=== PATIENT | female | born 1960 | race Caucasian/White ===

== ENCOUNTER 2019-02-22 16:35 | Inpatient (IN) | payer MEDICARE ==
[2019-02-22] MEDS ORDERED: Morphine 4 MG/ML VIAL ONE ×2 (17:12→19:00)
[2019-02-22] MEDS ORDERED: Ondansetron PF 4 MG/2 ML Vial ONE (17:12)
[2019-02-22 17:49] LABS: Bilirubin Negative (Negative); Blood, Urine Moderate (Negative); Clarity CLOUDY (Clear); Glucose, Urine (Dipstick) >=1000 mg/dL (Negative); Leukocyte Small (Negative); Nitrite Positive (Negative); Protein, Urine (Dipstick) 300 mg/dL (Neg-Trace); Specific Gravity, Urine 1.028 (1.002-1.036)
[2019-02-22 17:51] LABS: Bacteria/HPF 3+ HPF (None Seen); Hyaline Casts/LPF 4-6 HYALINE CAST LPF (0-3 Hyaline); Pathc Cast-AUWi Flag 1.63 (0-2.49); Squamous Epithelial 0-3 HPF (0-3)
[2019-02-22] MEDS ORDERED: cefTRIAXone\\ROCEPHIN 1 GM VIAL ONE (18:05)
[2019-02-22] MEDS ORDERED: Sodium Chloride 0.9% 100 ML ONE (18:05)
[2019-02-22 18:09] LABS: #Eosinphils 0.1 thou/uL (0.0-0.7); #Lymphocytes 0.9 thou/uL (1.20-3.40); #Monocytes 0.8 thou/uL (0.11-0.59); #Neutrophils 11.1 thou/uL (1.40-6.50); %Basophils 0.2 % (0.0-1.0); %Eosinophils 0.4 % (0.0-10.0); %Lymphocytes 6.7 % (21.0-51.0); %Monocytes 5.8 % (0.0-10.0); %Neutrophils 86.8 % (42.0-75.0); Hemoglobin 12.6 g/dL (12.0-16.0); Mean Corpuscular HGB CONC 32.1 g/dL (32.0-36.0); Mean Corpuscular Hemoglobin 28.6 pg (27.0-31.0); Mean Corpuscular Volume 89.2 fL (78.0-98.0); Mean Platelet Volume 7.2 fL (7.4-10.4); Platelet Count 287 thou/uL (130-400); RBC Distribution Width 11.8 % (11.5-14.5); Red Blood Cell (RBC) Count 4.41 mill/uL (4.20-5.40); White Blood Cell (WBC) Count 12.8 thou/uL (4.8-10.8)
[2019-02-22 18:29] LABS: ALT (SGPT) Less than 7 U/L (8-55); AST (SGOT) 7 U/L (5-34); Albumin 3.4 g/dL (3.5-5.0); Alkaline Phosphatase 76 U/L (40-150); Anion Gap 17 mmol/L (10-20); BUN (Urea Nitrogen) 40 mg/dL (9.8-20.1); Bilirubin, Total 0.9 mg/dL (0.2-1.2); Calc. Creatinine Clearance 0 mL/min (70-130); Calcium 9.5 mg/dL (7.8-10.44); Carbon Dioxide 24 mmol/L (22-29); Chloride 93 mmol/L (98-107); Estimated GFR-MDRD 22; Globulin 3.8 g/dL (2.4-3.5); Potassium 3.9 mmol/L (3.5-5.1); Protein, Total 7.2 g/dL (6.0-8.3); Sodium 130 mmol/L (136-145)
[2019-02-22 18:38] LABS: Glucose 664 mg/dL (70-105)
[2019-02-22] MEDS ORDERED: Insulin Regular 300 UNITS/3 ML VIAL ONE (18:45)
--- NOTE | 2019-02-22 20:31 | HP ---
PRIMARY CARE PHYSICIAN: Dr. Loren Mata in [place]. CHIEF COMPLAINT: Sudden onset of low back pain on the right side. HISTORY OF PRESENT ILLNESS: Ms. Blair is a pleasant 58-year-old female, who has a history of hypertension, coronary artery disease, and diabetes. She says she normally has chronic low back pain on her left side, but then around 3 p.m., she suddenly had the onset of severe back pain on the right side. She says that it was constant and it was about a 9/10. It was not provoked by anything, and currently it is only relieved with medication that she has received in the emergency room. She denies having any nausea, vomiting, no fever, but she has had some shaking chills. She also admits to having some burning with urination, which started yesterday and noticed increased urinary frequency for the past couple of weeks. She says the pain was so severe that, when she went to the bathroom, she was hardly able to stand up and needed the help of her daughter in order to stand and this along with the pain was the reason she came to the emergency room. In the ER, she had lab work done and she had findings consistent with a urinary tract infection as well as an elevated white blood cell count and an elevated glucose as well as an elevated creatinine. She is being admitted for urinary tract infection with sepsis and acute kidney injury. REVIEW OF SYSTEMS: She has a history of coronary artery disease, but denies having any symptoms of chest pain or shortness of breath. No PND or orthopnea. She did have chest pain when she had her bypass a few years back. Otherwise, all other systems are negative except for that mentioned in the history of present illness. PAST MEDICAL HISTORY: Significant for hypertension, coronary artery disease, diabetes mellitus, hyperlipidemia, anxiety, depression, and chronic back pain. PAST SURGICAL HISTORY: She has had a four-vessel bypass as well as surgery on her C-spine. ALLERGIES: NO KNOWN DRUG ALLERGIES. SOCIAL HISTORY: She admits that she continues to smoke a few cigarettes a day about a pack a week and she has done this for about 20 years. She denies any alcohol or drug use. She is , has 2 children. She would like to be a full code. Her daughter, Meri Salinas, is her surrogate decision maker. FAMILY HISTORY: Significant for diabetes mellitus in her father. CURRENT MEDICATIONS: Include: 1. Carvedilol 6.25 mg twice a day. 2. Aspirin 81 mg daily. 3. Humalog insulin. 4. Abilify 5 mg daily. 5. Vitamin D 50,000 units daily. 6. . 7. Trazodone 100 mg daily. 8. Levemir insulin 50 in the morning and 50 in the evening. 9. Isosorbide mononitrate 30 mg daily. 10. Lisinopril/hydrochlorothiazide 20/12.5 once a day. 11. . 12. Crestor 10 mg daily. PHYSICAL EXAMINATION: GENERAL: She is alert and oriented. She does look ill in appearance. She is well-developed and morbidly obese. VITAL SIGNS: Blood pressure was 188/96, heart rate is 107, respiratory rate of 20, and temperature was 99. HEENT: Her pupils are equal, round, and reactive to light. Extraocular muscles are intact. Her sclerae anicteric. Throat; there is no erythema, no exudates. NECK: No adenopathy. No bruits. LUNGS: Clear to auscultation. There is no wheezing. No rales. No rhonchi. CARDIOVASCULAR: She had a normal S1, S2. There is no S3 or S4. No murmurs, clicks, or rubs. ABDOMEN: Obese. It is soft, nontender, and nondistended. Positive for bowel sounds. No appreciable organomegaly. EXTREMITIES: There is no clubbing or cyanosis. No edema. No calf tenderness. No joint effusions. NEUROLOGIC: Her cranial nerves 2 through 12 are grossly intact. Muscle strength is 5/5 in both upper and lower extremities. SKIN AND INTEGUMENT: She has some erythema and skin maceration in the folds in the lower abdomen and in the groin area with some odor. LABORATORY DATA: White blood cell count was 12.8, hemoglobin 12.9, hematocrit was 39.3, and platelet count was 287. Sodium 130, potassium 3.9, chloride was 93, CO2 was 24, BUN of 40, creatinine 2.23, glucose was 664. Lactic acid is 3.7. Urinalysis, nitrite positive, white blood cell count is too numerous to count, and 3+ bacteria. ASSESSMENT: 1. This is a pleasant 58-year-old female, who presents with a sudden onset of back pain. She has findings consistent with urinary tract infection. However, given the back pain and fever, I suspect she has pyelonephritis. She could also have nephrolithiasis as well. She also has acute kidney injury. Her creatinine is elevated above her baseline level that was seen about a year ago, and she also has elevated blood glucose, but no signs of diabetic ketoacidosis. She will be admitted to the medical floor, started on IV antibiotics as well as fluid resuscitation. Urine culture has been done from the ER, and we will repeat her lactic acid since this was elevated, and she did meet sepsis criteria and therefore has a urinary tract infection with sepsis. 2. Acute kidney injury. I suspect this is likely volume dependent, and hopefully, this will improve with hydration. We will also get a renal ultrasound since her creatinine was too high to do a CT. If there is any sign of hydronephrosis, then a CT stone protocol can be done to rule out nephrolithiasis. 3. Diabetes mellitus, uncontrolled. We will place her on some long-acting insulin as well as a sliding scale and aggressively bring her blood glucose down. 4. Coronary artery disease. This appears to be clinically stable. We will continue her usual home medications with the exception of the lisinopril/hydrochlorothiazide due to the acute kidney injury. 5. Hypertension. Blood pressure is elevated. We will restart her home medicines with the exception of the lisinopril/hydrochlorothiazide and treat her with p.r.n. medications as needed. Job ID: [id number]
[2019-02-22] MEDS ORDERED: hydrALAZINE 20 MG/ML VIAL SLOW IVP PRN (20:47)
[2019-02-22] MEDS ORDERED: Dextrose 50% Abboject 50 ML SYRINGE SLOW IVP PRN (20:47)
[2019-02-22] MEDS ORDERED: Dextrose 5% in Water 1,000 ML IV PRN (20:47)
[2019-02-22] MEDS ORDERED: Ondansetron PF 4 MG/2 ML Vial IVP PRN (20:47)
[2019-02-22] MEDS ORDERED: HumaLOG 300 UNITS/3 ML VIAL SC PRN (20:47)
[2019-02-22] MEDS ORDERED: Ondansetron ODT 4 MG TAB PO PRN (20:47)
[2019-02-22] MEDS ORDERED: Acetaminophen 325 MG TAB PO PRN (20:47)
[2019-02-22] MEDS ORDERED: Insulin Glargine 60 UNITS in Pre-Filled Syringe 1 EACH SC SCH (21:00)
[2019-02-22 21:34] VITALS: BMI 43.7
[2019-02-22 22:04] LABS: Lactic Acid 1.4 mmol/L (0.5-2.2)
[2019-02-22] MEDS: Carvedilol 6.25 MG TAB PO SCH (22:12)
[2019-02-22] MEDS: Atorvastatin Calcium 40 MG TAB PO SCH (22:12)
[2019-02-22] MEDS: Famotidine 20 MG TAB PO SCH (22:12)
[2019-02-22] MEDS: Nystatin Powder 15 GM BOT TOP SCH (22:13)
[2019-02-22] MEDS: Sodium Chloride 0.9% 1,000 ML IV SCH (22:13)
[2019-02-22] MEDS: Nicotine 14 MG PATCH TD SCH (22:14)
[2019-02-22] MEDS: Heparin 5,000 UNITS/ML VIAL SC SCH (22:16)
[2019-02-22] MEDS: HYDROcodone/Acetaminophen 5/325 mg Tablet PO PRN (22:19)
[2019-02-23] MEDS: Sodium Chloride 0.9% 1,000 ML IV SCH ×3 (05:27→21:36)
[2019-02-23] MEDS: HumaLOG 300 UNITS/3 ML VIAL SC PRN ×3 (05:27→17:38)
[2019-02-23 06:45] LABS: #Eosinphils 0.1 thou/uL (0.0-0.7); #Lymphocytes 1.7 thou/uL (1.20-3.40); #Monocytes 0.7 thou/uL (0.11-0.59); %Basophils 0.4 % (0.0-1.0); %Eosinophils 1.3 % (0.0-10.0); %Neutrophils 70.3 % (42.0-75.0); Hemoglobin 12.4 g/dL (12.0-16.0); Mean Corpuscular HGB CONC 32.6 g/dL (32.0-36.0); Mean Corpuscular Hemoglobin 29.3 pg (27.0-31.0); Mean Corpuscular Volume 89.9 fL (78.0-98.0); Mean Platelet Volume 7.1 fL (7.4-10.4); Platelet Count 240 thou/uL (130-400); RBC Distribution Width 11.9 % (11.5-14.5); Red Blood Cell (RBC) Count 4.22 mill/uL (4.20-5.40); White Blood Cell (WBC) Count 8.5 thou/uL (4.8-10.8)
[2019-02-23 07:02] LABS: Hemoglobin A1c 12.6 % (4.0-6.0)
[2019-02-23] MEDS: HYDROcodone/Acetaminophen 5/325 mg Tablet PO PRN ×4 (07:17→21:36)
[2019-02-23 07:30] LABS: Chloride 106 mmol/L (98-107); Potassium 4.6 mmol/L (3.5-5.1); Sodium 133 mmol/L (136-145)
[2019-02-23 07:31] LABS: Calcium 8.8 mg/dL (7.8-10.44); Glucose 210 mg/dL (70-105)
[2019-02-23 07:33] LABS: Anion Gap 16 mmol/L (10-20); Carbon Dioxide 16 mmol/L (22-29)
[2019-02-23 07:34] LABS: Calc. Creatinine Clearance 70 mL/min (70-130); Estimated GFR-MDRD 30
[2019-02-23 07:35] LABS: BUN (Urea Nitrogen) 35 mg/dL (9.8-20.1)
[2019-02-23] MEDS: Carvedilol 6.25 MG TAB PO SCH ×2 (07:39→21:37)
[2019-02-23] MEDS: Heparin 5,000 UNITS/ML VIAL SC SCH ×3 (07:42→21:41)
[2019-02-23] MEDS: Famotidine 20 MG TAB PO SCH ×2 (07:42→21:37)
[2019-02-23] MEDS: Nystatin Powder 15 GM BOT TOP SCH ×2 (07:43→21:38)
--- NOTE | 2019-02-23 07:53 | ULT ---
BILATERAL RENAL ULTRASOUND: Date: 02/23/19 INDICATION: Back pain with history of UTI. COMPARISON: Prior CTA of thorax dated 03/18/16. FINDINGS: Left kidney measures 11.5 x 5.6 x 4.6 cm. Right kidney measures 13.5 x 5.1 x 5.1 cm. There are bilate ral ureteral jets seen at the level of the bladder. No hydronephrosis evident. There is a small suspe cted 6 mm stone within the left mid kidney. No free fluid is evident. IMPRESSION: 1. No focal solid renal lesion or hydronephrosis. 2. Suspected left nephrolithiasis. POS: BH
[2019-02-23] MEDS ORDERED: Diabetic Tussin 200 MG/10 ML UDCUP PO PRN (08:20)
[2019-02-23] MEDS ORDERED: Loratadine 10 MG TAB PO PRN (08:20)
[2019-02-23] MEDS ORDERED: Nitroglycerin 0.4 MG TAB (25 Tab Bottle) SL PRN (08:20)
[2019-02-23] MEDS ORDERED: Calcium Carbonate 500 MG ChewTAB PO PRN (08:20)
[2019-02-23] MEDS ORDERED: Sodium Chloride 0.65% Nasal 44 ML BOT EA NARE PRN (08:20)
[2019-02-23] MEDS ORDERED: Cepastat Lozenges 1 LOZ PO PRN (08:20)
[2019-02-23] MEDS ORDERED: Bisacodyl 10 MG SUPP PR PRN (08:20)
[2019-02-23] MEDS ORDERED: Eucerin (Mineral Oil/Petrolatum,White) 30 gm Jar TOP PRN (08:20)
[2019-02-23] MEDS ORDERED: Loperamide HCl 2 MG CAP PO PRN (08:20)
[2019-02-23] MEDS ORDERED: Artificial Tears 18 DROP/0.9 ML EA EYE PRN (08:20)
[2019-02-23] MEDS ORDERED: Zolpidem Tartrate 5 MG TAB PO PRN (08:20)
[2019-02-23] MEDS ORDERED: Senokot S 8.6-50 MG TAB PO PRN (08:20)
[2019-02-23] MEDS ORDERED: Aspirin 325 mg Enteric Coated Tablet PO SCH (09:00)
[2019-02-23] MEDS: Lisinopril/Hydrochlorothiazide 20 mg/12.5 mg Tablet PO SCH (10:51)
[2019-02-23] MEDS: Ascorbic Acid 500 mg Chewable Tablet PO SCH (10:52)
[2019-02-23] MEDS: Aspirin 81 mg Enteric Coated Tablet PO SCH (10:52)
--- NOTE | 2019-02-23 10:53 | PDOC.PN ---
- Subjective Encounter Start Date: 02/23/19 Encounter Start Time: 08:40 -: old records requested/rev Patient seen and examined. No new complaints. No overnight events - Objective Resuscitation Status - Order Detail: 02/22/19 19:29 Resuscitation Status Routine Resuscitation Status: FULL: Full Resuscitation MAR Reviewed: Yes Vital Signs & Weight: Vital Signs (12 hours) Temp Pulse Resp BP BP Pulse Ox 02/23/19 07:53 97 02/23/19 07:52 97.7 F 73 16 137/81 97 02/23/19 07:39 137/81 02/23/19 04:29 98.2 F 74 18 144/74 H 94 L 02/23/19 00:53 98.7 F 89 18 164/79 H 95 Weight Weight 279 lb 6.4 oz Result Diagrams: 02/23/19 06:18 02/23/19 06:18 Additional Labs: Accuchecks 02/23/19 02/23/19 02/23/19 07:40 04:33 00:47 POC Glucose 126 H 273 H 370 H 02/22/19 02/22/19 22:22 19:38 POC Glucose 378 H 427 H Phys Exam - Physical Examination Constitutional: NAD HEENT: PERRLA, moist MMs, sclera anicteric Neck: no JVD, supple Respiratory: no wheezing, no rales, no rhonchi Cardiovascular: RRR, no significant murmur, no rub Gastrointestinal: soft, non-tender, no distention, positive bowel sounds Musculoskeletal: no edema, pulses present Neurological: moves all 4 limbs Lymphatic: no nodes Psychiatric: normal affect, A&O x 3 Skin: no rash, normal turgor Dx/Plan (1) Acute pyelonephritis Code(s): N10 - ACUTE PYELONEPHRITIS Status: Acute (2) Acute worsening of stage 3 chronic kidney disease Code(s): N18.3 - CHRONIC KIDNEY DISEASE, STAGE 3 (MODERATE) Status: Acute (3) CAD (coronary artery disease) Code(s): I25.10 - ATHSCL HEART DISEASE OF [place] CORONARY ARTERY W/O ANG PCTRS Status: Chronic (4) Chronic back pain Code(s): M54.9 - DORSALGIA, UNSPECIFIED; G89.29 - OTHER CHRONIC PAIN Status: Chronic (5) Diabetes mellitus type 2, uncontrolled Code(s): E11.65 - TYPE 2 DIABETES MELLITUS WITH HYPERGLYCEMIA Status: Chronic (6) Hx of pulmonary embolus Code(s): Z86.711 - PERSONAL HISTORY OF PULMONARY EMBOLISM Status: Chronic (7) Hyperlipidemia Code(s): E78.5 - HYPERLIPIDEMIA, UNSPECIFIED Status: Chronic (8) Hypertension Code(s): I10 - ESSENTIAL (PRIMARY) HYPERTENSION Status: Chronic (9) Morbid obesity with BMI of 40.0-44.9, adult Code(s): E66.01 - MORBID (SEVERE) OBESITY DUE TO EXCESS CALORIES; Z68.41 - BODY MASS INDEX (BMI) 40.0-44.9, ADULT Status: Chronic - Plan cont current plan of care, continue antibiotics * medication reviewed as below * symptomatic treatment * continue IV antibiotics, rocephin and levaquin * follow culture. * home meds reconciled Review of Systems - Review of Systems ENT: negative: Ear Pain, Ear Discharge, Nose Pain, Nose Discharge, Nose Congestion, Mouth Pain, Mouth Swelling, Throat Pain, Throat Swelling, Other Respiratory: negative: Cough, Dry, Shortness of Breath, Hemoptysis, SOB with Excertion, Pleuritic Pain, Sputum, Wheezing Cardiovascular: negative: chest pain, palpitations, orthopnea, paroxysmal nocturnal dyspnea, edema, light headedness, other Gastrointestinal: negative: Nausea, Vomiting, Abdominal Pain, Diarrhea, Constipation, Melena, Hematochezia, Other Genitourinary: negative: Dysuria, Frequency, Incontinence, Hematuria, Retention , Other Musculoskeletal: negative: Neck Pain, Shoulder Pain, Arm Pain, Back Pain, Hand Pain, Leg Pain, Foot Pain, Other Skin: negative: Rash, Lesions, Janak, Bruising, Other - Medications/Allergies Allergies/Adverse Reactions: Allergies Allergy/AdvReac Type Severity Reaction Status Date / Time No Known Allergies Allergy Verified 03/18/16 03:31 Medications: Current Medications Acetaminophen (Tylenol) 650 mg PO Q4H PRN PRN Reason: Headache/Fever/Mild Pain (1-3) Hydrocodone Bitart/Acetaminophen ([place] 5/325) 1 tab PO Q4H PRN PRN Reason: Moderate Pain (4-6) Last Admin: 02/23/19 10:51 Dose: 1 tab Aripiprazole (Abilify) 5 mg PO HS [facility] Artificial Tears (Tears Naturale) 2 drop EA EYE PRN PRN PRN Reason: Dry Eyes Ascorbic Acid (Vitamin C) 500 mg PO DAILY [facility] Last Admin: 02/23/19 10:52 Dose: 500 mg Aspirin (Ecotrin) 81 mg PO DAILY [facility] Last Admin: 02/23/19 10:52 Dose: 81 mg Atorvastatin Calcium (Lipitor) 40 mg PO HS [facility] Last Admin: 02/22/19 22:12 Dose: 40 mg Bisacodyl (Dulcolax) 10 mg SC DAILYPRN PRN PRN Reason: Constipation Calcium Carbonate (Tums) 1,000 mg PO Q4H PRN PRN Reason: Heartburn or Indigestion Carvedilol (Coreg) 6.25 mg PO BID [facility] Last Admin: 02/23/19 07:39 Dose: 6.25 mg Cholecalciferol (Vitamin D3) 5,000 units PO DAILY [facility] Last Admin: 02/23/19 10:52 Dose: 5,000 units Clonidine (Catapres) 0.1 mg PO Q4H PRN PRN Reason: SBP GREATER THAN 160 Dextrose/Water (Dextrose 50%) 25 gm SLOW IVP PRN PRN PRN Reason: Hypoglycemia Famotidine (Pepcid) 20 mg PO BID [facility] Last Admin: 02/23/19 07:42 Dose: 20 mg Glucagon (Glucagon) 1 mg IM PRN PRN PRN Reason: Hypoglycemia Guaifenesin (Robitussin Sf) 200 mg PO Q4H PRN PRN Reason: Cough Lisinopril/HCTZ (Prinizide 20-12.5) 1 tab PO DAILY [facility] Last Admin: 02/23/19 10:51 Dose: 1 tab Heparin Sodium (Porcine) (Heparin) 5,000 units SC TID [facility] Last Admin: 02/23/19 07:42 Dose: 5,000 units Hydralazine HCl (Apresoline) 10 mg SLOW IVP Q4H PRN PRN Reason: SBP > 180 and HR < 70 Ceftriaxone Sodium 1 gm/ (Sodium Chloride) 100 mls @ 200 mls/hr IVPB Q24HR [facility] Dextrose/Water (D5w) 1,000 mls @ 0 mls/hr IV .Q0M PRN PRN Reason: Hypoglycemia Insulin Glargine 50 units/ (Miscellaneous Medication) 0.5 mls @ 0 mls/hr SC QAM [facility] Levofloxacin 500 mg/ Device 100 mls @ 100 mls/hr IVPB Q24HR [facility] Last Admin: 02/22/19 22:13 Dose: 100 mls Sodium Chloride (Normal Saline 0.9%) 1,000 mls @ 125 mls/hr IV .Q8H [facility] Last Admin: 02/23/19 05:27 Dose: 1,000 mls Insulin Glargine 58 units/ (Miscellaneous Medication) 0.58 mls @ 0 mls/hr SC [facility] Insulin Human Lispro (Humalog) 0 units SC .AGGRESSIVE SLIDING PRN PRN Reason: Aggressive Correctional Scale Last Admin: 02/23/19 05:27 Dose: 9 unit Insulin Human Lispro (Humalog) 0 units SC .BEDTIME SLIDING SC PRN PRN Reason: Bedtime Correctional Scale Isosorbide Mononitrate (Imdur Er) 30 mg PO DAILY [facility] Last Admin: 02/23/19 07:42 Dose: 30 mg Loperamide HCl (Imodium) 2 mg PO PRN PRN PRN Reason: Diarrhea/Loose Stools Loratadine (Claritin) 10 mg PO DAILYPRN PRN PRN Reason: Sinus Symptoms Mineral Oil/White Petrolatum (Eucerin Cream) 0 gm TOP BIDPRN PRN PRN Reason: Dry Skin Nicotine (Nicoderm Patch) 14 mg TD Q24HR [facility] Last Admin: 02/22/19 22:14 Dose: 14 mg Nitroglycerin (Nitrostat) 0.4 mg SL Q5MIN PRN PRN Reason: Chest Pain (Vortioxetine Hydrobromide [ Trintellix] 20 Mg) 20 mg PO DAILY [facility] Nystatin (Mycostatin Powder) 1 gm TOP BID [facility] Last Admin: 02/23/19 07:43 Dose: 1 applic Ondansetron HCl (Zofran Odt) 4 mg PO Q6H PRN PRN Reason: Nausea/Vomiting Ondansetron HCl (Zofran) 4 mg IVP Q6H PRN PRN Reason: Nausea/Vomiting Senna/Docusate Sodium (Senokot S) 2 tab PO BID PRN PRN Reason: Constipation Sodium Chloride ([place] Nasal [place] 0.65%) 0 ml EA NARE QIDPRN PRN PRN Reason: Nasal Congestion Throat Lozenges (Cepastat Lozenges) 1 srikanth PO Q2H PRN PRN Reason: Sore Throat Trazodone HCl (Desyrel) 100 mg PO HS [facility] Last Admin: 02/22/19 22:12 Dose: 100 mg Zolpidem Tartrate (Ambien) 5 mg PO HSPRN PRN PRN Reason: Insomnia
[2019-02-23] MEDS: cloNIDine 0.1 MG TAB PO PRN ×2 (12:48→17:38)
[2019-02-23] MEDS: Insulin Glargine 50 UNITS in Pre-Filled Syringe 1 EACH SC SCH (14:06)
[2019-02-23] MEDS: cefTRIAXone\\ROCEPHIN 1 GM in Sodium Chloride 0.9% 100 ML IVPB SCH (17:37)
[2019-02-23] MEDS ORDERED: INSULIN DETEMIR SC SCH (21:00)
[2019-02-23] MEDS: Atorvastatin Calcium 40 MG TAB PO SCH (21:38)
[2019-02-23] MEDS: Insulin Glargine 58 UNITS in Pre-Filled Syringe 1 EACH SC SCH (21:41)
[2019-02-23] MEDS: Nicotine 14 MG PATCH TD SCH (21:50)
[2019-02-24] MEDS: Sodium Chloride 0.9% 1,000 ML IV SCH ×4 (04:39→20:17)
[2019-02-24] MEDS: HYDROcodone/Acetaminophen 5/325 mg Tablet PO PRN ×5 (04:55→22:23)
[2019-02-24 08:12] LABS: #Eosinphils 0.2 thou/uL (0.0-0.7); #Lymphocytes 1.8 thou/uL (1.20-3.40); #Monocytes 0.7 thou/uL (0.11-0.59); #Neutrophils 5.4 thou/uL (1.40-6.50); %Basophils 0.5 % (0.0-1.0); %Eosinophils 2.9 % (0.0-10.0); %Lymphocytes 22.2 % (21.0-51.0); %Neutrophils 66.4 % (42.0-75.0); Hemoglobin 12.7 g/dL (12.0-16.0); Mean Corpuscular HGB CONC 32.5 g/dL (32.0-36.0); Mean Corpuscular Hemoglobin 28.6 pg (27.0-31.0); Mean Corpuscular Volume 88.2 fL (78.0-98.0); Mean Platelet Volume 6.9 fL (7.4-10.4); Platelet Count 245 thou/uL (130-400); Red Blood Cell (RBC) Count 4.42 mill/uL (4.20-5.40); White Blood Cell (WBC) Count 8.1 thou/uL (4.8-10.8)
[2019-02-24 08:24] LABS: Anion Gap 16 mmol/L (10-20); BUN (Urea Nitrogen) 30 mg/dL (9.8-20.1); Calc. Creatinine Clearance 75 mL/min (70-130); Calcium 9.2 mg/dL (7.8-10.44); Carbon Dioxide 20 mmol/L (22-29); Chloride 106 mmol/L (98-107); Estimated GFR-MDRD 33; Glucose 126 mg/dL (70-105); Potassium 3.9 mmol/L (3.5-5.1); Sodium 138 mmol/L (136-145)
[2019-02-24] MEDS: Heparin 5,000 UNITS/ML VIAL SC SCH ×3 (09:11→20:10)
[2019-02-24] MEDS: Carvedilol 6.25 MG TAB PO SCH ×2 (09:11→20:09)
[2019-02-24] MEDS: Aspirin 81 mg Enteric Coated Tablet PO SCH (09:11)
[2019-02-24] MEDS: Insulin Glargine 50 UNITS in Pre-Filled Syringe 1 EACH SC SCH (09:12)
[2019-02-24] MEDS: Lisinopril/Hydrochlorothiazide 20 mg/12.5 mg Tablet PO SCH (09:12)
[2019-02-24] MEDS: Ascorbic Acid 500 mg Chewable Tablet PO SCH (09:12)
[2019-02-24] MEDS: Nystatin Powder 15 GM BOT TOP SCH ×2 (09:12→20:39)
[2019-02-24] MEDS: Famotidine 20 MG TAB PO SCH ×2 (12:25→20:10)
--- NOTE | 2019-02-24 13:26 | PDOC.PN ---
- Subjective Encounter Start Date: 02/24/19 Encounter Start Time: 08:00 Patient seen and examined. No new complaints. No overnight events - Objective Resuscitation Status - Order Detail: 02/22/19 19:29 Resuscitation Status Routine Resuscitation Status: FULL: Full Resuscitation MAR Reviewed: Yes Vital Signs & Weight: Vital Signs (12 hours) Temp Pulse Resp BP BP BP Pulse Ox 02/24/19 11:28 98.1 F 87 18 140/92 H 95 02/24/19 09:12 74 155/83 H 02/24/19 09:11 155/83 H 02/24/19 08:00 99 02/24/19 07:14 97.8 F 74 19 155/83 H 99 02/24/19 04:00 97.8 F 63 20 139/80 98 Weight Weight 279 lb 6.4 oz I&O: 02/23/19 02/24/19 02/25/19 06:59 06:59 06:59 Intake Total 4380 Balance 4380 Result Diagrams: 02/24/19 07:53 02/24/19 07:53 Additional Labs: Accuchecks 02/24/19 02/24/19 02/24/19 11:31 05:17 00:29 POC Glucose 223 H 126 H 175 H 02/23/19 02/23/19 20:42 17:01 POC Glucose 215 H 286 H Phys Exam - Physical Examination Constitutional: NAD HEENT: PERRLA, moist MMs, sclera anicteric Neck: no JVD, supple Respiratory: no wheezing, no rales, no rhonchi Cardiovascular: RRR, no significant murmur, no rub Gastrointestinal: soft, non-tender, no distention, positive bowel sounds Musculoskeletal: no edema, pulses present Neurological: non-focal, normal sensation, moves all 4 limbs Lymphatic: no nodes Psychiatric: normal affect, A&O x 3 Skin: no rash, normal turgor Dx/Plan (1) Acute pyelonephritis Code(s): N10 - ACUTE PYELONEPHRITIS Status: Acute (2) Acute worsening of stage 3 chronic kidney disease Code(s): N18.3 - CHRONIC KIDNEY DISEASE, STAGE 3 (MODERATE) Status: Acute (3) CAD (coronary artery disease) Code(s): I25.10 - ATHSCL HEART DISEASE OF [place] CORONARY ARTERY W/O ANG PCTRS Status: Chronic (4) Chronic back pain Code(s): M54.9 - DORSALGIA, UNSPECIFIED; G89.29 - OTHER CHRONIC PAIN Status: Chronic (5) Diabetes mellitus type 2, uncontrolled Code(s): E11.65 - TYPE 2 DIABETES MELLITUS WITH HYPERGLYCEMIA Status: Chronic (6) Hx of pulmonary embolus Code(s): Z86.711 - PERSONAL HISTORY OF PULMONARY EMBOLISM Status: Chronic (7) Hyperlipidemia Code(s): E78.5 - HYPERLIPIDEMIA, UNSPECIFIED Status: Chronic (8) Hypertension Code(s): I10 - ESSENTIAL (PRIMARY) HYPERTENSION Status: Chronic (9) Morbid obesity with BMI of 40.0-44.9, adult Code(s): E66.01 - MORBID (SEVERE) OBESITY DUE TO EXCESS CALORIES; Z68.41 - BODY MASS INDEX (BMI) 40.0-44.9, ADULT Status: Chronic - Plan cont current plan of care, continue antibiotics * pt is improving, continue one more day iv antibiotics * will consider discharge tomorrow * medication reviewed as below * symptomatic treatment. Review of Systems - Review of Systems ENT: negative: Ear Pain, Ear Discharge, Nose Pain, Nose Discharge, Nose Congestion, Mouth Pain, Mouth Swelling, Throat Pain, Throat Swelling, Other Respiratory: negative: Cough, Dry, Shortness of Breath, Hemoptysis, SOB with Excertion, Pleuritic Pain, Sputum, Wheezing Cardiovascular: negative: chest pain, palpitations, orthopnea, paroxysmal nocturnal dyspnea, edema, light headedness, other Gastrointestinal: negative: Nausea, Vomiting, Abdominal Pain, Diarrhea, Constipation, Melena, Hematochezia, Other Genitourinary: negative: Dysuria, Frequency, Incontinence, Hematuria, Retention , Other Musculoskeletal: negative: Neck Pain, Shoulder Pain, Arm Pain, Back Pain, Hand Pain, Leg Pain, Foot Pain, Other - Medications/Allergies Allergies/Adverse Reactions: Allergies Allergy/AdvReac Type Severity Reaction Status Date / Time No Known Allergies Allergy Verified 03/18/16 03:31 Medications: Current Medications Acetaminophen (Tylenol) 650 mg PO Q4H PRN PRN Reason: Headache/Fever/Mild Pain (1-3) Hydrocodone Bitart/Acetaminophen ([place] 5/325) 1 tab PO Q4H PRN PRN Reason: Moderate Pain (4-6) Last Admin: 02/24/19 13:22 Dose: 1 tab Aripiprazole (Abilify) 5 mg PO HS [facility] Artificial Tears (Tears Naturale) 2 drop EA EYE PRN PRN PRN Reason: Dry Eyes Ascorbic Acid (Vitamin C) 500 mg PO DAILY [facility] Last Admin: 02/24/19 09:12 Dose: 500 mg Aspirin (Ecotrin) 81 mg PO DAILY [facility] Last Admin: 02/24/19 09:11 Dose: 81 mg Atorvastatin Calcium (Lipitor) 40 mg PO HS [facility] Last Admin: 02/23/19 21:38 Dose: 40 mg Bisacodyl (Dulcolax) 10 mg [place] DAILYPRN PRN PRN Reason: Constipation Calcium Carbonate (Tums) 1,000 mg PO Q4H PRN PRN Reason: Heartburn or Indigestion Carvedilol (Coreg) 6.25 mg PO BID [facility] Last Admin: 02/24/19 09:11 Dose: 6.25 mg Cholecalciferol (Vitamin D3) 5,000 units PO DAILY [facility] Last Admin: 02/24/19 09:11 Dose: 5,000 units Clonidine (Catapres) 0.1 mg PO Q4H PRN PRN Reason: SBP GREATER THAN 160 Last Admin: 02/23/19 17:38 Dose: 0.1 mg Dextrose/Water (Dextrose 50%) 25 gm SLOW IVP PRN PRN PRN Reason: Hypoglycemia Famotidine (Pepcid) 20 mg PO BID [facility] Last Admin: 02/24/19 12:25 Dose: 20 mg Glucagon (Glucagon) 1 mg IM PRN PRN PRN Reason: Hypoglycemia Guaifenesin (Robitussin Sf) 200 mg PO Q4H PRN PRN Reason: Cough Lisinopril/HCTZ (Prinizide 20-12.5) 1 tab PO DAILY [facility] Last Admin: 02/24/19 09:12 Dose: 1 tab Heparin Sodium (Porcine) (Heparin) 5,000 units SC TID [facility] Last Admin: 02/24/19 09:11 Dose: 5,000 units Hydralazine HCl (Apresoline) 10 mg SLOW IVP Q4H PRN PRN Reason: SBP > 180 and HR < 70 Ceftriaxone Sodium 1 gm/ (Sodium Chloride) 100 mls @ 200 mls/hr IVPB Q24HR [facility] Last Admin: 02/23/19 17:37 Dose: 100 mls Dextrose/Water (D5w) 1,000 mls @ 0 mls/hr IV .Q0M PRN PRN Reason: Hypoglycemia Insulin Glargine 50 units/ (Miscellaneous Medication) 0.5 mls @ 0 mls/hr SC QAM [facility] Last Admin: 02/24/19 09:12 Dose: 0.5 mls Levofloxacin 500 mg/ Device 100 mls @ 100 mls/hr IVPB Q24HR [facility] Last Admin: 02/23/19 21:50 Dose: 100 mls Sodium Chloride (Normal Saline 0.9%) 1,000 mls @ 125 mls/hr IV .Q8H [facility] Last Admin: 02/24/19 09:10 Dose: 1,000 mls Insulin Glargine 58 units/ (Miscellaneous Medication) 0.58 mls @ 0 mls/hr SC HS [facility] Last Admin: 02/23/19 21:41 Dose: 0.58 mls Insulin Human Lispro (Humalog) 0 units SC .AGGRESSIVE SLIDING PRN PRN Reason: Aggressive Correctional Scale Last Admin: 02/23/19 17:38 Dose: 9 unit Insulin Human Lispro (Humalog) 0 units SC .BEDTIME SLIDING SC PRN PRN Reason: Bedtime Correctional Scale Last Admin: 02/23/19 21:42 Dose: 2 unit Isosorbide Mononitrate (Imdur Er) 30 mg PO DAILY [facility] Last Admin: 02/24/19 09:11 Dose: 30 mg Loperamide HCl (Imodium) 2 mg PO PRN PRN PRN Reason: Diarrhea/Loose Stools Loratadine (Claritin) 10 mg PO DAILYPRN PRN PRN Reason: Sinus Symptoms Mineral Oil/White Petrolatum (Eucerin Cream) 0 gm TOP BIDPRN PRN PRN Reason: Dry Skin Nicotine (Nicoderm Patch) 14 mg TD Q24HR [facility] Last Admin: 02/23/19 21:50 Dose: 14 mg Nitroglycerin (Nitrostat) 0.4 mg SL Q5MIN PRN PRN Reason: Chest Pain Nystatin (Mycostatin Powder) 1 gm TOP BID [facility] Last Admin: 02/24/19 09:12 Dose: 1 applic Ondansetron HCl (Zofran Odt) 4 mg PO Q6H PRN PRN Reason: Nausea/Vomiting Ondansetron HCl (Zofran) 4 mg IVP Q6H PRN PRN Reason: Nausea/Vomiting (Vortioxetine Hydrobromide [ Trintellix] 20 Mg) 0 each PO DAILY [facility] Last Admin: 02/24/19 09:13 Dose: 1 each Senna/Docusate Sodium (Senokot S) 2 tab PO BID PRN PRN Reason: Constipation Sodium Chloride ([place] Nasal [place] 0.65%) 0 ml EA NARE QIDPRN PRN PRN Reason: Nasal Congestion Throat Lozenges (Cepastat Lozenges) 1 srikanth PO Q2H PRN PRN Reason: Sore Throat Trazodone HCl (Desyrel) 100 mg PO [facility] Last Admin: 02/23/19 21:38 Dose: 100 mg Zolpidem Tartrate (Ambien) 5 mg PO HSPRN PRN PRN Reason: Insomnia
[2019-02-24] MEDS: HumaLOG 300 UNITS/3 ML VIAL SC PRN (17:35)
[2019-02-24] MEDS: cefTRIAXone\\ROCEPHIN 1 GM in Sodium Chloride 0.9% 100 ML IVPB SCH (17:37)
[2019-02-24] MEDS: Aripiprazole 10 MG TAB PO SCH (20:08)
[2019-02-24] MEDS: Atorvastatin Calcium 40 MG TAB PO SCH (20:08)
[2019-02-24] MEDS: Insulin Glargine 58 UNITS in Pre-Filled Syringe 1 EACH SC SCH (20:11)
[2019-02-24] MEDS: Nicotine 14 MG PATCH TD SCH (20:39)
[2019-02-25] MEDS: Sodium Chloride 0.9% 1,000 ML IV SCH ×3 (04:10→20:23)
[2019-02-25] MEDS: HYDROcodone/Acetaminophen 5/325 mg Tablet PO PRN ×5 (04:18→20:44)
[2019-02-25] MEDS: Lisinopril/Hydrochlorothiazide 20 mg/12.5 mg Tablet PO SCH (08:26)
[2019-02-25] MEDS: Heparin 5,000 UNITS/ML VIAL SC SCH ×3 (08:26→20:10)
[2019-02-25] MEDS: Carvedilol 6.25 MG TAB PO SCH ×2 (08:27→20:10)
[2019-02-25] MEDS: Ascorbic Acid 500 mg Chewable Tablet PO SCH (08:27)
[2019-02-25] MEDS: Famotidine 20 MG TAB PO SCH ×2 (08:27→20:10)
[2019-02-25] MEDS: Aspirin 81 mg Enteric Coated Tablet PO SCH (08:27)
[2019-02-25] MEDS: Nystatin Powder 15 GM BOT TOP SCH ×2 (08:30→20:11)
[2019-02-25] MEDS: HumaLOG 300 UNITS/3 ML VIAL SC PRN (11:43)
[2019-02-25] MEDS: cloNIDine 0.1 MG TAB PO PRN (11:44)
--- NOTE | 2019-02-25 14:38 | PDOC.PN ---
- Subjective Encounter Start Date: 02/25/19 Encounter Start Time: 10:15 Patient seen and examined. No new complaints. No overnight events - Objective Resuscitation Status - Order Detail: 02/22/19 19:29 Resuscitation Status Routine Resuscitation Status: FULL: Full Resuscitation MAR Reviewed: Yes Vital Signs & Weight: Vital Signs (12 hours) Temp Pulse Resp BP BP BP BP 02/25/19 13:16 142/81 H 02/25/19 11:44 198/92 H 02/25/19 11:29 98.3 F 90 18 198/92 H 02/25/19 08:27 181/96 H 02/25/19 08:26 89 181/96 H 02/25/19 08:00 02/25/19 07:53 97.8 F 89 18 181/96 H 02/25/19 04:00 98.0 F 80 20 164/86 H Pulse Ox 02/25/19 13:16 02/25/19 11:44 02/25/19 11:29 95 02/25/19 08:27 02/25/19 08:26 02/25/19 08:00 97 02/25/19 07:53 97 02/25/19 04:00 98 Weight Weight 279 lb 6.4 oz I&O: 02/24/19 02/25/19 02/26/19 06:59 06:59 06:59 Intake Total 4380 2835 Balance 4380 2835 Result Diagrams: 02/24/19 07:53 02/24/19 07:53 Additional Labs: Accuchecks 02/25/19 02/25/19 02/25/19 10:57 04:21 02:11 POC Glucose 226 H 200 H 116 H 02/25/19 02/25/19 02/24/19 01:15 00:08 19:51 POC Glucose 57 L* 73 173 H 02/24/19 16:20 POC Glucose 273 H Phys Exam - Physical Examination Constitutional: NAD HEENT: PERRLA, moist MMs, sclera anicteric Neck: no JVD, supple Respiratory: no wheezing, no rales, no rhonchi Cardiovascular: RRR, no significant murmur, no rub Gastrointestinal: soft, non-tender, no distention, positive bowel sounds Musculoskeletal: no edema, pulses present Neurological: non-focal, normal sensation Lymphatic: no nodes Psychiatric: normal affect, A&O x 3 Skin: no rash, normal turgor Dx/Plan (1) Acute pyelonephritis Code(s): N10 - ACUTE PYELONEPHRITIS Status: Acute (2) Acute worsening of stage 3 chronic kidney disease Code(s): N18.3 - CHRONIC KIDNEY DISEASE, STAGE 3 (MODERATE) Status: Acute (3) CAD (coronary artery disease) Code(s): I25.10 - ATHSCL HEART DISEASE OF [place] CORONARY ARTERY W/O ANG PCTRS Status: Chronic (4) Chronic back pain Code(s): M54.9 - DORSALGIA, UNSPECIFIED; G89.29 - OTHER CHRONIC PAIN Status: Chronic (5) Diabetes mellitus type 2, uncontrolled Code(s): E11.65 - TYPE 2 DIABETES MELLITUS WITH HYPERGLYCEMIA Status: Chronic (6) Hx of pulmonary embolus Code(s): Z86.711 - PERSONAL HISTORY OF PULMONARY EMBOLISM Status: Chronic (7) Hyperlipidemia Code(s): E78.5 - HYPERLIPIDEMIA, UNSPECIFIED Status: Chronic (8) Hypertension Code(s): I10 - ESSENTIAL (PRIMARY) HYPERTENSION Status: Chronic (9) Morbid obesity with BMI of 40.0-44.9, adult Code(s): E66.01 - MORBID (SEVERE) OBESITY DUE TO EXCESS CALORIES; Z68.41 - BODY MASS INDEX (BMI) 40.0-44.9, ADULT Status: Chronic (10) Hypoglycemia associated with type 2 diabetes mellitus Code(s): E11.649 - TYPE 2 DIABETES MELLITUS WITH HYPOGLYCEMIA WITHOUT COMA Status: Acute - Plan cont current plan of care, continue antibiotics, 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 * change lantus to 45 unit sc bid Review of Systems - Review of Systems ENT: negative: Ear Pain, Ear Discharge, Nose Pain, Nose Discharge, Nose Congestion, Mouth Pain, Mouth Swelling, Throat Pain, Throat Swelling, Other Respiratory: negative: Cough, Dry, Shortness of Breath, Hemoptysis, SOB with Excertion, Pleuritic Pain, Sputum, Wheezing Cardiovascular: negative: chest pain, palpitations, orthopnea, paroxysmal nocturnal dyspnea, edema, light headedness, other Gastrointestinal: negative: Nausea, Vomiting, Abdominal Pain, Diarrhea, Constipation, Melena, Hematochezia, Other Genitourinary: negative: Dysuria, Frequency, Incontinence, Hematuria, Retention , Other Musculoskeletal: negative: Neck Pain, Shoulder Pain, Arm Pain, Back Pain, Hand Pain, Leg Pain, Foot Pain, Other - Medications/Allergies Allergies/Adverse Reactions: Allergies Allergy/AdvReac Type Severity Reaction Status Date / Time No Known Allergies Allergy Verified 03/18/16 03:31 Medications: Current Medications Acetaminophen (Tylenol) 650 mg PO Q4H PRN PRN Reason: Headache/Fever/Mild Pain (1-3) Hydrocodone Bitart/Acetaminophen ([place] 5/325) 1 tab PO Q4H PRN PRN Reason: Moderate Pain (4-6) Last Admin: 02/25/19 12:25 Dose: 1 tab Aripiprazole (Abilify) 5 mg PO HS [facility] Last Admin: 02/24/19 20:08 Dose: 5 mg Artificial Tears (Tears Naturale) 2 drop EA EYE PRN PRN PRN Reason: Dry Eyes Ascorbic Acid (Vitamin C) 500 mg PO DAILY [facility] Last Admin: 02/25/19 08:27 Dose: 500 mg Aspirin (Ecotrin) 81 mg PO DAILY [facility] Last Admin: 02/25/19 08:27 Dose: 81 mg Atorvastatin Calcium (Lipitor) 40 mg PO HS [facility] Last Admin: 02/24/19 20:08 Dose: 40 mg Bisacodyl (Dulcolax) 10 mg [place] DAILYPRN PRN PRN Reason: Constipation Calcium Carbonate (Tums) 1,000 mg PO Q4H PRN PRN Reason: Heartburn or Indigestion Carvedilol (Coreg) 6.25 mg PO BID [facility] Last Admin: 02/25/19 08:27 Dose: 6.25 mg Cholecalciferol (Vitamin D3) 5,000 units PO DAILY [facility] Last Admin: 02/25/19 08:26 Dose: 5,000 units Clonidine (Catapres) 0.1 mg PO Q4H PRN PRN Reason: SBP GREATER THAN 160 Last Admin: 02/25/19 11:44 Dose: 0.1 mg Dextrose/Water (Dextrose 50%) 25 gm SLOW IVP PRN PRN PRN Reason: Hypoglycemia Famotidine (Pepcid) 20 mg PO BID [facility] Last Admin: 02/25/19 08:27 Dose: 20 mg Glucagon (Glucagon) 1 mg IM PRN PRN PRN Reason: Hypoglycemia Guaifenesin (Robitussin Sf) 200 mg PO Q4H PRN PRN Reason: Cough Lisinopril/HCTZ (Prinizide 20-12.5) 1 tab PO DAILY [facility] Last Admin: 02/25/19 08:26 Dose: 1 tab Heparin Sodium (Porcine) (Heparin) 5,000 units SC TID [facility] Last Admin: 02/25/19 08:26 Dose: 5,000 units Hydralazine HCl (Apresoline) 10 mg SLOW IVP Q4H PRN PRN Reason: SBP > 180 and HR < 70 Ceftriaxone Sodium 1 gm/ (Sodium Chloride) 100 mls @ 200 mls/hr IVPB Q24HR [facility] Last Admin: 02/24/19 17:37 Dose: 100 mls Dextrose/Water (D5w) 1,000 mls @ 0 mls/hr IV .Q0M PRN PRN Reason: Hypoglycemia Levofloxacin 500 mg/ Device 100 mls @ 100 mls/hr IVPB Q24HR [facility] Last Admin: 02/24/19 20:38 Dose: 100 mls Sodium Chloride (Normal Saline 0.9%) 1,000 mls @ 125 mls/hr IV .Q8H [facility] Last Admin: 02/25/19 12:26 Dose: 1,000 mls Insulin Glargine 45 units/ (Miscellaneous Medication) 0.45 mls @ 0 mls/hr SC BID [facility] Insulin Human Lispro (Humalog) 0 units SC .AGGRESSIVE SLIDING PRN PRN Reason: Aggressive Correctional Scale Last Admin: 02/25/19 11:43 Dose: 6 unit Insulin Human Lispro (Humalog) 0 units SC .BEDTIME SLIDING SC PRN PRN Reason: Bedtime Correctional Scale Last Admin: 02/23/19 21:42 Dose: 2 unit Isosorbide Mononitrate (Imdur Er) 30 mg PO DAILY [facility] Last Admin: 02/25/19 08:26 Dose: 30 mg Loperamide HCl (Imodium) 2 mg PO PRN PRN PRN Reason: Diarrhea/Loose Stools Loratadine (Claritin) 10 mg PO DAILYPRN PRN PRN Reason: Sinus Symptoms Mineral Oil/White Petrolatum (Eucerin Cream) 0 gm TOP BIDPRN PRN PRN Reason: Dry Skin Nicotine (Nicoderm Patch) 14 mg TD Q24HR [facility] Last Admin: 02/24/19 20:39 Dose: 14 mg Nitroglycerin (Nitrostat) 0.4 mg SL Q5MIN PRN PRN Reason: Chest Pain Nystatin (Mycostatin Powder) 1 gm TOP BID [facility] Last Admin: 02/25/19 08:30 Dose: 1 applic Ondansetron HCl (Zofran Odt) 4 mg PO Q6H PRN PRN Reason: Nausea/Vomiting Ondansetron HCl (Zofran) 4 mg IVP Q6H PRN PRN Reason: Nausea/Vomiting (Vortioxetine Hydrobromide [ Trintellix] 20 Mg) 0 each PO DAILY [facility] Last Admin: 02/25/19 08:30 Dose: 1 each Senna/Docusate Sodium (Senokot S) 2 tab PO BID PRN PRN Reason: Constipation Sodium Chloride ([place] Nasal [place] 0.65%) 0 ml EA NARE QIDPRN PRN PRN Reason: Nasal Congestion Throat Lozenges (Cepastat Lozenges) 1 srikanth PO Q2H PRN PRN Reason: Sore Throat Trazodone HCl (Desyrel) 100 mg PO HS [facility] Last Admin: 02/24/19 20:46 Dose: 100 mg Zolpidem Tartrate (Ambien) 5 mg PO HSPRN PRN PRN Reason: Insomnia
[2019-02-25] MEDS: cefTRIAXone\\ROCEPHIN 1 GM in Sodium Chloride 0.9% 100 ML IVPB SCH (16:41)
[2019-02-25] MEDS: Aripiprazole 10 MG TAB PO SCH (20:09)
[2019-02-25] MEDS: Atorvastatin Calcium 40 MG TAB PO SCH (20:10)
[2019-02-25] MEDS: Insulin Glargine 45 UNITS in Pre-Filled Syringe 1 EACH SC SCH (20:11)
[2019-02-25] MEDS: Nicotine 14 MG PATCH TD SCH (20:22)
[2019-02-26] MEDS: HYDROcodone/Acetaminophen 5/325 mg Tablet PO PRN ×6 (00:47→21:45)
[2019-02-26] MEDS: Sodium Chloride 0.9% 1,000 ML IV SCH ×3 (05:16→20:58)
[2019-02-26] MEDS: HumaLOG 300 UNITS/3 ML VIAL SC PRN ×2 (05:18→13:08)
[2019-02-26] MEDS: Carvedilol 6.25 MG TAB PO SCH ×2 (08:53→20:52)
[2019-02-26] MEDS: Ascorbic Acid 500 mg Chewable Tablet PO SCH (08:53)
[2019-02-26] MEDS: Famotidine 20 MG TAB PO SCH ×2 (08:53→20:52)
[2019-02-26] MEDS: Heparin 5,000 UNITS/ML VIAL SC SCH ×3 (08:53→20:54)
[2019-02-26] MEDS: Insulin Glargine 45 UNITS in Pre-Filled Syringe 1 EACH SC SCH ×2 (08:54→20:51)
[2019-02-26] MEDS: Aspirin 81 mg Enteric Coated Tablet PO SCH (08:54)
[2019-02-26] MEDS: Nystatin Powder 15 GM BOT TOP SCH ×2 (08:55→21:00)
[2019-02-26] MEDS: Lisinopril/Hydrochlorothiazide 20 mg/12.5 mg Tablet PO SCH (08:55)
[2019-02-26] MEDS ORDERED: Insulin Glargine 45 UNITS in Pre-Filled Syringe 1 EACH SC SCH (09:00)
--- NOTE | 2019-02-26 10:27 | PDOC.PN ---
- Subjective Encounter Start Date: 02/26/19 Encounter Start Time: 09:30 Patient seen and examined. No new complaints. No overnight events - Objective Resuscitation Status - Order Detail: 02/22/19 19:29 Resuscitation Status Routine Resuscitation Status: FULL: Full Resuscitation MAR Reviewed: Yes Vital Signs & Weight: Vital Signs (12 hours) Temp Pulse Resp BP BP BP Pulse Ox 02/26/19 08:55 97 02/26/19 08:53 151/85 H 02/26/19 08:00 98.3 F 97 18 151/85 H 95 02/26/19 04:00 97.6 F 95 18 160/84 H 98 02/26/19 00:37 97.8 F 72 18 121/74 97 Weight Weight 279 lb 6.4 oz I&O: 02/25/19 02/26/19 02/27/19 06:59 06:59 06:59 Intake Total 2835 2220 240 Balance 2835 2220 240 Result Diagrams: 02/24/19 07:53 02/24/19 07:53 Additional Labs: Accuchecks 02/26/19 02/26/19 02/25/19 05:19 00:34 19:48 POC Glucose 159 H 157 H 171 H 02/25/19 02/25/19 16:26 10:57 POC Glucose 104 226 H Phys Exam - Physical Examination Constitutional: NAD HEENT: PERRLA, moist MMs, sclera anicteric Neck: no JVD, supple Respiratory: no wheezing, no rales, no rhonchi Cardiovascular: RRR, no significant murmur, no rub Gastrointestinal: soft, non-tender, no distention, positive bowel sounds Musculoskeletal: no edema, pulses present Neurological: non-focal, normal sensation, moves all 4 limbs Lymphatic: no nodes Psychiatric: normal affect, A&O x 3 Skin: no rash, normal turgor Dx/Plan (1) Acute pyelonephritis Code(s): N10 - ACUTE PYELONEPHRITIS Status: Acute (2) Acute worsening of stage 3 chronic kidney disease Code(s): N18.3 - CHRONIC KIDNEY DISEASE, STAGE 3 (MODERATE) Status: Acute (3) CAD (coronary artery disease) Code(s): I25.10 - ATHSCL HEART DISEASE OF [place] CORONARY ARTERY W/O ANG PCTRS Status: Chronic (4) Chronic back pain Code(s): M54.9 - DORSALGIA, UNSPECIFIED; G89.29 - OTHER CHRONIC PAIN Status: Chronic (5) Diabetes mellitus type 2, uncontrolled Code(s): E11.65 - TYPE 2 DIABETES MELLITUS WITH HYPERGLYCEMIA Status: Chronic (6) Hx of pulmonary embolus Code(s): Z86.711 - PERSONAL HISTORY OF PULMONARY EMBOLISM Status: Chronic (7) Hyperlipidemia Code(s): E78.5 - HYPERLIPIDEMIA, UNSPECIFIED Status: Chronic (8) Hypertension Code(s): I10 - ESSENTIAL (PRIMARY) HYPERTENSION Status: Chronic (9) Morbid obesity with BMI of 40.0-44.9, adult Code(s): E66.01 - MORBID (SEVERE) OBESITY DUE TO EXCESS CALORIES; Z68.41 - BODY MASS INDEX (BMI) 40.0-44.9, ADULT Status: Chronic (10) Hypoglycemia associated with type 2 diabetes mellitus Code(s): E11.649 - TYPE 2 DIABETES MELLITUS WITH HYPOGLYCEMIA WITHOUT COMA Status: Acute - Plan cont current plan of care, continue antibiotics * medication reviewed as below * symptomatic treatment * await placement * continue cipro on discharge. Review of Systems - Review of Systems ENT: negative: Ear Pain, Ear Discharge, Nose Pain, Nose Discharge, Nose Congestion, Mouth Pain, Mouth Swelling, Throat Pain, Throat Swelling, Other Respiratory: negative: Cough, Dry, Shortness of Breath, Hemoptysis, SOB with Excertion, Pleuritic Pain, Sputum, Wheezing Cardiovascular: negative: chest pain, palpitations, orthopnea, paroxysmal nocturnal dyspnea, edema, light headedness, other Gastrointestinal: negative: Nausea, Vomiting, Abdominal Pain, Diarrhea, Constipation, Melena, Hematochezia, Other Genitourinary: negative: Dysuria, Frequency, Incontinence, Hematuria, Retention , Other Musculoskeletal: negative: Neck Pain, Shoulder Pain, Arm Pain, Back Pain, Hand Pain, Leg Pain, Foot Pain, Other Skin: negative: Rash, Lesions, Janak, Bruising, Other - Medications/Allergies Allergies/Adverse Reactions: Allergies Allergy/AdvReac Type Severity Reaction Status Date / Time No Known Allergies Allergy Verified 03/18/16 03:31 Medications: Current Medications Acetaminophen (Tylenol) 650 mg PO Q4H PRN PRN Reason: Headache/Fever/Mild Pain (1-3) Hydrocodone Bitart/Acetaminophen ([place] 5/325) 1 tab PO Q4H PRN PRN Reason: Moderate Pain (4-6) Last Admin: 02/26/19 08:56 Dose: 1 tab Aripiprazole (Abilify) 5 mg PO HS [facility] Last Admin: 02/25/19 20:09 Dose: 5 mg Artificial Tears (Tears Naturale) 2 drop EA EYE PRN PRN PRN Reason: Dry Eyes Ascorbic Acid (Vitamin C) 500 mg PO DAILY [facility] Last Admin: 02/26/19 08:53 Dose: 500 mg Aspirin (Ecotrin) 81 mg PO DAILY [facility] Last Admin: 02/26/19 08:54 Dose: 81 mg Atorvastatin Calcium (Lipitor) 40 mg PO HS [facility] Last Admin: 02/25/19 20:10 Dose: 40 mg Bisacodyl (Dulcolax) 10 mg ME DAILYPRN PRN PRN Reason: Constipation Calcium Carbonate (Tums) 1,000 mg PO Q4H PRN PRN Reason: Heartburn or Indigestion Carvedilol (Coreg) 6.25 mg PO BID [facility] Last Admin: 02/26/19 08:53 Dose: 6.25 mg Cholecalciferol (Vitamin D3) 5,000 units PO DAILY [facility] Last Admin: 02/26/19 08:52 Dose: 5,000 units Clonidine (Catapres) 0.1 mg PO Q4H PRN PRN Reason: SBP GREATER THAN 160 Last Admin: 02/25/19 11:44 Dose: 0.1 mg Dextrose/Water (Dextrose 50%) 25 gm SLOW IVP PRN PRN PRN Reason: Hypoglycemia Famotidine (Pepcid) 20 mg PO BID [facility] Last Admin: 02/26/19 08:53 Dose: 20 mg Glucagon (Glucagon) 1 mg IM PRN PRN PRN Reason: Hypoglycemia Guaifenesin (Robitussin Sf) 200 mg PO Q4H PRN PRN Reason: Cough Lisinopril/HCTZ (Prinizide 20-12.5) 1 tab PO DAILY [facility] Last Admin: 02/26/19 08:55 Dose: 1 tab Heparin Sodium (Porcine) (Heparin) 5,000 units SC TID [facility] Last Admin: 02/26/19 08:53 Dose: 5,000 units Hydralazine HCl (Apresoline) 10 mg SLOW IVP Q4H PRN PRN Reason: SBP > 180 and HR < 70 Ceftriaxone Sodium 1 gm/ (Sodium Chloride) 100 mls @ 200 mls/hr IVPB Q24HR [facility] Last Admin: 02/25/19 16:41 Dose: 100 mls Dextrose/Water (D5w) 1,000 mls @ 0 mls/hr IV .Q0M PRN PRN Reason: Hypoglycemia Levofloxacin 500 mg/ Device 100 mls @ 100 mls/hr IVPB Q24HR [facility] Last Admin: 02/25/19 20:11 Dose: 100 mls Sodium Chloride (Normal Saline 0.9%) 1,000 mls @ 125 mls/hr IV .Q8H [facility] Last Admin: 02/26/19 05:16 Dose: 1,000 mls Insulin Glargine 45 units/ (Miscellaneous Medication) 0.45 mls @ 0 mls/hr SC BID [facility] Last Admin: 02/26/19 08:54 Dose: 0.45 mls Insulin Human Lispro (Humalog) 0 units SC .AGGRESSIVE SLIDING PRN PRN Reason: Aggressive Correctional Scale Last Admin: 02/26/19 05:18 Dose: 3 unit Insulin Human Lispro (Humalog) 0 units SC .BEDTIME SLIDING SC PRN PRN Reason: Bedtime Correctional Scale Last Admin: 02/23/19 21:42 Dose: 2 unit Isosorbide Mononitrate (Imdur Er) 30 mg PO DAILY [facility] Last Admin: 02/26/19 08:52 Dose: 30 mg Loperamide HCl (Imodium) 2 mg PO PRN PRN PRN Reason: Diarrhea/Loose Stools Loratadine (Claritin) 10 mg PO DAILYPRN PRN PRN Reason: Sinus Symptoms Mineral Oil/White Petrolatum (Eucerin Cream) 0 gm TOP BIDPRN PRN PRN Reason: Dry Skin Nicotine (Nicoderm Patch) 14 mg TD Q24HR [facility] Last Admin: 02/25/19 20:22 Dose: 14 mg Nitroglycerin (Nitrostat) 0.4 mg SL Q5MIN PRN PRN Reason: Chest Pain Nystatin (Mycostatin Powder) 1 gm TOP BID [facility] Last Admin: 02/26/19 08:55 Dose: 1 applic Ondansetron HCl (Zofran Odt) 4 mg PO Q6H PRN PRN Reason: Nausea/Vomiting Ondansetron HCl (Zofran) 4 mg IVP Q6H PRN PRN Reason: Nausea/Vomiting (Vortioxetine Hydrobromide [ Trintellix] 20 Mg) 0 each PO DAILY [facility] Last Admin: 02/26/19 08:54 Dose: 1 each Senna/Docusate Sodium (Senokot S) 2 tab PO BID PRN PRN Reason: Constipation Sodium Chloride ([place] Nasal [place] 0.65%) 0 ml EA NARE QIDPRN PRN PRN Reason: Nasal Congestion Throat Lozenges (Cepastat Lozenges) 1 srikanth PO Q2H PRN PRN Reason: Sore Throat Trazodone HCl (Desyrel) 100 mg PO HS [facility] Last Admin: 02/25/19 20:12 Dose: 100 mg Zolpidem Tartrate (Ambien) 5 mg PO HSPRN PRN PRN Reason: Insomnia
[2019-02-26] MEDS: cefTRIAXone\\ROCEPHIN 1 GM in Sodium Chloride 0.9% 100 ML IVPB SCH (16:55)
[2019-02-26] MEDS: Aripiprazole 10 MG TAB PO SCH (20:52)
[2019-02-26] MEDS: Atorvastatin Calcium 40 MG TAB PO SCH (20:52)
[2019-02-26] MEDS: Nicotine 14 MG PATCH TD SCH (20:52)
[2019-02-27] MEDS: HYDROcodone/Acetaminophen 5/325 mg Tablet PO PRN ×4 (01:44→14:30)
[2019-02-27] MEDS: Sodium Chloride 0.9% 1,000 ML IV SCH ×2 (02:42→08:02)
[2019-02-27] MEDS: Carvedilol 6.25 MG TAB PO SCH (08:04)
[2019-02-27] MEDS: Famotidine 20 MG TAB PO SCH (08:05)
[2019-02-27] MEDS: Aspirin 81 mg Enteric Coated Tablet PO SCH (08:05)
[2019-02-27] MEDS: Ascorbic Acid 500 mg Chewable Tablet PO SCH (08:06)
[2019-02-27] MEDS: Lisinopril/Hydrochlorothiazide 20 mg/12.5 mg Tablet PO SCH (08:07)
[2019-02-27] MEDS: Heparin 5,000 UNITS/ML VIAL SC SCH (08:07)
[2019-02-27] MEDS: Nystatin Powder 15 GM BOT TOP SCH (08:08)
[2019-02-27] MEDS: Insulin Glargine 45 UNITS in Pre-Filled Syringe 1 EACH SC SCH (09:15)
--- NOTE | 2019-02-27 10:01 | DIS ---
DATE OF ADMISSION: 02/22/2019 DATE OF DISCHARGE: 02/27/2019 PRIMARY CARE PHYSICIAN: [facility] Call admission. DISCHARGE DISPOSITION: residential home. PRIMARY DISCHARGE DIAGNOSES: 1. Acute pyelonephritis. 2. Acute on chronic kidney failure, baseline chronic kidney disease stage 3, hypoglycemia associated with diabetes type 2. SECONDARY DISCHARGE DIAGNOSES: Morbid obesity with BMI of 43, hypertension, dyslipidemia, history of pulmonary embolism, diabetes type 2, chronic low back pain, coronary artery disease, chronic kidney disease stage 3. PRIMARY PROCEDURE/OPERATION: None. RADIOLOGICAL INVESTIGATION: Renal ultrasound, normal. SIGNIFICANT LABORATORY DATA: Hemoglobin 12.7, creatinine 1.61. Urinalysis suggestive of UTI. Urine culture grew E coli. Blood culture negative. DISCHARGE MEDICATION: 1. Nitroglycerin 0.4 mg sublingual p.r.n. 2. Abilify 5 mg p.o. at bedtime. 3. Vitamin C 500 mg p.o. daily. 4. Aspirin 81 mg daily. 5. Coreg 6.25 mg b.i.d. 6. Vitamin D3 5000 units p.o. daily. 7. Levemir insulin 50 units subcu b.i.d. 8. Humalog insulin as per sliding scale. 9. Imdur 30 mg daily. 10. Lisinopril with hydrochlorothiazide 20/12.5 one tablet daily. 11. Zocor 40 mg p.o. at bedtime. 12. Trazodone 100 mg p.o. at bedtime. 13. vorteoxetin 10 mg p.o. daily. 14. Cipro 500 mg p.o. b.i.d. for 7 days. 15. Florastor 250 mg p.o. daily for 7 days. CONTRAINDICATION: None. CODE STATUS: Full code. INPATIENT CHILD THERAPIST: None. ALLERGIES: NO KNOWN DRUG ALLERGIES. DISCHARGE PLAN: Posthospital, the patient will follow up with primary care physician in 1 or 2 weeks. HOSPITAL COURSE: A 58-year-old female who was admitted for urinary tract infection. She was having UTI symptoms. She was also having back pain and she was presumed for acute pyelonephritis. Renal ultrasound was unremarkable. She was admitted by Dr. Garett Keller, please see her H and P for further details. The patient was also dehydrated and she had acute on chronic kidney injury, which was improved with IV fluid. The patient also had hyperglycemia and subsequently hypoglycemia. We adjusted her insulin dose while in hospital this patient was requiring senior care home placement and that is why with help of casey saw operator, we arranged senior care home placement. At this point, by the time of dictation, the patient is waiting for insurance authorization and once we have achieved insurance authorization, then we will consider discharging her later on today. Paperwork for discharge done. Discharge medication reconciliation done. Please see my progress note from today for further details as well. Job ID: [id number] [facility]ana
--- NOTE | 2019-02-27 10:05 | PDOC.PN ---
- Subjective Encounter Start Date: 02/27/19 Encounter Start Time: 07:00 Patient seen and examined. No new complaints. No overnight events - Objective Resuscitation Status - Order Detail: 02/22/19 19:29 Resuscitation Status Routine Resuscitation Status: FULL: Full Resuscitation MAR Reviewed: Yes Vital Signs & Weight: Vital Signs (12 hours) Temp Pulse Resp BP BP Pulse Ox 02/27/19 08:07 79 111/69 02/27/19 08:04 111/69 02/27/19 07:53 97.7 F 79 18 111/69 97 Weight Weight 279 lb 6.4 oz I&O: 02/26/19 02/27/19 02/28/19 06:59 06:59 06:59 Intake Total 2220 720 Balance 2220 720 Result Diagrams: 02/24/19 07:53 02/24/19 07:53 Additional Labs: Accuchecks 02/27/19 02/26/19 02/26/19 05:00 19:57 16:41 POC Glucose 116 H 129 H 147 H 02/26/19 11:46 POC Glucose 245 H Phys Exam - Physical Examination Constitutional: NAD HEENT: PERRLA, moist MMs, sclera anicteric Neck: no JVD, supple Respiratory: no wheezing, no rales, no rhonchi Cardiovascular: RRR, no significant murmur, no rub Gastrointestinal: soft, non-tender, no distention, positive bowel sounds Musculoskeletal: no edema, pulses present Neurological: non-focal, normal sensation Lymphatic: no nodes Psychiatric: normal affect, A&O x 3 Skin: no rash, normal turgor Dx/Plan (1) Acute pyelonephritis Code(s): N10 - ACUTE PYELONEPHRITIS Status: Acute (2) Acute worsening of stage 3 chronic kidney disease Code(s): N18.3 - CHRONIC KIDNEY DISEASE, STAGE 3 (MODERATE) Status: Acute (3) CAD (coronary artery disease) Code(s): I25.10 - ATHSCL HEART DISEASE OF [place] CORONARY ARTERY W/O ANG PCTRS Status: Chronic (4) Chronic back pain Code(s): M54.9 - DORSALGIA, UNSPECIFIED; G89.29 - OTHER CHRONIC PAIN Status: Chronic (5) Diabetes mellitus type 2, uncontrolled Code(s): E11.65 - TYPE 2 DIABETES MELLITUS WITH HYPERGLYCEMIA Status: Chronic (6) Hx of pulmonary embolus Code(s): Z86.711 - PERSONAL HISTORY OF PULMONARY EMBOLISM Status: Chronic (7) Hyperlipidemia Code(s): E78.5 - HYPERLIPIDEMIA, UNSPECIFIED Status: Chronic (8) Hypertension Code(s): I10 - ESSENTIAL (PRIMARY) HYPERTENSION Status: Chronic (9) Morbid obesity with BMI of 40.0-44.9, adult Code(s): E66.01 - MORBID (SEVERE) OBESITY DUE TO EXCESS CALORIES; Z68.41 - BODY MASS INDEX (BMI) 40.0-44.9, ADULT Status: Chronic (10) Hypoglycemia associated with type 2 diabetes mellitus Code(s): E11.649 - TYPE 2 DIABETES MELLITUS WITH HYPOGLYCEMIA WITHOUT COMA Status: Acute - Plan cont current plan of care, 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 Review of Systems - Review of Systems ENT: negative: Ear Pain, Ear Discharge, Nose Pain, Nose Discharge, Nose Congestion, Mouth Pain, Mouth Swelling, Throat Pain, Throat Swelling, Other Respiratory: negative: Cough, Dry, Shortness of Breath, Hemoptysis, SOB with Excertion, Pleuritic Pain, Sputum, Wheezing Cardiovascular: negative: chest pain, palpitations, orthopnea, paroxysmal nocturnal dyspnea, edema, light headedness, other Gastrointestinal: negative: Nausea, Vomiting, Abdominal Pain, Diarrhea, Constipation, Melena, Hematochezia, Other Genitourinary: negative: Dysuria, Frequency, Incontinence, Hematuria, Retention , Other Musculoskeletal: negative: Neck Pain, Shoulder Pain, Arm Pain, Back Pain, Hand Pain, Leg Pain, Foot Pain, Other Skin: negative: Rash, Lesions, Janak, Bruising, Other - Medications/Allergies Allergies/Adverse Reactions: Allergies Allergy/AdvReac Type Severity Reaction Status Date / Time No Known Allergies Allergy Verified 03/18/16 03:31 Medications: Current Medications Acetaminophen (Tylenol) 650 mg PO Q4H PRN PRN Reason: Headache/Fever/Mild Pain (1-3) Hydrocodone Bitart/Acetaminophen ([place] 5/325) 1 tab PO Q4H PRN PRN Reason: Moderate Pain (4-6) Last Admin: 02/27/19 06:29 Dose: 1 tab Aripiprazole (Abilify) 5 mg PO HS [facility] Last Admin: 02/26/19 20:52 Dose: 5 mg Artificial Tears (Tears Naturale) 2 drop EA EYE PRN PRN PRN Reason: Dry Eyes Ascorbic Acid (Vitamin C) 500 mg PO DAILY [facility] Last Admin: 02/27/19 08:06 Dose: 500 mg Aspirin (Ecotrin) 81 mg PO DAILY [facility] Last Admin: 02/27/19 08:05 Dose: 81 mg Atorvastatin Calcium (Lipitor) 40 mg PO HS [facility] Last Admin: 02/26/19 20:52 Dose: 40 mg Bisacodyl (Dulcolax) 10 mg NM DAILYPRN PRN PRN Reason: Constipation Calcium Carbonate (Tums) 1,000 mg PO Q4H PRN PRN Reason: Heartburn or Indigestion Carvedilol (Coreg) 6.25 mg PO BID [facility] Last Admin: 02/27/19 08:04 Dose: 6.25 mg Cholecalciferol (Vitamin D3) 5,000 units PO DAILY [facility] Last Admin: 02/27/19 08:03 Dose: 5,000 units Clonidine (Catapres) 0.1 mg PO Q4H PRN PRN Reason: SBP GREATER THAN 160 Last Admin: 02/25/19 11:44 Dose: 0.1 mg Dextrose/Water (Dextrose 50%) 25 gm SLOW IVP PRN PRN PRN Reason: Hypoglycemia Famotidine (Pepcid) 20 mg PO BID [facility] Last Admin: 02/27/19 08:05 Dose: 20 mg Glucagon (Glucagon) 1 mg IM PRN PRN PRN Reason: Hypoglycemia Guaifenesin (Robitussin Sf) 200 mg PO Q4H PRN PRN Reason: Cough Lisinopril/HCTZ (Prinizide 20-12.5) 1 tab PO DAILY [facility] Last Admin: 02/27/19 08:07 Dose: 1 tab Heparin Sodium (Porcine) (Heparin) 5,000 units SC TID [facility] Last Admin: 02/27/19 08:07 Dose: 5,000 units Hydralazine HCl (Apresoline) 10 mg SLOW IVP Q4H PRN PRN Reason: SBP > 180 and HR < 70 Ceftriaxone Sodium 1 gm/ (Sodium Chloride) 100 mls @ 200 mls/hr IVPB Q24HR [facility] Last Admin: 02/26/19 16:55 Dose: 100 mls Dextrose/Water (D5w) 1,000 mls @ 0 mls/hr IV .Q0M PRN PRN Reason: Hypoglycemia Levofloxacin 500 mg/ Device 100 mls @ 100 mls/hr IVPB Q24HR [facility] Last Admin: 02/26/19 20:55 Dose: 100 mls Insulin Glargine 45 units/ (Miscellaneous Medication) 0.45 mls @ 0 mls/hr SC BID [facility] Last Admin: 02/27/19 09:15 Dose: 0.45 mls Insulin Human Lispro (Humalog) 0 units SC .AGGRESSIVE SLIDING PRN PRN Reason: Aggressive Correctional Scale Last Admin: 02/26/19 13:08 Dose: 6 unit Insulin Human Lispro (Humalog) 0 units SC .BEDTIME SLIDING SC PRN PRN Reason: Bedtime Correctional Scale Last Admin: 02/23/19 21:42 Dose: 2 unit Isosorbide Mononitrate (Imdur Er) 30 mg PO DAILY [facility] Last Admin: 02/27/19 08:05 Dose: 30 mg Loperamide HCl (Imodium) 2 mg PO PRN PRN PRN Reason: Diarrhea/Loose Stools Loratadine (Claritin) 10 mg PO DAILYPRN PRN PRN Reason: Sinus Symptoms Mineral Oil/White Petrolatum (Eucerin Cream) 0 gm TOP BIDPRN PRN PRN Reason: Dry Skin Nicotine (Nicoderm Patch) 14 mg TD Q24HR [facility] Last Admin: 02/26/19 20:52 Dose: 14 mg Nitroglycerin (Nitrostat) 0.4 mg SL Q5MIN PRN PRN Reason: Chest Pain Nystatin (Mycostatin Powder) 1 gm TOP BID [facility] Last Admin: 02/27/19 08:08 Dose: 1 applic Ondansetron HCl (Zofran Odt) 4 mg PO Q6H PRN PRN Reason: Nausea/Vomiting Ondansetron HCl (Zofran) 4 mg IVP Q6H PRN PRN Reason: Nausea/Vomiting (Vortioxetine Hydrobromide [ Trintellix] 20 Mg) 0 each PO DAILY [facility] Last Admin: 02/27/19 08:08 Dose: 1 each Senna/Docusate Sodium (Senokot S) 2 tab PO BID PRN PRN Reason: Constipation Sodium Chloride ([place] 0.65%) 0 ml EA NARE QIDPRN PRN PRN Reason: Nasal Congestion Throat Lozenges (Cepastat Lozenges) 1 srikanth PO Q2H PRN PRN Reason: Sore Throat Trazodone HCl (Desyrel) 100 mg PO [facility] Last Admin: 02/26/19 20:52 Dose: 100 mg Zolpidem Tartrate (Ambien) 5 mg PO HSPRN PRN PRN Reason: Insomnia
[2019-02-27] MEDS: HumaLOG 300 UNITS/3 ML VIAL SC PRN (12:36)
[2019-02-27 14:33] VITALS: BP 155/83; TEMP 98.1
--- NOTE | 2019-03-02 04:13 | PQF ---
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 Clinical indicators are provided on the bottom of this form for your review Please check appropriate box(s) to clarify if the following diagnosis has been ruled in or ruled out: Sepsis [ x ] Ruled in diagnosis [ ] Continue to treat [ x ] Resolved [ ] Ruled out diagnosis [ ] Cannot rule out diagnosis [ ] Other diagnosis [ ] Unable to determine For continuity of documentation, please document condition throughout progress notes and discharge summary. Thank You. CLINICAL INDICATORS - SIGNS / SYMPTOMS / LABS -H and P pg.1 02/22- In the ER, she had lab work done and she had findings consistent with a urinary tract infection as well as elevated white blood cell count and an elevated glucose as well as an elevated creatinine. -H and P pg.1 02/22- Admitted for Urinary tract infection with Sepsis and Acute kidney injury -H and P pg.2 02/22- Physical exam, Vital signs: BP 188/96, HR is 107, RR 20, and Temp was 99. -H and P pg.3 02/22- Assessment: She did meet sepsis criteria and therefore has a urinary tract infection with sepsis. -Laboratory 02/22 WBC 12.8H -Laboratory 02/22- Lactic acid 3.7H -DS pg.1 02/27- Acute pyelonephritis -DS pg.1 02/27- urine culture grew E.coli, blood culture negative RISK FACTORS -Acute pyelonephritis-- Hospitalist PN Dr. Funes pg.1 02/23 -Acute worsening of stage 3 CKD- Hospitalist PN Dr. Funes pg.1 02/23 -CAD-Hospitalist PN Dr. Funes pg.1 02/23 -Diabetes mellitus type 2, uncontrolled-Hospitalist PN Dr. Funes pg.2 02/23 -Hypertension- Hospitalist PN Dr. Funes pg.3 02/23 -Morbid Obesity Hospitalist PN Dr. Funes pg.3 02/23 TREATMENTS -Blood Culture- Microbiology -Urine Culture- Microbiology -Vancomycin 1gm IV- MAR -Ceftriaxone (rocephin) 1gm IV- MAR -Fluids - MAR (This form is maintained as a part of the permanent medical record) 2014 [employer]. All Rights Reserved Sohail [email or web address] [not provided] MTDD
== END 2019-02-27 14:51 | DRG 872 ==
LOC: ERS 16:35 → T4-B 21:10
PROVIDERS: ADMIT Internal Medicine; ATTEND Internal Medicine
DX: A41.9 Sepsis, unspecified organism (principal); N10 Acute pyelonephritis; Z68.41 Body mass index [BMI] 40.0-44.9, adult; N17.9 Acute kidney failure, unspecified; B96.20 Unspecified Escherichia coli [E. coli] as the cause of diseases classified elsewhere; I12.9 Hypertensive chronic kidney disease with stage 1 through stage 4 chronic kidney disease, or unspecified chronic kidney disease; N18.3 Chronic kidney disease, stage 3 (moderate); I25.10 Atherosclerotic heart disease of native coronary artery without angina pectoris; E11.65 Type 2 diabetes mellitus with hyperglycemia; E11.22 Type 2 diabetes mellitus with diabetic chronic kidney disease; F41.9 Anxiety disorder, unspecified; F32.9 Major depressive disorder, single episode, unspecified; F17.210 Nicotine dependence, cigarettes, uncomplicated; E78.00 Pure hypercholesterolemia, unspecified; E66.01 Morbid (severe) obesity due to excess calories; E86.0 Dehydration; E11.649 Type 2 diabetes mellitus with hypoglycemia without coma; Z79.82 Long term (current) use of aspirin; Z79.4 Long term (current) use of insulin; Z79.899 Other long term (current) drug therapy; Z95.1 Presence of aortocoronary bypass graft; Z86.711 Personal history of pulmonary embolism
CPT/HCPCS: 36415; 36416; 51701; 76770; 80048; 80053; 81003; 81015; 83036; 83605; 85025; 87040; 87077; 87086; 87149; 87186; 96361; 96365; 96367; 96375; 96376; J0696; J1644; J1815; J1825; J1956; J2270; J2405; J3370; J3490

== ENCOUNTER 2019-05-14 11:46 | Observation (INO) | payer MEDICARE ==
[2019-05-14 16:51] LABS: Bilirubin Small (Negative); Blood, Urine Small (Negative); Glucose, Urine (Dipstick) 250 mg/dL (Negative); Leukocyte Small (Negative); Nitrite Negative (Negative); Protein, Urine (Dipstick) > or equal to 300 mg/dL (Neg-Trace); Urobilinogen 0.2 mg/dL (Less than 2)
[2019-05-14 16:52] LABS: Clarity Hazy (Clear)
[2019-05-14 17:01] LABS: WBC/HPF 21-50 HPF (0-3)
[2019-05-14 17:02] LABS: Bacteria/HPF 1+ HPF (None Seen)
[2019-05-14 17:03] LABS: Crystals/HPF 1+ AMORPH URATES HPF (Negative)
[2019-05-14 17:50] LABS: #Basophils 0.1 thou/uL (0.0-0.2); #Eosinphils 0.2 thou/uL (0.0-0.7); #Lymphocytes 1.3 thou/uL (1.20-3.40); #Monocytes 0.9 thou/uL (0.11-0.59); #Neutrophils 8.9 thou/uL (1.40-6.50); %Basophils 0.5 % (0.0-1.0); %Eosinophils 1.4 % (0.0-10.0); %Lymphocytes 11.7 % (21.0-51.0); %Monocytes 7.9 % (0.0-10.0); %Neutrophils 78.5 % (42.0-75.0); Hemoglobin 12.7 g/dL (12.0-16.0); Mean Corpuscular HGB CONC 30.6 g/dL (32.0-36.0); Mean Corpuscular Hemoglobin 27.9 pg (27.0-31.0); Mean Platelet Volume 7.8 fL (7.4-10.4); Platelet Count 229 thou/uL (130-400); RBC Distribution Width 12.5 % (11.5-14.5); Red Blood Cell (RBC) Count 4.56 mill/uL (4.20-5.40); White Blood Cell (WBC) Count 11.3 thou/uL (4.8-10.8)
[2019-05-14 18:16] LABS: ALT (SGPT) 7 U/L (8-55); AST (SGOT) 13 U/L (5-34); Albumin 3.4 g/dL (3.5-5.0); Alkaline Phosphatase 70 U/L (40-150); Anion Gap 19 mmol/L (10-20); BUN (Urea Nitrogen) 50 mg/dL (9.8-20.1); Bilirubin, Total 0.8 mg/dL (0.2-1.2); Calc. Creatinine Clearance 0 mL/min (70-130); Calcium 9.7 mg/dL (7.8-10.44); Carbon Dioxide 17 mmol/L (22-29); Chloride 100 mmol/L (98-107); Estimated GFR-MDRD 23; Globulin 4.2 g/dL (2.4-3.5); Glucose 265 mg/dL (70-105); Potassium 4.5 mmol/L (3.5-5.1); Protein, Total 7.6 g/dL (6.0-8.3); Sodium 131 mmol/L (136-145)
[2019-05-14] MEDS ORDERED: cefTRIAXone\\ROCEPHIN 1 GM VIAL ONE (19:23)
--- NOTE | 2019-05-14 20:11 | MRI ---
MRI THORACIC SPINE WITHOUT CONTRAST: 05/14/19 HISTORY: Bilateral leg weakness and loss of bowels and bladder. FINDINGS: TH vertebral body heights and marrow signal are maintained. There is a small disc protrusion at T10-1 1 with probable impingement of the anterior spinal cord. The thoracic spinal cord demonstrates normal course, caliber and signal. Degenerative changes are seen in the thoracic spine. IMPRESSION: Thoracic spondylosis with small disc protrusion at T10-11 level with probable mild impingement of the anterior spinal cord. POS: JULIANN
[2019-05-14] MEDS ORDERED: Acetaminophen/Codeine 30-300mg Tablet ONE (20:28)
--- NOTE | 2019-05-14 20:33 | MRI ---
MRI OF THE CERVICAL SPINE WITHOUT CONTRAST: 05/14/19 HISTORY: Bilateral leg weakness and loss of bowels and bladder. FINDINGS: Exam is limited due to motion artifact. There are postop changes of anterior spinal fusion at C6-7 le link. This is new since the exam of 08/03/13. The vertebral body heights and marrow signal are fairly well maintained within the constraints of the artifact from the metallic hardware at C6-7 levels. The cervical spinal cord demonstrates normal cou rse and caliber. Increased signal on the T2 images within the cervical spinal cord was also seen on t he previous study of 2012 and is likely artifactual. There are mild small disc osteophyte complexes at C4-5, C5-6, C7-T1 and T2-3 levels IMPRESSION: Exam limited due to motion artifact. No significant abnormalities are seen. POS: JULIANN
--- NOTE | 2019-05-14 20:40 | MRI ---
MRI OF THE LUMBAR SPINE WITHOUT CONTRAST: 05/14/19 HISTORY: Bilateral leg weakness and loss of bowels and bladder. FINDINGS: The vertebral body heights are maintained. The conus medullaris ends at L3 level. Multilevel degenera tive changes are present with disc desiccation, osteophyte formation, bulging discs and facet hypertr ophic changes. There is a focal disc protrusion at L1-2 level without impingement of the anterior spinal cord. Bilat eral neural foraminal stenosis is present at L3-4 level, right greater than left. There is also bilat eral neural foraminal stenosis at L4-5 and L5-S1 levels, left greater than right. A small disc protru blake is seen at L5-S1 level with impingement of the anterior thecal sac. IMPRESSION: 1. Findings suspicious for tethered spinal cord. 2. Lumbar spondylosis with bilateral neural foraminal stenoses at multiple levels. POS: JULIANN
[2019-05-14] MEDS ORDERED: Ondansetron ODT 4 MG TAB SL PRN (22:15)
[2019-05-14] MEDS ORDERED: Sodium Chloride 0.9% 1,000 ML IV SCH (22:15)
[2019-05-14] MEDS ORDERED: Ondansetron PF 4 MG/2 ML Vial IVP PRN (22:15)
[2019-05-14] MEDS ORDERED: Acetaminophen/Codeine 30-300mg Tablet PO PRN (22:15)
[2019-05-14 22:50] VITALS: BMI 43.0
[2019-05-15] MEDS ORDERED: Nitroglycerin 0.4 MG TAB (25 Tab Bottle) SL PRN (03:46)
[2019-05-15] MEDS ORDERED: Nystatin Powder 15 GM BOT TOP PRN (03:50)
[2019-05-15] MEDS ORDERED: Dextrose 5% in Water 1,000 ML IV PRN (03:52)
[2019-05-15] MEDS ORDERED: Dextrose 50% Abboject 50 ML SYRINGE SLOW IVP PRN (03:52)
[2019-05-15] MEDS: Sodium Chloride 0.9% 1,000 ML IV SCH ×2 (04:12→11:46)
[2019-05-15] MEDS: Acetaminophen/Codeine 30-300mg Tablet PO PRN ×2 (04:21→21:16)
[2019-05-15] MEDS: HumaLOG 300 UNITS/3 ML VIAL SC PRN ×2 (04:43→20:22)
[2019-05-15] MEDS: Nicotine 7 MG PATCH TD SCH (04:44)
[2019-05-15] MEDS: Vortioxetine Hydrobromide [Trintellix] 20 MG PO SCH (10:13)
--- NOTE | 2019-05-15 10:29 | HP ---
CHIEF COMPLAINT: Lower extremity weakness with incontinence. HISTORY OF PRESENT ILLNESS: This patient is a 59-year-old female with history of significant diabetes and coronary artery disease, who presented via the emergency department. The patient reports that she has essentially become progressively weaker over the last several days. She has a history of generalized weakness, but has been able to get up okay and ambulate; however, with progressive weakness in her legs, she has been unable to get herself up off the couch. Her family was unable to help her and ultimately had to call ambulance in order to get help to get up off the couch. She also reports that she has had some incontinence of stool and urine, which are also new problems for her very recently. She has had no precipitating events. The patient does report that she has some dysuria primarily toward the end of her void and then that pain resolves. She denies any fevers or chills. She does report some back pain, which has been relatively chronic for her. It seems to have gotten worse over the last 2 weeks as well. She also reports some occasional urinary hesitancy and reports vaginal itch and discharge. REVIEW OF SYSTEMS: All other systems reviewed and all pertinent positives and negatives noted in the history of present illness. PAST MEDICAL HISTORY: Notable for coronary artery disease with prior stents, diabetes mellitus, hyperlipidemia, hypertension, and pulmonary embolus in 2014. The patient was admitted here previously in February with pyelonephritis and was noted to have chronic kidney disease stage 3, although the patient says she is not really aware of having any chronic kidney problems. PAST SURGICAL HISTORY: 4-vessel bypass and C-spine surgery. FAMILY HISTORY: Significant for diabetes in her father. SOCIAL HISTORY: The patient continues to smoke about a pack of cigarettes per week. She denies alcohol or drugs. She has two children. She is full code and her daughter, Meri Salinas, would be her surrogate decision maker should that be necessary. ALLERGIES: NONE. CURRENT MEDICATIONS: 1. Tylenol p.r.n. 2. Tylenol 3 p.r.n. 3. Amlodipine 5 mg daily. 4. Abilify 5 mg nightly. 5. Vitamin C 500 mg daily. 6. Aspirin 81 mg daily. 7. Coreg 6.25 mg b.i.d. 8. Vitamin D3 5000 units daily. 9. Levemir 50 units q.a.m., 35 nightly. 10. Isosorbide 30 mg daily. 11. Lisinopril/hydrochlorothiazide 20/12.5 one p.o. daily. 12. Nitrostat p.r.n. 13. Rosuvastatin 40 mg nightly. 14. Tizanidine 4 mg q.8 p.r.n. 15. Trazodone 100 mg nightly. 16. Trintellix 20 mg daily. PHYSICAL EXAMINATION: VITAL SIGNS: Temperature is 97.6, pulse 65, respirations 16, O2 saturation 92% on room air, BP ranging from 99/55 to 112/64. GENERAL APPEARANCE: Age-appropriate female, in no distress. She is awake, alert, pleasant, and cooperative. She is morbidly obese. HEENT: PERRL. No OP lesions. NECK: Supple and Symmetric. HEART: Regular rate and rhythm. No murmurs, gallops, or rubs. LUNGS: Clear to auscultation bilaterally with good chest wall expansion and air exchange. ABDOMEN: Obese, soft, nontender, and nondistended. Positive bowel sounds. No masses. No organomegaly. EXTREMITIES: No cyanosis, clubbing, or edema. PSYCHIATRIC: The patient has normal affect and behavior. NEUROLOGICAL: The patient appears to have good strength in the distal muscle groups of her lower extremities, but weakness in the hip girdles, seems to have normal upper extremity strength. SKIN: The patient has significant intertrigo below both breasts and in her groin area below her pannus as well as the vaginal area. She also has several areas of excoriation that she relates to insect bites and she has, based on the pictures in the record, significant dermatitis of the perineum and buttocks, which may be related to pressure, but also likely exacerbated by the incontinence of stool and urine. LABORATORY DATA: White count 11.7, hemoglobin 12.7, and platelets 229. Sodium 131, potassium 4.5, chloride 100, CO2 is 17, BUN 50, creatinine 2.16, GFR 23, and glucose 265 to 317. LFTs normal. CRP 10.2. Urinalysis shows large protein, large glucose, small blood, small bilirubin, small leukocyte esterase, 11 to 20 red cells, 21 to 50 white cells, and 1+ bacteria. IMAGING STUDIES: MR of the lumbar spine shows several levels of foraminal stenosis and findings suspicious for "tethered spinal cord." There is also lumbar spondylosis with bilateral foraminal stenosis at multiple levels. Thoracic MRI shows thoracic spondylosis with small disk protrusion at 10, 11, and 12 with probable mild impingement. C-spine, no significant abnormalities, but exam was limited to motion. IMPRESSION AND PLAN: 1. Lower extremity weakness associated with some new onset of incontinence of bowel and bladder. It is really unclear what is going on with this. It may be just severe deconditioning in a morbidly obese patient, who has become so deconditioned. She is having difficulty getting up and resultant in functional incontinence. There are some findings on her MRI, but nothing that specifically would suggest it is problematic enough to cause these particular symptoms. We will get Physical Therapy to evaluate her as well. She does have a substantially elevated CRP. However, in a patient with a lot of inflammatory issues going on including possible urinary tract infection as well as fairly diffuse dermatitis and some underlying history of vascular disease, it is unclear what to make of this. However, polymyalgia rheumatica is certainly within the differential. I am going to hold off on steroids for now as her blood sugars are not well controlled. Once we get those under little better control and have the opportunity to have physical therapy really work with her, it may be a consideration to give her some low-dose steroids and see how she responds. It is also possible that she is having some diabetes or renal disease related neuropathies. 2. Possible urinary tract infection. Unfortunately, the patient has a pretty bad vaginitis and dermatitis, so it is difficult to know what to make of her urinalysis. At this point, she will get some Rocephin. We will follow up cultures. 3. Diabetes, poorly controlled. We will continue with the long-acting insulin, provide sliding scale, as well as diabetic diet. 4. Renal insufficiency. The patient has chronic kidney disease stage 3 to 4. She is right on the borderline at present. She is a stage IV. Her previous GFRs were right around 30. We will gently hydrates and it is likely related to her diabetes. We will recheck in the morning. 5. Mild hyponatremia, fairly chronic, may be partially due to pseudohyponatremia from hyperglycemia. 6. History of mental illness, appears to be stable. We will continue with her Abilify and trazodone. 7. Hypertension. Continue her usual home medications including carvedilol and lisinopril and hydrochlorothiazide. 8. Coronary artery disease. Continue aspirin, beta-hector, and statin. 9. Severe intertrigo and candidal vaginitis. We will start p.o. Diflucan and topical nystatin powder. Job ID: [id number]
[2019-05-15] MEDS: Aspirin 81 mg Enteric Coated Tablet PO SCH (11:31)
[2019-05-15] MEDS: Enoxaparin Sodium 30 MG/0.3 ML SYRINGE SC SCH (11:31)
[2019-05-15] MEDS: Ascorbic Acid 500 mg Chewable Tablet PO SCH (11:31)
[2019-05-15] MEDS: Fluconazole 100 MG TAB PO SCH (11:31)
[2019-05-15] MEDS: Amlodipine 5 MG TAB PO SCH (11:34)
[2019-05-15] MEDS: Carvedilol 6.25 MG TAB PO SCH ×2 (11:35→20:17)
[2019-05-15] MEDS: Lisinopril/Hydrochlorothiazide 20 mg/12.5 mg Tablet PO SCH (11:35)
--- NOTE | 2019-05-15 11:36 | CT ---
CT Stone Protocol HISTORY: Right flank pain. History of kidney stones. Abnormal renal function. COMPARISON: None. FINDINGS: The lung bases are clear. The liver, spleen, pancreas and gallbladder regions appear unremarkable given the limitations of a no ncontrast study. Right and left adrenal glands are normal in appearance. Right and left kidneys are normal in size. Th ere is a at least partially duplicated right collecting system. There are vascular calcifications seen at there are no renal calculi seen. There is no significant periaortic or mesenteric adenopathy. CT of pelvis performed without contrast enhancement: There is no evidence of adenopathy, mass or free fluid. The uterus appears to been removed. The appendix is not definitively identified but there is no inflammatory change in this region. IMPRESSION: No evidence of renal or ureteral calculi. No acute abnormalities of the abdomen or pelvis .
[2019-05-15] MEDS: Insulin Glargine 50 UNITS in Pre-Filled Syringe 1 EACH SC SCH (11:41)
[2019-05-15 11:42] LABS: #Basophils 0.1 thou/uL (0.0-0.2); #Eosinphils 0.2 thou/uL (0.0-0.7); #Monocytes 0.5 thou/uL (0.11-0.59); #Neutrophils 6.7 thou/uL (1.40-6.50); %Basophils 0.6 % (0.0-1.0); %Eosinophils 2.5 % (0.0-10.0); %Lymphocytes 11.3 % (21.0-51.0); %Monocytes 5.9 % (0.0-10.0); %Neutrophils 79.7 % (42.0-75.0); Hemoglobin 12.1 g/dL (12.0-16.0); Mean Corpuscular Hemoglobin 28.1 pg (27.0-31.0); Mean Corpuscular Volume 87.9 fL (78.0-98.0); Mean Platelet Volume 7.1 fL (7.4-10.4); Platelet Count 242 thou/uL (130-400); RBC Distribution Width 12.2 % (11.5-14.5); White Blood Cell (WBC) Count 8.4 thou/uL (4.8-10.8)
[2019-05-15 12:03] LABS: Anion Gap 15 mmol/L (10-20); BUN (Urea Nitrogen) 52 mg/dL (9.8-20.1); Calc. Creatinine Clearance 55 mL/min (70-130); Calcium 9.8 mg/dL (7.8-10.44); Carbon Dioxide 24 mmol/L (22-29); Chloride 103 mmol/L (98-107); Estimated GFR-MDRD 23; Glucose 202 mg/dL (70-105); Potassium 4.4 mmol/L (3.5-5.1); Sodium 138 mmol/L (136-145)
[2019-05-15] MEDS: tiZANidine HCl 4 MG TAB PO PRN (15:38)
--- NOTE | 2019-05-15 16:13 | PDOC.PN ---
- Subjective Encounter Start Date: 05/15/19 Encounter Start Time: 16:12 Subjective: Patient states she has been feeling significantly better since admission. -: States she had not been able to get out of the couch for days at home due -: to weakness but today has been able to take several steps. Denies any numbness or tingling in lower extremities. No saddle paraesthesia/anasthesia. Reports some back pain which is chronic and unchanged from her baseline. She denies any chest pain or sob. No headaches. No n/v. Has been eating and tolerating food without difficulty. - Objective Resuscitation Status - Order Detail: 05/15/19 03:41 Resuscitation Status Routine Resuscitation Status: FULL: Full Resuscitation Vital Signs & Weight: Vital Signs (12 hours) Temp Pulse Resp BP BP Pulse Ox 05/15/19 11:40 98.5 F 82 20 166/74 H 93 L 05/15/19 11:35 84 166/74 H 05/15/19 11:34 84 166/74 H 05/15/19 07:41 97.4 F L 71 22 H 117/74 96 Weight Admit Weight 275 lb Weight 275 lb I&O: 05/14/19 05/15/19 05/16/19 06:59 06:59 06:59 Intake Total 946 Balance 946 Result Diagrams: 05/15/19 11:31 05/15/19 11:31 Additional Labs: Accuchecks 05/15/19 05/15/19 05/14/19 11:43 04:17 22:41 POC Glucose 221 H 309 H 317 H Phys Exam - Physical Examination Constitutional: NAD morbidly obese HEENT: PERRLA, sclera anicteric, oral pharynx no lesions Neck: no nodes, supple, full ROM Respiratory: no wheezing, no rales, no rhonchi, clear to auscultation bilateral Cardiovascular: RRR, no significant murmur Gastrointestinal: soft, non-tender, no distention obese Musculoskeletal: no edema, pulses present Neurological: normal sensation, moves all 4 limbs power 5/5 in upper limbs, power 4/5 in right leg, 5/5 in left leg states long standing Psychiatric: normal affect, A&O x 3 Skin: no rash Dx/Plan (1) CAD (coronary artery disease) Code(s): I25.10 - ATHSCL HEART DISEASE OF [place] CORONARY ARTERY W/O ANG PCTRS Status: Chronic (2) Chronic back pain Code(s): M54.9 - DORSALGIA, UNSPECIFIED; G89.29 - OTHER CHRONIC PAIN Status: Chronic (3) Diabetes mellitus type 2, uncontrolled Code(s): E11.65 - TYPE 2 DIABETES MELLITUS WITH HYPERGLYCEMIA Status: Chronic (4) Hyperlipidemia Code(s): E78.5 - HYPERLIPIDEMIA, UNSPECIFIED Status: Chronic (5) Hypertension Code(s): I10 - ESSENTIAL (PRIMARY) HYPERTENSION Status: Chronic (6) Morbid obesity with BMI of 40.0-44.9, adult Code(s): E66.01 - MORBID (SEVERE) OBESITY DUE TO EXCESS CALORIES; Z68.41 - BODY MASS INDEX (BMI) 40.0-44.9, ADULT Status: Chronic - Plan cont current plan of care, PT/OT Patient with improved glucose control. Continue to monitor. -: She has been able to stand and walk, improved weakness. -: No neuro symptoms or deficit on exam. -: ESR unremarkable. Hold on steroids. -: Awaiting NH placement. Of note patient reported right flank pain and due to worsened renal function, and history of kidney stones, CT stone protocol done. No evidence of nephrolithiasis or other ureteral obstruction. Unremarkable study.
--- NOTE | 2019-05-15 16:20 | CON ---
DATE OF CONSULTATION: 05/15/2019 CONSULTING PHYSICIAN: Amor Mckay MD REASON FOR CONSULT: Acute kidney injury. REASON FOR ADMISSION: Weakness. HISTORY OF PRESENT ILLNESS: A 59-year-old female with history of coronary artery disease, type 2 diabetes, hypertension, and hyperlipidemia, who came to the hospital with weakness and was found to have elevated creatinine. Nephrology is consulted. The patient does have chronic kidney disease, stage 3 to 4. No nausea or vomiting. No chest pain or palpitation. PAST MEDICAL HISTORY: Positive for coronary artery disease, type 2 diabetes, hypertension, and hyperlipidemia. PAST SURGICAL HISTORY: CABG, C-spine surgery. HOME MEDICATIONS: 1. Tylenol. 2. Amlodipine. 3. Abilify. 4. Vitamin C. 5. Aspirin. 6. Coreg. 7. Vitamin D3. 8. Levemir. 9. Isosorbide. 10. Rosuvastatin. 11. Tizanidine. 12. Trazodone. 13. Trintellix. ALLERGIES: NO KNOWN DRUG ALLERGIES. SOCIAL HISTORY: Smokes 1 pack per day. No alcohol or drug abuse. FAMILY HISTORY: Positive for diabetes. REVIEW OF SYSTEMS: CONSTITUTIONAL: Negative for weight loss or gain, ability to conduct usual activities. SKIN: Negative for rash, itching. EYES: Negative for double vision, pain. ENT/MOUTH: Negative for nose bleeding, neck stiffness, pain, tenderness. CARDIOVASCULAR: Negative for palpitations, dyspnea on exertion, orthopnea. RESPIRATORY: Negative for shortness of breath, wheezing, cough, hemoptysis, fever or night sweats. GASTROINTESTINAL: Negative for poor appetite, abdominal pain, heartburn, nausea, vomiting, constipation, or diarrhea. GENITOURINARY: Negative for urgency, frequency, dysuria, nocturia. MUSCULOSKELETAL: Negative for pain, swelling. NEUROLOGIC/PSYCHIATRIC: Negative for anxiety, depression. ALLERGY/IMMUNOLOGIC: Negative for skin rash, bleeding tendency. Rest are negative review of systems. PHYSICAL EXAMINATION: GENERAL: This is a well-built female, in no apparent distress. VITAL SIGNS: Temperature 98.5, pulse 82, respiratory rate 16, blood pressure 166/74. HEENT: Atraumatic, normocephalic. Oral mucosa is moist. NECK: Supple. CARDIOVASCULAR: S1 and S2 heard. Rate and rhythm regular. RESPIRATORY: Clear. GASTROINTESTINAL: Abdomen is soft. MUSCULOSKELETAL: 1+ edema. DERMATOLOGIC: No skin rash. NEUROLOGIC: Alert and awake. PSYCHIATRIC: Mood and affect normal. LABORATORY DATA: Hemoglobin is 12.1. Potassium is 4.4, BUN is 52, and creatinine is 2.1. ASSESSMENT AND PLAN: 1. Acute kidney injury on chronic kidney disease, stage 3. We will monitor renal function. We will check chronic kidney disease labs. 2. Proteinuria, most likely from diabetes. 3. Edema, controlled. 4. Hypertension, stable. We will check CKD labs. CT abdomen reviewed with no evidence of calculi. We will follow. Thank you for the consult. Job ID: [id number]
[2019-05-15] MEDS: cefTRIAXone\\ROCEPHIN 1 GM in Sodium Chloride 0.9% 100 ML IVPB SCH (20:10)
[2019-05-15] MEDS: traZODone HCl 50 MG TAB PO SCH (20:17)
[2019-05-15] MEDS: Rosuvastatin 20 MG TAB PO SCH (20:17)
[2019-05-15] MEDS: Aripiprazole 10 MG TAB PO SCH (20:18)
[2019-05-15] MEDS: Insulin Glargine 35 UNITS in Pre-Filled Syringe 1 EACH SC SCH (20:21)
[2019-05-15] MEDS: Nystatin Powder 15 GM BOT TOP SCH (20:29)
[2019-05-15 22:40] LABS: Creatinine, Urine 49.15 mg/dL (47-110)
[2019-05-16] MEDS: Nicotine 7 MG PATCH TD SCH (04:15)
[2019-05-16] MEDS: Sodium Chloride 0.9% 1,000 ML IV SCH ×2 (05:42→18:13)
[2019-05-16 06:36] LABS: #Basophils 0.1 thou/uL (0.0-0.2); #Eosinphils 0.3 thou/uL (0.0-0.7); #Lymphocytes 1.5 thou/uL (1.20-3.40); #Monocytes 0.6 thou/uL (0.11-0.59); #Neutrophils 4.8 thou/uL (1.40-6.50); %Basophils 0.9 % (0.0-1.0); %Eosinophils 4.7 % (0.0-10.0); %Lymphocytes 20.6 % (21.0-51.0); %Monocytes 7.9 % (0.0-10.0); %Neutrophils 65.8 % (42.0-75.0); Hemoglobin 11.5 g/dL (12.0-16.0); Mean Corpuscular HGB CONC 29.9 g/dL (32.0-36.0); Mean Corpuscular Hemoglobin 26.6 pg (27.0-31.0); Platelet Count 249 thou/uL (130-400); RBC Distribution Width 12.2 % (11.5-14.5); Red Blood Cell (RBC) Count 4.32 mill/uL (4.20-5.40); White Blood Cell (WBC) Count 7.3 thou/uL (4.8-10.8)
[2019-05-16 06:55] LABS: Anion Gap 13 mmol/L (10-20); BUN (Urea Nitrogen) 44 mg/dL (9.8-20.1); CK (CPK) 45 U/L (29-168); Calc. Creatinine Clearance 67 mL/min (70-130); Calcium 9.5 mg/dL (7.8-10.44); Carbon Dioxide 23 mmol/L (22-29); Chloride 107 mmol/L (98-107); Estimated GFR-MDRD 30; Glucose 170 mg/dL (70-105); Potassium 3.9 mmol/L (3.5-5.1); Sodium 139 mmol/L (136-145)
[2019-05-16] MEDS: Carvedilol 6.25 MG TAB PO SCH ×2 (08:04→20:35)
[2019-05-16] MEDS: Ascorbic Acid 500 mg Chewable Tablet PO SCH (08:05)
[2019-05-16] MEDS: Amlodipine 5 MG TAB PO SCH (08:05)
[2019-05-16] MEDS: Aspirin 81 mg Enteric Coated Tablet PO SCH (08:06)
[2019-05-16] MEDS: Enoxaparin Sodium 30 MG/0.3 ML SYRINGE SC SCH (08:06)
[2019-05-16] MEDS: Fluconazole 100 MG TAB PO SCH (08:06)
[2019-05-16] MEDS: Lisinopril/Hydrochlorothiazide 20 mg/12.5 mg Tablet PO SCH (08:08)
[2019-05-16] MEDS: Nystatin Powder 15 GM BOT TOP SCH ×2 (08:09→20:36)
[2019-05-16] MEDS: Insulin Glargine 50 UNITS in Pre-Filled Syringe 1 EACH SC SCH (08:09)
[2019-05-16] MEDS: Vortioxetine Hydrobromide [Trintellix] 20 MG PO SCH (08:10)
[2019-05-16] MEDS: Acetaminophen/Codeine 30-300mg Tablet PO PRN ×2 (08:16→20:32)
--- NOTE | 2019-05-16 13:12 | PDOC.PN ---
- Subjective Encounter Start Date: 05/16/19 Encounter Start Time: 13:10 Subjective: Patient with no complaints at present. States she has been up some with PT -: Has been eating/drinking without any n/v. Denies abdo pain. Good BM. -: No urinary symptoms. Denies any chest pain or sob. No DESIR or dizziness. - Objective Resuscitation Status - Order Detail: 05/15/19 03:41 Resuscitation Status Routine Resuscitation Status: FULL: Full Resuscitation Vital Signs & Weight: Vital Signs (12 hours) Temp Pulse Resp BP BP Pulse Ox 05/16/19 08:08 78 143/85 H 05/16/19 08:05 78 143/85 H 05/16/19 08:04 143/85 H 05/16/19 08:00 97 05/16/19 07:28 97.8 F 78 19 143/85 H 97 05/16/19 04:45 78 157/76 H 05/16/19 04:00 97.6 F 76 18 185/75 H 97 Weight Admit Weight 275 lb Weight 275 lb I&O: 05/15/19 05/16/19 05/17/19 06:59 06:59 06:59 Intake Total 946 2341 Output Total 100 Balance 946 2241 Result Diagrams: 05/16/19 06:16 05/16/19 06:16 Additional Labs: Accuchecks 05/16/19 05/16/19 05/16/19 11:32 04:42 02:08 POC Glucose 214 H 147 H 98 05/15/19 05/15/19 19:20 16:21 POC Glucose 281 H 237 H Phys Exam - Physical Examination Constitutional: NAD Sat up right on side of the bed talking on the phone. HEENT: PERRLA, moist MMs, sclera anicteric Neck: no nodes, supple, full ROM Respiratory: clear to auscultation bilateral Cardiovascular: RRR Gastrointestinal: soft, non-tender, no distention, positive bowel sounds obese Musculoskeletal: no edema, pulses present Neurological: non-focal, normal sensation, moves all 4 limbs Psychiatric: normal affect, A&O x 3 Skin: no rash Dx/Plan (1) CAD (coronary artery disease) Code(s): I25.10 - ATHSCL HEART DISEASE OF [place] CORONARY ARTERY W/O ANG PCTRS Status: Chronic (2) Chronic back pain Code(s): M54.9 - DORSALGIA, UNSPECIFIED; G89.29 - OTHER CHRONIC PAIN Status: Chronic (3) Diabetes mellitus type 2, uncontrolled Code(s): E11.65 - TYPE 2 DIABETES MELLITUS WITH HYPERGLYCEMIA Status: Chronic (4) Hyperlipidemia Code(s): E78.5 - HYPERLIPIDEMIA, UNSPECIFIED Status: Chronic (5) Hypertension Code(s): I10 - ESSENTIAL (PRIMARY) HYPERTENSION Status: Chronic (6) Morbid obesity with BMI of 40.0-44.9, adult Code(s): E66.01 - MORBID (SEVERE) OBESITY DUE TO EXCESS CALORIES; Z68.41 - BODY MASS INDEX (BMI) 40.0-44.9, ADULT Status: Chronic - Plan cont current plan of care, PT/OT Per OT, patient for rehab or SNU. Patient awaiting placement at Rehab -: CSM consult placed yesterday, awaiting authorization. -: Patient without any complaints at present. -: Glucose under better control, continue to monitor. * .
--- NOTE | 2019-05-16 13:31 | PRG ---
DATE OF SERVICE: 05/16/2019 SUBJECTIVE: Patient was seen and examined at bedside and overnight events noted. Patient denies any shortness of breath or chest pain or palpitation. No history of nausea or vomiting or diarrhea or fever or chills or cramps. OBJECTIVE: GENERAL: This is a well-built female, in no apparent distress. VITAL SIGNS: Temperature 97.6. Heart rate 78. Respiratory rate 18. Blood pressure 143/85. HEENT: Atraumatic, normocephalic. Oral mucosa is moist NECK: Supple. CARDIOVASCULAR: S1, S2 heard. Rate and rhythm regular. RESPIRATORY: Clear to auscultation. GASTROINTESTINAL: Abdomen is soft. MUSCULOSKELETAL: No tenderness. No edema. DERMATOLOGIC: No skin rash. NEUROLOGIC: Alert and awake and oriented X3. No focal neurologic deficits. Moving all the extremities. PSYCHIATRIC: Mood and affect normal. LABORATORY DATA: Potassium 3.9, BUN is 44, creatinine is 1.7. ASSESSMENT AND PLAN: 1. Acute kidney injury on chronic kidney disease stage 3, better. 2. Proteinuria, significant, most likely from diabetes. 3. Diabetic nephropathy. 4. Hypertension. 5. Edema. 6. Renal function is better. Need followup for CKD care at the clinic. Job ID: [id number]
[2019-05-16] MEDS: tiZANidine HCl 4 MG TAB PO PRN (18:09)
[2019-05-16] MEDS: Aripiprazole 10 MG TAB PO SCH (20:31)
[2019-05-16] MEDS: traZODone HCl 50 MG TAB PO SCH (20:32)
[2019-05-16] MEDS: Rosuvastatin 20 MG TAB PO SCH (20:32)
[2019-05-16] MEDS: Insulin Glargine 35 UNITS in Pre-Filled Syringe 1 EACH SC SCH (20:34)
[2019-05-16] MEDS: cefTRIAXone\\ROCEPHIN 1 GM in Sodium Chloride 0.9% 100 ML IVPB SCH (20:36)
[2019-05-17] MEDS: Nicotine 7 MG PATCH TD SCH (04:10)
[2019-05-17] MEDS: Aspirin 81 mg Enteric Coated Tablet PO SCH (08:08)
[2019-05-17] MEDS: Amlodipine 5 MG TAB PO SCH (08:09)
[2019-05-17] MEDS: Fluconazole 100 MG TAB PO SCH (08:10)
[2019-05-17] MEDS: Carvedilol 6.25 MG TAB PO SCH ×2 (08:10→20:04)
[2019-05-17] MEDS: Lisinopril/Hydrochlorothiazide 20 mg/12.5 mg Tablet PO SCH (08:11)
[2019-05-17] MEDS: Nystatin Powder 15 GM BOT TOP SCH ×2 (08:11→20:07)
[2019-05-17] MEDS: Enoxaparin Sodium 30 MG/0.3 ML SYRINGE SC SCH (08:11)
[2019-05-17] MEDS: Vortioxetine Hydrobromide [Trintellix] 20 MG PO SCH (08:12)
[2019-05-17] MEDS: Ascorbic Acid 500 mg Chewable Tablet PO SCH (08:13)
[2019-05-17] MEDS: Acetaminophen/Codeine 30-300mg Tablet PO PRN (08:13)
[2019-05-17] MEDS: Insulin Glargine 50 UNITS in Pre-Filled Syringe 1 EACH SC SCH (08:54)
[2019-05-17] MEDS: Sodium Chloride 0.9% 1,000 ML IV SCH (08:59)
[2019-05-17] MEDS: tiZANidine HCl 4 MG TAB PO PRN (12:36)
[2019-05-17] MEDS: Acetaminophen 325 MG TAB PO PRN (12:37)
--- NOTE | 2019-05-17 13:49 | PDOC.PN ---
- Subjective Encounter Start Date: 05/17/19 Encounter Start Time: 13:47 Subjective: Patient continues to do well without any new complaints. Resting -: comfortably in bed. Has back pain that is chronic and not worse from -: her baseline. Denies any chest pain or sob. No headaches. No n/v. No fever. - Objective Resuscitation Status - Order Detail: 05/15/19 03:41 Resuscitation Status Routine Resuscitation Status: FULL: Full Resuscitation Vital Signs & Weight: Vital Signs (12 hours) Temp Pulse Resp BP BP Pulse Ox 05/17/19 08:11 83 189/83 H 05/17/19 08:10 189/83 H 05/17/19 08:09 83 189/83 H 05/17/19 08:00 96 05/17/19 06:51 97.8 F 83 17 189/83 H 96 05/17/19 04:07 97.7 F 83 16 169/94 H 96 Weight Admit Weight 275 lb Weight 275 lb I&O: 05/16/19 05/17/19 05/18/19 06:59 06:59 06:59 Intake Total 2341 4460 Output Total 100 Balance 2241 4460 Result Diagrams: 05/16/19 06:16 05/16/19 06:16 Additional Labs: Accuchecks 05/17/19 05/17/19 05/16/19 11:28 06:15 19:08 POC Glucose 132 H 135 H 164 H 05/16/19 15:53 POC Glucose 167 H Phys Exam - Physical Examination Constitutional: NAD morbidly obese HEENT: PERRLA, moist MMs, oral pharynx no lesions Neck: no nodes, supple, full ROM Respiratory: no wheezing, no rales, no rhonchi, clear to auscultation bilateral Cardiovascular: RRR Gastrointestinal: soft, non-tender, no distention, positive bowel sounds Musculoskeletal: no edema, pulses present Neurological: normal sensation, moves all 4 limbs Psychiatric: normal affect, A&O x 3 Dx/Plan (1) CAD (coronary artery disease) Code(s): I25.10 - ATHSCL HEART DISEASE OF [place] CORONARY ARTERY W/O ANG PCTRS Status: Chronic (2) Chronic back pain Code(s): M54.9 - DORSALGIA, UNSPECIFIED; G89.29 - OTHER CHRONIC PAIN Status: Chronic (3) Diabetes mellitus type 2, uncontrolled Code(s): E11.65 - TYPE 2 DIABETES MELLITUS WITH HYPERGLYCEMIA Status: Chronic (4) Hyperlipidemia Code(s): E78.5 - HYPERLIPIDEMIA, UNSPECIFIED Status: Chronic (5) Hypertension Code(s): I10 - ESSENTIAL (PRIMARY) HYPERTENSION Status: Chronic (6) Morbid obesity with BMI of 40.0-44.9, adult Code(s): E66.01 - MORBID (SEVERE) OBESITY DUE TO EXCESS CALORIES; Z68.41 - BODY MASS INDEX (BMI) 40.0-44.9, ADULT Status: Chronic - Plan cont current plan of care, PT/OT On rocephin for suspected UTI. UA likely contaminated (vaginitis) -: UCx negative, will /dc IV Abx. -: Patient awaiting placement. -: Will check AM labs. * .
--- NOTE | 2019-05-17 14:35 | PRG ---
DATE OF SERVICE: 05/17/2019 SUBJECTIVE: Patient was seen and examined at bedside and overnight events noted. Patient denies any shortness of breath or chest pain or palpitation. No history of nausea or vomiting or diarrhea or fever or chills or cramps. OBJECTIVE: GENERAL: This is a well-built female, in no apparent distress. VITAL SIGNS: Temperature 97.8. Heart rate 83. Respiratory rate 18. Blood pressure 189/83. HEENT: Atraumatic, normocephalic. Oral mucosa is moist NECK: Supple. CARDIOVASCULAR: S1, S2 heard. Rate and rhythm regular. RESPIRATORY: Clear to auscultation. GASTROINTESTINAL: Abdomen is soft. MUSCULOSKELETAL: No tenderness. No edema. DERMATOLOGIC: No skin rash. NEUROLOGIC: Alert and awake and oriented X3. No focal neurologic deficits. Moving all the extremities. PSYCHIATRIC: Mood and affect normal. LABORATORY DATA: Not done today. ASSESSMENT AND PLAN: 1. Acute kidney injury. We will repeat labs. 2. Chronic kidney disease, stage 3. 3. Proteinuria. 4. Hypertension. 5. Edema. We will monitor labs and avoid nephrotoxins. Job ID: [id number]
[2019-05-17] MEDS: Rosuvastatin 20 MG TAB PO SCH (20:04)
[2019-05-17] MEDS: Aripiprazole 10 MG TAB PO SCH (20:04)
[2019-05-17] MEDS: traZODone HCl 50 MG TAB PO SCH (20:05)
[2019-05-17] MEDS: Insulin Glargine 35 UNITS in Pre-Filled Syringe 1 EACH SC SCH (20:05)
[2019-05-18] MEDS: Acetaminophen/Codeine 30-300mg Tablet PO PRN ×2 (00:22→13:44)
[2019-05-18] MEDS: Nicotine 7 MG PATCH TD SCH (04:58)
[2019-05-18 05:57] LABS: #Basophils 0.1 thou/uL (0.0-0.2); #Eosinphils 0.3 thou/uL (0.0-0.7); #Lymphocytes 1.6 thou/uL (1.20-3.40); #Monocytes 0.7 thou/uL (0.11-0.59); %Basophils 1.3 % (0.0-1.0); %Lymphocytes 20.4 % (21.0-51.0); %Neutrophils 65.3 % (42.0-75.0); Hemoglobin 11.6 g/dL (12.0-16.0); Mean Corpuscular HGB CONC 33.3 g/dL (32.0-36.0); Mean Corpuscular Hemoglobin 29.1 pg (27.0-31.0); Mean Corpuscular Volume 87.6 fL (78.0-98.0); Mean Platelet Volume 7.4 fL (7.4-10.4); Platelet Count 250 thou/uL (130-400); RBC Distribution Width 13.4 % (11.5-14.5); Red Blood Cell (RBC) Count 3.98 mill/uL (4.20-5.40); White Blood Cell (WBC) Count 7.6 thou/uL (4.8-10.8)
[2019-05-18 06:23] LABS: Anion Gap 10 mmol/L (10-20); BUN (Urea Nitrogen) 27 mg/dL (9.8-20.1); Calc. Creatinine Clearance 87 mL/min (70-130); Calcium 9.8 mg/dL (7.8-10.44); Carbon Dioxide 30 mmol/L (22-29); Chloride 107 mmol/L (98-107); Estimated GFR-MDRD 40; Glucose 95 mg/dL (70-105); Potassium 4.4 mmol/L (3.5-5.1); Sodium 143 mmol/L (136-145)
[2019-05-18] MEDS: Amlodipine 5 MG TAB PO SCH (08:26)
[2019-05-18] MEDS: Fluconazole 100 MG TAB PO SCH (08:26)
[2019-05-18] MEDS: Aspirin 81 mg Enteric Coated Tablet PO SCH (08:26)
[2019-05-18] MEDS: Carvedilol 6.25 MG TAB PO SCH (08:27)
[2019-05-18] MEDS: Ascorbic Acid 500 mg Chewable Tablet PO SCH (08:27)
[2019-05-18] MEDS: Lisinopril/Hydrochlorothiazide 20 mg/12.5 mg Tablet PO SCH (08:27)
[2019-05-18] MEDS: Insulin Glargine 50 UNITS in Pre-Filled Syringe 1 EACH SC SCH (08:27)
[2019-05-18] MEDS: Vortioxetine Hydrobromide [Trintellix] 20 MG PO SCH (08:28)
[2019-05-18] MEDS: Nystatin Powder 15 GM BOT TOP SCH (08:28)
[2019-05-18] MEDS: Enoxaparin Sodium 30 MG/0.3 ML SYRINGE SC SCH (08:28)
[2019-05-18] MEDS: Acetaminophen 325 MG TAB PO PRN (09:30)
[2019-05-18] MEDS: tiZANidine HCl 4 MG TAB PO PRN (09:30)
--- NOTE | 2019-05-18 12:09 | PRG ---
DATE OF SERVICE: 05/18/2019 SUBJECTIVE: This is a 59-year-old female being seen for acute kidney injury. The patient denied any nausea, vomiting, or chest pain. OBJECTIVE: CONSTITUTIONAL: On examination, the patient is awake and alert. VITAL SIGNS: Afebrile, pulse 53, breathing 16, and blood pressure 143/82. GENERAL APPEARANCE AND MENTAL STATUS: Fair. HEAD/NECK: Normocephalic. Atraumatic. EYES: EOMI. No deformity. EARS: Clear. No ulcers. NOSE: Intact. No lesions. MOUTH: Clear. No discharge. THROAT: Clear. No exudate. LUNGS: Clear. No crackles. CARDIAC: S1, S2. No rub. ABDOMEN: Benign. Bowel sounds positive. GENITALIA/RECTUM: [place] absent. BACK/EXTREMITIES: Edema 0+. NEUROLOGICAL: Alert and motor intact. SKIN: LYMPHATICS: LABORATORY DATA: Reviewed. ASSESSMENT AND PLAN: 1. Stage 3 chronic kidney stable, stable. 2. Acute kidney injury, resolved. 3. Acute tubular necrosis, improved. No indication for dialysis. I will sign off on this patient. Please reconsult as needed. Job ID: [id number]
[2019-05-18] MEDS: HumaLOG 300 UNITS/3 ML VIAL SC PRN (12:32)
[2019-05-18 16:01] VITALS: BP 168/82; TEMP 98.1
--- NOTE | 2019-05-18 16:23 | PDOC.PN ---
- Subjective Encounter Start Date: 05/18/19 Encounter Start Time: 13:00 Subjective: Patient examined, sitting up in bed -: Patient reports discomfort from rash to lower abdomen, pannus -: and perineum - Objective Resuscitation Status - Order Detail: 05/15/19 03:41 Resuscitation Status Routine Resuscitation Status: FULL: Full Resuscitation Vital Signs & Weight: Vital Signs (12 hours) Temp Pulse Resp BP BP BP Pulse Ox 05/18/19 16:00 98.1 F 67 18 168/82 H 98 05/18/19 11:00 98.5 F 72 18 150/83 H 92 L 05/18/19 08:27 83 153/82 H 05/18/19 08:26 83 05/18/19 07:53 98.0 F 83 18 153/82 H 97 Weight Admit Weight 124.738 kg Weight 124.738 kg I&O: 05/17/19 05/18/19 05/19/19 06:59 06:59 06:59 Intake Total 4460 300 880 Balance 4460 300 880 Result Diagrams: 05/18/19 05:39 05/18/19 05:39 Additional Labs: Accuchecks 05/18/19 05/18/19 05/17/19 11:28 05:04 19:11 POC Glucose 212 H 85 190 H 05/17/19 16:16 POC Glucose 163 H Phys Exam - Physical Examination HEENT: PERRLA Respiratory: no wheezing Cardiovascular: RRR, no significant murmur Gastrointestinal: soft, non-tender Musculoskeletal: pulses present Neurological: non-focal, normal sensation Lymphatic: no nodes Psychiatric: normal affect, A&O x 3 Skin: normal turgor Deviation from normal: [place] rash to perineum, pannus, Dx/Plan (1) CAD (coronary artery disease) Code(s): I25.10 - ATHSCL HEART DISEASE OF [place] CORONARY ARTERY W/O ANG PCTRS Status: Chronic (2) Chronic back pain Code(s): M54.9 - DORSALGIA, UNSPECIFIED; G89.29 - OTHER CHRONIC PAIN Status: Chronic (3) Diabetes mellitus type 2, uncontrolled Code(s): E11.65 - TYPE 2 DIABETES MELLITUS WITH HYPERGLYCEMIA Status: Chronic (4) Hyperlipidemia Code(s): E78.5 - HYPERLIPIDEMIA, UNSPECIFIED Status: Chronic (5) Hypertension Code(s): I10 - ESSENTIAL (PRIMARY) HYPERTENSION Status: Chronic (6) Morbid obesity with BMI of 40.0-44.9, adult Code(s): E66.01 - MORBID (SEVERE) OBESITY DUE TO EXCESS CALORIES; Z68.41 - BODY MASS INDEX (BMI) 40.0-44.9, ADULT Status: Chronic - Plan Awaiting insurance acceptance and will be dc'd to [facility] -: Will continue to monitor * . Review of Systems - Review of Systems Skin: Rash - Medications/Allergies Allergies/Adverse Reactions: Allergies Allergy/AdvReac Type Severity Reaction Status Date / Time No Known Allergies Allergy Verified 03/18/16 03:31 Medications: Current Medications Acetaminophen (Tylenol) 650 mg PO Q4H PRN PRN Reason: Headache/Fever/Mild Pain (1-3) Last Admin: 05/18/19 09:30 Dose: 650 mg Acetaminophen/Codeine Phosphate (Tylenol #3) 1 tab PO BID PRN PRN Reason: Moderate Pain (4-6) Last Admin: 05/18/19 13:44 Dose: 1 tab Amlodipine Besylate (Norvasc) 5 mg PO DAILY [facility] Last Admin: 05/18/19 08:26 Dose: 5 mg Aripiprazole (Abilify) 5 mg PO HS [facility] Last Admin: 05/17/19 20:04 Dose: 5 mg Ascorbic Acid (Vitamin C) 500 mg PO DAILY [facility] Last Admin: 05/18/19 08:27 Dose: 500 mg Aspirin (Ecotrin) 81 mg PO DAILY [facility] Last Admin: 05/18/19 08:26 Dose: 81 mg Carvedilol (Coreg) 6.25 mg PO BID [facility] Last Admin: 05/18/19 08:27 Dose: 6.25 mg Cholecalciferol (Vitamin D3) 5,000 units PO DAILY [facility] Last Admin: 05/18/19 08:28 Dose: 5,000 units Dextrose/Water (Dextrose 50%) 25 gm SLOW IVP PRN PRN PRN Reason: Hypoglycemia Enoxaparin Sodium (Lovenox) 30 mg SC 0900 [facility] Last Admin: 05/18/19 08:28 Dose: 30 mg Fluconazole (Diflucan) 100 mg PO DAILY [facility] Last Admin: 05/18/19 08:26 Dose: 100 mg Glucagon (Glucagon) 1 mg IM PRN PRN PRN Reason: Hypoglycemia Lisinopril/HCTZ (Prinizide 20-12.5) 1 tab PO DAILY [facility] Last Admin: 05/18/19 08:27 Dose: 1 tab Insulin Glargine 35 units/ (Miscellaneous Medication) 0.35 mls @ 0 mls/hr SC HS [facility] Last Admin: 05/17/19 20:05 Dose: 0.35 mls Insulin Glargine 50 units/ (Miscellaneous Medication) 0.5 mls @ 0 mls/hr SC QAM [facility] Last Admin: 05/18/19 08:27 Dose: 0.5 mls Dextrose/Water (D5w) 1,000 mls @ 0 mls/hr IV .Q0M PRN PRN Reason: Hypoglycemia Insulin Human Lispro (Humalog) 0 units SC .MODERATE SLIDING SC PRN PRN Reason: Moderate Correctional Scale Last Admin: 05/18/19 12:32 Dose: 4 unit Isosorbide Mononitrate (Imdur Er) 30 mg PO DAILY [facility] Last Admin: 05/18/19 08:26 Dose: 30 mg Nicotine (Nicoderm Patch) 7 mg TD Q24HR [facility] Last Admin: 05/18/19 04:58 Dose: 7 mg Nitroglycerin (Nitrostat) 0.4 mg SL Q5MIN PRN PRN Reason: Chest Pain Nystatin (Mycostatin Powder) 0 gm TOP BID [facility] Last Admin: 05/18/19 08:28 Dose: 1 applic Vortioxetine Hydrobromide [ Trintellix] 20 Mg 1 each PO DAILY [facility] Last Admin: 05/18/19 08:28 Dose: 1 each Rosuvastatin Calcium (Crestor) 40 mg PO [facility] Last Admin: 05/17/19 20:04 Dose: 40 mg Sodium Chloride (Flush - Normal Saline) 10 ml IVF Q12HR [facility] Last Admin: 05/18/19 08:29 Dose: 10 ml Sodium Chloride (Flush - Normal Saline) 10 ml IVF PRN PRN PRN Reason: Saline Flush Last Admin: 05/14/19 23:40 Dose: 10 ml Tizanidine HCl (Zanaflex) 4 mg PO Q8H PRN PRN Reason: Muscle Spasm Last Admin: 05/18/19 09:30 Dose: 4 mg Trazodone HCl (Desyrel) 100 mg PO [facility] Last Admin: 05/17/19 20:05 Dose: 100 mg
== END 2019-05-18 19:10 ==
LOC: ERS 11:46 → T4-B 22:22
PROVIDERS: ADMIT Internal Medicine; ATTEND Internal Medicine
DX: I12.9 Hypertensive chronic kidney disease with stage 1 through stage 4 chronic kidney disease, or unspecified chronic kidney disease (principal); E11.22 Type 2 diabetes mellitus with diabetic chronic kidney disease; N18.3 Chronic kidney disease, stage 3 (moderate); N17.0 Acute kidney failure with tubular necrosis; E11.21 Type 2 diabetes mellitus with diabetic nephropathy; E11.65 Type 2 diabetes mellitus with hyperglycemia; R80.9 Proteinuria, unspecified; I25.10 Atherosclerotic heart disease of native coronary artery without angina pectoris; E78.5 Hyperlipidemia, unspecified; M54.9 Dorsalgia, unspecified; G89.29 Other chronic pain; F17.210 Nicotine dependence, cigarettes, uncomplicated; E87.1 Hypo-osmolality and hyponatremia; B37.3 Candidiasis of vulva and vagina; M48.061 Spinal stenosis, lumbar region without neurogenic claudication; M51.24 Other intervertebral disc displacement, thoracic region; L30.4 Erythema intertrigo; E66.01 Morbid (severe) obesity due to excess calories; Z68.41 Body mass index [BMI] 40.0-44.9, adult; Z86.711 Personal history of pulmonary embolism; Z95.5 Presence of coronary angioplasty implant and graft; Z79.82 Long term (current) use of aspirin; Z79.4 Long term (current) use of insulin; Z79.899 Other long term (current) drug therapy
CPT/HCPCS: 72141; 72146; 72148; 74176; 80048 ×3; 80053; 82306; 82550; 82570; 82962 ×5; 83970; 84156; 85025 ×4; 85652; 86140; 87086; 90732; 96361 ×4; 96365; 96366 ×2; 96372 ×4; 96375; 97110; 97116 ×3; 97139 ×2; 99285; G0009; G0378 ×3; 36415; 36416; 81003; 81015; 90471; J0696; J1650; J1815; J3490

== ENCOUNTER 2020-01-05 14:59 | Inpatient (IN) | payer MEDICARE ==
--- NOTE | 2020-01-05 15:48 | RAD ---
PORTABLE CHEST ONE VIEW: 01/05/20 at 4:39 p.m. HISTORY: Lower extremity edema. FINDINGS/IMPRESSION: Comparison is made with exam of 03/18/16. Changes of median sternotomy again seen. The heart size is mildly enlarged. The aorta is tortuous. No focal areas of consolidation, pneumothoraces, [place] pulmonary edema or large effusions are seen. The re are postop changes and metallic hardware in the lower cervical spine. POS: [facility]
[2020-01-05 15:59] LABS: #Eosinphils 0.3 thou/uL (0.0-0.7); #Lymphocytes 1.1 thou/uL (1.20-3.40); #Monocytes 0.8 thou/uL (0.11-0.59); #Neutrophils 8.5 thou/uL (1.40-6.50); %Basophils 0.3 % (0.0-1.0); %Eosinophils 2.6 % (0.0-10.0); %Lymphocytes 9.9 % (21.0-51.0); %Monocytes 7.2 % (0.0-10.0); Hemoglobin 10.6 g/dL (12.0-16.0); Mean Corpuscular HGB CONC 31.7 g/dL (32.0-36.0); Mean Corpuscular Hemoglobin 26.9 pg (27.0-31.0); Mean Corpuscular Volume 84.8 fL (78.0-98.0); Mean Platelet Volume 7.7 fL (7.4-10.4); Platelet Count 300 thou/uL (130-400); RBC Distribution Width 16.5 % (11.5-14.5); Red Blood Cell (RBC) Count 3.93 mill/uL (4.20-5.40); White Blood Cell (WBC) Count 10.7 thou/uL (4.8-10.8)
[2020-01-05 16:22] LABS: ALT (SGPT) 13 U/L (8-55); AST (SGOT) 16 U/L (5-34); Albumin 3.4 g/dL (3.5-5.0); Alkaline Phosphatase 87 U/L (40-110); Anion Gap 15 mmol/L (10-20); BUN (Urea Nitrogen) 55 mg/dL (9.8-20.1); Bilirubin, Total 0.6 mg/dL (0.2-1.2); Calc. Creatinine Clearance 0 mL/min (70-130); Calcium 9.2 mg/dL (7.8-10.44); Carbon Dioxide 26 mmol/L (22-29); Chloride 104 mmol/L (98-107); Estimated GFR-MDRD 22; Globulin 4.6 g/dL (2.4-3.5); Glucose 139 mg/dL (70-105); Potassium 4.9 mmol/L (3.5-5.1); Sodium 140 mmol/L (136-145)
[2020-01-05 16:44] LABS: CKMB 2.4 ng/mL (0-6.6)
[2020-01-05] MEDS ORDERED: Furosemide 20 MG/2 ML VIAL ONE (17:01)
[2020-01-05 18:08] LABS: Bacteria/HPF None Seen HPF (None Seen); Bilirubin Negative (Negative); Blood, Urine Negative (Negative); Clarity Clear (Clear); Glucose, Urine (Dipstick) Normal (Negative); Leukocyte Negative Leu/uL (Negative); Nitrite Negative (Negative); Protein, Urine (Dipstick) 70 mg/dL (Neg-Trace); RBC/HPF 0-3 HPF (0-3); Squamous Epithelial 0-3 HPF (0-3); Urobilinogen Normal mg/dL (Less than 2); WBC/HPF 0-3 HPF (0-3)
[2020-01-05] MEDS ORDERED: tiZANidine HCl 4 MG TAB PO SCH (19:00)
[2020-01-05] MEDS ORDERED: Acetaminophen/Codeine 30-300mg Tablet PO SCH (19:30)
[2020-01-05 19:54] LABS: Troponin I 0.031 ng/mL (< 0.028)
--- NOTE | 2020-01-05 21:15 | PDOC.HHP ---
Hospitalist HPI - History of Present Illness Leg swelling and weight gain History of Present Illness: 59 yo CF with CAD s/p CABG X 4, CAD, HTN, DM-2 on insulin, CKD-3 and history of PE in 2015 who is a SNF resident since May, was sent to ER due to weight gain and leg swelling. She currently does not see a acetone recovery worker and has not seen one since her CABG in 2015. She reports an ECHO at [facility] 2-3 months ago. She c/o leg swelling x 1 month associated with 25 lb weight gain and abdominal distention. Reports weeping in her legs but no ulcers. Clear weeping without any pus. Reports some redness. No fever, chills. She is wheelchair bound and not on any blood thinners except ASA 81 mg daily. No recent travel history. Reports SNF residents are sick with Flu and she recently had a URI. She reports PND but states she sleeps in a recliner due to her back pain. Unable to answer questions about orthopnea. Has SOB with mild exertion. No cough or wheezing, headache, vision changes, abd. pain, N/V/D/C. No burning or pain with urination. She reports witnessed apneas but has never been tested for LOTUS. Reports morning dry mouth and headaches. Denies snoring. She reports being on diuretics at 80 mg daily of lasix but states that her leg swelling worsened despite that. ED Course: In the ED, she got IV diuretics and is being admitted for CHF. Hospitalist ROS - Review of Systems All other systems reviewed; all pertinent +/- noted in HPI/Subj Hospitalist History - Past Medical History Source: patient Cardiac: reports: CAD, HTN, Hyperlipidemia Pulmonary: reports: pulmonary embolism Musculoskeletal: reports: Chronic low back pain Renal/: reports: Chronic renal insuff, Acute renal failure Endocrine: reports: Diabetes - Past Surgical History Past Surgical History: reports: CABG, Other (C-spine surgery in 2005) - Family History Family History: reports: diabetes mellitus (father and mother) - Social History Smoking Status: Current every day smoker Tobacco Type: cigarettes (4 cigs/day) Alcohol: reports: None Drugs: reports: none Living Situation: [facility] Activity level: wheelchair bound - Exam General Appearance: awake alert, ill appearing Eye: PERRL, anicteric sclera ENT: normocephalic atraumatic, no oropharyngeal lesions, moist mucosa Neck: supple, symmetric, no thyromegaly, no lymphadenopathy Heart: RRR, no murmur, no gallops, no rubs, normal peripheral pulses Heart - other findings: Bilateral 2+ pitting pedal edema Respiratory: CTAB, no wheezes, no rales, no ronchi, normal chest expansion Respiratory - other findings: Reduced air entry bilaterally at the bases Gastrointestinal: soft, non-tender, normal bowel sounds, no palpable masses Gastrointestinal - other findings: obese Skin: normal turgor, no rashes Skin - other findings: erythema over bilateral lower ext; skin blisters but no ulcers; drainage + Neurological: cranial nerve grossly intact, normal sensation to touch, no weakness, no focal deficits Musculoskeletal: normal tone, normal strength, no muscle wasting Psychiatric: normal affect, normal behavior, A&O x 3 Hospitalist Results - Labs Result Diagrams: 01/05/20 15:48 01/05/20 15:48 Lab results: WBC 10.7 thou/uL (4.8-10.8) 01/05/20 15:48 Hgb 10.6 g/dL (12.0-16.0) L 01/05/20 15:48 Hct 33.3 % (36.0-47.0) L 01/05/20 15:48 MCV 84.8 fL (78.0-98.0) 01/05/20 15:48 Plt Count 300 thou/uL (130-400) 01/05/20 15:48 Neutrophils % 80.0 % (42.0-75.0) H 01/05/20 15:48 Sodium 140 mmol/L (136-145) 01/05/20 15:48 Potassium 4.9 mmol/L (3.5-5.1) 01/05/20 15:48 Chloride 104 mmol/L (98-107) 01/05/20 15:48 Carbon Dioxide 26 mmol/L (22-29) 01/05/20 15:48 BUN 55 mg/dL (9.8-20.1) H 01/05/20 15:48 Creatinine 2.24 mg/dL (0.6-1.1) H 01/05/20 15:48 Glucose 139 mg/dL (70-105) H 01/05/20 15:48 Calcium 9.2 mg/dL (7.8-10.44) 01/05/20 15:48 Total Bilirubin 0.6 mg/dL (0.2-1.2) 01/05/20 15:48 AST 16 U/L (5-34) 01/05/20 15:48 ALT 13 U/L (8-55) 01/05/20 15:48 Alkaline Phosphatase 87 U/L (40-110) 01/05/20 15:48 CK-MB (CK-2) 2.4 ng/mL (0-6.6) 01/05/20 15:48 Troponin I 0.031 ng/mL (< 0.028) H 01/05/20 19:20 B-Natriuretic Peptide 891.1 pg/mL (0-100) H 01/05/20 15:48 Serum Total Protein 8.0 g/dL (6.0-8.3) 01/05/20 15:48 Albumin 3.4 g/dL (3.5-5.0) L 01/05/20 15:48 Urine Ketones Negative mg/dL (Negative) 01/05/20 17:55 Urine Blood Negative (Negative) 01/05/20 17:55 Urine Nitrite Negative (Negative) 01/05/20 17:55 Ur Leukocyte Esterase Negative Isabela/uL (Negative) 01/05/20 17:55 Urine RBC 0-3 HPF (0-3) 01/05/20 17:55 Urine WBC 0-3 HPF (0-3) 01/05/20 17:55 Ur Squamous Epith Cells 0-3 HPF (0-3) 01/05/20 17:55 Urine Bacteria None Seen HPF (None Seen) 01/05/20 17:55 - EKG Interpretation EKG: Personally reviewed - Sinus rhythm; LBBB; T-inversions in I & aVL Compared with EKG from 2016 - T-inversions were present in I & aVL - Radiology Interpretation Chest x-ray Status: image reviewed by me (Pulm. vasc. congestion; Midline sternotomy wires; no consolidation) Hospitalist H&P A/P - Problem (1) CHF (congestive heart failure) Code(s): I50.9 - HEART FAILURE, UNSPECIFIED Status: Acute Qualifiers: Heart failure type: unspecified Heart failure chronicity: acute Qualified Code(s): I50.9 - Heart failure, unspecified Assessment and Plan: Admit to inpatient status to telemetry Expected to stay at least 2 midnights High risk due to need for IV diuretics and risk of worsening renal function and resp. status IV diuretics ECHO Will obtain ECHO reports from [facility] from 3 months ago Cardio consult Renal consult Daily wts, fluid & salt restriction Strict I/Os Cycle cardiac markers (2) PEACE (acute kidney injury) Code(s): N17.9 - ACUTE KIDNEY FAILURE, UNSPECIFIED Status: Acute Assessment and Plan: Likely cardiorenal in nature Renal consult Urine protein/creatinine ratio Monitor function with IV diuresis Avoid nephrotoxic meds & hypotension (3) Elevated troponin Code(s): R79.89 - OTHER SPECIFIED ABNORMAL FINDINGS OF BLOOD CHEMISTRY Status : Acute Assessment and Plan: Flat line troponins Likely related to CHF causing ventricular strain and renal function - likely demand ischemia Cardiology consult ECHO Cycle cardiac markers (4) Leg swelling Code(s): M79.89 - OTHER SPECIFIED SOFT TISSUE DISORDERS Status: Acute Assessment and Plan: Likely related to CHF However, H/O PE in 2014 and patient is wheelchair bound Will obtain US venous dopplers to R/O DVT Wound care consult Suspicion for PAD. 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: with truck terminal manager use Diabetes mellitus complication status: with kidney complications Diabetes mellitus complication detail: with chronic kidney disease Chronic kidney disease stage: stage 3 (moderate) Qualified Code(s): E11.22 - Type 2 diabetes mellitus with diabetic chronic kidney disease; N18.3 - Chronic kidney disease, stage 3 (moderate); Z79.4 - buttermaker (current) use of insulin Assessment and Plan: Diabetic diet and SSI Patient placed on home dose of basal insulin - 50 units QAM & 38 Units QHS Monitor sugars and adjust regimen HA1C Complicated by CKD-3; now with PEACE (6) Tobacco abuse Code(s): Z72.0 - TOBACCO USE Status: Chronic Assessment and Plan: Counselled regarding cessation. Willing to quit Patient requests NRT Nicoderm PRN ordered (7) CAD (coronary artery disease) Code(s): I25.10 - ATHSCL HEART DISEASE OF [place] CORONARY ARTERY W/O ANG PCTRS Status: Chronic Qualifiers: Coronary Disease-Associated Artery/Lesion type: [place] artery [place] vs. transplanted heart: [place] heart Associated angina: without angina Qualified Code(s): I25.10 - Atherosclerotic heart disease of [place] coronary artery without angina pectoris Assessment and Plan: [facility] from 2015 with multi-vessel CAD after which she underwent CABG Continue ASA, statin and BB (8) Hypertension Code(s): I10 - ESSENTIAL (PRIMARY) HYPERTENSION Status: Chronic Qualifiers: Hypertension type: essential hypertension Qualified Code(s): I10 - Essential (primary) hypertension Assessment and Plan: Hold HTN meds as patient will be on diuretics IV Monitor BP and adjust meds accordingly (9) Hyperlipidemia Code(s): E78.5 - HYPERLIPIDEMIA, UNSPECIFIED Status: Chronic Qualifiers: Hyperlipidemia type: other hyperlipidemia Qualified Code(s): E78.49 - Other hyperlipidemia; E78.4 - Other hyperlipidemia Assessment and Plan: Statin therapy (10) LOTUS (obstructive sleep apnea) Code(s): G47.33 - OBSTRUCTIVE SLEEP APNEA (ADULT) (PEDIATRIC) Status: Suspected Assessment and Plan: Suspicion for LOTUS and COPD (Overlap syndrome) Would benefit from outpatient sleep study and possible Pulm. consultation (11) Hx of pulmonary embolus Code(s): Z86.711 - PERSONAL HISTORY OF PULMONARY EMBOLISM Status: Chronic (12) Morbid obesity with BMI of 40.0-44.9, adult Code(s): E66.01 - MORBID (SEVERE) OBESITY DUE TO EXCESS CALORIES; Z68.41 - BODY MASS INDEX (BMI) 40.0-44.9, ADULT Status: Chronic - Plan Plan: CODE STATUS - FULL CODE Daughter is Medical POA
[2020-01-05] MEDS ORDERED: Nicotine 7 MG PATCH TD PRN (21:26)
[2020-01-05] MEDS ORDERED: Ondansetron PF 4 MG/2 ML Vial IVP PRN (21:26)
[2020-01-05] MEDS ORDERED: Senokot S 8.6-50 MG TAB PO PRN (21:26)
[2020-01-05] MEDS ORDERED: Dextrose 50% Abboject 50 ML SYRINGE SLOW IVP PRN (21:33)
[2020-01-05] MEDS ORDERED: Dextrose 5% in Water 1,000 ML IV PRN (21:33)
[2020-01-05 22:50] LABS: Iron 41 ug/dL (50-170); Iron Binding Capacity, Total 301 mcg/dL (265-497); Transferrin, Serum 241 mg/dL (180-382)
[2020-01-05 23:44] LABS: Hemoglobin A1c 7.5 % (4.0-6.0)
[2020-01-06 02:14] LABS: #Basophils 0.1 thou/uL (0.0-0.2); #Eosinphils 0.3 thou/uL (0.0-0.7); #Lymphocytes 0.8 thou/uL (1.20-3.40); #Monocytes 0.6 thou/uL (0.11-0.59); #Neutrophils 7.9 thou/uL (1.40-6.50); %Basophils 0.7 % (0.0-1.0); %Eosinophils 2.7 % (0.0-10.0); %Lymphocytes 8.6 % (21.0-51.0); %Monocytes 6.5 % (0.0-10.0); %Neutrophils 81.6 % (42.0-75.0); Hemoglobin 9.4 g/dL (12.0-16.0); Mean Corpuscular HGB CONC 31.6 g/dL (32.0-36.0); Mean Corpuscular Hemoglobin 26.9 pg (27.0-31.0); Mean Corpuscular Volume 85.2 fL (78.0-98.0); Mean Platelet Volume 7.4 fL (7.4-10.4); Platelet Count 242 thou/uL (130-400); RBC Distribution Width 16.5 % (11.5-14.5); Red Blood Cell (RBC) Count 3.48 mill/uL (4.20-5.40); White Blood Cell (WBC) Count 9.6 thou/uL (4.8-10.8)
[2020-01-06 02:20] LABS: INR-International Normal Ratio 1.1; Prothrombin Time 14.3 SEC (12.0-14.7)
[2020-01-06 02:40] LABS: ALT (SGPT) 10 U/L (8-55); AST (SGOT) 12 U/L (5-34); Albumin 3.1 g/dL (3.5-5.0); Alkaline Phosphatase 72 U/L (40-110); Anion Gap 13 mmol/L (10-20); BUN (Urea Nitrogen) 55 mg/dL (9.8-20.1); Bilirubin, Total 0.6 mg/dL (0.2-1.2); Calc. Creatinine Clearance 0 mL/min (70-130); Calcium 9.2 mg/dL (7.8-10.44); Carbon Dioxide 29 mmol/L (22-29); Chloride 105 mmol/L (98-107); Estimated GFR-MDRD 24; Globulin 4.6 g/dL (2.4-3.5); Glucose 187 mg/dL (70-105); Magnesium 1.7 mg/dL (1.6-2.6); Potassium 4.5 mmol/L (3.5-5.1); Protein, Total 7.7 g/dL (6.0-8.3); Sodium 142 mmol/L (136-145)
[2020-01-06] MEDS ORDERED: Furosemide 40 MG/4 ML VIAL SLOW IVP SCH ×2 (06:00→09:00)
[2020-01-06] MEDS: Acetaminophen 325 MG TAB PO PRN ×4 (08:09→20:11)
[2020-01-06] MEDS: HumaLOG 300 UNITS/3 ML VIAL SC PRN ×2 (08:09→17:05)
[2020-01-06] MEDS: Aspirin Chewable 81 MG TAB PO SCH (08:09)
[2020-01-06] MEDS: Heparin 5,000 UNITS/ML VIAL SC SCH ×3 (08:09→20:06)
--- NOTE | 2020-01-06 10:52 | CON ---
DATE OF CONSULTATION: 01/06/2020 CONSULTING PHYSICIAN: Simba Tang MD REASON FOR CONSULTATION: Acute kidney injury and weight gain and swelling. HISTORY OF PRESENT ILLNESS: This is a 59-year-old female with history of coronary artery disease, hypertension, diabetes, came to the hospital with weight gain. No fever or chills. No nausea or vomiting. No chest pain. The patient complains of shortness of breath and orthopnea and PND, and she does have a 25-pound weight gain. PAST MEDICAL HISTORY: Positive for coronary artery disease, hypertension, hyperlipidemia, diabetic nephropathy. PAST SURGICAL HISTORY: CABG and back surgery. HOME MEDICATIONS: Reviewed. ALLERGIES: NO KNOWN DRUG ALLERGIES. SOCIAL HISTORY: No smoking, alcohol, or drugs. FAMILY HISTORY: No history of kidney disease. REVIEW OF SYSTEMS: The following complete review of systems was negative, unless otherwise mentioned in the HPI or below: Constitutional: Weight loss or gain, ability to conduct usual activities. Skin: Rash, itching. Eyes: Double vision, pain. ENT/Mouth: Nose bleeding, neck stiffness, pain, tenderness. Cardiovascular: Palpitations, dyspnea on exertion, orthopnea. Respiratory: Shortness of breath, wheezing, cough, hemoptysis, fever or night sweats. Gastrointestinal: Poor appetite, abdominal pain, heartburn, nausea, vomiting, constipation, or diarrhea. Genitourinary: Urgency, frequency, dysuria, nocturia. Musculoskeletal: Pain, swelling. Neurologic/Psychiatric: Anxiety, depression. Allergy/Immunologic: Skin rash, bleeding tendency. PHYSICAL EXAMINATION: GENERAL: Alert obese female, in no apparent distress. VITAL SIGNS: Temperature 98.4, pulse 65, respiratory rate 18, blood pressure 148/64. HEENT: Atraumatic, normocephalic. Oral mucosa moist. NECK: Supple. CV: S1, S2. Regular rate and rhythm. RESPIRATORY: Clear. GI: Abdomen is soft. MUSCULOSKELETAL: Two to 3+ edema. DERMATOLOGIC: No skin rash. NEUROLOGIC: Alert and awake. PSYCHIATRIC: Mood and affect normal. LABORATORY DATA: Hemoglobin is 9.4, potassium 4.5, BUN is 55, creatinine is 2.1 , Ferritin is 57. Urine protein present. ASSESSMENT AND PLAN: 1. Acute kidney injury, most likely secondary to fluid overload. Agree with Lasix for now. 2. Fluid overload with weight gain and shortness of breath. Continue on diuretics and with close monitoring of renal function. 3. Edema, chronic. 4. Hypertension. 5. Anemia. We will rule out multiple myeloma. We will check kappa to lambda ratio. 6. We will check CYNDIE level too. 7. Proteinuria, most likely from diabetic nephropathy. We will check CYNDIE and rule out multiple myeloma. 8. Continue on diuretics. Monitor renal function and electrolytes closely and we will check CYNDIE and kappa to lambda ratio. Thank you for the consult. We will follow. Job ID: [id number] [facility]PITALDeana
[2020-01-06] MEDS: Insulin Glargine 50 UNITS in Pre-Filled Syringe 1 EACH SC SCH (12:05)
[2020-01-06 13:39] LABS: Creatinine, Urine 20.33 mg/dL (47-110)
--- NOTE | 2020-01-06 13:46 | ULT ---
BILATERAL LOWER EXTREMITY VENOUS DOPPLER ULTRASOUND: 01/06/20 HISTORY: Bilateral lower extremity edema. TECHNIQUE: Vasquez scale with color flow and spectral Doppler imaging of the deep venous system of the lower extrem ity performed bilaterally. FINDINGS: The left posterior tibials are not visualized. The exam is limited due to patient's body habitus. There is good flow, compression, and augmentation noted in the common femoral, femoral, deep femoral, and popliteal veins and saphenofemoral junctions bilaterally and the right posterior tibial veins. IMPRESSION: No definite evidence of DVT in either lower extremity. POS: JULIANN
--- NOTE | 2020-01-06 14:07 | CON ---
DATE OF CONSULTATION: REASON FOR CONSULTATION: Cardiomyopathy. HISTORY OF PRESENT ILLNESS: Ms. Blair is a 59-year-old woman, who has been seen and evaluated by Dr. Chan in the past. She underwent bypass surgery in 2014. She has been lost to follow up. She has not been seen and evaluated by Cardiology since that time. She states she was recently admitted to the [place] [facility] in [facility] due to difficulty with walking and back pain. She is currently with children. She proceeded to the emergency room most recently due to lower extremity edema. No chest pain, pressure, shortness of breath, or associated symptoms. She is very sedentary with limited mobility. Her most recent echo dated 06/2015 with LVEF 40% to 45%. PAST MEDICAL HISTORY: CAD, status post bypass surgery; chronic kidney disease; hyperlipidemia; diabetes mellitus; back surgery. ALLERGIES: NONE. SOCIAL HISTORY: No current tobacco or alcohol use. FAMILY HISTORY: Negative for CAD. REVIEW OF SYSTEMS: A 10-point review of systems is reviewed and as above, otherwise negative. PHYSICAL EXAMINATION: Vital signs: Blood pressure 154/70, pulse 71, temperature 98.7. General: The patient is a pleasant woman, in no acute distress, appears stated age. She is morbidly obese. Head, Eyes, Ears, Nose and Throat: Sclerae without icterus. Mouth: Moist mucous membranes, normal palate. Neck: No jugular venous distention. Carotid upstroke is brisk. No bruits bilaterally. Lungs: Clear to auscultation. Heart: Regular rate and rhythm, normal S1 and S2. Abdomen: Soft, nontender, nondistended. Extremities: Nonpitting edema present bilaterally. PERTINENT LABORATORY DATA: Include creatinine of 2.12. Peak troponin 0.03. BNP of 891. DIAGNOSTIC STUDIES: EKG shows a left bundle-branch block. IMPRESSION: 1. Lower extremity edema. 2. Coronary artery disease. 3. Status post bypass surgery. RECOMMENDATIONS: Ms. Blair's creatinine is elevated. Her BNP is also elevated. Her last LVEF was 40% to 45%. We will re-evaluate her EF. I would recommend Lasix that will be the discretion of Nephrology. Would avoid nephrotoxic agents. Continue atorvastatin in addition to Lasix. We will add low-dose beta-hector therapy. Recommend echo to assess LVEF. Job ID: [id number]
[2020-01-06] MEDS: Furosemide 40 MG/4 ML VIAL SLOW IVP SCH (14:10)
--- NOTE | 2020-01-06 15:42 | ULT ---
Arterial duplex sonogram bilateral lower extremity HISTORY: Vascular disease. Bilateral leg pain. Claudication. FINDINGS: Good color and spectral Doppler flow within the arterial structures of each lower extremity . Right: Triphasic waveform within the common femoral and deep femoral arteries and the proximal portio ns of the femoral arteries. Elevated peak systolic velocity within the midportion of the femoral artery at 255 cm/s monophasic flow. Distal femoral artery not well visualized. Monophasic flow is see n within the popliteal, anterior tibial, posterior tibial, and dorsalis pedis arteries. Left: Biphasic wave flow within the common femoral and deep femoral arteries and the proximal to midp ortion of the femoral artery. Monophasic flow within the distal portion of the femoral artery, popliteal artery, and dorsalis pedis artery. Anterior and posterior tibial arteries not well visualiz ed. IMPRESSION: Abnormal exam. Sonographic evidence of significant stenosis within the midportion of the right femoral artery and dampened pulsatilities distally. There is also dampened pulsatility of arterial flow within the distal portion of the left lower extremity. Please consider vascular surgica l evaluation for potential conventional arteriography.
[2020-01-06] MEDS: traMADol HCl 50 MG TAB PO PRN (17:05)
[2020-01-06] MEDS ORDERED: Benzonatate 100 MG CAP PO PRN (18:46)
--- NOTE | 2020-01-06 18:52 | PDOC.HOSPP ---
- Subjective Encounter Date: 01/06/20 Encounter Time: 11:15 Subjective: pt up in bed feels better today compared to when she came in. Per pt she has been on oral lasix for a month due to worsening edema to her lower ext. she also has been gaining weight. she is on a fluid restriction and currently resides in a SNF. - Objective Vital Signs & Weight: Vital Signs (12 hours) Temp Pulse Resp BP Pulse Ox 01/06/20 15:15 98.4 F 76 18 138/68 94 L 01/06/20 12:10 98.7 F 71 18 154/70 H 98 01/06/20 07:21 98.4 F 65 18 148/64 H 98 Weight Admit Weight 337 lb 3.2 oz Weight 337 lb 3.2 oz I&O: 01/05/20 01/06/20 01/07/20 06:59 06:59 06:59 Intake Total 850 Output Total 2000 Balance -1150 Result Diagrams: 01/06/20 02:07 01/06/20 02:07 Additional Labs: Accuchecks 01/06/20 01/06/20 16:39 05:13 POC Glucose 224 H 232 H Hospitalist ROS - Review of Systems Cardiovascular: denies: chest pain, palpitations, orthopnea, paroxysmal noc. dyspnea, edema, light headedness, other Gastrointestinal: denies: nausea, vomiting, abdominal pain, diarrhea, constipation, melena, hematochezia, other Genitourinary: denies: dysuria, frequency, incontinence, hematuria, retention, other Musculoskeletal: denies: neck pain, shoulder pain, arm pain, back pain, hand pain, leg pain, foot pain, other - Medication Medications: Active Medications Generic Name Dose Route Start Last Admin Trade Name Freq PRN Reason Stop Dose Admin Acetaminophen 650 mg 01/05/20 21:26 01/06/20 15:49 Tylenol PO 650 mg Q4H PRN Administration Headache/Fever/Mild Pain (1-3) Aspirin 81 mg 01/06/20 09:00 01/06/20 08:09 Aspirin Chewable PO 81 mg DAILY VASYL Administration Furosemide 80 mg 01/06/20 14:00 01/06/20 14:10 Lasix SLOW IVP 80 mg 0600,1400 VASYL Administration Heparin Sodium (Porcine) 5,000 units 01/06/20 09:00 01/06/20 14:10 Heparin SC 5,000 units TID VASYL Administration Insulin Glargine 50 units/ 0.5 mls @ 0 mls/hr 01/06/20 09:00 01/06/20 12:05 Miscellaneous Medication SC 0.5 mls QAM VASYL Administration Insulin Human Lispro 0 units 01/05/20 21:33 01/06/20 17:05 Humalog SC 6 unit .AGGRESSIVE SLIDING PRN Administration Aggressive Correctional Scale Tramadol HCl 50 mg 01/06/20 16:02 01/06/20 17:05 Ultram PO 50 mg Q6H PRN Administration Pain - Exam Heart: negative: RRR, no murmur, no gallops, no rubs, normal peripheral pulses, irregular, diminshed peripheral pulses, murmur present, II/IV, III/IV Respiratory: no wheezes, no tachypnea, rales Gastrointestinal: negative: soft, non-tender, non-distended, normal bowel sounds , no palpable masses, no hepatomegaly, no splenomegaly, no bruit, no guarding, no rigidity, tender to palpation, distended, diminished bowl sounds, voluntary guarding Gastrointestinal - other findings: obse abdomen Extremities: 2+ LE edema Extremities - other findings: significant lower ext edema, Skin - other findings: she has some blisters per wound care, her lower ext wrapped Hosp A/P (1) CHF (congestive heart failure) Code(s): I50.9 - HEART FAILURE, UNSPECIFIED Status: Acute Qualifiers: Heart failure type: unspecified Heart failure chronicity: acute Qualified Code(s): I50.9 - Heart failure, unspecified (2) Elevated troponin Code(s): R79.89 - OTHER SPECIFIED ABNORMAL FINDINGS OF BLOOD CHEMISTRY Status : Acute (3) Diabetes mellitus Code(s): E11.9 - TYPE 2 DIABETES MELLITUS WITHOUT COMPLICATIONS Status: Chronic Qualifiers: Diabetes mellitus type: type 2 Diabetes 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 control 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 insulin use: with mcc use Diabetes mellitus complication status: with kidney complications Diabetes mellitus complication detail: with chronic kidney disease Chronic kidney disease stage: stage 3 (moderate) Qualified Code(s): E11.22 - Type 2 diabetes mellitus with diabetic chronic kidney disease; N18.3 - Chronic kidney disease, stage 3 (moderate); Z79.4 - watermelon harvesting 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 (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) use of insulin (4) Diabetes mellitus type 2, uncontrolled Code(s): E11.65 - TYPE 2 DIABETES MELLITUS WITH HYPERGLYCEMIA Status: Chronic (5) Hx of pulmonary embolus Code(s): Z86.711 - PERSONAL HISTORY OF PULMONARY EMBOLISM Status: Chronic (6) Hypertension Code(s): I10 - ESSENTIAL (PRIMARY) HYPERTENSION Status: Chronic Qualifiers: Hypertension type: essential hypertension Qualified Code(s): I10 - Essential (primary) hypertension (7) Morbid obesity with BMI of 40.0-44.9, adult Code(s): E66.01 - MORBID (SEVERE) OBESITY DUE TO EXCESS CALORIES; Z68.41 - BODY MASS INDEX (BMI) 40.0-44.9, ADULT Status: Chronic (8) Acute worsening of stage 3 chronic kidney disease Code(s): N18.3 - CHRONIC KIDNEY DISEASE, STAGE 3 (MODERATE) Status: Acute - Plan Heart failure systolic, will continue iv lasix. lower ext arterial doppler indicates stenosis of right femoral artery and dampened pulsatillity of distal portion of left lower ext. will get vascular surgery to evaluate.
[2020-01-06] MEDS: Carvedilol 3.125 MG TAB PO SCH (20:06)
[2020-01-06] MEDS: Atorvastatin Calcium 40 MG TAB PO SCH (20:06)
[2020-01-06] MEDS: traZODone HCl 50 MG TAB PO SCH (20:07)
[2020-01-06] MEDS ORDERED: Carvedilol 6.25 MG TAB PO SCH (21:00)
[2020-01-06] MEDS ORDERED: Atorvastatin Calcium 40 MG TAB PO SCH (21:00)
[2020-01-06] MEDS: Insulin Glargine 38 UNITS in Pre-Filled Syringe 1 EACH SC SCH (21:16)
--- NOTE | 2020-01-06 21:20 | CON ---
DATE OF CONSULTATION: 01/06/2020 HISTORY OF PRESENT ILLNESS: This is a 59-year-old female, currently residing in a detention since May of this year when she became non ambulatory due to the effects of morbid obesity on her back and knees. She was admitted to the hospital yesterday with complaints of swelling in her lower extremities. She was noted to have some sores on both of her lower legs of several weeks duration and venous ultrasound was performed demonstrating no evidence of DVT. An arterial ultrasound was then performed demonstrating significant stenosis in the right femoral artery with dampened pulsatility in both lower legs. The patient reports no rest pain and since she is nonambulatory, reports no claudication. She has multiple cardiovascular risk factors including hypertension, diabetes mellitus, dyslipidemia, and a smoking history currently at 4 cigarettes a day. PAST MEDICAL HISTORY: Significant in this regard and that I performed coronary bypass grafting in 2014. The patient subsequently did not have any regular followup except for hospital visits for UTI x2 last year. MEDICATIONS: Her medications prior to admission included multiple medicines, enough listed that I will not repeat them, but they are listed in her records. PAST SURGICAL HISTORY: Includes hysterectomy, foot surgery, cervical spine surgery, tonsillectomy, and coronary bypass grafting x4 with a BALL to the LAD, saphenous vein to a ramus, obtuse marginal and PDA. PHYSICAL EXAMINATION: VITAL SIGNS: Her examination today is significant for weight of 337 pounds with a BMI of 53. Most recent blood pressure 150/70, heart rate 76. NECK: No carotid bruits. LUNGS: Clear to auscultation anteriorly. CARDIAC: Reveals good heart tones with no murmurs. ABDOMEN: Obese. EXTREMITIES: Have proximal obesity with no peripheral pitting edema, but her legs are swollen. She has multiple ulcerations in both lower legs with dressings in place. Her feet appear relatively normal with a palpable right dorsalis pedis pulse with a good triphasic waveform. A slightly weaker biphasic right posterior tibial signal. A monophasic left posterior tibial and a bi to triphasic left dorsalis pedis that is not palpable. PLAN: At this time, her peripheral vascular disease is: 1. Asymptomatic. 2. Not critical. Even if she did have significant peripheral vascular disease, her obesity may preclude any sort of intervention. I think control of her edema, which I have discussed with her and including salt restriction will probably allow these wounds to heal properly. The fact that the patient sleeps in a chair recliner and not the bed probably adds to the swelling in her legs which are really never significantly elevated. Job ID: [id number]
[2020-01-07] MEDS: Furosemide 40 MG/4 ML VIAL SLOW IVP SCH ×2 (05:31→15:14)
[2020-01-07 06:35] LABS: INR-International Normal Ratio 1.1; Prothrombin Time 14.2 SEC (12.0-14.7)
[2020-01-07 06:41] LABS: Anion Gap 11 mmol/L (10-20); BUN (Urea Nitrogen) 51 mg/dL (9.8-20.1); Calc. Creatinine Clearance 71 mL/min (70-130); Calcium 9.2 mg/dL (7.8-10.44); Carbon Dioxide 34 mmol/L (22-29); Chloride 101 mmol/L (98-107); Estimated GFR-MDRD 26; Glucose 64 mg/dL (70-105); Magnesium 1.7 mg/dL (1.6-2.6); Potassium 4.3 mmol/L (3.5-5.1); Sodium 142 mmol/L (136-145)
[2020-01-07] MEDS ORDERED: hydrALAZINE 25 MG TAB PO SCH (08:00)
[2020-01-07] MEDS ORDERED: Non-Formulary Item 1 EACH (Carvedilol [Coreg] 6.25 MG) PO SCH (08:00)
[2020-01-07] MEDS: Carvedilol 3.125 MG TAB PO SCH ×2 (08:19→21:50)
[2020-01-07] MEDS: Ferrous Sulfate 325 MG TAB PO SCH ×2 (08:19→17:13)
[2020-01-07] MEDS: Isosorbide Mononitrate (ER) 30 MG TAB PO SCH (08:19)
[2020-01-07] MEDS: Aspirin Chewable 81 MG TAB PO SCH (08:20)
[2020-01-07] MEDS: Docusate 100 MG CAP PO SCH (08:20)
[2020-01-07] MEDS: hydrALAZINE 25 MG TAB PO SCH ×3 (08:20→21:50)
[2020-01-07] MEDS: Heparin 5,000 UNITS/ML VIAL SC SCH ×3 (08:21→21:48)
[2020-01-07] MEDS: traMADol HCl 50 MG TAB PO PRN ×3 (08:21→23:07)
[2020-01-07] MEDS: Insulin Glargine 50 UNITS in Pre-Filled Syringe 1 EACH SC SCH (08:27)
--- NOTE | 2020-01-07 08:59 | PRG ---
DATE OF SERVICE: 01/07/2020 SUBJECTIVE: Ms. Blair is feeling much better today. She has lost significant amount of fluid and weight. She has had less edema. OBJECTIVE: Vital Signs: Blood pressure 170/70, pulse 67, temperature 98. General: The patient is a pleasant female, in no acute distress, appears stated age. Head, Eyes, Ears, Nose and Throat: Sclerae without icterus. Mouth: Moist mucous membranes, normal palate. Neck: No jugular venous distention. Carotid upstroke is brisk. No bruits bilaterally. Lungs: Clear to auscultation. Heart: Regular rate and rhythm, normal S1 and S2. Abdomen: Soft, nontender, nondistended. Extremities: 1 to 2+ pitting edema. PERTINENT LABS: Creatinine 1.97, down from 2.14 with a GFR of 26. IMPRESSION: 1. Edema. 2. Elevated BNP. 3. Cardiomyopathy, likely ischemic. 4. Coronary artery disease. 5. Status post bypass surgery. RECOMMENDATIONS: Ms. Blair's recent echo was very difficult to define. Her LVEF does appear moderately diminished, but quantification is difficult due to poor endocardial definition. She has diuresed. At this point, I recommend a noninvasive stress study to assess for any areas of ischemia. We would also give an assessment of her LVEF. Her last LVEF was 40% to 45% prior to bypass surgery in 2014. She has not had any further workup since. It is unknown whether the LVEF diminished after surgery or if this is a new finding. A noninvasive stress study will help delineate the above. We will avoid CYNDY inhibitor therapy and ARB. Continue aspirin and atorvastatin in addition to carvedilol. Hydralazine has been increased from 25 mg one p.o. b.i.d. to t.i.d. Continue nitrates. Job ID: [id number]
[2020-01-07] MEDS ORDERED: Aspirin 325 mg Enteric Coated Tablet PO SCH (09:00)
[2020-01-07] MEDS: Acetaminophen 325 MG TAB PO PRN (09:42)
--- NOTE | 2020-01-07 14:23 | NM ---
Exam: Nuclear medicine cardiac SPECT stress only with wall motion and ejection fraction HISTORY: Cardiomyopathy Lexiscan study is performed with stress only Patient was injected with 30.3 mCi technetium 99m sestamibi intravenously. No evidence for infarct or ischemia. LHR 0.43 EDV elevated at 183 mL Ejection fraction 42%. Septal hypokinesis. IMPRESSION: No scan evidence for overt infarct or ischemia. Elevated EDV at 183 mL. Ejection fraction 42%. Septal hypokinesis.
[2020-01-07] MEDS ORDERED: Regadenoson 0.4 MG/5 ML SYRINGE ONE (16:15)
--- NOTE | 2020-01-07 17:02 | PDOC.HOSPP ---
- Subjective Encounter Date: 01/07/20 Encounter Time: 09:00 Subjective: Pt seen for followup re: CHF exacerbation. Feels better. - Objective Vital Signs & Weight: Vital Signs (12 hours) Temp Pulse Resp BP BP Pulse Ox 01/07/20 15:11 98 F 81 18 178/106 H 94 L 01/07/20 11:24 97.9 F 67 18 172/72 H 94 L 01/07/20 07:05 98 F 67 18 172/77 H 98 Weight Admit Weight 337 lb 3.2 oz Weight 328 lb I&O: 01/06/20 01/07/20 01/08/20 06:59 06:59 06:59 Intake Total 1450 Output Total 3750 Balance -2300 Result Diagrams: 01/06/20 02:07 01/07/20 06:11 Additional Labs: Accuchecks 01/07/20 01/07/20 01/06/20 10:55 06:20 20:27 POC Glucose 77 77 231 H 01/06/20 16:39 POC Glucose 224 H Labs and MARs reviewed by me EKG Reviewed by me: Yes (Tele: NSR) Hospitalist ROS - Review of Systems Cardiovascular: denies: chest pain, palpitations, orthopnea, paroxysmal noc. dyspnea, edema, light headedness Gastrointestinal: denies: nausea, vomiting, abdominal pain, diarrhea, constipation, melena, hematochezia - Medication Medications: Active Medications Generic Name Dose Route Start Last Admin Trade Name Freq PRN Reason Stop Dose Admin Acetaminophen 650 mg 01/05/20 21:26 01/07/20 09:42 Tylenol PO 650 mg Q4H PRN Administration Headache/Fever/Mild Pain (1-3) Aspirin 81 mg 01/06/20 09:00 01/07/20 08:20 Aspirin Chewable PO 81 mg DAILY [facility] Administration Atorvastatin Calcium 80 mg 01/06/20 21:00 01/06/20 20:06 Lipitor PO 80 mg HS [facility] Administration Carvedilol 3.125 mg 01/06/20 21:00 01/07/20 08:19 Coreg PO 3.125 mg BID [facility] Administration Docusate Sodium 100 mg 01/07/20 09:00 01/07/20 08:20 Colace PO 100 mg DAILY [facility] Administration Ferrous Sulfate 325 mg 01/07/20 08:00 01/07/20 08:19 Feosol PO 325 mg BID-WM [facility] Administration Furosemide 80 mg 01/06/20 14:00 01/07/20 15:14 Lasix SLOW IVP 80 mg 0600,1400 [facility] Administration Heparin Sodium (Porcine) 5,000 units 01/06/20 09:00 01/07/20 15:15 Heparin SC 5,000 units TID [facility] Administration Hydralazine HCl 25 mg 01/07/20 09:00 01/07/20 15:13 Apresoline PO 25 mg TID [facility] Administration Insulin Glargine 38 units/ 0.38 mls @ 0 mls/hr 01/06/20 21:00 01/06/20 21:16 Miscellaneous Medication SC 0.38 mls HS [facility] Administration Insulin Glargine 50 units/ 0.5 mls @ 0 mls/hr 01/06/20 09:00 01/07/20 08:27 Miscellaneous Medication SC Not Given QAM [facility] Insulin Human Lispro 0 units 01/05/20 21:33 01/06/20 17:05 Humalog SC 6 unit .AGGRESSIVE SLIDING PRN Administration Aggressive Correctional Scale Isosorbide Mononitrate 30 mg 01/07/20 09:00 01/07/20 08:19 Imdur Er PO 30 mg DAILY [facility] Administration Sodium Chloride 10 ml 01/06/20 21:00 01/07/20 08:21 Flush - Normal Saline IVF 10 ml Q12HR [facility] Administration Tramadol HCl 50 mg 01/06/20 16:02 01/07/20 15:14 Ultram PO 50 mg Q6H PRN Administration Pain Trazodone HCl 100 mg 01/06/20 21:00 01/06/20 20:07 Desyrel PO 100 mg HS [facility] Administration - Exam General - other findings: Morbid obesity Eye: anicteric sclera ENT: moist mucosa Neck: supple, symmetric, no thyromegaly, no lymphadenopathy Heart: RRR, no gallops, no rubs Respiratory: CTAB, no rales, no ronchi, normal chest expansion Gastrointestinal: soft, non-tender, normal bowel sounds, distended Extremities: 2+ LE edema Skin: no rashes Musculoskeletal: normal tone, normal strength, no muscle wasting Psychiatric: normal affect, normal behavior, A&O x 3 Hosp A/P - Plan (1) Acute on chronic systolic CHF, NYHA class 3 Code(s): I50.9 - HEART FAILURE, UNSPECIFIED Status: Acute Qualifiers: Heart failure type: unspecified Heart failure chronicity: acute Qualified Code(s): I50.9 - Heart failure, unspecified (2) Elevated troponin Code(s): R79.89 - OTHER SPECIFIED ABNORMAL FINDINGS OF BLOOD CHEMISTRY Status : Acute (3) Diabetes mellitus Code(s): E11.9 - TYPE 2 DIABETES MELLITUS WITHOUT COMPLICATIONS Status: Chronic Qualifiers: Diabetes mellitus type: type 2 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: with shelter use Diabetes mellitus complication status: with kidney complications Diabetes mellitus complication detail: with chronic kidney disease Chronic kidney disease stage: stage 3 (moderate) Qualified Code(s): E11.22 - Type 2 diabetes mellitus with diabetic chronic kidney disease; N18.3 - Chronic kidney disease, stage 3 (moderate); Z79.4 - long-term (current) use of insulin (4) Hypertension Code(s): I10 - ESSENTIAL (PRIMARY) HYPERTENSION Status: Chronic Qualifiers: Hypertension type: essential hypertension Qualified Code(s): I10 - Essential (primary) hypertension (5) Hx of pulmonary embolus Code(s): Z86.711 - PERSONAL HISTORY OF PULMONARY EMBOLISM Status: Chronic (6) Morbid obesity with BMI of more than 50 Status: Chronic (7) Chronic stage 3 chronic kidney disease Code(s): N18.3 - CHRONIC KIDNEY DISEASE, STAGE 3 (MODERATE) Status: Chronic (8) Peripheral vascular disease Code(s): N18.3 - CHRONIC KIDNEY DISEASE, STAGE 3 (MODERATE) Status: Chronic - Plan Continue diuretics. Pt to have stress test. No intervention planned for PVD. Increase hydralazine to 50 mg PO TID.
[2020-01-07] MEDS: Aripiprazole 10 MG TAB PO SCH (17:13)
--- NOTE | 2020-01-07 17:20 | PRG ---
DATE OF SERVICE: 01/07/2020 SUBJECTIVE: Patient was seen and examined at bedside and overnight events noted. Patient denies any shortness of breath or chest pain or palpitation. No history of nausea or vomiting or diarrhea or fever or chills or cramps. OBJECTIVE: General: This is an obese female, in no apparent distress. Vital Signs: Temperature 97.9. Heart Rate 67. Respiratory rate 18, and blood pressure 172/72. HEENT: Atraumatic, normocephalic. Oral mucosa is moist. Neck: Supple. Cardiovascular: S1, S2 heard. Rate and rhythm regular. Respiratory: Clear to auscultation. Gastrointestinal: Abdomen is soft. Musculoskeletal: No tenderness. No edema. Dermatologic: No skin rash. Neurologic: Alert and awake and oriented x3. No focal neurologic deficits. Moving all the extremities. Psychiatric: Mood and affect normal. LABORATORY DATA: Potassium 4.3, BUN is 51, and creatinine is 1.9. ASSESSMENT AND PLAN: 1. Acute kidney injury on chronic kidney stage 4 with improvement in renal function. 2. Fluid overload with weight gain. Continue dialysis. We will check daily weight. 3. Edema. 4. Cardiorenal syndrome. Follow with Cardiology. 5. Anemia of chronic disease. 6. We will continue on diuretics. Labs are pending. Immunological workup pending. We will follow. Job ID: [id number]
[2020-01-07 17:45] LABS: ANA Symphony (Qualitative) Negative (Negative); ANA Symphony (Quantitative) 0.3 Ratio (< 0.7 Negative); dsDNA IgG Antibody 2.9 IU/mL (<10 Negative)
[2020-01-07] MEDS: HumaLOG 300 UNITS/3 ML VIAL SC PRN (18:06)
[2020-01-07] MEDS: Insulin Glargine 38 UNITS in Pre-Filled Syringe 1 EACH SC SCH (21:48)
[2020-01-07] MEDS: traZODone HCl 50 MG TAB PO SCH (21:49)
[2020-01-07] MEDS: Atorvastatin Calcium 40 MG TAB PO SCH (21:49)
[2020-01-08 04:52] LABS: INR-International Normal Ratio 1.1; Prothrombin Time 14.3 SEC (12.0-14.7)
[2020-01-08] MEDS: Furosemide 40 MG/4 ML VIAL SLOW IVP SCH ×2 (05:56→13:18)
[2020-01-08] MEDS: traMADol HCl 50 MG TAB PO PRN ×3 (05:56→21:03)
[2020-01-08] MEDS: Heparin 5,000 UNITS/ML VIAL SC SCH ×3 (09:56→21:07)
[2020-01-08] MEDS: hydrALAZINE 25 MG TAB PO SCH ×3 (09:57→21:02)
[2020-01-08] MEDS: Docusate 100 MG CAP PO SCH (09:57)
[2020-01-08] MEDS: Carvedilol 3.125 MG TAB PO SCH ×2 (09:58→21:03)
[2020-01-08] MEDS: Isosorbide Mononitrate (ER) 30 MG TAB PO SCH (09:58)
[2020-01-08] MEDS: Ferrous Sulfate 325 MG TAB PO SCH ×2 (09:58→18:12)
[2020-01-08] MEDS: Aspirin Chewable 81 MG TAB PO SCH (09:58)
[2020-01-08] MEDS: Insulin Glargine 50 UNITS in Pre-Filled Syringe 1 EACH SC SCH (10:01)
[2020-01-08 15:13] LABS: Kappa Lambda Light Chain Ratio 2.55 (0.26-1.65); Kappa Light Chains 398.9 mg/L (3.3-19.4); Lambda Light Chain 156.4 mg/L (5.7-26.3)
[2020-01-08] MEDS: Aripiprazole 10 MG TAB PO SCH (18:12)
--- NOTE | 2020-01-08 18:49 | PDOC.HOSPP ---
- Subjective Encounter Date: 01/08/20 Encounter Time: 09:00 Subjective: Pt seen for followup re: CHF exacerbation. Feels better today. - Objective Vital Signs & Weight: Vital Signs (12 hours) Temp Pulse Resp BP Pulse Ox 01/08/20 17:15 98.1 F 76 17 157/70 H 94 L 01/08/20 15:54 76 01/08/20 12:00 98.3 F 76 18 168/75 H 95 01/08/20 09:57 66 01/08/20 08:00 95 Weight Admit Weight 337 lb 3.2 oz Weight 317 lb 6.4 oz I&O: 01/07/20 01/08/20 01/09/20 06:59 06:59 06:59 Intake Total 1450 720 790 Output Total 9630 2925 1999 Balance -2300 -2205 -5650 Result Diagrams: 01/06/20 02:07 01/07/20 06:11 Additional Labs: Accuchecks 01/08/20 01/08/20 01/08/20 16:32 10:51 05:59 POC Glucose 202 H 124 H 63 L 01/07/20 19:40 POC Glucose 292 H Labs and MARs reviewed by me EKG Reviewed by me: Yes (Tele: NSR) Hospitalist ROS - Review of Systems Respiratory: reports: SOB with excertion. denies: cough, shortness of breath, pleuritic pain, wheezing Cardiovascular: reports: edema. denies: chest pain, palpitations, orthopnea, paroxysmal noc. dyspnea, light headedness Gastrointestinal: denies: nausea, vomiting, abdominal pain, diarrhea, constipation, melena, hematochezia Genitourinary: denies: dysuria, frequency, incontinence, hematuria, retention Musculoskeletal: denies: neck pain, shoulder pain, arm pain, back pain, hand pain, leg pain, foot pain - Medication Medications: Active Medications Generic Name Dose Route Start Last Admin Trade Name Freq PRN Reason Stop Dose Admin Acetaminophen 650 mg 01/05/20 21:26 01/07/20 09:42 Tylenol PO 650 mg Q4H PRN Administration Headache/Fever/Mild Pain (1-3) Aripiprazole 5 mg 01/07/20 17:00 01/08/20 18:12 Abilify PO 5 mg 1700 [facility] Administration Aspirin 81 mg 01/06/20 09:00 01/08/20 09:58 Aspirin Chewable PO 81 mg DAILY [facility] Administration Atorvastatin Calcium 80 mg 01/06/20 21:00 01/07/20 21:49 Lipitor PO 80 mg HS [facility] Administration Carvedilol 3.125 mg 01/06/20 21:00 01/08/20 09:58 Coreg PO 3.125 mg BID [facility] Administration Docusate Sodium 100 mg 01/07/20 09:00 01/08/20 09:57 Colace PO 100 mg DAILY [facility] Administration Ferrous Sulfate 325 mg 01/07/20 08:00 01/08/20 18:12 Feosol PO 325 mg BID-WM [facility] Administration Furosemide 80 mg 01/06/20 14:00 01/08/20 13:18 Lasix SLOW IVP 80 mg 0600,1400 [facility] Administration Heparin Sodium (Porcine) 5,000 units 01/06/20 09:00 01/08/20 15:54 Heparin SC 5,000 units TID [facility] Administration Hydralazine HCl 50 mg 01/07/20 21:00 01/08/20 15:54 Apresoline PO 50 mg TID [facility] Administration Insulin Glargine 38 units/ 0.38 mls @ 0 mls/hr 01/06/20 21:00 01/07/20 21:48 Miscellaneous Medication SC 0.38 mls HS [facility] Administration Insulin Glargine 50 units/ 0.5 mls @ 0 mls/hr 01/06/20 09:00 01/08/20 10:01 Miscellaneous Medication SC Not Given QAM [facility] Insulin Human Lispro 0 units 01/05/20 21:33 01/07/20 18:06 Humalog SC 9 unit .AGGRESSIVE SLIDING PRN Administration Aggressive Correctional Scale Isosorbide Mononitrate 30 mg 01/07/20 09:00 01/08/20 09:58 Imdur Er PO 30 mg DAILY [facility] Administration Sodium Chloride 10 ml 01/06/20 21:00 01/08/20 09:59 Flush - Normal Saline IVF 10 ml Q12HR [facility] Administration Tramadol HCl 50 mg 01/06/20 16:02 01/08/20 13:18 Ultram PO 50 mg Q6H PRN Administration Pain Trazodone HCl 100 mg 01/06/20 21:00 01/07/20 21:49 Desyrel PO 100 mg HS [facility] Administration - Exam General - other findings: Morbid obesity Eye: anicteric sclera ENT: no oropharyngeal lesions Neck: supple, symmetric, no thyromegaly, no lymphadenopathy Heart: RRR, no gallops, no rubs, normal peripheral pulses Respiratory: no wheezes, normal chest expansion, no tachypnea, rales Gastrointestinal: soft, non-tender, normal bowel sounds, distended Extremities: 2+ LE edema Psychiatric: normal affect, normal behavior, A&O x 3 Hosp A/P - Plan (1) Acute on chronic systolic CHF, NYHA class 3 Code(s): I50.9 - HEART FAILURE, UNSPECIFIED Status: Acute Qualifiers: Heart failure type: unspecified Heart failure chronicity: acute Qualified Code(s): I50.9 - Heart failure, unspecified (2) Elevated troponin Code(s): R79.89 - OTHER SPECIFIED ABNORMAL FINDINGS OF BLOOD CHEMISTRY Status : Acute (3) Peripheral vascular disease Code(s): N18.3 - CHRONIC KIDNEY DISEASE, STAGE 3 (MODERATE) Status: Chronic (4) Hypertension Code(s): I10 - ESSENTIAL (PRIMARY) HYPERTENSION Status: Chronic Qualifiers: Hypertension type: essential hypertension Qualified Code(s): I10 - Essential (primary) hypertension (5) Hx of pulmonary embolus Code(s): Z86.711 - PERSONAL HISTORY OF PULMONARY EMBOLISM Status: Chronic (6) Morbid obesity with BMI of more than 50 Status: Chronic (7) Chronic stage 3 chronic kidney disease Code(s): N18.3 - CHRONIC KIDNEY DISEASE, STAGE 3 (MODERATE) Status: Chronic (8) Diabetes mellitus Code(s): E11.9 - TYPE 2 DIABETES MELLITUS WITHOUT COMPLICATIONS Status: Chronic Qualifiers: Diabetes mellitus type: type 2 Diabetes mellitus senior living insulin use: with senior living use Diabetes mellitus complication status: with kidney complications Diabetes mellitus complication detail: with chronic kidney disease Chronic kidney disease stage: stage 3 (moderate) Qualified Code(s): E11.22 - Type 2 diabetes mellitus with diabetic chronic kidney disease; N18.3 - Chronic kidney disease, stage 3 (moderate); 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 Continue IV furosemide. Stress test result noted No intervention planned for PVD. Increase hydralazine to 75 mg PO TID.
--- NOTE | 2020-01-08 19:58 | PDOC.CPN ---
- Subjective Date: 01/08/20 Time: 19:56 Interval history: No angina. SOB improved. - Review of Systems General: denies: fever/chills, weight/appetite/sleep changes, night sweats, fatigue Respiratory: denies: cough, congestion, shortness of breath, exercise intolerance Cardiovascular: denies: chest pain, palpitation, edema, paroxysmal nocturnal dyspnea, orthopnea Gastrointestinal: denies: nausea, vomiting, diarrhea, constipation, abd pain, GI bleeding Musculoskeletal: denies: pain, tenderness, stiffness, swelling, arthritis/ arthralgias Neurological: denies: numbness, syncope, seizure, weakness - Objective Allergies/Adverse Reactions: Allergies Allergy/AdvReac Type Severity Reaction Status Date / Time No Known Allergies Allergy Verified 03/18/16 03:31 Visit Medications: Current Medications Acetaminophen (Tylenol) 650 mg PO Q4H PRN PRN Reason: Headache/Fever/Mild Pain (1-3) Last Admin: 01/07/20 09:42 Dose: 650 mg Aripiprazole (Abilify) 5 mg PO 1700 [facility] Last Admin: 01/08/20 18:12 Dose: 5 mg Aspirin (Aspirin Chewable) 81 mg PO DAILY [facility] Last Admin: 01/08/20 09:58 Dose: 81 mg Atorvastatin Calcium (Lipitor) 80 mg PO HS [facility] Last Admin: 01/07/20 21:49 Dose: 80 mg Benzonatate (Tessalon) 100 mg PO TIDPRN PRN PRN Reason: Cough Carvedilol (Coreg) 3.125 mg PO BID [facility] Last Admin: 01/08/20 09:58 Dose: 3.125 mg Dextrose/Water (Dextrose 50%) 25 gm SLOW IVP PRN PRN PRN Reason: Hypoglycemia Docusate Sodium (Colace) 100 mg PO DAILY [facility] Last Admin: 01/08/20 09:57 Dose: 100 mg Ferrous Sulfate (Feosol) 325 mg PO BID-WM [facility] Last Admin: 01/08/20 18:12 Dose: 325 mg Furosemide (Lasix) 80 mg SLOW IVP 0600,1400 [facility] Last Admin: 01/08/20 13:18 Dose: 80 mg Glucagon (Glucagon) 1 mg IM PRN PRN PRN Reason: Hypoglycemia Heparin Sodium (Porcine) (Heparin) 5,000 units SC TID [facility] Last Admin: 01/08/20 15:54 Dose: 5,000 units Hydralazine HCl (Apresoline) 75 mg PO TID [facility] Insulin Glargine 38 units/ (Miscellaneous Medication) 0.38 mls @ 0 mls/hr SC [facility] Last Admin: 01/07/20 21:48 Dose: 0.38 mls Insulin Glargine 50 units/ (Miscellaneous Medication) 0.5 mls @ 0 mls/hr [facility] Last Admin: 01/08/20 10:01 Dose: Not Given Dextrose/Water (D5w) 1,000 mls @ 0 mls/hr IV .Q0M PRN PRN Reason: Hypoglycemia Insulin Human Lispro (Humalog) 0 units SC .AGGRESSIVE SLIDING PRN PRN Reason: Aggressive Correctional Scale Last Admin: 01/07/20 18:06 Dose: 9 unit Isosorbide Mononitrate (Imdur Er) 30 mg PO DAILY [facility] Last Admin: 01/08/20 09:58 Dose: 30 mg Nicotine (Nicoderm Patch) 7 mg TD Q24HR PRN PRN Reason: withdrawal Ondansetron HCl (Zofran) 4 mg IVP Q6H PRN PRN Reason: Nausea/Vomiting Senna/Docusate Sodium (Senokot S) 2 tab PO BID PRN PRN Reason: Constipation Sodium Chloride (Flush - Normal Saline) 10 ml IVF Q12HR [facility] Last Admin: 01/08/20 09:59 Dose: 10 ml Sodium Chloride (Flush - Normal Saline) 10 ml IVF PRN PRN PRN Reason: Saline Flush Tramadol HCl (Ultram) 50 mg PO Q6H PRN PRN Reason: Pain Last Admin: 01/08/20 13:18 Dose: 50 mg Trazodone HCl (Desyrel) 100 mg PO [facility] Last Admin: 01/07/20 21:49 Dose: 100 mg Vital Signs & Weight: Vital Signs Temp Pulse Resp BP Pulse Ox 01/08/20 17:15 98.1 F 76 17 157/70 H 94 L 01/08/20 15:54 76 01/08/20 12:00 98.3 F 76 18 168/75 H 95 01/08/20 09:57 66 01/08/20 08:00 95 Admit Weight 337 lb 3.2 oz Weight 317 lb 6.4 oz - Physical Exam General: alert & oriented x3 HEENT: mucus membranes moist Neck: supple neck Cardiac: regular rate and rhythm Lungs: clear to auscultation Neuro: grossly intact Abdomen: active bowel sounds Extremities: 1+ LE edema Skin: clear Musculoskeletal: no pain - Labs Result Diagrams: 01/06/20 02:07 01/07/20 06:11 Troponin/CKMB CK-MB (CK-2) 2.4 ng/mL (0-6.6) 01/05/20 15:48 Troponin I 0.030 ng/mL (< 0.028) H 01/06/20 02:07 - Telemetry Sinus rhythms and dysrhythmias: sinus rhythm - Assessment/Plan Assessment/Plan: 1. Edema 2. Cardiomyopathy, ischemic EF at 42% 3. CAD 4. S/P CABG 5. [place] on CKD. PLAN; - No ischemia on MPI but reduced EF at 42% - Medical management for now due to elevated creatinine - Continue to diurese. Close to baseline.
--- NOTE | 2020-01-08 20:22 | PRG ---
DATE OF SERVICE: 01/08/2020 SUBJECTIVE: Patient was seen and examined at bedside and overnight events noted. Patient denies any shortness of breath or chest pain or palpitation. No history of nausea or vomiting or diarrhea or fever or chills or cramps. OBJECTIVE: GENERAL: This is a well-built female, in no apparent distress. VITAL SIGNS: Temperature 98.1. Heart rate 76. Respiratory rate 18. Blood pressure 157/76. HEENT: Atraumatic, normocephalic. Oral mucosa is moist NECK: Supple. CARDIOVASCULAR: S1, S2 heard. Rate and rhythm regular. RESPIRATORY: Clear to auscultation. GASTROINTESTINAL: Abdomen is soft. MUSCULOSKELETAL: No tenderness. No edema. DERMATOLOGIC: No skin rash. NEUROLOGIC: Alert and awake and oriented X3. No focal neurologic deficits. Moving all the extremities. PSYCHIATRIC: Mood and affect normal. LABORATORY DATA: Potassium is 4.3, BUN is 51, and creatinine is 1.9. No labs done today. ASSESSMENT AND PLAN: 1. Acute kidney injury on chronic kidney stage 4. We will monitor renal functions and fluid overload. 2. Edema. 3. Anemia of chronic disease. Recheck labs, seems like she had a 20 pounds weight loss. We will follow closely. Job ID: [id number]
[2020-01-08] MEDS: Insulin Glargine 38 UNITS in Pre-Filled Syringe 1 EACH SC SCH (21:01)
[2020-01-08] MEDS: traZODone HCl 50 MG TAB PO SCH (21:01)
[2020-01-08] MEDS: Atorvastatin Calcium 40 MG TAB PO SCH (21:02)
[2020-01-09] MEDS: traMADol HCl 50 MG TAB PO PRN ×3 (04:26→21:29)
[2020-01-09 05:19] LABS: INR-International Normal Ratio 1.2; Prothrombin Time 15.5 SEC (12.0-14.7)
[2020-01-09 05:34] LABS: Anion Gap 16 mmol/L (10-20); BUN (Urea Nitrogen) 51 mg/dL (9.8-20.1); Calc. Creatinine Clearance 65 mL/min (70-130); Calcium 9.1 mg/dL (7.8-10.44); Carbon Dioxide 29 mmol/L (22-29); Chloride 97 mmol/L (98-107); Estimated GFR-MDRD 24; Glucose 116 mg/dL (70-105); Magnesium 1.6 mg/dL (1.6-2.6); Potassium 4.9 mmol/L (3.5-5.1); Sodium 137 mmol/L (136-145)
[2020-01-09] MEDS: Furosemide 40 MG/4 ML VIAL SLOW IVP SCH ×2 (06:02→14:13)
[2020-01-09] MEDS: Docusate 100 MG CAP PO SCH (08:40)
[2020-01-09] MEDS: Carvedilol 3.125 MG TAB PO SCH (08:40)
[2020-01-09] MEDS: Heparin 5,000 UNITS/ML VIAL SC SCH ×3 (08:40→21:18)
[2020-01-09] MEDS: Ferrous Sulfate 325 MG TAB PO SCH ×2 (08:40→16:40)
[2020-01-09] MEDS: Aspirin Chewable 81 MG TAB PO SCH (08:40)
[2020-01-09] MEDS: Isosorbide Mononitrate (ER) 30 MG TAB PO SCH (08:40)
[2020-01-09] MEDS: hydrALAZINE 25 MG TAB PO SCH ×3 (08:40→21:20)
[2020-01-09] MEDS: Insulin Glargine 50 UNITS in Pre-Filled Syringe 1 EACH SC SCH (08:41)
--- NOTE | 2020-01-09 13:18 | PRG ---
DATE OF SERVICE: 01/09/2020 SUBJECTIVE: Patient was seen and examined at bedside and overnight events noted. Patient denies any shortness of breath or chest pain or palpitation. No history of nausea or vomiting or diarrhea or fever or chills or cramps. OBJECTIVE: GENERAL: This is a well-built female, in no apparent distress. VITAL SIGNS: Temperature 98.5, heart rate 66, respiratory rate 21, blood pressure 175/74. HEENT: Atraumatic, normocephalic. Oral mucosa is moist NECK: Supple. CARDIOVASCULAR: S1, S2 heard. Rate and rhythm regular. RESPIRATORY: Clear to auscultation. GASTROINTESTINAL: Abdomen is soft. MUSCULOSKELETAL: No tenderness. No edema. DERMATOLOGIC: No skin rash. NEUROLOGIC: Alert and awake and oriented X3. No focal neurologic deficits. Moving all the extremities. PSYCHIATRIC: Mood and affect normal. LABORATORY DATA: Potassium is 4.9, BUN is 51, and creatinine is 2.08. [place]/lambda ratio was elevated. ASSESSMENT AND PLAN: 1. Acute kidney injury, on chronic kidney stage 4, stable. 2. Edema with fluid overload. Continue to hold. 3. Anemia of chronic disease. 4. Elevated [place]/lambda. We will check electrophoresis, immunofixation. 5. Fluid is coming up nicely and she is feeling better, but we will check electrophoreses to rule out multiple myeloma. Job ID: [id number]
[2020-01-09] MEDS ORDERED: cloNIDine 0.1 MG TAB PO PRN (14:58)
[2020-01-09] MEDS: Aripiprazole 10 MG TAB PO SCH (16:40)
[2020-01-09] MEDS: HumaLOG 300 UNITS/3 ML VIAL SC PRN (16:40)
--- NOTE | 2020-01-09 18:05 | PDOC.HOSPP ---
- Subjective Encounter Date: 01/09/20 Encounter Time: 10:20 Subjective: Pt seen for followup re:acute on chronic systolic CHF. Feels better today. - Objective Vital Signs & Weight: Vital Signs (12 hours) Temp Pulse Resp BP BP Pulse Ox 01/09/20 16:00 66 166/70 H 01/09/20 15:00 97.2 F L 69 16 193/86 H 95 01/09/20 14:13 65 01/09/20 13:35 186/84 H 01/09/20 12:15 191/85 H 01/09/20 12:00 97.7 F 65 17 197/87 H 95 01/09/20 08:40 66 01/09/20 07:25 98.5 F 66 20 175/75 H 96 Weight Admit Weight 337 lb 3.2 oz Weight 313 lb 6.4 oz I&O: 01/08/20 01/09/20 01/10/20 06:59 06:59 07:59 Intake Total 720 940 Output Total 2928 4100 Balance -2205 -3160 Result Diagrams: 01/06/20 02:07 01/09/20 04:42 Additional Labs: Accuchecks 01/09/20 01/09/20 01/09/20 16:05 10:41 05:55 POC Glucose 216 H 161 H 124 H 01/08/20 01/08/20 23:29 20:44 POC Glucose 249 H 252 H EKG Reviewed by me: Yes (Tele: NSR) Hospitalist ROS - Review of Systems Respiratory: reports: SOB with excertion Cardiovascular: reports: edema. denies: chest pain, palpitations, orthopnea, paroxysmal noc. dyspnea, light headedness Gastrointestinal: denies: nausea, vomiting, abdominal pain, diarrhea, constipation, melena, hematochezia - Medication Medications: Active Medications Generic Name Dose Route Start Last Admin Trade Name Freq PRN Reason Stop Dose Admin Acetaminophen 650 mg 01/05/20 21:26 01/07/20 09:42 Tylenol PO 650 mg Q4H PRN Administration Headache/Fever/Mild Pain (1-3) Aripiprazole 5 mg 01/07/20 17:00 01/09/20 16:40 Abilify PO 5 mg 1700 V[facility]YL Administration Aspirin 81 mg 01/06/20 09:00 01/09/20 08:40 Aspirin Chewable PO 81 mg DAILY V[facility] Administration Atorvastatin Calcium 80 mg 01/06/20 21:00 01/08/20 21:02 Lipitor PO 80 mg HS V[facility]YL Administration Carvedilol 3.125 mg 01/06/20 21:00 01/09/20 08:40 Coreg PO 3.125 mg BID VASYL Administration Clonidine 0.1 mg 01/09/20 14:58 01/09/20 15:15 Catapres PO 0.1 mg Q4H PRN Administration SBP Greater Than 180 Docusate Sodium 100 mg 01/07/20 09:00 01/09/20 08:40 Colace PO 100 mg DAILY V[facility] Administration Ferrous Sulfate 325 mg 01/07/20 08:00 01/09/20 16:40 Feosol PO 325 mg BID-WM [facility] Administration Furosemide 80 mg 01/06/20 14:00 01/09/20 14:13 Lasix SLOW IVP 80 mg 0600,1400 [facility] Administration Heparin Sodium (Porcine) 5,000 units 01/06/20 09:00 01/09/20 14:13 Heparin SC 5,000 units TID [facility] Administration Hydralazine HCl 75 mg 01/08/20 21:00 01/09/20 14:13 Apresoline PO 75 mg TID V[facility] Administration Insulin Glargine 38 units/ 0.38 mls @ 0 mls/hr 01/06/20 21:00 01/08/20 21:01 Miscellaneous Medication SC 0.38 mls HS V[facility]YL Administration Insulin Glargine 50 units/ 0.5 mls @ 0 mls/hr 01/06/20 09:00 01/09/20 08:41 Miscellaneous Medication SC 0.5 mls QAM [facility] Administration Insulin Human Lispro 0 units 01/05/20 21:33 01/09/20 16:40 Humalog SC 6 unit .AGGRESSIVE SLIDING PRN Administration Aggressive Correctional Scale Isosorbide Mononitrate 30 mg 01/07/20 09:00 01/09/20 08:40 Imdur Er PO 30 mg DAILY [facility] Administration Sodium Chloride 10 ml 01/06/20 21:00 01/09/20 08:41 Flush - Normal Saline IVF 10 ml Q12HR [facility] Administration Tramadol HCl 50 mg 01/06/20 16:02 01/09/20 11:41 Ultram PO 50 mg Q6H PRN Administration Pain Trazodone HCl 100 mg 01/06/20 21:00 01/08/20 21:01 Desyrel PO 100 mg HS [facility] Administration - Exam General - other findings: Morbid obesity Eye: anicteric sclera ENT: moist mucosa Neck: symmetric, no thyromegaly Heart: no gallops, no rubs, normal peripheral pulses Respiratory: CTAB Gastrointestinal: soft, non-tender Extremities: 2+ LE edema Skin: no rashes Musculoskeletal: no muscle wasting Psychiatric: normal affect, normal behavior Hosp A/P - Plan (1) Acute on chronic systolic CHF, NYHA class 3 Code(s): I50.9 - HEART FAILURE, UNSPECIFIED Status: Acute Qualifiers: Heart failure type: unspecified Heart failure chronicity: acute Qualified Code(s): I50.9 - Heart failure, unspecified (2) Elevated troponin Code(s): R79.89 - OTHER SPECIFIED ABNORMAL FINDINGS OF BLOOD CHEMISTRY Status : Acute (3) Peripheral vascular disease Code(s): N18.3 - CHRONIC KIDNEY DISEASE, STAGE 3 (MODERATE) Status: Chronic (4) Hypertension Code(s): I10 - ESSENTIAL (PRIMARY) HYPERTENSION Status: Chronic Qualifiers: Hypertension type: essential hypertension Qualified Code(s): I10 - Essential (primary) hypertension (5) Hx of pulmonary embolus Code(s): Z86.711 - PERSONAL HISTORY OF PULMONARY EMBOLISM Status: Chronic (6) Morbid obesity with BMI of more than 50 Status: Chronic (7) Chronic stage 3 chronic kidney disease Code(s): N18.3 - CHRONIC KIDNEY DISEASE, STAGE 3 (MODERATE) Status: Chronic (8) Diabetes mellitus Code(s): E11.9 - TYPE 2 DIABETES MELLITUS WITHOUT COMPLICATIONS Status: Chronic Qualifiers: Diabetes mellitus type: type 2 Diabetes mellitus general internist and physician leader insulin use: with correction use Diabetes mellitus complication status: with kidney complications Diabetes mellitus complication detail: with chronic kidney disease Chronic kidney disease stage: stage 3 (moderate) Qualified Code(s): E11.22 - Type 2 diabetes mellitus with diabetic chronic kidney disease; N18.3 - Chronic kidney disease, stage 3 (moderate); Z79.4 - art consultant (current) use of insulin - Plan CHF exacerbation improving withIV furosemide. Pt has elevated light chains, further investigations pending. No intervention planned for PVD. Increase Coreg to 6.25 mg BID, hydralazine increased to 75 mg TID yesterday.
[2020-01-09] MEDS ORDERED: Carvedilol 3.125 MG TAB PO SCH (18:15)
--- NOTE | 2020-01-09 20:20 | PDOC.CPN ---
- Subjective Date: 01/09/20 Time: 20:18 Interval history: She feels back to baseline. - Review of Systems General: denies: fever/chills, weight/appetite/sleep changes, night sweats, fatigue Respiratory: denies: cough, congestion, shortness of breath, exercise intolerance Cardiovascular: denies: chest pain, palpitation, edema, paroxysmal nocturnal dyspnea, orthopnea Gastrointestinal: denies: nausea, vomiting, diarrhea, constipation, abd pain, GI bleeding Musculoskeletal: denies: pain, tenderness, stiffness, swelling, arthritis/ arthralgias Neurological: denies: numbness, syncope, seizure, weakness - Objective Allergies/Adverse Reactions: Allergies Allergy/AdvReac Type Severity Reaction Status Date / Time No Known Allergies Allergy Verified 03/18/16 03:31 Visit Medications: Current Medications Acetaminophen (Tylenol) 650 mg PO Q4H PRN PRN Reason: Headache/Fever/Mild Pain (1-3) Last Admin: 01/07/20 09:42 Dose: 650 mg Aripiprazole (Abilify) 5 mg PO 1700 [facility] Last Admin: 01/09/20 16:40 Dose: 5 mg Aspirin (Aspirin Chewable) 81 mg PO DAILY [facility] Last Admin: 01/09/20 08:40 Dose: 81 mg Atorvastatin Calcium (Lipitor) 80 mg PO HS [facility] Last Admin: 01/08/20 21:02 Dose: 80 mg Benzonatate (Tessalon) 100 mg PO TIDPRN PRN PRN Reason: Cough Carvedilol (Coreg) 6.25 mg PO BID-[facility] Clonidine (Catapres) 0.1 mg PO Q4H PRN PRN Reason: SBP Greater Than 180 Last Admin: 01/09/20 15:15 Dose: 0.1 mg Dextrose/Water (Dextrose 50%) 25 gm SLOW IVP PRN PRN PRN Reason: Hypoglycemia Docusate Sodium (Colace) 100 mg PO DAILY [facility] Last Admin: 01/09/20 08:40 Dose: 100 mg Ferrous Sulfate (Feosol) 325 mg PO BID-[facility] Last Admin: 01/09/20 16:40 Dose: 325 mg Furosemide (Lasix) 80 mg SLOW IVP 0600,1400 [facility] Last Admin: 01/09/20 14:13 Dose: 80 mg Glucagon (Glucagon) 1 mg IM PRN PRN PRN Reason: Hypoglycemia Heparin Sodium (Porcine) (Heparin) 5,000 units SC TID [facility] Last Admin: 01/09/20 14:13 Dose: 5,000 units Hydralazine HCl (Apresoline) 75 mg PO TID [facility] Last Admin: 01/09/20 14:13 Dose: 75 mg Insulin Glargine 38 units/ (Miscellaneous Medication) 0.38 mls @ 0 mls/hr SC HS [facility] Last Admin: 01/08/20 21:01 Dose: 0.38 mls Insulin Glargine 50 units/ (Miscellaneous Medication) 0.5 mls @ 0 mls/hr SC QAM [facility] Last Admin: 01/09/20 08:41 Dose: 0.5 mls Dextrose/Water (D5w) 1,000 mls @ 0 mls/hr IV .Q0M PRN PRN Reason: Hypoglycemia Insulin Human Lispro (Humalog) 0 units SC .AGGRESSIVE SLIDING PRN PRN Reason: Aggressive Correctional Scale Last Admin: 01/09/20 16:40 Dose: 6 unit Isosorbide Mononitrate (Imdur Er) 30 mg PO DAILY [facility] Last Admin: 01/09/20 08:40 Dose: 30 mg Nicotine (Nicoderm Patch) 7 mg TD Q24HR PRN PRN Reason: withdrawal Ondansetron HCl (Zofran) 4 mg IVP Q6H PRN PRN Reason: Nausea/Vomiting Senna/Docusate Sodium (Senokot S) 2 tab PO BID PRN PRN Reason: Constipation Sodium Chloride (Flush - Normal Saline) 10 ml IVF Q12HR [facility] Last Admin: 01/09/20 08:41 Dose: 10 ml Sodium Chloride (Flush - Normal Saline) 10 ml IVF PRN PRN PRN Reason: Saline Flush Tramadol HCl (Ultram) 50 mg PO Q6H PRN PRN Reason: Pain Last Admin: 01/09/20 11:41 Dose: 50 mg Trazodone HCl (Desyrel) 100 mg PO [facility] Last Admin: 01/08/20 21:01 Dose: 100 mg Vital Signs & Weight: Vital Signs Temp Pulse Resp BP BP Pulse Ox 01/09/20 16:00 66 166/70 H 01/09/20 15:00 97.2 F L 69 16 193/86 H 95 01/09/20 14:13 65 03/07/20 13:35 186/84 H 01/09/20 12:15 191/85 H 01/09/20 12:00 97.7 F 65 17 197/87 H 95 01/09/20 08:40 66 Admit Weight 337 lb 3.2 oz Weight 313 lb 6.4 oz - Physical Exam General: alert & oriented x3 HEENT: mucus membranes moist Neck: supple neck Cardiac: regular rate and rhythm Lungs: clear to auscultation Neuro: grossly intact Abdomen: active bowel sounds Extremities: no edema Skin: clear Musculoskeletal: no pain - Labs Result Diagrams: 01/06/20 02:07 01/09/20 04:42 Troponin/CKMB CK-MB (CK-2) 2.4 ng/mL (0-6.6) 01/05/20 15:48 Troponin I 0.030 ng/mL (< 0.028) H 01/06/20 02:07 - Telemetry Sinus rhythms and dysrhythmias: sinus rhythm - Assessment/Plan Assessment/Plan: 1. Edema 2. Cardiomyopathy, ischemic EF at 42% 3. CAD 4. S/P CABG 5. PEACE on CKD. PLAN; - No reversible ischemia on MPI but reduced EF at 42% - Medical management for now due to elevated creatinine - Switch to PO diureses. - Will increase imdur and hydralazine for better BP control. - D/C at any time from cardiac perspective.
[2020-01-09] MEDS: Insulin Glargine 38 UNITS in Pre-Filled Syringe 1 EACH SC SCH (21:17)
[2020-01-09] MEDS: traZODone HCl 50 MG TAB PO SCH (21:18)
[2020-01-09] MEDS: Atorvastatin Calcium 40 MG TAB PO SCH (21:30)
[2020-01-10] MEDS: Melatonin 3 MG TAB PO PRN ×2 (01:53→21:08)
[2020-01-10 06:33] LABS: Prothrombin Time 13.3 SEC (12.0-14.7)
[2020-01-10] MEDS: Heparin 5,000 UNITS/ML VIAL SC SCH ×3 (08:45→20:50)
[2020-01-10] MEDS: Insulin Glargine 50 UNITS in Pre-Filled Syringe 1 EACH SC SCH (08:45)
[2020-01-10] MEDS: traMADol HCl 50 MG TAB PO PRN ×3 (08:46→21:08)
[2020-01-10] MEDS: hydrALAZINE 25 MG TAB PO SCH ×3 (08:46→20:51)
[2020-01-10] MEDS: Furosemide 40 MG TAB PO SCH ×2 (08:47→15:19)
[2020-01-10] MEDS: Carvedilol 6.25 MG TAB PO SCH ×2 (08:47→17:01)
[2020-01-10] MEDS: Aspirin Chewable 81 MG TAB PO SCH (08:47)
[2020-01-10] MEDS: Ferrous Sulfate 325 MG TAB PO SCH ×2 (08:47→17:01)
[2020-01-10] MEDS: Docusate 100 MG CAP PO SCH (08:47)
--- NOTE | 2020-01-10 13:33 | PRG ---
DATE OF SERVICE: 01/10/2020 SUBJECTIVE: Patient was seen and examined at bedside and overnight events noted. Patient denies any shortness of breath or chest pain or palpitation. No history of nausea or vomiting or diarrhea or fever or chills or cramps. OBJECTIVE: GENERAL: This is a well-built female, in no apparent distress. VITAL SIGNS: Temperature 97.6. Heart rate 67. Respiratory rate 20. Blood pressure 129/60. HEENT: Atraumatic, normocephalic. Oral mucosa is moist NECK: Supple. CARDIOVASCULAR: S1, S2 heard. Rate and rhythm regular. RESPIRATORY: Clear to auscultation. GASTROINTESTINAL: Abdomen is soft. MUSCULOSKELETAL: No tenderness. No edema. DERMATOLOGIC: No skin rash. NEUROLOGIC: Alert and awake and oriented X3. No focal neurologic deficits. Moving all the extremities. PSYCHIATRIC: Mood and affect normal. LABORATORY DATA: Not done today. ASSESSMENT AND PLAN: 1. Acute kidney injury on chronic kidney disease stage 4. Monitor labs. 2. Edema. 3. Fluid overload. 4. Anemia. 5. Possible multiple myeloma. Immunofixation results sent. We will follow. Monitor labs closely. Job ID: [id number]
--- NOTE | 2020-01-10 15:37 | PDOC.HOSPP ---
- Subjective Encounter Date: 01/10/20 Encounter Time: 09:20 Subjective: Pt seen for followup re; CHF exac. Feels better. No shortness of breath, leg swelling better. - Objective Vital Signs & Weight: Vital Signs (12 hours) Temp Pulse Resp BP BP BP Pulse Ox 01/10/20 15:18 69 01/10/20 11:41 97.6 F 69 20 129/63 95 01/10/20 08:47 145/65 H 01/10/20 08:46 67 01/10/20 07:30 97.9 F 64 20 141/61 H 97 01/10/20 04:00 98.0 F 67 18 98/47 L 93 L Weight Admit Weight 337 lb 3.2 oz Weight 307 lb 11.2 oz I&O: 01/09/20 01/10/20 01/11/20 05:59 06:59 06:59 Intake Total Output Total Balance Result Diagrams: 01/06/20 02:07 01/09/20 04:42 Additional Labs: Accuchecks 01/10/20 01/10/20 01/09/20 11:13 05:39 20:38 POC Glucose 121 H 117 H 209 H 01/09/20 16:05 POC Glucose 216 H Labs and MARs reviewed by me EKG Reviewed by me: Yes (Tele: NSR) Hospitalist ROS - Review of Systems Respiratory: denies: cough, shortness of breath, SOB with excertion, pleuritic pain, wheezing Cardiovascular: reports: edema. denies: chest pain, palpitations, orthopnea, paroxysmal noc. dyspnea, light headedness Gastrointestinal: denies: nausea, vomiting, abdominal pain, diarrhea, constipation, melena, hematochezia - Medication Medications: Active Medications Generic Name Dose Route Start Last Admin Trade Name Freq PRN Reason Stop Dose Admin Acetaminophen 650 mg 01/05/20 21:26 01/07/20 09:42 Tylenol PO 650 mg Q4H PRN Administration Headache/Fever/Mild Pain (1-3) Aripiprazole 5 mg 01/07/20 17:00 01/09/20 16:40 Abilify PO 5 mg 1700 [facility]YL Administration Aspirin 81 mg 01/06/20 09:00 01/10/20 08:47 Aspirin Chewable PO 81 mg DAILY [facility] Administration Atorvastatin Calcium 80 mg 01/06/20 21:00 01/09/20 21:30 Lipitor PO 80 mg HS [facility] Administration Carvedilol 6.25 mg 01/10/20 08:00 01/10/20 08:47 Coreg PO 6.25 mg BID-WM [facility] Administration Clonidine 0.1 mg 01/09/20 14:58 01/09/20 15:15 Catapres PO 0.1 mg Q4H PRN Administration SBP Greater Than 180 Docusate Sodium 100 mg 01/07/20 09:00 01/10/20 08:47 Colace PO 100 mg DAILY [facility] Administration Ferrous Sulfate 325 mg 01/07/20 08:00 01/10/20 08:47 Feosol PO 325 mg BID-WM [facility] Administration Furosemide 40 mg 01/10/20 09:00 01/10/20 15:19 Lasix PO 40 mg 0900,1400 [facility] Administration Heparin Sodium (Porcine) 5,000 units 01/06/20 09:00 01/10/20 15:19 Heparin SC 5,000 units TID [facility] Administration Hydralazine HCl 100 mg 01/09/20 20:21 01/10/20 15:18 Apresoline PO 100 mg TID [facility] Administration Insulin Glargine 38 units/ 0.38 mls @ 0 mls/hr 01/06/20 21:00 01/09/20 21:17 Miscellaneous Medication SC 0.38 mls HS [facility] Administration Insulin Glargine 50 units/ 0.5 mls @ 0 mls/hr 01/06/20 09:00 01/10/20 08:45 Miscellaneous Medication SC 0.5 mls QAM [facility] Administration Insulin Human Lispro 0 units 01/05/20 21:33 01/09/20 16:40 Humalog SC 6 unit .AGGRESSIVE SLIDING PRN Administration Aggressive Correctional Scale Isosorbide Mononitrate 60 mg 01/09/20 20:20 01/10/20 08:47 Imdur PO 60 mg DAILY [facility] Administration Melatonin 3 mg 01/10/20 01:00 01/10/20 01:53 Melatonin PO 3 mg HS PRN Administration Insomnia Sodium Chloride 10 ml 01/06/20 21:00 01/10/20 13:07 Flush - Normal Saline IVF Not Given Q12HR [facility] Tramadol HCl 50 mg 01/06/20 16:02 01/10/20 15:19 Ultram PO 50 mg Q6H PRN Administration Pain Trazodone HCl 100 mg 01/06/20 21:00 01/09/20 21:18 Desyrel PO 100 mg HS [facility] Administration - Exam General Appearance: awake alert General - other findings: Morbid obese Eye: anicteric sclera ENT: moist mucosa Neck: supple Heart: RRR Respiratory: CTAB Gastrointestinal: soft, non-tender Extremities: 2+ LE edema Musculoskeletal: no muscle wasting Psychiatric: normal affect, normal behavior Hosp A/P - Plan (1) Acute on chronic systolic CHF, NYHA class 3 Code(s): I50.9 - HEART FAILURE, UNSPECIFIED Status: Acute Qualifiers: Heart failure type: unspecified Heart failure chronicity: acute Qualified Code(s): I50.9 - Heart failure, unspecified (2) Elevated troponin Code(s): R79.89 - OTHER SPECIFIED ABNORMAL FINDINGS OF BLOOD CHEMISTRY Status : Acute (3) Peripheral vascular disease Code(s): N18.3 - CHRONIC KIDNEY DISEASE, STAGE 3 (MODERATE) Status: Chronic (4) Hypertension Code(s): I10 - ESSENTIAL (PRIMARY) HYPERTENSION Status: Chronic Qualifiers: Hypertension type: essential hypertension Qualified Code(s): I10 - Essential (primary) hypertension (5) Hx of pulmonary embolus Code(s): Z86.711 - PERSONAL HISTORY OF PULMONARY EMBOLISM Status: Chronic (6) Morbid obesity with BMI of more than 50 Status: Chronic (7) Chronic stage 3 chronic kidney disease Code(s): N18.3 - CHRONIC KIDNEY DISEASE, STAGE 3 (MODERATE) Status: Chronic (8) Diabetes mellitus Code(s): E11.9 - TYPE 2 DIABETES MELLITUS WITHOUT COMPLICATIONS Status: Chronic Qualifiers: Diabetes mellitus type: type 2 Diabetes mellitus rodent exterminator insulin use: with rodent exterminator use Diabetes mellitus complication status: with kidney complications Diabetes mellitus complication detail: with chronic kidney disease Chronic kidney disease stage: stage 3 (moderate) Qualified Code(s): E11.22 - Type 2 diabetes mellitus with diabetic chronic kidney disease; N18.3 - Chronic kidney disease, stage 3 (moderate); Z79.4 - rodent exterminator (current) use of insulin - Plan CHF exacerbation improved. Myeloma workup in progress. No intervention planned for PVD. Blood pressure improved. Likely back to [facility] tomorrow.
[2020-01-10] MEDS: Aripiprazole 10 MG TAB PO SCH (17:00)
--- NOTE | 2020-01-10 17:00 | PDOC.CPN ---
- Subjective Date: 01/10/20 Time: 16:59 Interval history: She is doing well. No angina. Breathing back to baseline. Edema improved. - Review of Systems General: denies: fever/chills, weight/appetite/sleep changes, night sweats, fatigue Respiratory: denies: cough, congestion, shortness of breath, exercise intolerance Cardiovascular: denies: chest pain, palpitation, edema, paroxysmal nocturnal dyspnea, orthopnea Gastrointestinal: denies: nausea, vomiting, diarrhea, constipation, abd pain, GI bleeding Musculoskeletal: denies: pain, tenderness, stiffness, swelling, arthritis/ arthralgias Neurological: denies: numbness, syncope, seizure, weakness - Objective Allergies/Adverse Reactions: Allergies Allergy/AdvReac Type Severity Reaction Status Date / Time No Known Allergies Allergy Verified 03/18/16 03:31 Visit Medications: Current Medications Acetaminophen (Tylenol) 650 mg PO Q4H PRN PRN Reason: Headache/Fever/Mild Pain (1-3) Last Admin: 01/07/20 09:42 Dose: 650 mg Aripiprazole (Abilify) 5 mg PO 1700 [facility] Last Admin: 01/09/20 16:40 Dose: 5 mg Aspirin (Aspirin Chewable) 81 mg PO DAILY [facility] Last Admin: 01/10/20 08:47 Dose: 81 mg Atorvastatin Calcium (Lipitor) 80 mg PO HS [facility] Last Admin: 01/09/20 21:30 Dose: 80 mg Benzonatate (Tessalon) 100 mg PO TIDPRN PRN PRN Reason: Cough Carvedilol (Coreg) 6.25 mg PO BID-[facility] Last Admin: 01/10/20 08:47 Dose: 6.25 mg Clonidine (Catapres) 0.1 mg PO Q4H PRN PRN Reason: SBP Greater Than 180 Last Admin: 01/09/20 15:15 Dose: 0.1 mg Dextrose/Water (Dextrose 50%) 25 gm SLOW IVP PRN PRN PRN Reason: Hypoglycemia Docusate Sodium (Colace) 100 mg PO DAILY [facility] Last Admin: 01/10/20 08:47 Dose: 100 mg Ferrous Sulfate (Feosol) 325 mg PO BID-[facility] Last Admin: 01/10/20 08:47 Dose: 325 mg Furosemide (Lasix) 40 mg PO 0900,1400 [facility] Last Admin: 01/10/20 15:19 Dose: 40 mg Glucagon (Glucagon) 1 mg IM PRN PRN PRN Reason: Hypoglycemia Heparin Sodium (Porcine) (Heparin) 5,000 units SC TID [facility] Last Admin: 01/10/20 15:19 Dose: 5,000 units Hydralazine HCl (Apresoline) 100 mg PO TID [facility] Last Admin: 01/10/20 15:18 Dose: 100 mg Insulin Glargine 38 units/ (Miscellaneous Medication) 0.38 mls @ 0 mls/hr SC HS [facility] Last Admin: 01/09/20 21:17 Dose: 0.38 mls Insulin Glargine 50 units/ (Miscellaneous Medication) 0.5 mls @ 0 mls/hr SC QAM [facility] Last Admin: 01/10/20 08:45 Dose: 0.5 mls Dextrose/Water (D5w) 1,000 mls @ 0 mls/hr IV .Q0M PRN PRN Reason: Hypoglycemia Insulin Human Lispro (Humalog) 0 units SC .AGGRESSIVE SLIDING PRN PRN Reason: Aggressive Correctional Scale Last Admin: 01/09/20 16:40 Dose: 6 unit Isosorbide Mononitrate (Imdur) 60 mg PO DAILY [facility] Last Admin: 01/10/20 08:47 Dose: 60 mg Melatonin (Melatonin) 3 mg PO HS PRN PRN Reason: Insomnia Last Admin: 01/10/20 01:53 Dose: 3 mg Nicotine (Nicoderm Patch) 7 mg TD Q24HR PRN PRN Reason: withdrawal Ondansetron HCl (Zofran) 4 mg IVP Q6H PRN PRN Reason: Nausea/Vomiting Senna/Docusate Sodium (Senokot S) 2 tab PO BID PRN PRN Reason: Constipation Sodium Chloride (Flush - Normal Saline) 10 ml IVF Q12HR [facility] Last Admin: 01/10/20 13:07 Dose: Not Given Sodium Chloride (Flush - Normal Saline) 10 ml IVF PRN PRN PRN Reason: Saline Flush Tramadol HCl (Ultram) 50 mg PO Q6H PRN PRN Reason: Pain Last Admin: 01/10/20 15:19 Dose: 50 mg Trazodone HCl (Desyrel) 100 mg PO [facility] Last Admin: 01/09/20 21:18 Dose: 100 mg Vital Signs & Weight: Vital Signs Temp Pulse Resp BP BP BP Pulse Ox 01/10/20 15:18 69 01/10/20 11:41 97.6 F 69 20 129/63 95 01/10/20 08:47 145/65 H 01/10/20 08:46 67 01/10/20 07:30 97.9 F 64 20 141/61 H 97 Admit Weight 337 lb 3.2 oz Weight 307 lb 11.2 oz - Physical Exam General: alert & oriented x3 HEENT: mucus membranes moist Neck: supple neck Cardiac: regular rate and rhythm Lungs: clear to auscultation Neuro: grossly intact Abdomen: active bowel sounds Extremities: other: (Trace edema.) Skin: clear Musculoskeletal: no pain - Labs Result Diagrams: 01/06/20 02:07 01/09/20 04:42 Troponin/CKMB CK-MB (CK-2) 2.4 ng/mL (0-6.6) 01/05/20 15:48 Troponin I 0.030 ng/mL (< 0.028) H 01/06/20 02:07 - Telemetry Sinus rhythms and dysrhythmias: sinus rhythm - Assessment/Plan Assessment/Plan: 1. Edema 2. Cardiomyopathy, ischemic EF at 42% 3. CAD 4. S/P CABG 5. PEACE on CKD. PLAN; - No reversible ischemia on MPI but reduced EF at 42% - Medical management for now due to elevated creatinine - On PO diureses doing well. - BP better controlled on current meds. - D/C at any time from cardiac perspective. - Will sign off. Please call with any questions.
[2020-01-10] MEDS: HumaLOG 300 UNITS/3 ML VIAL SC PRN (17:54)
[2020-01-10] MEDS: Atorvastatin Calcium 40 MG TAB PO SCH (20:50)
[2020-01-10] MEDS: traZODone HCl 50 MG TAB PO SCH (20:51)
[2020-01-10] MEDS: Insulin Glargine 38 UNITS in Pre-Filled Syringe 1 EACH SC SCH (20:52)
[2020-01-11 04:34] LABS: #Eosinphils 0.2 thou/uL (0.0-0.7); #Monocytes 0.9 thou/uL (0.11-0.59); %Basophils 0.5 % (0.0-1.0); %Eosinophils 2.9 % (0.0-10.0); %Lymphocytes 11.8 % (21.0-51.0); %Monocytes 11.5 % (0.0-10.0); %Neutrophils 73.2 % (42.0-75.0); Hemoglobin 9.4 g/dL (12.0-16.0); Mean Corpuscular HGB CONC 31.2 g/dL (32.0-36.0); Mean Corpuscular Hemoglobin 26.9 pg (27.0-31.0); Mean Corpuscular Volume 86.1 fL (78.0-98.0); Mean Platelet Volume 8.2 fL (7.4-10.4); Platelet Count 217 thou/uL (130-400); RBC Distribution Width 17.1 % (11.5-14.5); White Blood Cell (WBC) Count 8.2 thou/uL (4.8-10.8)
[2020-01-11 04:40] LABS: Prothrombin Time 13.3 SEC (12.0-14.7)
[2020-01-11 05:09] LABS: Anion Gap 12 mmol/L (10-20); BUN (Urea Nitrogen) 56 mg/dL (9.8-20.1); Calc. Creatinine Clearance 57 mL/min (70-130); Calcium 8.5 mg/dL (7.8-10.44); Carbon Dioxide 35 mmol/L (22-29); Chloride 96 mmol/L (98-107); Estimated GFR-MDRD 22; Glucose 174 mg/dL (70-105); Potassium 4.3 mmol/L (3.5-5.1); Sodium 139 mmol/L (136-145)
[2020-01-11] MEDS: traMADol HCl 50 MG TAB PO PRN ×3 (06:00→20:53)
[2020-01-11] MEDS: Ferrous Sulfate 325 MG TAB PO SCH ×2 (08:49→16:52)
[2020-01-11] MEDS: Docusate 100 MG CAP PO SCH (08:49)
[2020-01-11] MEDS: hydrALAZINE 25 MG TAB PO SCH ×3 (08:49→20:50)
[2020-01-11] MEDS: Carvedilol 6.25 MG TAB PO SCH ×2 (08:49→16:51)
[2020-01-11] MEDS: Aspirin Chewable 81 MG TAB PO SCH (08:49)
[2020-01-11] MEDS: Furosemide 40 MG TAB PO SCH ×2 (08:49→14:50)
[2020-01-11] MEDS: Insulin Glargine 50 UNITS in Pre-Filled Syringe 1 EACH SC SCH (08:50)
[2020-01-11] MEDS: Heparin 5,000 UNITS/ML VIAL SC SCH ×3 (08:50→20:47)
[2020-01-11] MEDS: HumaLOG 300 UNITS/3 ML VIAL SC PRN (08:50)
--- NOTE | 2020-01-11 11:15 | PRG ---
DATE OF SERVICE: 01/11/2020 SUBJECTIVE: A 59-year-old female being seen for acute kidney injury. The patient denied nausea, vomiting, or chest pain. OBJECTIVE: GENERAL: The patient is awake and alert. VITAL SIGNS: Afebrile, pulse 65, breathing at 16, blood pressure 115/66. HEENT: Head normocephalic and atraumatic. Eyes intact, no ulcers. Nose intact, no ulcers. Ears intact, no ulcers. NECK: Supple. No JVD. CHEST: Symmetrical and clear. CARDIOVASCULAR: Shows S1 and S2, no rub, no murmur. GASTROINTESTINAL: Abdomen is soft, bowel sounds positive. EXTREMITIES: Show no edema or ulcers. SKIN: Shows no rash or petechiae. MUSCULOSKELETAL: Shows no joint swelling or stiffness. GENITOURINARY: Shows no [place] or CVA tenderness. NEUROLOGIC: Motor intact. Cranial nerves intact. LABORATORY DATA: Labs show hemoglobin 9.4. Creatinine 2.3. ASSESSMENT AND PLAN: 1. Chronic kidney disease, stage 4 with acute kidney injury. Follow renal function closely. 2. Hypertension, stable. 3. Anemia, stable. Medications based on glomerular filtration rate are appropriate. The patient will follow with Dr. Yoon. Job ID: [id number]
[2020-01-11] MEDS: Aripiprazole 10 MG TAB PO SCH (16:51)
--- NOTE | 2020-01-11 17:04 | PDOC.HOSPP ---
- Subjective Encounter Date: 01/11/20 Encounter Time: 08:40 Subjective: Pt seen for followup re: acute on chronic CHF. Feels well. - Objective Vital Signs & Weight: Vital Signs (12 hours) Temp Pulse Resp BP BP Pulse Ox 01/11/20 16:00 68 135/63 01/11/20 14:49 74 01/11/20 12:43 98.3 F 74 20 149/69 H 95 01/11/20 08:49 69 151/66 H 01/11/20 08:00 97.1 F L 69 16 151/66 H 96 Weight Admit Weight 337 lb 3.2 oz Weight 305 lb 9 oz I&O: 01/10/20 01/11/20 01/12/20 06:59 06:59 06:59 Intake Total 360 Output Total 2350 Balance -1989 Result Diagrams: 01/11/20 04:04 01/11/20 04:04 Additional Labs: Accuchecks 01/11/20 01/11/20 01/10/20 10:58 05:35 20:55 POC Glucose 122 H 158 H 174 H 01/10/20 16:33 POC Glucose 206 H Labs and MARs reviewed by me EKG Reviewed by me: Yes (Tele: NSR) Hospitalist ROS - Review of Systems Cardiovascular: denies: chest pain, palpitations, orthopnea, paroxysmal noc. dyspnea, edema, light headedness Gastrointestinal: denies: nausea, vomiting, abdominal pain, diarrhea, constipation, melena, hematochezia - Medication Medications: Active Medications Generic Name Dose Route Start Last Admin Trade Name Freq PRN Reason Stop Dose Admin Acetaminophen 650 mg 01/05/20 21:26 01/07/20 09:42 Tylenol PO 650 mg Q4H PRN Administration Headache/Fever/Mild Pain (1-3) Aripiprazole 5 mg 01/07/20 17:00 01/11/20 16:51 Abilify PO 5 mg 1700 VASYL Administration Aspirin 81 mg 01/06/20 09:00 01/11/20 08:49 Aspirin Chewable PO 81 mg DAILY VASYL Administration Atorvastatin Calcium 80 mg 01/06/20 21:00 01/10/20 20:50 Lipitor PO 80 mg HS VASYL Administration Carvedilol 6.25 mg 01/10/20 08:00 01/11/20 16:51 Coreg PO 6.25 mg BID-WM VASYL Administration Clonidine 0.1 mg 01/09/20 14:58 01/09/20 15:15 Catapres PO 0.1 mg Q4H PRN Administration SBP Greater Than 180 Docusate Sodium 100 mg 01/07/20 09:00 01/11/20 08:49 Colace PO 100 mg DAILY VASYL Administration Ferrous Sulfate 325 mg 01/07/20 08:00 01/11/20 16:52 Feosol PO 325 mg BID-WM VASYL Administration Furosemide 40 mg 01/10/20 09:00 01/11/20 14:50 Lasix PO 40 mg 0900,1400 VASYL Administration Heparin Sodium (Porcine) 5,000 units 01/06/20 09:00 01/11/20 14:50 Heparin SC 5,000 units TID VASYL Administration Hydralazine HCl 100 mg 01/09/20 20:21 01/11/20 14:49 Apresoline PO 100 mg TID VASYL Administration Insulin Glargine 38 units/ 0.38 mls @ 0 mls/hr 01/06/20 21:00 01/10/20 20:52 Miscellaneous Medication SC 0.38 mls HS VASYL Administration Insulin Glargine 50 units/ 0.5 mls @ 0 mls/hr 01/06/20 09:00 01/11/20 08:50 Miscellaneous Medication SC 0.5 mls QAM VASYL Administration Insulin Human Lispro 0 units 01/05/20 21:33 01/11/20 08:50 Humalog SC 3 unit .AGGRESSIVE SLIDING PRN Administration Aggressive Correctional Scale Isosorbide Mononitrate 60 mg 01/09/20 20:20 01/11/20 08:49 Imdur PO 60 mg DAILY VASYL Administration Melatonin 3 mg 01/10/20 01:00 01/10/20 21:08 Melatonin PO 3 mg HS PRN Administration Insomnia Sodium Chloride 10 ml 01/06/20 21:00 01/11/20 08:50 Flush - Normal Saline IVF 10 ml Q12HR VASYL Administration Tramadol HCl 50 mg 01/06/20 16:02 01/11/20 12:38 Ultram PO 50 mg Q6H PRN Administration Pain Trazodone HCl 100 mg 01/06/20 21:00 01/10/20 20:51 Desyrel PO 100 mg HS VASYL Administration - Exam General Appearance: awake alert Eye: anicteric sclera ENT: moist mucosa Heart: RRR Respiratory: CTAB Gastrointestinal: normal bowel sounds, distended Extremities: 2+ LE edema Psychiatric: normal affect, normal behavior Hosp A/P - Plan (1) Acute on chronic systolic CHF, NYHA class 3 Code(s): I50.9 - HEART FAILURE, UNSPECIFIED Status: Acute Qualifiers: Heart failure type: unspecified Heart failure chronicity: acute Qualified Code(s): I50.9 - Heart failure, unspecified (2) Elevated troponin Code(s): R79.89 - OTHER SPECIFIED ABNORMAL FINDINGS OF BLOOD CHEMISTRY Status : Acute (3) Peripheral vascular disease Code(s): N18.3 - CHRONIC KIDNEY DISEASE, STAGE 3 (MODERATE) Status: Chronic (4) Hypertension Code(s): I10 - ESSENTIAL (PRIMARY) HYPERTENSION Status: Chronic Qualifiers: Hypertension type: essential hypertension Qualified Code(s): I10 - Essential (primary) hypertension (5) Hx of pulmonary embolus Code(s): Z86.711 - PERSONAL HISTORY OF PULMONARY EMBOLISM Status: Chronic (6) Morbid obesity with BMI of more than 50 Status: Chronic (7) Chronic stage 3 chronic kidney disease Code(s): N18.3 - CHRONIC KIDNEY DISEASE, STAGE 3 (MODERATE) Status: Chronic (8) Diabetes mellitus Code(s): E11.9 - TYPE 2 DIABETES MELLITUS WITHOUT COMPLICATIONS Status: Chronic Qualifiers: Diabetes mellitus type: type 2 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 Pt is on oral furosemide. Myeloma workup in progress. No intervention planned for PVD. Blood pressure improved. Creqtinine slightly worse today, recheck.
[2020-01-11] MEDS: Insulin Glargine 38 UNITS in Pre-Filled Syringe 1 EACH SC SCH (20:50)
[2020-01-11] MEDS: Atorvastatin Calcium 40 MG TAB PO SCH (20:50)
[2020-01-11] MEDS: traZODone HCl 50 MG TAB PO SCH (20:51)
[2020-01-11] MEDS: Nystatin Powder 15 GM BOT TOP SCH (21:03)
[2020-01-12] MEDS: Melatonin 3 MG TAB PO PRN (00:59)
[2020-01-12 04:30] LABS: #Basophils 0.1 thou/uL (0.0-0.2); #Eosinphils 0.3 thou/uL (0.0-0.7); #Monocytes 0.9 thou/uL (0.11-0.59); #Neutrophils 6.7 thou/uL (1.40-6.50); %Basophils 0.6 % (0.0-1.0); %Eosinophils 2.8 % (0.0-10.0); %Monocytes 10.2 % (0.0-10.0); %Neutrophils 75.4 % (42.0-75.0); Hemoglobin 9.9 g/dL (12.0-16.0); Mean Corpuscular HGB CONC 31.1 g/dL (32.0-36.0); Mean Corpuscular Hemoglobin 27.1 pg (27.0-31.0); Mean Platelet Volume 8.1 fL (7.4-10.4); Platelet Count 226 thou/uL (130-400); RBC Distribution Width 17.5 % (11.5-14.5); Red Blood Cell (RBC) Count 3.66 mill/uL (4.20-5.40); White Blood Cell (WBC) Count 8.8 thou/uL (4.8-10.8)
[2020-01-12 04:35] LABS: Prothrombin Time 13.1 SEC (12.0-14.7)
[2020-01-12] MEDS: traMADol HCl 50 MG TAB PO PRN ×3 (04:35→20:16)
[2020-01-12 04:53] LABS: Anion Gap 17 mmol/L (10-20); BUN (Urea Nitrogen) 55 mg/dL (9.8-20.1); Calc. Creatinine Clearance 56 mL/min (70-130); Carbon Dioxide 29 mmol/L (22-29); Chloride 97 mmol/L (98-107); Estimated GFR-MDRD 21; Glucose 104 mg/dL (70-105); Potassium 4.3 mmol/L (3.5-5.1); Sodium 139 mmol/L (136-145)
[2020-01-12] MEDS: Insulin Glargine 50 UNITS in Pre-Filled Syringe 1 EACH SC SCH (08:39)
[2020-01-12] MEDS: Docusate 100 MG CAP PO SCH (08:40)
[2020-01-12] MEDS: Ferrous Sulfate 325 MG TAB PO SCH ×2 (08:40→16:10)
[2020-01-12] MEDS: Furosemide 40 MG TAB PO SCH ×2 (08:40→14:09)
[2020-01-12] MEDS: Heparin 5,000 UNITS/ML VIAL SC SCH ×3 (08:40→20:18)
[2020-01-12] MEDS: hydrALAZINE 25 MG TAB PO SCH ×3 (08:40→20:18)
[2020-01-12] MEDS: Carvedilol 6.25 MG TAB PO SCH ×2 (08:41→16:10)
[2020-01-12] MEDS: Aspirin Chewable 81 MG TAB PO SCH (08:41)
[2020-01-12] MEDS: Nystatin Powder 15 GM BOT TOP SCH ×2 (08:41→20:19)
--- NOTE | 2020-01-12 09:39 | PRG ---
DATE OF SERVICE: 01/12/2020 SUBJECTIVE: A 59-year-old female being seen for acute kidney injury. The patient denies nausea, vomiting, or chest pain. OBJECTIVE: GENERAL: The patient is awake and alert. VITAL SIGNS: Afebrile, pulse 74, breathing at 16, and blood pressure 117/54. HEENT: Head normocephalic and atraumatic. Eyes intact, no ulcers. Nose intact, no ulcers. Ears intact, no ulcers. NECK: Supple. No JVD. CHEST: Symmetrical and clear. CARDIOVASCULAR: Shows S1 and S2, no rub, no murmur. GASTROINTESTINAL: Abdomen is soft, bowel sounds positive. EXTREMITIES: Lower extremities have 4+ edema. SKIN: Shows no rash or petechiae. MUSCULOSKELETAL: Shows no joint swelling or stiffness. GENITOURINARY: Shows no Preston or CVA tenderness. NEUROLOGIC: Motor intact. Cranial nerves intact. LABORATORY DATA: Reviewed. ASSESSMENT AND PLAN: 1. Stage 4 chronic kidney disease, stable. 2. Acute kidney injury, stable. 3. Edema. Continue Lasix and add metolazone as needed. 4. Multiple myeloma. Workup is pending. No urgent indication for dialysis. Job ID: [id number]
[2020-01-12 14:38] LABS: IFE-Serum Interpretation Note: (.); IgA - Total IgA (Sendout) 614 mg/dL (87-352); Immunoglobulin - G (Sendout) 2441 mg/dL (700-1600); Immunoglobulin - M (Sendout) 149 mg/dL (26-217)
--- NOTE | 2020-01-12 14:54 | PDOC.HOSPP ---
- Subjective Encounter Date: 01/12/20 Encounter Time: 08:20 Subjective: Pt seen for followup re: CHF exacerbation. Feels better. Awaiting [facility] bed. - Objective Vital Signs & Weight: Vital Signs (12 hours) Temp Pulse Resp BP BP Pulse Ox 01/12/20 12:15 98 F 71 18 153/66 H 95 01/12/20 08:30 97.7 F 74 18 117/54 L 93 L 01/12/20 04:00 98.7 F 79 21 H 150/66 H 95 Weight Admit Weight 337 lb 3.2 oz Weight 312 lb 12.8 oz I&O: 01/11/20 01/12/20 01/13/20 06:59 06:59 06:59 Intake Total 360 620 Output Total 2350 1700 Balance -1989 Result Diagrams: 01/12/20 04:00 01/12/20 04:00 Additional Labs: Accuchecks 01/12/20 01/12/20 01/11/20 10:43 05:49 20:25 POC Glucose 116 H 82 171 H 01/11/20 17:11 POC Glucose 137 H Labs and MARs reviewed by me EKG Reviewed by me: Yes (Tele: NSR) Hospitalist ROS - Review of Systems Respiratory: denies: cough, shortness of breath, SOB with excertion, pleuritic pain, wheezing Genitourinary: denies: dysuria, frequency, hematuria, retention Musculoskeletal: denies: neck pain, shoulder pain, back pain, hand pain, leg pain, foot pain - Medication Medications: Active Medications Generic Name Dose Route Start Last Admin Trade Name Freq PRN Reason Stop Dose Admin Acetaminophen 650 mg 01/05/20 21:26 01/07/20 09:42 Tylenol PO 650 mg Q4H PRN Administration Headache/Fever/Mild Pain (1-3) Aripiprazole 5 mg 01/07/20 17:00 01/11/20 16:51 Abilify PO 5 mg 1700 VASYL Administration Aspirin 81 mg 01/06/20 09:00 01/12/20 08:41 Aspirin Chewable PO 81 mg DAILY VASYL Administration Atorvastatin Calcium 80 mg 01/06/20 21:00 01/11/20 20:50 Lipitor PO 80 mg HS VASYL Administration Carvedilol 6.25 mg 01/10/20 08:00 01/12/20 08:41 Coreg PO 6.25 mg BID-WM VASYL Administration Clonidine 0.1 mg 01/09/20 14:58 01/09/20 15:15 Catapres PO 0.1 mg Q4H PRN Administration SBP Greater Than 180 Docusate Sodium 100 mg 01/07/20 09:00 01/12/20 08:40 Colace PO 100 mg DAILY VASYL Administration Ferrous Sulfate 325 mg 01/07/20 08:00 01/12/20 08:40 Feosol PO 325 mg BID-WM VASYL Administration Furosemide 40 mg 01/10/20 09:00 01/12/20 14:09 Lasix PO 40 mg 0900,1400 VASYL Administration Heparin Sodium (Porcine) 5,000 units 01/06/20 09:00 01/12/20 14:09 Heparin SC 5,000 units TID VASYL Administration Hydralazine HCl 100 mg 01/09/20 20:21 01/12/20 14:09 Apresoline PO 100 mg TID VASYL Administration Insulin Glargine 38 units/ 0.38 mls @ 0 mls/hr 01/06/20 21:00 01/11/20 20:50 Miscellaneous Medication SC 0.38 mls HS VASYL Administration Insulin Glargine 50 units/ 0.5 mls @ 0 mls/hr 01/06/20 09:00 01/12/20 08:39 Miscellaneous Medication SC 0.5 mls QAM VASYL Administration Insulin Human Lispro 0 units 01/05/20 21:33 01/11/20 08:50 Humalog SC 3 unit .AGGRESSIVE SLIDING PRN Administration Aggressive Correctional Scale Isosorbide Mononitrate 60 mg 01/09/20 20:20 01/12/20 08:41 Imdur PO 60 mg DAILY VASYL Administration Melatonin 3 mg 01/10/20 01:00 01/12/20 00:59 Melatonin PO 3 mg HS PRN Administration Insomnia Nystatin 0 gm 01/11/20 21:00 01/12/20 08:41 Mycostatin Powder TOP 1 applic BID VASYL Administration Sodium Chloride 10 ml 01/06/20 21:00 01/12/20 08:42 Flush - Normal Saline IVF 10 ml Q12HR VASYL Administration Tramadol HCl 50 mg 01/06/20 16:02 01/12/20 12:15 Ultram PO 50 mg Q6H PRN Administration Pain Trazodone HCl 100 mg 01/06/20 21:00 01/11/20 20:51 Desyrel PO 100 mg HS VASYL Administration - Exam General - other findings: Morbid obesity Eye: anicteric sclera ENT: moist mucosa Neck: supple Heart: RRR Respiratory: CTAB Gastrointestinal: soft, non-tender Neurological: cranial nerve grossly intact Psychiatric: normal affect, normal behavior Hosp A/P - Plan - Assessment (1) Acute on chronic systolic CHF, NYHA class 3 Code(s): I50.9 - HEART FAILURE, UNSPECIFIED Status: Acute Qualifiers: Heart failure type: unspecified Heart failure chronicity: acute Qualified Code(s): I50.9 - Heart failure, unspecified (2) Elevated troponin Code(s): R79.89 - OTHER SPECIFIED ABNORMAL FINDINGS OF BLOOD CHEMISTRY Status : Acute (3) Peripheral vascular disease Code(s): N18.3 - CHRONIC KIDNEY DISEASE, STAGE 3 (MODERATE) Status: Chronic (4) Hypertension Code(s): I10 - ESSENTIAL (PRIMARY) HYPERTENSION Status: Chronic Qualifiers: Hypertension type: essential hypertension Qualified Code(s): I10 - Essential (primary) hypertension (5) Hx of pulmonary embolus Code(s): Z86.711 - PERSONAL HISTORY OF PULMONARY EMBOLISM Status: Chronic (6) Morbid obesity with BMI of more than 50 Status: Chronic (7) Chronic stage 3 chronic kidney disease Code(s): N18.3 - CHRONIC KIDNEY DISEASE, STAGE 3 (MODERATE) Status: Chronic (8) Diabetes mellitus Code(s): E11.9 - TYPE 2 DIABETES MELLITUS WITHOUT COMPLICATIONS Status: Chronic Qualifiers: Diabetes mellitus type: type 2 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 Myeloma workup in progress. No intervention planned for PVD. Blood pressure improved. Pt awaiting SNU bed at [place]. Likely back to [place] in 24-48h.
[2020-01-12] MEDS: Aripiprazole 10 MG TAB PO SCH (16:10)
[2020-01-12] MEDS: Atorvastatin Calcium 40 MG TAB PO SCH (20:17)
[2020-01-12] MEDS: traZODone HCl 50 MG TAB PO SCH (20:18)
[2020-01-12] MEDS: Insulin Glargine 38 UNITS in Pre-Filled Syringe 1 EACH SC SCH (20:24)
[2020-01-13] MEDS: Melatonin 3 MG TAB PO PRN (01:05)
[2020-01-13 04:48] LABS: Prothrombin Time 13.6 SEC (12.0-14.7)
[2020-01-13 05:02] LABS: #Eosinphils 0.3 thou/uL (0.0-0.7); #Lymphocytes 0.9 thou/uL (1.20-3.40); #Neutrophils 6.7 thou/uL (1.40-6.50); %Basophils 0.5 % (0.0-1.0); %Eosinophils 3.4 % (0.0-10.0); %Lymphocytes 10.3 % (21.0-51.0); %Monocytes 10.9 % (0.0-10.0); Hemoglobin 9.5 g/dL (12.0-16.0); Mean Corpuscular HGB CONC 31.4 g/dL (32.0-36.0); Mean Corpuscular Hemoglobin 27.2 pg (27.0-31.0); Mean Corpuscular Volume 86.7 fL (78.0-98.0); Mean Platelet Volume 9.6 fL (7.4-10.4); Platelet Count 204 thou/uL (130-400); RBC Distribution Width 17.6 % (11.5-14.5); White Blood Cell (WBC) Count 8.9 thou/uL (4.8-10.8)
[2020-01-13 05:07] LABS: Anion Gap 16 mmol/L (10-20); BUN (Urea Nitrogen) 55 mg/dL (9.8-20.1); Calc. Creatinine Clearance 57 mL/min (70-130); Calcium 8.8 mg/dL (7.8-10.44); Carbon Dioxide 28 mmol/L (22-29); Chloride 98 mmol/L (98-107); Estimated GFR-MDRD 21; Glucose 134 mg/dL (70-105); Potassium 4.7 mmol/L (3.5-5.1); Sodium 137 mmol/L (136-145)
[2020-01-13] MEDS: Carvedilol 6.25 MG TAB PO SCH ×2 (08:36→16:57)
[2020-01-13] MEDS: Furosemide 40 MG TAB PO SCH ×2 (08:37→14:24)
[2020-01-13] MEDS: Aspirin Chewable 81 MG TAB PO SCH (08:37)
[2020-01-13] MEDS: Heparin 5,000 UNITS/ML VIAL SC SCH ×3 (08:37→20:53)
[2020-01-13] MEDS: Docusate 100 MG CAP PO SCH (08:37)
[2020-01-13] MEDS: Ferrous Sulfate 325 MG TAB PO SCH ×2 (08:37→16:57)
[2020-01-13] MEDS: traMADol HCl 50 MG TAB PO PRN ×3 (08:38→20:52)
[2020-01-13] MEDS: Insulin Glargine 50 UNITS in Pre-Filled Syringe 1 EACH SC SCH (08:38)
[2020-01-13] MEDS: hydrALAZINE 25 MG TAB PO SCH ×3 (08:38→20:53)
[2020-01-13] MEDS: Nystatin Powder 15 GM BOT TOP SCH ×2 (08:40→20:55)
--- NOTE | 2020-01-13 14:28 | PRG ---
DATE OF SERVICE: 01/13/2020 SUBJECTIVE: A 59-year-old female, being seen for acute kidney injury. The patient denies any nausea, vomiting, or chest pain. OBJECTIVE: GENERAL: The patient is awake and alert. VITAL SIGNS: Afebrile, pulse 78, breathing at 16, blood pressure 119/58. HEENT: Head normocephalic and atraumatic. Eyes intact, no ulcers. Nose intact, no ulcers. Ears intact, no ulcers. NECK: Supple. No JVD. CHEST: Symmetrical and clear. CARDIOVASCULAR: Shows S1 and S2, no rub, no murmur. GASTROINTESTINAL: Abdomen is soft, bowel sounds positive. EXTREMITIES: Show no edema or ulcers. SKIN: Shows no rash or petechiae. MUSCULOSKELETAL: Shows no joint swelling or stiffness. GENITOURINARY: Shows no Preston or CVA tenderness. NEUROLOGIC: Motor intact. Cranial nerves intact. LABORATORY DATA: Reviewed. ASSESSMENT AND PLAN: 1. Stage 3 chronic kidney disease, stable. 2. Hypertension, stable. 3. Anemia, stable. 4. Medication based on GFR, appropriate. Job ID: [id number]
[2020-01-13 16:01] VITALS: BMI 49.6
[2020-01-13] MEDS: Aripiprazole 10 MG TAB PO SCH (16:56)
[2020-01-13] MEDS: HumaLOG 300 UNITS/3 ML VIAL SC PRN (16:57)
--- NOTE | 2020-01-13 19:50 | PDOC.HOSPP ---
- Subjective Encounter Date: 01/13/20 Encounter Time: 19:49 Subjective: Pt seen for followup re: CHF exacerbation. Feels better. - Objective Vital Signs & Weight: Vital Signs (12 hours) Temp Pulse Resp BP BP BP Pulse Ox 01/13/20 15:33 98.4 F 76 18 164/70 H 96 01/13/20 14:24 84 137/63 01/13/20 12:00 98.4 F 78 20 177/76 H 97 01/13/20 08:26 98.4 F 85 18 119/58 L 94 L Weight Admit Weight 337 lb 3.2 oz Weight 316 lb 8 oz I&O: 01/12/20 01/13/20 01/14/20 06:59 06:59 06:59 Intake Total 620 1200 960 Output Total 1700 1800 Balance -1080 1200 -840 Result Diagrams: 01/13/20 04:24 01/13/20 04:24 Additional Labs: Accuchecks 01/13/20 01/13/20 01/13/20 16:56 11:18 05:31 POC Glucose 184 H 146 H 143 H 01/12/20 20:27 POC Glucose 166 H Labs and MARs reviewed by me EKG Reviewed by me: Yes (Tele: NSR) Hospitalist ROS - Review of Systems Respiratory: reports: SOB with excertion. denies: cough, shortness of breath, hemoptysis, pleuritic pain, wheezing Cardiovascular: denies: chest pain, palpitations, orthopnea, paroxysmal noc. dyspnea, edema, light headedness - Medication Medications: Active Medications Generic Name Dose Route Start Last Admin Trade Name Freq PRN Reason Stop Dose Admin Acetaminophen 650 mg 01/05/20 21:26 01/07/20 09:42 Tylenol PO 650 mg Q4H PRN Administration Headache/Fever/Mild Pain (1-3) Aripiprazole 5 mg 01/07/20 17:00 01/13/20 16:56 Abilify PO 5 mg 1700 VASYL Administration Aspirin 81 mg 01/06/20 09:00 01/13/20 08:37 Aspirin Chewable PO 81 mg DAILY VASYL Administration Atorvastatin Calcium 80 mg 01/06/20 21:00 01/12/20 20:17 Lipitor PO 80 mg HS VASYL Administration Carvedilol 6.25 mg 01/10/20 08:00 01/13/20 16:57 Coreg PO 6.25 mg BID-WM VASYL Administration Clonidine 0.1 mg 01/09/20 14:58 01/09/20 15:15 Catapres PO 0.1 mg Q4H PRN Administration SBP Greater Than 180 Docusate Sodium 100 mg 01/07/20 09:00 01/13/20 08:37 Colace PO 100 mg DAILY VASYL Administration Ferrous Sulfate 325 mg 01/07/20 08:00 01/13/20 16:57 Feosol PO 325 mg BID-WM VASYL Administration Furosemide 40 mg 01/10/20 09:00 01/13/20 14:24 Lasix PO 40 mg 0900,1400 VASYL Administration Heparin Sodium (Porcine) 5,000 units 01/06/20 09:00 01/13/20 14:23 Heparin SC 5,000 units TID VASYL Administration Hydralazine HCl 100 mg 01/09/20 20:21 01/13/20 14:24 Apresoline PO 100 mg TID VASYL Administration Insulin Glargine 38 units/ 0.38 mls @ 0 mls/hr 01/06/20 21:00 01/12/20 20:24 Miscellaneous Medication SC 0.38 mls HS VASYL Administration Insulin Glargine 50 units/ 0.5 mls @ 0 mls/hr 01/06/20 09:00 01/13/20 08:38 Miscellaneous Medication SC 0.5 mls QAM VASYL Administration Insulin Human Lispro 0 units 01/05/20 21:33 01/13/20 16:57 Humalog SC 3 unit .AGGRESSIVE SLIDING PRN Administration Aggressive Correctional Scale Isosorbide Mononitrate 60 mg 01/09/20 20:20 01/13/20 08:38 Imdur PO 60 mg DAILY VASYL Administration Melatonin 3 mg 01/10/20 01:00 01/13/20 01:05 Melatonin PO 3 mg HS PRN Administration Insomnia Nystatin 0 gm 01/11/20 21:00 01/13/20 08:40 Mycostatin Powder TOP 1 applic BID VASYL Administration Sodium Chloride 10 ml 01/06/20 21:00 01/13/20 10:04 Flush - Normal Saline IVF Not Given Q12HR VASYL Tramadol HCl 50 mg 01/06/20 16:02 01/13/20 15:46 Ultram PO 50 mg Q6H PRN Administration Pain Trazodone HCl 100 mg 01/06/20 21:00 01/12/20 20:18 Desyrel PO 100 mg HS VASYL Administration - Exam General - other findings: Morbid obese Eye: anicteric sclera ENT: no oropharyngeal lesions Neck: supple Heart: RRR Respiratory: CTAB Gastrointestinal: soft, non-tender Extremities: 2+ LE edema Skin - other findings: right cubital fossa erythema, warmth, tenderness Musculoskeletal: no muscle wasting Psychiatric: normal affect, normal behavior Hosp A/P - Plan - Assessment (1) Acute on chronic systolic CHF, NYHA class 3 Code(s): I50.9 - HEART FAILURE, UNSPECIFIED Status: Acute Qualifiers: Heart failure type: unspecified Heart failure chronicity: acute Qualified Code(s): I50.9 - Heart failure, unspecified (2) Cellulitis Status: Acute (3) Peripheral vascular disease Code(s): N18.3 - CHRONIC KIDNEY DISEASE, STAGE 3 (MODERATE) Status: Chronic (4) Hypertension Code(s): I10 - ESSENTIAL (PRIMARY) HYPERTENSION Status: Chronic Qualifiers: Hypertension type: essential hypertension Qualified Code(s): I10 - Essential (primary) hypertension (5) Hx of pulmonary embolus Code(s): Z86.711 - PERSONAL HISTORY OF PULMONARY EMBOLISM Status: Chronic (6) Morbid obesity with BMI of more than 50 Status: Chronic (7) Chronic stage 3 chronic kidney disease Code(s): N18.3 - CHRONIC KIDNEY DISEASE, STAGE 3 (MODERATE) Status: Chronic (8) Diabetes mellitus Code(s): E11.9 - TYPE 2 DIABETES MELLITUS WITHOUT COMPLICATIONS Status: Chronic Qualifiers: Diabetes mellitus type: type 2 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 Myeloma workup in progress, will be followed by nephroogy as outpt. No intervention planned for PVD. Blood pressure improved. Pt awaiting SNU bed at [place]. Started doxycycline for cellulitis. Pt was supposed to be discharged back to [place] in [place] for [facility]. I contacted the floor today and was told they are not accepting patients today because of concerns/issues around COVID-19.
[2020-01-13] MEDS: Insulin Glargine 38 UNITS in Pre-Filled Syringe 1 EACH SC SCH (20:53)
[2020-01-13] MEDS: Doxycycline 100 MG CAP PO SCH (20:53)
[2020-01-13] MEDS: Atorvastatin Calcium 40 MG TAB PO SCH (20:53)
[2020-01-13] MEDS: traZODone HCl 50 MG TAB PO SCH (20:53)
[2020-01-14 05:08] LABS: INR-International Normal Ratio 0.9; Prothrombin Time 12.5 SEC (12.0-14.7)
[2020-01-14 05:40] LABS: Anion Gap 18 mmol/L (10-20); BUN (Urea Nitrogen) 57 mg/dL (9.8-20.1); Calc. Creatinine Clearance 57 mL/min (70-130); Calcium 9.8 mg/dL (7.8-10.44); Carbon Dioxide 23 mmol/L (22-29); Chloride 100 mmol/L (98-107); Estimated GFR-MDRD 21; Glucose 147 mg/dL (70-105); Potassium 5.2 mmol/L (3.5-5.1); Sodium 136 mmol/L (136-145)
[2020-01-14 07:41] VITALS: TEMP 99
[2020-01-14] MEDS: traMADol HCl 50 MG TAB PO PRN (07:42)
[2020-01-14] MEDS: Carvedilol 6.25 MG TAB PO SCH (08:43)
[2020-01-14] MEDS: Docusate 100 MG CAP PO SCH (08:44)
[2020-01-14] MEDS: Doxycycline 100 MG CAP PO SCH (08:44)
[2020-01-14] MEDS: Ferrous Sulfate 325 MG TAB PO SCH (08:44)
[2020-01-14] MEDS: Furosemide 40 MG TAB PO SCH (08:44)
[2020-01-14] MEDS: Aspirin Chewable 81 MG TAB PO SCH (08:44)
[2020-01-14] MEDS: hydrALAZINE 25 MG TAB PO SCH (08:45)
[2020-01-14] MEDS: Heparin 5,000 UNITS/ML VIAL SC SCH (08:45)
[2020-01-14] MEDS: Nystatin Powder 15 GM BOT TOP SCH (08:46)
[2020-01-14] MEDS: Insulin Glargine 50 UNITS in Pre-Filled Syringe 1 EACH SC SCH (10:33)
[2020-01-14 12:16] LABS: Anion Gap 16 mmol/L (10-20); BUN (Urea Nitrogen) 56 mg/dL (9.8-20.1); Calc. Creatinine Clearance 57 mL/min (70-130); Calcium 9.3 mg/dL (7.8-10.44); Carbon Dioxide 25 mmol/L (22-29); Chloride 99 mmol/L (98-107); Estimated GFR-MDRD 21; Glucose 138 mg/dL (70-105); Potassium 4.8 mmol/L (3.5-5.1); Sodium 135 mmol/L (136-145)
--- NOTE | 2020-01-14 12:42 | PRG ---
DATE OF SERVICE: 01/14/2020 SUBJECTIVE: A 59-year-old female, being seen for acute kidney injury. The patient denied nausea, vomiting, or chest pain. PHYSICAL EXAMINATION: General: The patient is awake and alert. Vital Signs: Afebrile, pulse 75, breathing at 16, blood pressure 144/69. HEENT: Head normocephalic and atraumatic. Eyes intact, no ulcers. Nose intact, no ulcers. Ears intact, no ulcers. Neck: Supple. No JVD. Chest: Symmetrical and clear. Cardiovascular: Shows S1 and S2, no rub, no murmur. Gastrointestinal: Abdomen is soft, bowel sounds positive. Extremities: Show no edema or ulcers. Skin: Shows no rash or petechiae. Musculoskeletal: Shows no joint swelling or stiffness. Genitourinary: Shows no Preston or CVA tenderness. Neurologic: Motor intact. Cranial nerves intact. LABORATORY DATA: Labs show hemoglobin 9.5. Potassium 5.2. ASSESSMENT AND PLAN: 1. Chronic kidney disease stage 3, stable. 2. Hyperkalemia. We would recommend low-potassium diet. Recheck potassium in the morning. 3. Hypertension, stable. Please follow up with Dr. Yoon tomorrow. Job ID: [id number]
[2020-01-14 13:38] VITALS: BP 143/63
--- NOTE | 2020-01-17 23:30 | PQF ---
JACQUES TORRES DAVID [id number] [facility]-282 [id number] CLINICAL DOCUMENTATION CLARIFICATION FORM: POST DISCHARGE Addendum to original discharge summary date: ____ Late entry note date: __ DATE: 01/17/2020 ATTN: KEILY ACHARYA Please exercise your independent, professional judgment in responding to the clarification form. Clinical indicators are provided on the bottom of this form for your review Please check appropriate box(s): AMI TYPE: [ ] Acute Coronary Syndrome (ACS) without Acute NC meaning Unstable Angina [ ] NSTEMI (NC type I) [ x ] NSTEMI due to Demand Ischemia (AMI Type II) [ ] Demand Ischemia without NC [ ] STEMI (please also specify site and arterysee below) If STEMI, SITE: [ ] Anterior [ ] Apical [ ] Lateral [ ] Inferior [ ] Posterior [ ] Q Wave [ ] Septal [ ] Unable to Determine SPECIFIC ARTERY (Based on site) [ ] Left Main Coronary[ ] Diagonal [ ] Left Anterior Descending[ ] Oblique Marginal [ ] Right Coronary Artery[ ] Unable to Determine [ ] Left Circumflex [ ] Other diagnosis [ ] Unable to determine In addition, please specify: Present on Admission (POA): [x ] Yes [ ] No [ ] Unable to determine CLINICAL INDICATORS - SIGNS / SYMPTOMS / LABS CK-MB-2.4-Documented in H&P on 01/04 by Simba Tang MD Troponin I-0.031-Documented in H&P on 01/04 by Simba Tang MD EKG; Personally reviewed-sinus rhythm; LBBB; T-inversions in I& aVL compared with EKG from [id number] were present in I & aVL-Documented in H&P on by Simba Tang MD Elevated troponin-Documented in H&P on 01/04 by Simba Tang MD Flat line troponin, likely related to CHF causing ventricular strain and renal function-likely demand ischemia -Documented in H&P on 01/04 by Simba Tang MD Acute on chronic systolic CHF-Documented in hospitalist progress note on 01/12 by Dion Loza MD RISKS: HTN-Documented in H&P on 01/04 by Simba Tang MD CAD-Documented in H&P on 01/04 by Simba Tang MD TREATMENTS: Cardiology consult-Documented in H&P on 01/04 by Simba Tang MD ECHO-Documented in H&P on 01/04 by Simba Tang MD Cycle cardiac markers-Documented in H&P on 01/04 by Simba Tang MD Aspirin chewable 81 mg PO daily -Documented in medication snapshot SAP Compliance Manager Crystal Reports Winform Viewer (This form is maintained as a part of the permanent medical record) 2014 [employer], [employer]. All Rights Reserved [email or web address]
--- NOTE | 2020-01-22 13:04 | STRESS ---
Acquisition Time: 2020-01-07 12:27:46 Total Exercise Time: 00:01:00 Test Indications: CARDIOMYOPATHY Medications: Protocol: LEXISCAN Max HR: 082 BPM 51% of Pred: 160 BPM Max BP: 144/060 mmHG Max Work Load: 1.0 METS THE PATIENT WAS INJECTED WITH LEXISCAN. SHE DID NOT DEVELOP CHEST PAIN. THERE WAS NO SIGNIFICANT ST DEPRESSION. AWAIT NUCLEAR IMAGES FOR DEFINITIVE DIAGNOSIS. Confirmed by ARSENIO DENNIS ([id number]), deputy editor in chief DANIELITO MA ([id number]) on 01/22/2020 1:03:33 PM Referred By: MD Amanda FLETCHER Confirmed By:ARSENIO DENNIS
== END 2020-01-14 14:04 | DRG 280 ==
LOC: ERS 14:59 → 2NO 21:26
PROVIDERS: ADMIT Internal Medicine Sleep Medicine; ATTEND Internal Medicine
DX: I13.0 Hypertensive heart and chronic kidney disease with heart failure and stage 1 through stage 4 chronic kidney disease, or unspecified chronic kidney disease (principal); I50.23 Acute on chronic systolic (congestive) heart failure; I21.A1 Myocardial infarction type 2; N17.9 Acute kidney failure, unspecified; I24.8 Other forms of acute ischemic heart disease; Z68.42 Body mass index [BMI] 45.0-49.9, adult; N18.4 Chronic kidney disease, stage 4 (severe); L03.90 Cellulitis, unspecified; E11.22 Type 2 diabetes mellitus with diabetic chronic kidney disease; Z79.4 Long term (current) use of insulin; I25.10 Atherosclerotic heart disease of native coronary artery without angina pectoris; Z71.6 Tobacco abuse counseling; E78.5 Hyperlipidemia, unspecified; G47.33 Obstructive sleep apnea (adult) (pediatric); Z86.711 Personal history of pulmonary embolism; E66.01 Morbid (severe) obesity due to excess calories; F32.9 Major depressive disorder, single episode, unspecified; F41.9 Anxiety disorder, unspecified; E11.21 Type 2 diabetes mellitus with diabetic nephropathy; I25.5 Ischemic cardiomyopathy; D63.1 Anemia in chronic kidney disease; E11.51 Type 2 diabetes mellitus with diabetic peripheral angiopathy without gangrene; E87.5 Hyperkalemia; F17.210 Nicotine dependence, cigarettes, uncomplicated
CPT/HCPCS: 36415; 36416; 71045; 78452; 80048; 80053; 81003; 81015; 82553; 82570; 82607; 82728; 82746; 83036; 83540; 83550; 83735; 83880; 83883; 84156; 84466; 84484; 85025; 85610; 86038; 86225; 86334; 93005; 93017; 93306; 93798; 93923; 93970; 94760; 96374; A9500; J1644; J1815; J1940; J2785

== ENCOUNTER → 2021-04-07 | Day surgery (SDC) | payer MEDICARE, MEDICAID | LOC: ER/OP 17:14 | PROC: 02HV33Z Insertion of Infusion Device into Superior Vena Cava, Percutaneous Approach (ICD-10-PCS; principal; 2021-04-07) | DX: Z45.2 Encounter for adjustment and management of vascular access device (principal); Z79.2 Long term (current) use of antibiotics | CPT/HCPCS: 36569; C1751 ==

== ENCOUNTER 2021-04-18 11:56 | Inpatient (IN) | payer MEDICARE, MEDICAID ==
[2021-04-18 14:31] LABS: Hemoglobin 10.6 g/dL (12.0-16.0); Mean Corpuscular HGB CONC 32.3 g/dL (32.0-36.0); Mean Corpuscular Hemoglobin 30.1 pg (27.0-31.0); Mean Corpuscular Volume 93.2 fL (78.0-98.0); Mean Platelet Volume 7.9 fL (7.4-10.4); Platelet Count 160 thou/uL (130-400); RBC Distribution Width 14.4 % (11.5-14.5); Red Blood Cell (RBC) Count 3.54 mill/uL (4.20-5.40); White Blood Cell (WBC) Count 9.8 thou/uL (4.8-10.8)
[2021-04-18 14:33] LABS: #Basophils 0.2 thou/uL (0.0-0.2); #Lymphocytes 0.2 thou/uL (1.20-3.40); #Monocytes 0.6 thou/uL (0.11-0.59); %Basophils 0.2 % (0.0-1.0); %Eosinophils 0.1 % (0.0-10.0); %Lymphocytes 2.5 % (21.0-51.0); %Monocytes 5.8 % (0.0-10.0); %Neutrophils 91.4 % (42.0-75.0)
[2021-04-18 15:08] LABS: ALT (SGPT) 11 U/L (8-55); AST (SGOT) 18 U/L (5-34); Albumin 3.2 g/dL (3.4-4.8); Alkaline Phosphatase 68 U/L (40-110); Anion Gap 20 mmol/L (10-20); BUN (Urea Nitrogen) 104 mg/dL (9.8-20.1); Bilirubin, Total 0.7 mg/dL (0.2-1.2); Calc. Creatinine Clearance 0 mL/min (70-130); Calcium 8.1 mg/dL (7.8-10.44); Carbon Dioxide 23 mmol/L (23-31); Chloride 105 mmol/L (98-107); Globulin 3.4 g/dL (2.4-3.5); Glucose 76 mg/dL (80-115); Potassium 3.5 mmol/L (3.5-5.1); Protein, Total 6.6 g/dL (5.8-8.1); Sodium 144 mmol/L (136-145)
[2021-04-18] MEDS ORDERED: Vancomycin 1 GM/200 ML BAG ONE (15:37)
[2021-04-18] MEDS ORDERED: Ondansetron ODT 4 MG TAB PO PRN (16:41)
[2021-04-18] MEDS ORDERED: HYDROcodone/Acetaminophen 5/325 mg Tablet PO PRN (16:41)
[2021-04-18] MEDS ORDERED: Bisacodyl 5 MG TAB PO PRN (16:41)
[2021-04-18] MEDS ORDERED: Loperamide HCl 2 MG CAP PO PRN ×2 (16:41)
[2021-04-18] MEDS ORDERED: Senokot S 8.6-50 MG TAB PO PRN (16:41)
[2021-04-18] MEDS ORDERED: Sodium Chloride 0.9% 1,000 ML IV SCH (16:45)
[2021-04-18] MEDS ORDERED: Dextrose 50% Abboject 50 ML SYRINGE SLOW IVP PRN (17:00)
[2021-04-18] MEDS ORDERED: Dextrose 5% in Water 1,000 ML IV PRN (17:00)
[2021-04-18 17:08] LABS: CKMB 2.3 ng/mL (0-6.6)
[2021-04-18 17:39] LABS: Troponin I 0.127 ng/mL (< 0.028)
[2021-04-18 20:36] LABS: Troponin I 0.159 ng/mL (< 0.028)
[2021-04-18 21:58] VITALS: BMI 55.7
[2021-04-18] MEDS ORDERED: Vancomycin 1 GM in Premix Bag 1 BAG IVPB SCH (23:00)
[2021-04-18 23:41] LABS: Bilirubin Negative (Negative); Blood, Urine Negative (Negative); Clarity Clear (Clear); Glucose, Urine (Dipstick) Normal (Negative); Ketone, Urine Negative (Negative); Leukocyte 500 Leu/uL (Negative); Nitrite Negative (Negative); Protein, Urine (Dipstick) 50 mg/dL (Neg-Trace); RBC/HPF 0-3 HPF (0-3); Specific Gravity, Urine 1.016 (1.002-1.036); Squamous Epithelial 0-3 HPF (0-3); Urobilinogen Normal mg/dL (Less than 2); WBC/HPF 21-50 HPF (0-3)
[2021-04-18 23:43] LABS: Bacteria/HPF 1+ HPF (None Seen); Urine Culture Reflex Yes Yes
[2021-04-19] MEDS: cefTRIAXone\\ROCEPHIN 1 GM in Sodium Chloride 0.9% 100 ML IVPB SCH (04:31)
[2021-04-19 06:43] LABS: #Lymphocytes 0.3 thou/uL (1.20-3.40); #Monocytes 0.6 thou/uL (0.11-0.59); %Basophils 0.5 % (0.0-1.0); %Eosinophils 0.2 % (0.0-10.0); %Monocytes 9.2 % (0.0-10.0); %Neutrophils 86.1 % (42.0-75.0); Hemoglobin 10.3 g/dL (12.0-16.0); Mean Corpuscular HGB CONC 31.5 g/dL (32.0-36.0); Mean Corpuscular Hemoglobin 29.7 pg (27.0-31.0); Mean Corpuscular Volume 94.4 fL (78.0-98.0); Mean Platelet Volume 7.8 fL (7.4-10.4); Platelet Count 140 thou/uL (130-400); RBC Distribution Width 14.4 % (11.5-14.5); Red Blood Cell (RBC) Count 3.46 mill/uL (4.20-5.40)
[2021-04-19 07:03] LABS: Anion Gap 16 mmol/L (10-20); BUN (Urea Nitrogen) 106 mg/dL (9.8-20.1); Calc. Creatinine Clearance 49 mL/min (70-130); Calcium 8.8 mg/dL (7.8-10.44); Carbon Dioxide 26 mmol/L (23-31); Cardiac Risk 3.6 (Less than 4.5); Chloride 102 mmol/L (98-107); Cholesterol 72 mg/dl (< 200 Desired); Glucose 113 mg/dL (80-115); HDL Cholesterol 20 mg/dL (>60 Neg Risk); LDL Cholesterol, Calculated 35 mg/dL; Potassium 3.8 mmol/L (3.5-5.1); Sodium 140 mmol/L (136-145); Triglycerides 84 mg/dL (Less than 150)
[2021-04-19] MEDS: Acetaminophen 325 MG TAB PO PRN (09:01)
[2021-04-19] MEDS: Enoxaparin Sodium 30 MG/0.3 ML SYRINGE SC SCH (09:02)
[2021-04-19] MEDS: Aspirin Chewable 81 MG TAB PO SCH (09:02)
[2021-04-19 11:01] LABS: SARS-CoV-2 PCR by NAA Not Detected (NotDetected)
[2021-04-19] MEDS ORDERED: Nystatin Powder 15 GM BOT TOP PRN ×2 (12:31→15:33)
[2021-04-19] MEDS: Dextrose 5% in Water 1,000 ML IV SCH ×2 (12:58→23:13)
[2021-04-19] MEDS ORDERED: Furosemide 40 MG/4 ML VIAL SLOW IVP SCH (14:45)
[2021-04-19] MEDS ORDERED: Vancomycin 1.5 GRAM/300 ML BAG 1.5 GM in Premix Bag 1 BAG IVPB SCH (23:00)
[2021-04-19] MEDS: Vancomycin 1.5 GRAM/300 ML BAG 1.5 GM in Premix Bag 1 BAG IVPB SCH (23:13)
[2021-04-20] MEDS: Acetaminophen 325 MG TAB PO PRN (03:43)
[2021-04-20] MEDS: HYDROcodone/Acetaminophen 10/325 mg Tablet PO PRN ×2 (03:46→22:43)
[2021-04-20] MEDS: cefTRIAXone\\ROCEPHIN 1 GM in Sodium Chloride 0.9% 100 ML IVPB SCH (05:07)
[2021-04-20] MEDS: Lorazepam 0.5 MG TAB PO PRN (05:10)
[2021-04-20 08:19] LABS: Hemoglobin 9.9 g/dL (12.0-16.0); Mean Corpuscular Volume 93.6 fL (78.0-98.0); Platelet Count 141 thou/uL (130-400); RBC Distribution Width 14.2 % (11.5-14.5); White Blood Cell (WBC) Count 6.8 thou/uL (4.8-10.8)
[2021-04-20 08:30] LABS: ALT (SGPT) 15 U/L (8-55); AST (SGOT) 33 U/L (5-34); Albumin 3.1 g/dL (3.4-4.8); Alkaline Phosphatase 73 U/L (40-110); Anion Gap 18 mmol/L (10-20); BUN (Urea Nitrogen) 101 mg/dL (9.8-20.1); Bilirubin, Total 0.6 mg/dL (0.2-1.2); Calc. Creatinine Clearance 50 mL/min (70-130); Calcium 8.9 mg/dL (7.8-10.44); Carbon Dioxide 25 mmol/L (23-31); Chloride 102 mmol/L (98-107); Globulin 4.1 g/dL (2.4-3.5); Glucose 180 mg/dL (80-115); Potassium 3.8 mmol/L (3.5-5.1); Protein, Total 7.2 g/dL (5.8-8.1); Sodium 141 mmol/L (136-145)
[2021-04-20 08:43] LABS: Band 21 % (5-11); Eosinophils 2 % (0-10); Hypochromia SLIGHT = 6-15 cells (100X) (0-5/hpf); Lymphocytes 9 % (21-51); MDiff Complete? YES; Monocytes 10 % (0-10); Neutrophil 58 % (42-75); Platelet Morphology Comment Appears Adequate; Polychromasia SLIGHT = 2-3 cells (100X) (0-2/hpf)
[2021-04-20] MEDS: Aspirin Chewable 81 MG TAB PO SCH (11:56)
[2021-04-20] MEDS: HumaLOG 300 UNITS/3 ML VIAL SC PRN ×2 (11:56→17:41)
[2021-04-20] MEDS: Enoxaparin Sodium 30 MG/0.3 ML SYRINGE SC SCH (11:56)
[2021-04-20] MEDS: Dextrose 5% in Water 1,000 ML IV SCH (12:03)
[2021-04-20] MEDS ORDERED: Metolazone 5 MG TAB PO SCH ×2 (13:45→14:00)
[2021-04-20] MEDS: Torsemide 100 MG TAB PO SCH (15:28)
[2021-04-20] MEDS: Vancomycin 1.5 GRAM/300 ML BAG 1.5 GM in Premix Bag 1 BAG IVPB SCH (22:45)
[2021-04-20 23:07] LABS: Vancomycin, Trough 24.4 ug/mL
[2021-04-21] MEDS ORDERED: Vancomycin HCl 1 GM in Premix Bag 1 BAG IVPB PRN (00:48)
[2021-04-21] MEDS: cefTRIAXone\\ROCEPHIN 1 GM in Sodium Chloride 0.9% 100 ML IVPB SCH (04:57)
[2021-04-21 06:29] LABS: Anion Gap 16 mmol/L (10-20); BUN (Urea Nitrogen) 95 mg/dL (9.8-20.1); Calc. Creatinine Clearance 55 mL/min (70-130); Carbon Dioxide 25 mmol/L (23-31); Chloride 101 mmol/L (98-107); Glucose 149 mg/dL (80-115); Potassium 3.9 mmol/L (3.5-5.1); Sodium 138 mmol/L (136-145)
[2021-04-21] MEDS: Metolazone 5 MG TAB PO SCH (08:31)
[2021-04-21] MEDS: Aspirin Chewable 81 MG TAB PO SCH (08:31)
[2021-04-21] MEDS: HYDROcodone/Acetaminophen 10/325 mg Tablet PO PRN ×2 (08:32→21:32)
[2021-04-21] MEDS: Enoxaparin Sodium 30 MG/0.3 ML SYRINGE SC SCH (08:33)
[2021-04-21] MEDS: Torsemide 100 MG TAB PO SCH ×2 (08:34→13:15)
[2021-04-21] MEDS: HumaLOG 300 UNITS/3 ML VIAL SC PRN ×3 (11:22→21:33)
[2021-04-22] MEDS: cefTRIAXone\\ROCEPHIN 1 GM in Sodium Chloride 0.9% 100 ML IVPB SCH (04:18)
[2021-04-22] MEDS: HumaLOG 300 UNITS/3 ML VIAL SC PRN (05:01)
[2021-04-22 06:23] LABS: Anion Gap 14 mmol/L (10-20); BUN (Urea Nitrogen) 93 mg/dL (9.8-20.1); Calc. Creatinine Clearance 61 mL/min (70-130); Carbon Dioxide 30 mmol/L (23-31); Chloride 98 mmol/L (98-107); Glucose 176 mg/dL (80-115); Potassium 3.3 mmol/L (3.5-5.1); Sodium 139 mmol/L (136-145)
[2021-04-22] MEDS ORDERED: Potassium Chloride 20 MEQ TAB PO SCH (07:45)
[2021-04-22] MEDS ORDERED: Promethazine 25 MG TAB PO PRN (09:02)
[2021-04-22] MEDS: Potassium Chloride 10 MEQ in Premix Bag 1 BAG IVPB SCH ×2 (09:28→11:07)
[2021-04-22] MEDS: Enoxaparin Sodium 30 MG/0.3 ML SYRINGE SC SCH (09:28)
[2021-04-22] MEDS: Aspirin Chewable 81 MG TAB PO SCH (09:29)
[2021-04-22] MEDS: Metolazone 5 MG TAB PO SCH (09:29)
[2021-04-22] MEDS: Torsemide 100 MG TAB PO SCH ×2 (09:30→13:57)
[2021-04-22] MEDS: HYDROcodone/Acetaminophen 10/325 mg Tablet PO PRN ×2 (09:34→23:34)
[2021-04-22] MEDS: hydrALAZINE 20 MG/ML VIAL SLOW IVP PRN (09:41)
[2021-04-22] MEDS ORDERED: Loratadine 10 MG TAB PO PRN (11:25)
[2021-04-22] MEDS: Gabapentin 300 MG CAP PO SCH ×2 (13:56→21:19)
[2021-04-22] MEDS: hydrALAZINE 25 MG TAB PO SCH ×2 (13:57→21:19)
[2021-04-22] MEDS: Lorazepam 0.5 MG TAB PO PRN ×2 (13:57→23:34)
[2021-04-22] MEDS: busPIRone HCl 5 MG TAB PO SCH ×2 (13:57→21:19)
[2021-04-22] MEDS: Nicotine 14 MG PATCH TD SCH (16:49)
[2021-04-22] MEDS: Carvedilol 6.25 MG TAB PO SCH (16:49)
[2021-04-22] MEDS ORDERED: Lantus 1000 UNITS/10 ML VIAL SC SCH (21:00)
[2021-04-22] MEDS: Atorvastatin Calcium 40 MG TAB PO SCH (21:19)
[2021-04-22] MEDS: traZODone HCl 50 MG TAB PO SCH (21:19)
[2021-04-23] MEDS: cefTRIAXone\\ROCEPHIN 1 GM in Sodium Chloride 0.9% 100 ML IVPB SCH (05:34)
[2021-04-23] MEDS: HumaLOG 300 UNITS/3 ML VIAL SC PRN ×2 (05:34→21:06)
[2021-04-23 05:52] LABS: #Eosinphils 0.3 thou/uL (0.0-0.7); #Lymphocytes 0.8 thou/uL (1.20-3.40); #Monocytes 0.8 thou/uL (0.11-0.59); #Neutrophils 4.8 thou/uL (1.40-6.50); %Basophils 0.3 % (0.0-1.0); %Eosinophils 4.9 % (0.0-10.0); %Lymphocytes 11.9 % (21.0-51.0); %Monocytes 12.4 % (0.0-10.0); %Neutrophils 70.4 % (42.0-75.0); Hemoglobin 9.7 g/dL (12.0-16.0); Mean Corpuscular HGB CONC 30.2 g/dL (32.0-36.0); Mean Corpuscular Hemoglobin 28.3 pg (27.0-31.0); Mean Corpuscular Volume 93.7 fL (78.0-98.0); Mean Platelet Volume 8.1 fL (7.4-10.4); Platelet Count 155 thou/uL (130-400); RBC Distribution Width 13.9 % (11.5-14.5); Red Blood Cell (RBC) Count 3.44 mill/uL (4.20-5.40); White Blood Cell (WBC) Count 6.8 thou/uL (4.8-10.8)
[2021-04-23 06:10] LABS: Anion Gap 15 mmol/L (10-20); BUN (Urea Nitrogen) 92 mg/dL (9.8-20.1); Calc. Creatinine Clearance 60 mL/min (70-130); Calcium 9.1 mg/dL (7.8-10.44); Carbon Dioxide 35 mmol/L (23-31); Chloride 97 mmol/L (98-107); Glucose 166 mg/dL (80-115); Potassium 3.2 mmol/L (3.5-5.1); Sodium 144 mmol/L (136-145)
[2021-04-23 08:13] LABS: Vancomycin, Random 22.4 ug/mL (See Comment)
[2021-04-23] MEDS ORDERED: Potassium Chloride 10 MEQ TAB PO SCH (08:15)
[2021-04-23] MEDS ORDERED: Lantus 1000 UNITS/10 ML VIAL SC SCH ×2 (09:00→21:00)
[2021-04-23] MEDS: hydrALAZINE 25 MG TAB PO SCH ×3 (10:47→21:04)
[2021-04-23] MEDS: Carvedilol 6.25 MG TAB PO SCH ×2 (10:47→17:18)
[2021-04-23] MEDS: Gabapentin 300 MG CAP PO SCH ×3 (10:48→21:05)
[2021-04-23] MEDS: busPIRone HCl 5 MG TAB PO SCH ×3 (10:49→21:05)
[2021-04-23] MEDS: Ascorbic Acid 500 mg Chewable Tablet PO SCH (10:49)
[2021-04-23] MEDS: Metolazone 5 MG TAB PO SCH (10:49)
[2021-04-23] MEDS: Aspirin Chewable 81 MG TAB PO SCH (10:50)
[2021-04-23] MEDS: Polyethylene Glycol 3350 17 GM Packet PO SCH (10:51)
[2021-04-23] MEDS: Enoxaparin Sodium 30 MG/0.3 ML SYRINGE SC SCH (10:51)
[2021-04-23] MEDS: Torsemide 100 MG TAB PO SCH ×2 (10:52→15:21)
[2021-04-23] MEDS: Nicotine 14 MG PATCH TD SCH (16:37)
[2021-04-23] MEDS ORDERED: Carvedilol 3.125 MG TAB PO SCH (17:30)
[2021-04-23] MEDS: traZODone HCl 50 MG TAB PO SCH (21:05)
[2021-04-23] MEDS: Atorvastatin Calcium 40 MG TAB PO SCH (21:05)
[2021-04-23] MEDS: HYDROcodone/Acetaminophen 10/325 mg Tablet PO PRN (21:17)
[2021-04-24] MEDS: Lorazepam 0.5 MG TAB PO PRN (00:40)
[2021-04-24] MEDS ORDERED: VORTIOXETINE HYDROBROMIDE 20 MG PO SCH (01:05)
[2021-04-24] MEDS: cefTRIAXone\\ROCEPHIN 1 GM in Sodium Chloride 0.9% 100 ML IVPB SCH (05:35)
[2021-04-24] MEDS: HumaLOG 300 UNITS/3 ML VIAL SC PRN ×2 (05:44→16:46)
[2021-04-24 06:17] LABS: BUN (Urea Nitrogen) 92 mg/dL (9.8-20.1); Calc. Creatinine Clearance 59 mL/min (70-130); Calcium 8.7 mg/dL (7.8-10.44); Glucose 308 mg/dL (80-115)
[2021-04-24 06:27] LABS: Anion Gap 15 mmol/L (10-20); Carbon Dioxide 36 mmol/L (23-31); Chloride 96 mmol/L (98-107); Potassium 3.2 mmol/L (3.5-5.1); Sodium 144 mmol/L (136-145)
[2021-04-24] MEDS ORDERED: Potassium Chloride 20 MEQ TAB PO SCH (07:45)
[2021-04-24 08:41] LABS: Vancomycin, Random 18.4 ug/mL (See Comment)
[2021-04-24] MEDS ORDERED: Cephalexin 250 MG CAP PO SCH (09:00)
[2021-04-24] MEDS ORDERED: Lantus 1000 UNITS/10 ML VIAL SC SCH ×3 (09:00→21:00)
[2021-04-24] MEDS: busPIRone HCl 5 MG TAB PO SCH ×2 (09:08→14:15)
[2021-04-24] MEDS: Aspirin Chewable 81 MG TAB PO SCH (09:08)
[2021-04-24] MEDS: Ascorbic Acid 500 mg Chewable Tablet PO SCH (09:08)
[2021-04-24] MEDS: Metolazone 5 MG TAB PO SCH (09:08)
[2021-04-24] MEDS: hydrALAZINE 25 MG TAB PO SCH ×2 (09:09→14:14)
[2021-04-24] MEDS: Carvedilol 3.125 MG TAB PO SCH ×2 (09:10→16:49)
[2021-04-24] MEDS: Gabapentin 300 MG CAP PO SCH ×2 (09:10→14:15)
[2021-04-24] MEDS: Polyethylene Glycol 3350 17 GM Packet PO SCH (09:11)
[2021-04-24] MEDS: Torsemide 100 MG TAB PO SCH (09:23)
[2021-04-24] MEDS: Enoxaparin Sodium 30 MG/0.3 ML SYRINGE SC SCH (09:23)
[2021-04-24] MEDS ORDERED: Vancomycin HCl 1 GM in Premix Bag 1 BAG IVPB PRN (10:06)
[2021-04-24] MEDS ORDERED: Vancomycin HCl 750 MG in Sodium Chloride 0.9% 250 ML 250 ML IVPB SCH (10:15)
[2021-04-24 16:12] VITALS: TEMP 97.5
[2021-04-24] MEDS: Nicotine 14 MG PATCH TD SCH (17:07)
[2021-04-24] MEDS: HYDROcodone/Acetaminophen 10/325 mg Tablet PO PRN (17:27)
[2021-04-24] MEDS: hydrALAZINE 20 MG/ML VIAL SLOW IVP PRN (17:49)
[2021-04-24 17:55] VITALS: BP 185/73
[2021-04-25] MEDS ORDERED: Torsemide 100 MG TAB PO SCH (09:00)
== END 2021-04-24 18:22 | disposition home or self-care (01) | DRG 871 ==
LOC: SUATTDRO 11:56 → ERS 11:56 → T4-B 16:45
PROVIDERS: ADMIT Family Medicine; ATTEND Internal Medicine
DX: A41.9 Sepsis, unspecified organism (principal); J96.01 Acute respiratory failure with hypoxia; G92 Toxic encephalopathy; I50.31 Acute diastolic (congestive) heart failure; N17.9 Acute kidney failure, unspecified; L03.116 Cellulitis of left lower limb; L03.115 Cellulitis of right lower limb; I13.0 Hypertensive heart and chronic kidney disease with heart failure and stage 1 through stage 4 chronic kidney disease, or unspecified chronic kidney disease; L97.829 Non-pressure chronic ulcer of other part of left lower leg with unspecified severity; L97.819 Non-pressure chronic ulcer of other part of right lower leg with unspecified severity; Z68.43 Body mass index [BMI] 50.0-59.9, adult; N18.4 Chronic kidney disease, stage 4 (severe); E87.3 Alkalosis; R65.20 Severe sepsis without septic shock; I25.10 Atherosclerotic heart disease of native coronary artery without angina pectoris; E11.22 Type 2 diabetes mellitus with diabetic chronic kidney disease; G89.29 Other chronic pain; F17.210 Nicotine dependence, cigarettes, uncomplicated; R79.89 Other specified abnormal findings of blood chemistry; E11.65 Type 2 diabetes mellitus with hyperglycemia; E66.01 Morbid (severe) obesity due to excess calories; G47.33 Obstructive sleep apnea (adult) (pediatric); M54.5 Low back pain; E78.00 Pure hypercholesterolemia, unspecified; E78.2 Mixed hyperlipidemia; D64.9 Anemia, unspecified; E87.6 Hypokalemia; L30.4 Erythema intertrigo; E11.21 Type 2 diabetes mellitus with diabetic nephropathy; Z66 Do not resuscitate; Z79.82 Long term (current) use of aspirin; Z79.4 Long term (current) use of insulin; Z79.51 Long term (current) use of inhaled steroids; Z79.899 Other long term (current) drug therapy; Z86.711 Personal history of pulmonary embolism; Z95.1 Presence of aortocoronary bypass graft; Z90.710 Acquired absence of both cervix and uterus; Z90.49 Acquired absence of other specified parts of digestive tract
CPT/HCPCS: 36415; 36416; 70450; 71045; 71250; 74177; 80048; 80053; 80061; 80202; 81001; 82140; 82553; 83605; 83735; 83880; 84484; 85025; 87040; 87086; 93005; 93306; 93970; 94760; 96365; J0360; J0696; J1650; J1815; J1940; J3370; J3480; J3490; J7050; Q0162; U0003; U0005

== ENCOUNTER 2021-09-29 16:06 | Outpatient (CLI) | payer MEDICARE, MEDICAID ==
[2021-09-30 16:26] LABS: SARS-CoV-2 PCR by NAA Not Detected (NotDetected)
== END 2021-09-29 16:07 | disposition home or self-care (01) ==
LOC: LABBT 16:06
PROVIDERS: ATTEND Specialist
DX: Z01.812 Encounter for preprocedural laboratory examination (principal); S51.802A Unspecified open wound of left forearm, initial encounter; T82.590A Other mechanical complication of surgically created arteriovenous fistula, initial encounter; E11.10 Type 2 diabetes mellitus with ketoacidosis without coma; I10 Essential (primary) hypertension; E66.01 Morbid (severe) obesity due to excess calories; Z20.822 Contact with and (suspected) exposure to COVID-19
CPT/HCPCS: U0003; U0005

== ENCOUNTER 2021-10-02 12:32 | Emergency (ER) | payer MEDICARE, MEDICAID ==
[2021-10-02 14:00] LABS: #Eosinphils 0.2 thou/uL (0.0-0.7); #Lymphocytes 1.1 thou/uL (1.20-3.40); #Monocytes 0.7 thou/uL (0.11-0.59); #Neutrophils 8.4 thou/uL (1.40-6.50); %Basophils 0.4 % (0.0-1.0); %Eosinophils 2.2 % (0.0-10.0); %Lymphocytes 10.1 % (21.0-51.0); %Neutrophils 80.3 % (42.0-75.0); Hemoglobin 12.6 g/dL (12.0-16.0); Mean Corpuscular HGB CONC 32.2 g/dL (32.0-36.0); Mean Corpuscular Hemoglobin 31.3 pg (27.0-31.0); Mean Corpuscular Volume 97.2 fL (78.0-98.0); Mean Platelet Volume 6.7 fL (7.4-10.4); Platelet Count 209 thou/uL (130-400); RBC Distribution Width 14.7 % (11.5-14.5); Red Blood Cell (RBC) Count 4.03 mill/uL (4.20-5.40); White Blood Cell (WBC) Count 10.5 thou/uL (4.8-10.8)
[2021-10-02] MEDS ORDERED: Acetaminophen 500 MG TAB ONE (14:08)
[2021-10-02 14:21] LABS: ALT (SGPT) 13 U/L (8-55); AST (SGOT) 13 U/L (5-34); Albumin 3.5 g/dL (3.4-4.8); Alkaline Phosphatase 135 U/L (40-110); Anion Gap 16 mmol/L (10-20); BUN (Urea Nitrogen) 46 mg/dL (9.8-20.1); Bilirubin, Total 0.6 mg/dL (0.2-1.2); Calc. Creatinine Clearance 0 mL/min (70-130); Calcium 9.4 mg/dL (7.8-10.44); Carbon Dioxide 27 mmol/L (23-31); Chloride 97 mmol/L (98-107); Glucose 264 mg/dL (80-115); Lipase 29 U/L (8-78); Potassium 3.9 mmol/L (3.5-5.1); Protein, Total 8.5 g/dL (5.8-8.1); Sodium 136 mmol/L (136-145)
== END 2021-10-02 15:45 | disposition home or self-care (01) ==
LOC: ERS 12:32
DX: I12.0 Hypertensive chronic kidney disease with stage 5 chronic kidney disease or end stage renal disease (principal); N18.6 End stage renal disease; Z49.01 Encounter for fitting and adjustment of extracorporeal dialysis catheter; E11.9 Type 2 diabetes mellitus without complications; E78.5 Hyperlipidemia, unspecified; E78.00 Pure hypercholesterolemia, unspecified; A41.9 Sepsis, unspecified organism; Z79.82 Long term (current) use of aspirin; Z79.4 Long term (current) use of insulin
CPT/HCPCS: 80053; 83690; 85025; 93005

== ENCOUNTER 2021-10-03 09:53 | Day surgery (SDC) | payer MEDICARE, MEDICAID ==
[2021-09-29 12:58] VITALS: BMI 45.7
[2021-10-03] MEDS ORDERED: Lidocaine 1% w/Epinephrine 1:100K 20 ML VIAL ONE (12:57)
[2021-10-03] MEDS ORDERED: Bupivacaine 0.25% HCL 30 ML VIAL ONE (12:57)
[2021-10-03] MEDS ORDERED: Fentanyl 100 MCG/2 ML VIAL ONE ×2 (13:08→17:06)
[2021-10-03] MEDS ORDERED: Midazolam HCl 2 mg/2 ml Vial ONE (13:08)
[2021-10-03] MEDS ORDERED: Protamine Sulfate 50 MG/5 ML VIAL ONE (13:10)
[2021-10-03] MEDS ORDERED: Sodium Chloride 0.9% 20 ML ONE (13:10)
[2021-10-03] MEDS ORDERED: Heparin 10,000 UNITS/ 10 ML VIAL ONE (13:10)
[2021-10-03] MEDS ORDERED: Heparin 5,000 UNITS/ML VIAL ONE (13:10)
[2021-10-03] MEDS ORDERED: Rocuronium Bromide 10 MG/ML (10ML VIAL) ONE (13:33)
[2021-10-03] MEDS ORDERED: PROPOFOL 200 MG/20 ML VIAL ONE (13:33)
[2021-10-03] MEDS ORDERED: Glycopyrrolate 0.2 MG/ML 5 ML SYRINGE ONE (13:33)
[2021-10-03] MEDS ORDERED: Ondansetron PF 4 MG/2 ML Vial ONE (13:33)
[2021-10-03] MEDS ORDERED: Lidocaine 1% PF 5 ML VIAL ONE (13:33)
[2021-10-03] MEDS ORDERED: PHENYLEPHRINE-NS 100 MCG/ML 10 ML SYRINGE ONE (13:33)
[2021-10-03] MEDS ORDERED: Promethazine HCl 25 MG/ML VIAL IVPB PRN (16:37)
[2021-10-03] MEDS ORDERED: Ondansetron HCl/PF 4 MG/2 ML Vial IVP PRN (16:37)
[2021-10-03] MEDS ORDERED: Promethazine HCl 25 MG/ML VIAL IM PRN (16:37)
[2021-10-03] MEDS ORDERED: Sodium Chloride 0.9% 10 ML ONE (17:06)
[2021-10-03] MEDS ORDERED: HYDROcodone/Acetaminophen 5/325 mg Tablet ONE ×2 (18:13→18:57)
== END 2021-10-03 21:00 ==
LOC: SDC 09:53
PROVIDERS: ATTEND Specialist
PROC: 02HV33Z Insertion of Infusion Device into Superior Vena Cava, Percutaneous Approach (ICD-10-PCS; principal; 2021-10-03)
PROC: 05SC0ZZ Reposition Left Basilic Vein, Open Approach (ICD-10-PCS; 2021-10-03)
DX: I13.11 Hypertensive heart and chronic kidney disease without heart failure, with stage 5 chronic kidney disease, or end stage renal disease (principal); E11.22 Type 2 diabetes mellitus with diabetic chronic kidney disease; N18.6 End stage renal disease; T82.42XA Displacement of vascular dialysis catheter, initial encounter; T82.590A Other mechanical complication of surgically created arteriovenous fistula, initial encounter; I25.10 Atherosclerotic heart disease of native coronary artery without angina pectoris; E78.5 Hyperlipidemia, unspecified; F17.210 Nicotine dependence, cigarettes, uncomplicated; M10.9 Gout, unspecified; E66.01 Morbid (severe) obesity due to excess calories; Z68.42 Body mass index [BMI] 45.0-49.9, adult; Z79.2 Long term (current) use of antibiotics; Z79.4 Long term (current) use of insulin; Z79.82 Long term (current) use of aspirin; Z79.899 Other long term (current) drug therapy; Z95.1 Presence of aortocoronary bypass graft; Z98.1 Arthrodesis status; Z99.2 Dependence on renal dialysis
CPT/HCPCS: 36558; 36819; 71045; 82962; C1713 ×2; C1752; C1776; 36416; J0690; J1644; J2250; J2405; J2704; J2720; J3010; S0020

== ENCOUNTER 2022-03-06 11:26 | Inpatient (IN) | payer MEDICARE, MEDICAID ==
[2022-03-06 12:40] LABS: Hemoglobin 12.7 g/dL (12.0-16.0); Mean Corpuscular HGB CONC 31.1 g/dL (32.0-36.0); Mean Corpuscular Hemoglobin 32.8 pg (27.0-31.0); Mean Platelet Volume 7.2 fL (7.4-10.4); Platelet Count 211 thou/uL (130-400); RBC Distribution Width 13.1 % (11.5-14.5); Red Blood Cell (RBC) Count 3.87 mill/uL (4.20-5.40); White Blood Cell (WBC) Count 16.8 thou/uL (4.8-10.8)
[2022-03-06 12:59] LABS: #Eosinphils 0.1 thou/uL (0.0-0.7); #Lymphocytes 1.3 thou/uL (1.20-3.40); #Monocytes 1.2 thou/uL (0.11-0.59); #Neutrophils 14.2 thou/uL (1.40-6.50); %Basophils 0.2 % (0.0-1.0); %Eosinophils 0.5 % (0.0-10.0); %Lymphocytes 7.7 % (21.0-51.0); %Neutrophils 84.6 % (42.0-75.0); Eosinophils 2 % (0-10); Lymphocytes 11 % (21-51); MDiff Complete? YES; Monocytes 2 % (0-10); Neutrophil 85 % (42-75); RBC Morphology Normal
[2022-03-06] MEDS ORDERED: Cefepime 2 GM VIAL ONE (13:43)
[2022-03-06] MEDS ORDERED: Cyclobenzaprine 10 MG TAB ONE (13:43)
[2022-03-06 13:44] LABS: Magnesium 2.6 mg/dL (1.6-2.6)
[2022-03-06 14:16] LABS: CKMB 4.3 ng/mL (0-6.6)
[2022-03-06 15:02] LABS: ALT (SGPT) 11 U/L (8-55); AST (SGOT) 20 U/L (5-34); Albumin 3.5 g/dL (3.4-4.8); Alkaline Phosphatase 108 U/L (40-110); Anion Gap 23 mmol/L (10-20); BUN (Urea Nitrogen) 59 mg/dL (9.8-20.1); Bilirubin, Total 0.6 mg/dL (0.2-1.2); Calc. Creatinine Clearance 0 mL/min (70-130); Calcium 9.2 mg/dL (7.8-10.44); Carbon Dioxide 20 mmol/L (23-31); Chloride 95 mmol/L (98-107); Globulin 4.9 g/dL (2.4-3.5); Glucose 200 mg/dL (80-115); Potassium 5.9 mmol/L (3.5-5.1); Protein, Total 8.4 g/dL (5.8-8.1); Sodium 132 mmol/L (136-145)
[2022-03-06] MEDS ORDERED: Ondansetron PF 4 MG/2 ML Vial IVP PRN (15:40)
[2022-03-06 16:27] LABS: Troponin I 0.043 ng/mL (< 0.028)
[2022-03-06] MEDS ORDERED: cefTRIAXone\\ROCEPHIN 1 GM in Sodium Chloride 0.9% 100 ML IVPB SCH (17:00)
[2022-03-06 17:12] VITALS: BMI 44.3
[2022-03-06] MEDS ORDERED: Azithromycin 500 MG in Sodium Chloride 0.9% 250 ML 250 ML IVPB SCH (18:00)
[2022-03-06 18:43] LABS: Potassium 5.7 mmol/L (3.5-5.1)
[2022-03-06 19:15] LABS: HBSAB Concentration Less than 8.00 mIU/mL; HBSAg Index 0.38 S/CO (0-0.99); Hep B Surf AB Non-Reactive (NonReactive); Hep B Surf Ag Non-Reactive S/CO (NonReactive)
[2022-03-06 19:48] LABS: Troponin I 0.067 ng/mL (< 0.028)
[2022-03-06] MEDS: Carvedilol 3.125 MG TAB PO SCH (21:37)
[2022-03-06] MEDS: hydrALAZINE 25 MG TAB PO SCH (22:09)
[2022-03-06] MEDS: Atorvastatin Calcium 40 MG TAB PO SCH (22:09)
[2022-03-06 23:11] LABS: SARS-CoV-2 PCR by NAA Not Detected (NotDetected)
[2022-03-06] MEDS: Azithromycin 500 MG in Sodium Chloride 0.9% 250 ML 250 ML IVPB SCH (23:17)
[2022-03-06] MEDS: Acetaminophen 325 MG TAB PO PRN (23:18)
[2022-03-07] MEDS: Acetaminophen 325 MG TAB PO PRN (03:26)
[2022-03-07 04:37] LABS: #Eosinphils 0.2 thou/uL (0.0-0.7); #Lymphocytes 0.9 thou/uL (1.20-3.40); #Monocytes 1.1 thou/uL (0.11-0.59); #Neutrophils 9.3 thou/uL (1.40-6.50); %Basophils 0.1 % (0.0-1.0); %Eosinophils 1.3 % (0.0-10.0); %Lymphocytes 7.8 % (21.0-51.0); %Monocytes 9.6 % (0.0-10.0); %Neutrophils 81.1 % (42.0-75.0); Hemoglobin 11.6 g/dL (12.0-16.0); Mean Corpuscular HGB CONC 31.8 g/dL (32.0-36.0); Mean Corpuscular Hemoglobin 33.2 pg (27.0-31.0); Mean Platelet Volume 6.8 fL (7.4-10.4); Platelet Count 202 thou/uL (130-400); RBC Distribution Width 12.9 % (11.5-14.5); Red Blood Cell (RBC) Count 3.49 mill/uL (4.20-5.40); White Blood Cell (WBC) Count 11.5 thou/uL (4.8-10.8)
[2022-03-07 04:55] LABS: Anion Gap 16 mmol/L (10-20); BUN (Urea Nitrogen) 41 mg/dL (9.8-20.1); Calc. Creatinine Clearance 24 mL/min (70-130); Calcium 9.1 mg/dL (7.8-10.44); Carbon Dioxide 28 mmol/L (23-31); Chloride 96 mmol/L (98-107); Glucose 158 mg/dL (80-115); Potassium 4.7 mmol/L (3.5-5.1); Sodium 135 mmol/L (136-145)
[2022-03-07] MEDS ORDERED: Enoxaparin Sodium 30 MG/0.3 ML SYRINGE SC SCH (09:00)
[2022-03-07] MEDS: hydrALAZINE 25 MG TAB PO SCH ×3 (09:31→19:48)
[2022-03-07] MEDS: Carvedilol 3.125 MG TAB PO SCH ×2 (09:32→17:20)
[2022-03-07] MEDS: Acetaminophen/Codeine 30-300mg Tablet PO PRN ×2 (14:27→23:11)
[2022-03-07] MEDS: Aspirin 81 mg Enteric Coated Tablet PO SCH (14:28)
[2022-03-07] MEDS: cefTRIAXone\\ROCEPHIN 1 GM in Sodium Chloride 0.9% 100 ML IVPB SCH (14:29)
[2022-03-07] MEDS: HYDROcodone/Acetaminophen 5/325 mg Tablet PO PRN (18:23)
[2022-03-07] MEDS: Heparin 5,000 UNITS/ML VIAL SC SCH (19:47)
[2022-03-07] MEDS: Atorvastatin Calcium 40 MG TAB PO SCH (19:49)
[2022-03-07] MEDS: Azithromycin 500 MG in Sodium Chloride 0.9% 250 ML 250 ML IVPB SCH (23:11)
[2022-03-08] MEDS: HYDROcodone/Acetaminophen 5/325 mg Tablet PO PRN ×3 (02:13→18:42)
[2022-03-08 05:42] LABS: #Basophils 0.1 thou/uL (0.0-0.2); #Eosinphils 0.2 thou/uL (0.0-0.7); #Lymphocytes 0.9 thou/uL (1.20-3.40); #Neutrophils 6.4 thou/uL (1.40-6.50); %Basophils 0.6 % (0.0-1.0); %Eosinophils 2.7 % (0.0-10.0); %Lymphocytes 10.5 % (21.0-51.0); %Monocytes 11.4 % (0.0-10.0); %Neutrophils 74.7 % (42.0-75.0); Hemoglobin 12.5 g/dL (12.0-16.0); Mean Corpuscular HGB CONC 31.2 g/dL (32.0-36.0); Mean Corpuscular Hemoglobin 32.7 pg (27.0-31.0); Mean Platelet Volume 6.6 fL (7.4-10.4); Platelet Count 223 thou/uL (130-400); RBC Distribution Width 12.8 % (11.5-14.5); Red Blood Cell (RBC) Count 3.82 mill/uL (4.20-5.40); White Blood Cell (WBC) Count 8.5 thou/uL (4.8-10.8)
[2022-03-08 06:05] LABS: Anion Gap 18 mmol/L (10-20); BUN (Urea Nitrogen) 35 mg/dL (9.8-20.1); Calc. Creatinine Clearance 25 mL/min (70-130); Calcium 9.3 mg/dL (7.8-10.44); Carbon Dioxide 28 mmol/L (23-31); Chloride 96 mmol/L (98-107); Glucose 200 mg/dL (80-115); Potassium 4.8 mmol/L (3.5-5.1); Sodium 137 mmol/L (136-145)
[2022-03-08] MEDS: Carvedilol 3.125 MG TAB PO SCH ×2 (08:39→17:16)
[2022-03-08] MEDS: Aspirin 81 mg Enteric Coated Tablet PO SCH (08:39)
[2022-03-08] MEDS: Heparin 5,000 UNITS/ML VIAL SC SCH ×2 (08:40→20:43)
[2022-03-08] MEDS: Senokot S 8.6-50 MG TAB PO SCH (08:40)
[2022-03-08] MEDS: hydrALAZINE 25 MG TAB PO SCH ×3 (08:40→20:39)
[2022-03-08] MEDS: Polyethylene Glycol 3350 17 GM Packet PO SCH (08:40)
[2022-03-08] MEDS ORDERED: Non-Formulary Item 1 EACH (Insulin Glargine,Hum.Rec.Anlog [Lantus Solostar] 100 UNIT/ML P SC SCH (11:23)
[2022-03-08] MEDS ORDERED: Dextrose 5% in Water 1,000 ML IV PRN (11:26)
[2022-03-08] MEDS ORDERED: Dextrose 50% Abboject 50 ML SYRINGE SLOW IVP PRN (11:26)
[2022-03-08] MEDS: HumaLOG 300 UNITS/3 ML VIAL SC PRN ×3 (12:53→20:43)
[2022-03-08] MEDS: cefTRIAXone\\ROCEPHIN 1 GM in Sodium Chloride 0.9% 100 ML IVPB SCH (12:53)
[2022-03-08] MEDS: busPIRone HCl 5 MG TAB PO SCH ×2 (17:15→20:38)
[2022-03-08] MEDS: Gabapentin 300 MG CAP PO SCH (17:15)
[2022-03-08] MEDS ORDERED: Nicotine 14 MG PATCH TOP SCH (19:15)
[2022-03-08] MEDS: Ferrous Sulfate 325 MG TAB PO SCH (20:38)
[2022-03-08] MEDS: Atorvastatin Calcium 40 MG TAB PO SCH (20:38)
[2022-03-08] MEDS ORDERED: Non-Formulary Item 1 EACH (Omeprazole Magnesium [Omeprazole Magnesium] 20 MG Capsule.Dr) PO SCH (21:00)
[2022-03-08] MEDS ORDERED: Non-Formulary Item 1 EACH (Ferrous Sulfate [Ferrous Sulfate] 325 MG Tab) PO SCH (21:00)
[2022-03-08] MEDS ORDERED: Zolpidem Tartrate 5 MG TAB PO SCH (21:00)
[2022-03-08] MEDS ORDERED: Gabapentin 300 MG CAP PO SCH (21:00)
[2022-03-08] MEDS: Azithromycin 500 MG in Sodium Chloride 0.9% 250 ML 250 ML IVPB SCH (23:44)
[2022-03-09] MEDS: HYDROcodone/Acetaminophen 5/325 mg Tablet PO PRN ×2 (03:29→14:33)
[2022-03-09 05:38] LABS: #Eosinphils 0.3 thou/uL (0.0-0.7); #Lymphocytes 1.2 thou/uL (1.20-3.40); #Monocytes 1.1 thou/uL (0.11-0.59); #Neutrophils 9.2 thou/uL (1.40-6.50); %Basophils 0.2 % (0.0-1.0); %Eosinophils 2.5 % (0.0-10.0); %Lymphocytes 10.2 % (21.0-51.0); %Neutrophils 78.2 % (42.0-75.0); Hemoglobin 12.4 g/dL (12.0-16.0); Mean Corpuscular HGB CONC 31.8 g/dL (32.0-36.0); Mean Corpuscular Hemoglobin 33.2 pg (27.0-31.0); Mean Platelet Volume 6.7 fL (7.4-10.4); Platelet Count 228 thou/uL (130-400); RBC Distribution Width 12.7 % (11.5-14.5); Red Blood Cell (RBC) Count 3.75 mill/uL (4.20-5.40); White Blood Cell (WBC) Count 11.8 thou/uL (4.8-10.8)
[2022-03-09 05:58] LABS: Anion Gap 17 mmol/L (10-20); BUN (Urea Nitrogen) 47 mg/dL (9.8-20.1); Calc. Creatinine Clearance 20 mL/min (70-130); Calcium 9.3 mg/dL (7.8-10.44); Carbon Dioxide 27 mmol/L (23-31); Chloride 97 mmol/L (98-107); Glucose 161 mg/dL (80-115); Potassium 4.5 mmol/L (3.5-5.1); Sodium 136 mmol/L (136-145)
[2022-03-09] MEDS: busPIRone HCl 5 MG TAB PO SCH ×2 (08:11→14:33)
[2022-03-09] MEDS: Senokot S 8.6-50 MG TAB PO SCH (08:11)
[2022-03-09] MEDS: Ferrous Sulfate 325 MG TAB PO SCH (08:11)
[2022-03-09] MEDS: Heparin 5,000 UNITS/ML VIAL SC SCH (08:12)
[2022-03-09] MEDS: Gabapentin 300 MG CAP PO SCH ×2 (08:12→14:33)
[2022-03-09] MEDS: Acetaminophen/Codeine 30-300mg Tablet PO PRN (08:23)
[2022-03-09] MEDS: hydrALAZINE 25 MG TAB PO SCH ×2 (08:26→14:33)
[2022-03-09] MEDS: Carvedilol 3.125 MG TAB PO SCH (08:26)
[2022-03-09] MEDS: Aspirin 81 mg Enteric Coated Tablet PO SCH (08:26)
[2022-03-09] MEDS: Polyethylene Glycol 3350 17 GM Packet PO SCH (08:27)
[2022-03-09 08:29] VITALS: BP 121/72; TEMP 97.9
[2022-03-09] MEDS ORDERED: Insulin Glargine 30 UNITS/0.3 ML VIAL SC SCH (09:00)
[2022-03-09] MEDS ORDERED: Aspirin 81 mg Enteric Coated Tablet PO SCH (09:00)
[2022-03-09] MEDS: HumaLOG 300 UNITS/3 ML VIAL SC PRN (17:17)
[2022-03-10] MEDS ORDERED: Lisinopril 10 MG TAB PO SCH (09:00)
== END 2022-03-09 17:25 | DRG 193 ==
LOC: ERS 11:26 → 2NO 15:13 → T4-A 03-07 21:15
PROVIDERS: ADMIT Internal Medicine; ATTEND Internal Medicine
PROC: 5A1D70Z Performance of Urinary Filtration, Intermittent, Less than 6 Hours Per Day (ICD-10-PCS; principal; 2022-03-09)
DX: J18.9 Pneumonia, unspecified organism (principal); N18.6 End stage renal disease; J96.01 Acute respiratory failure with hypoxia; Z68.41 Body mass index [BMI] 40.0-44.9, adult; I12.0 Hypertensive chronic kidney disease with stage 5 chronic kidney disease or end stage renal disease; E11.65 Type 2 diabetes mellitus with hyperglycemia; E78.5 Hyperlipidemia, unspecified; E66.01 Morbid (severe) obesity due to excess calories; I25.10 Atherosclerotic heart disease of native coronary artery without angina pectoris; E11.22 Type 2 diabetes mellitus with diabetic chronic kidney disease; E87.5 Hyperkalemia; Z20.822 Contact with and (suspected) exposure to COVID-19; Z99.2 Dependence on renal dialysis; Z86.711 Personal history of pulmonary embolism; Z79.4 Long term (current) use of insulin; Z79.899 Other long term (current) drug therapy; Z95.1 Presence of aortocoronary bypass graft; Z90.710 Acquired absence of both cervix and uterus; Z98.890 Other specified postprocedural states; Z87.891 Personal history of nicotine dependence; Z71.6 Tobacco abuse counseling
CPT/HCPCS: 36415; 36416; 71045; 80048; 80053; 82553; 83605; 83735; 84484; 85025; 86706; 87040; 87340; 90935; 93005; 94760; 96365; 96367; G0257; J0456; J0692; J0696; J1644; J1815; J1956; J2405; J3490; J7050; U0003; U0005

== ENCOUNTER 2022-04-06 19:30 | Outpatient (CLI) | payer MEDICARE, MEDICAID | END 2022-04-06 19:31 | disposition home or self-care (01) | LOC: SLEEPLAB 19:30 | DX: G47.33 Obstructive sleep apnea (adult) (pediatric) (principal); R53.83 Other fatigue; E66.9 Obesity, unspecified; G47.00 Insomnia, unspecified; I25.2 Old myocardial infarction; I25.10 Atherosclerotic heart disease of native coronary artery without angina pectoris; E11.9 Type 2 diabetes mellitus without complications | CPT/HCPCS: 95811 ==

== ENCOUNTER 2022-08-22 14:52 | Inpatient (IN) | payer MEDICARE, MEDICAID ==
[~2022-08-22 14:52] MED LIST: Heparin 1,000 UNITS/ML VIAL ONE; Heparin 10,000 UNITS/ 10 ML VIAL ONE
[2022-08-22] MEDS ORDERED: Piperacillin/Tazobactam 3.375 GM VIAL ONE (15:43)
[2022-08-22 16:00] LABS: Hemoglobin 9.7 g/dL (12.0-16.0); Mean Corpuscular HGB CONC 31.6 g/dL (32.0-36.0); Mean Corpuscular Hemoglobin 33.4 pg (27.0-31.0); Platelet Count 240 thou/uL (130-400); RBC Distribution Width 13.3 % (11.5-14.5); White Blood Cell (WBC) Count 11.9 thou/uL (4.8-10.8)
[2022-08-22 16:16] LABS: ALT (SGPT) 7 U/L (8-55); AST (SGOT) 11 U/L (5-34); Albumin 3.7 g/dL (3.4-4.8); Alkaline Phosphatase 133 U/L (40-110); Anion Gap 22 mmol/L (10-20); BUN (Urea Nitrogen) 94 mg/dL (9.8-20.1); Bilirubin, Total 0.6 mg/dL (0.2-1.2); Calc. Creatinine Clearance 0 mL/min (70-130); Calcium 8.8 mg/dL (7.8-10.44); Carbon Dioxide 20 mmol/L (23-31); Chloride 97 mmol/L (98-107); Estimated GFR 5; Globulin 5.1 g/dL (2.4-3.5); Glucose 218 mg/dL (80-115); Potassium 6.5 mmol/L (3.5-5.1); Protein, Total 8.8 g/dL (5.8-8.1); Sodium 132 mmol/L (136-145)
[2022-08-22 16:32] LABS: #Eosinphils 0.1 thou/uL (0.0-0.7); #Monocytes 0.6 thou/uL (0.11-0.59); #Neutrophils 10.3 thou/uL (1.40-6.50); %Basophils 0.4 % (0.0-1.0); %Eosinophils 0.5 % (0.0-10.0); %Lymphocytes 7.9 % (21.0-51.0); %Monocytes 4.8 % (0.0-10.0); %Neutrophils 86.4 % (42.0-75.0); Band 2 % (5-11); Lymphocytes 11 % (21-51); MDiff Complete? YES; Macrocytosis SLIGHT = 6-15 cells (100X) (0-5/hpf); Monocytes 4 % (0-10); Myelocyte 1 % (0-0); Neutrophil 82 % (42-75); Platelet Morphology Comment Appears Adequate; Polychromasia SLIGHT = 2-3 cells (100X) (0-2/hpf)
[2022-08-22] MEDS ORDERED: Sodium Bicarb 50 MEQ/50 ML VIAL ONE (16:58)
[2022-08-22] MEDS ORDERED: Calcium Chloride 1 GM/10 ML Abboject SYRINGE ONE (16:58)
[2022-08-22 16:59] LABS: INR-International Normal Ratio 1.1; Prothrombin Time 14.6 sec (12.0-14.7)
[2022-08-22 17:00] LABS: PTT 38.9 sec (22.9-36.1)
[2022-08-22] MEDS ORDERED: Ondansetron PF 4 MG/2 ML Vial IVP PRN (17:24)
[2022-08-22] MEDS ORDERED: Ondansetron ODT 4 MG TAB PO PRN (17:24)
[2022-08-22 19:12] LABS: HBSAg Index 0.36 S/CO (0-0.99); Hep B Surf Ag Non-Reactive S/CO (NonReactive)
[2022-08-22 19:13] LABS: HBSAB Concentration Less than 8.00 mIU/mL; Hep B Surf AB Non-Reactive (NonReactive)
[2022-08-22 19:44] LABS: Troponin I 0.216 ng/mL (< 0.028)
[2022-08-22 22:44] LABS: Troponin I 0.207 ng/mL (< 0.028)
[2022-08-22] MEDS ORDERED: Dextrose 50% Abboject 50 ML SYRINGE SLOW IVP PRN (23:39)
[2022-08-22] MEDS ORDERED: Dextrose 5% in Water 1,000 ML IV PRN (23:39)
[2022-08-23 00:34] VITALS: BMI 44.0
[2022-08-23 00:59] LABS: CKMB 3.2 ng/mL (0-6.6)
[2022-08-23] MEDS ORDERED: Nitroglycerin 0.4 MG TAB (25 Tab Bottle) SL PRN (01:12)
[2022-08-23] MEDS ORDERED: Ondansetron ODT 4 MG TAB PO PRN (01:12)
[2022-08-23] MEDS ORDERED: Albuterol 200 PUFF (6.7GM INHALER) INH PRN (01:22)
[2022-08-23 02:42] LABS: SARS-CoV-2 NAA Rapid Test Not Detected (NotDetected)
[2022-08-23 03:25] LABS: Actual Bicarbonate (HCO3a) 26.9 mEq/L (22-28); Base Excess (BEa) -0.1 mEq/L (-2.0 to +3.0); CO2 Tension 55.1 mmHg (35.0-45.0); Calcium, Ionized (arterial) 1.12 mmol/L (1.12-1.30); Carboxyhemoglobin (COHb) 2.7 gm% (0.0-3.0); Hemoglobin (Hb) 11.5 g/dL (12.0-16.0); Potassium - ABG Lab 3.75 mmol/L (3.70-5.30); pH, Arterial 7.31 (7.35-7.45)
[2022-08-23 03:44] LABS: O2 Tension (PaO2), arterial 44.5 mmHg (> 80.0); Puncture Site RBA
[2022-08-23 03:45] LABS: ALV-art Gradient 36.355 mmHg (0-20)
[2022-08-23] MEDS: Ipratropium Bromide 2.5 ml Neb NEB SCH ×4 (07:20→22:59)
[2022-08-23] MEDS ORDERED: Sucroferric Oxyhydroxide (Velphoro) 500 MG Tab.Chew PO SCH (08:00)
[2022-08-23] MEDS ORDERED: VORTIOXETINE HYDROBROMIDE 20 MG PO SCH (09:00)
[2022-08-23] MEDS: Insulin Glargine 30 UNITS/0.3 ML VIAL SC SCH ×2 (09:10→21:45)
[2022-08-23] MEDS: Heparin 1,000 UNITS/ML VIAL FS SCH (09:10)
[2022-08-23] MEDS: Senokot S 8.6-50 MG TAB PO SCH (10:22)
[2022-08-23] MEDS: Ferrous Sulfate 325 MG TAB PO SCH ×2 (10:22→21:41)
[2022-08-23] MEDS: Famotidine 20 MG TAB PO SCH (10:22)
[2022-08-23] MEDS: Carvedilol 3.125 MG TAB PO SCH ×2 (10:23→21:44)
[2022-08-23] MEDS: Aspirin 81 mg Enteric Coated Tablet PO SCH (10:23)
[2022-08-23] MEDS: busPIRone HCl 5 MG TAB PO SCH ×3 (10:23→21:41)
[2022-08-23 10:48] LABS: #Basophils 0.1 thou/uL (0.0-0.2); #Eosinphils 0.2 thou/uL (0.0-0.7); #Lymphocytes 0.9 thou/uL (1.20-3.40); #Monocytes 0.9 thou/uL (0.11-0.59); #Neutrophils 8.9 thou/uL (1.40-6.50); %Basophils 0.6 % (0.0-1.0); %Eosinophils 1.6 % (0.0-10.0); %Lymphocytes 8.1 % (21.0-51.0); %Monocytes 8.5 % (0.0-10.0); %Neutrophils 81.3 % (42.0-75.0); Hemoglobin 10.8 g/dL (12.0-16.0); Mean Corpuscular HGB CONC 31.1 g/dL (32.0-36.0); Mean Corpuscular Hemoglobin 32.9 pg (27.0-31.0); Mean Platelet Volume 6.7 fL (7.4-10.4); Platelet Count 197 thou/uL (130-400); RBC Distribution Width 13.6 % (11.5-14.5); Red Blood Cell (RBC) Count 3.28 mill/uL (4.20-5.40)
[2022-08-23 11:12] LABS: Anion Gap 18 mmol/L (10-20); BUN (Urea Nitrogen) 34 mg/dL (9.8-20.1); Calc. Creatinine Clearance 26 mL/min (70-130); Calcium 8.8 mg/dL (7.8-10.44); Carbon Dioxide 24 mmol/L (23-31); Chloride 97 mmol/L (98-107); Estimated GFR 11; Glucose 105 mg/dL (80-115); Potassium 4.3 mmol/L (3.5-5.1); Sodium 135 mmol/L (136-145)
[2022-08-23 11:13] LABS: Albumin 3.4 g/dL (3.4-4.8); Anion Gap 20 mmol/L (10-20); BUN (Urea Nitrogen) 35 mg/dL (9.8-20.1); BUN/Creatinine Ratio 7.94; Calc. Creatinine Clearance 26 mL/min (70-130); Calcium 8.9 mg/dL (7.8-10.44); Carbon Dioxide 23 mmol/L (23-31); Chloride 97 mmol/L (98-107); Estimated GFR 11; Glucose 107 mg/dL (80-115); Phosphorus 5.2 mg/dL (2.3-4.7); Potassium 4.4 mmol/L (3.5-5.1); Sodium 136 mmol/L (136-145)
[2022-08-23] MEDS ORDERED: FLU VACC QS2022-23(6MOS UP)/PF 60 MCG/0.5 ML SYRINGE IM ONE (12:30)
[2022-08-23] MEDS ORDERED: CEFAZOLIN 2 GM in Sodium Chloride 0.9% 100 ML IVPB SCH (13:45)
[2022-08-23] MEDS ORDERED: Activase 2 MG VIAL CATH SCH (13:45)
[2022-08-23] MEDS ORDERED: fentaNYL Citrate/PF 100 MCG/2 ML SYRINGE ONE (14:56)
[2022-08-23] MEDS ORDERED: Lidocaine 1% (PF) 30 ML VIAL ONE (15:01)
[2022-08-23] MEDS ORDERED: Heparin 5,000 UNITS/ML VIAL ONE (15:01)
[2022-08-23] MEDS ORDERED: Bupivacaine 0.25% HCL 30 ML VIAL ONE (15:01)
[2022-08-23] MEDS ORDERED: Protamine Sulfate 50 MG/5 ML VIAL ONE (15:01)
[2022-08-23] MEDS ORDERED: EPINEPHrine 1 MG/ML AMP ONE (15:01)
[2022-08-23] MEDS ORDERED: SUGAMMADEX SODIUM 200 MG/2 ML VIAL ONE (15:08)
[2022-08-23] MEDS ORDERED: CEFAZOLIN 2 GM VIAL ONE (15:47)
[2022-08-23] MEDS ORDERED: Sodium Chloride 0.9% 100 ML ONE (15:47)
[2022-08-23] MEDS ORDERED: Phenylephrine 10 MG/ML VIAL ONE (15:56)
[2022-08-23] MEDS ORDERED: Ondansetron PF 4 MG/2 ML Vial ONE (16:00)
[2022-08-23] MEDS ORDERED: Rocuronium Bromide 10 MG/ML (10ML VIAL) ONE (16:00)
[2022-08-23] MEDS ORDERED: Dexamethasone 20 MG/5 ML VIAL ONE (16:00)
[2022-08-23] MEDS ORDERED: PROPOFOL 200 MG/20 ML VIAL ONE (16:00)
[2022-08-23] MEDS: Polyethylene Glycol 3350 17 GM Packet PO SCH (17:10)
[2022-08-23] MEDS: Atorvastatin Calcium 40 MG TAB PO SCH (21:40)
[2022-08-24 05:54] LABS: #Eosinphils 0.2 thou/uL (0.0-0.7); #Lymphocytes 1.1 thou/uL (1.20-3.40); #Neutrophils 7.6 thou/uL (1.40-6.50); %Basophils 0.4 % (0.0-1.0); %Eosinophils 1.6 % (0.0-10.0); %Lymphocytes 11.1 % (21.0-51.0); Hemoglobin 10.6 g/dL (12.0-16.0); Mean Corpuscular HGB CONC 31.8 g/dL (32.0-36.0); Mean Corpuscular Hemoglobin 33.1 pg (27.0-31.0); Mean Platelet Volume 6.8 fL (7.4-10.4); Platelet Count 201 thou/uL (130-400); RBC Distribution Width 13.5 % (11.5-14.5); White Blood Cell (WBC) Count 9.9 thou/uL (4.8-10.8)
[2022-08-24 06:24] LABS: Anion Gap 17 mmol/L (10-20); BUN (Urea Nitrogen) 44 mg/dL (9.8-20.1); Calc. Creatinine Clearance 22 mL/min (70-130); Calcium 8.8 mg/dL (7.8-10.44); Carbon Dioxide 25 mmol/L (23-31); Chloride 98 mmol/L (98-107); Estimated GFR 9; Glucose 90 mg/dL (80-115); Potassium 4.5 mmol/L (3.5-5.1); Sodium 135 mmol/L (136-145)
[2022-08-24] MEDS: Ipratropium Bromide 2.5 ml Neb NEB SCH ×4 (07:20→22:06)
[2022-08-24] MEDS: Insulin Glargine 30 UNITS/0.3 ML VIAL SC SCH ×3 (09:56→21:51)
[2022-08-24] MEDS: Aspirin 81 mg Enteric Coated Tablet PO SCH (09:57)
[2022-08-24] MEDS: Carvedilol 3.125 MG TAB PO SCH ×2 (09:57→16:36)
[2022-08-24] MEDS: busPIRone HCl 5 MG TAB PO SCH ×3 (09:58→21:50)
[2022-08-24] MEDS: Ferrous Sulfate 325 MG TAB PO SCH ×2 (09:58→21:51)
[2022-08-24] MEDS: Famotidine 20 MG TAB PO SCH (09:58)
[2022-08-24] MEDS: Acetaminophen 325 MG TAB PO PRN ×2 (09:58→16:36)
[2022-08-24] MEDS: Polyethylene Glycol 3350 17 GM Packet PO SCH (10:00)
[2022-08-24] MEDS: Senokot S 8.6-50 MG TAB PO SCH (10:00)
[2022-08-24] MEDS: Heparin 1,000 UNITS/ML VIAL FS SCH (11:27)
[2022-08-24 15:31] LABS: Actual Bicarbonate (HCO3a) 23.9 mEq/L (22-28); Base Excess (BEa) -2.8 mEq/L (-2.0 to +3.0); CO2 Tension 49.3 mmHg (35.0-45.0); Calcium, Ionized (arterial) 1.11 mmol/L (1.12-1.30); Hemoglobin (Hb) 11.8 g/dL (12.0-16.0)
[2022-08-24 15:33] LABS: ALV-art Gradient 24.105 mmHg (0-20); Puncture Site RRA
[2022-08-24] MEDS: Atorvastatin Calcium 40 MG TAB PO SCH (21:50)
[2022-08-25 04:11] LABS: #Eosinphils 0.1 thou/uL (0.0-0.7); #Lymphocytes 0.8 thou/uL (1.20-3.40); #Monocytes 0.9 thou/uL (0.11-0.59); #Neutrophils 8.2 thou/uL (1.40-6.50); %Basophils 0.5 % (0.0-1.0); %Eosinophils 1.4 % (0.0-10.0); %Neutrophils 81.1 % (42.0-75.0); Hemoglobin 11.2 g/dL (12.0-16.0); Mean Corpuscular HGB CONC 32.2 g/dL (32.0-36.0); Mean Corpuscular Hemoglobin 33.8 pg (27.0-31.0); Mean Platelet Volume 6.7 fL (7.4-10.4); Platelet Count 229 thou/uL (130-400); RBC Distribution Width 13.8 % (11.5-14.5); Red Blood Cell (RBC) Count 3.33 mill/uL (4.20-5.40); White Blood Cell (WBC) Count 10.1 thou/uL (4.8-10.8)
[2022-08-25 04:31] LABS: Anion Gap 20 mmol/L (10-20); BUN (Urea Nitrogen) 23 mg/dL (9.8-20.1); Calc. Creatinine Clearance 32 mL/min (70-130); Calcium 9.3 mg/dL (7.8-10.44); Carbon Dioxide 23 mmol/L (23-31); Chloride 94 mmol/L (98-107); Estimated GFR 14; Glucose 147 mg/dL (80-115); Potassium 4.1 mmol/L (3.5-5.1); Sodium 133 mmol/L (136-145)
[2022-08-25] MEDS: Ipratropium Bromide 2.5 ml Neb NEB SCH ×4 (06:37→23:48)
[2022-08-25] MEDS: Polyethylene Glycol 3350 17 GM Packet PO SCH (10:24)
[2022-08-25] MEDS: Aspirin 81 mg Enteric Coated Tablet PO SCH (10:24)
[2022-08-25] MEDS: Ferrous Sulfate 325 MG TAB PO SCH ×2 (10:24→21:59)
[2022-08-25] MEDS: busPIRone HCl 5 MG TAB PO SCH ×3 (10:24→21:59)
[2022-08-25] MEDS: Acetaminophen 325 MG TAB PO PRN ×2 (10:24→15:14)
[2022-08-25] MEDS: Famotidine 20 MG TAB PO SCH (10:25)
[2022-08-25] MEDS: Carvedilol 3.125 MG TAB PO SCH ×2 (10:25→17:21)
[2022-08-25] MEDS: Heparin 1,000 UNITS/ML VIAL FS SCH (10:25)
[2022-08-25] MEDS: Senokot S 8.6-50 MG TAB PO SCH (14:48)
[2022-08-25] MEDS: Insulin Glargine 30 UNITS/0.3 ML VIAL SC SCH ×2 (14:48→22:00)
[2022-08-25] MEDS: HumaLOG 300 UNITS/3 ML VIAL SC PRN (17:26)
[2022-08-25] MEDS: Atorvastatin Calcium 40 MG TAB PO SCH (21:59)
[2022-08-26 05:16] LABS: #Eosinphils 0.2 thou/uL (0.0-0.7); #Lymphocytes 1.4 thou/uL (1.20-3.40); #Monocytes 0.9 thou/uL (0.11-0.59); #Neutrophils 6.5 thou/uL (1.40-6.50); %Basophils 0.3 % (0.0-1.0); %Eosinophils 2.2 % (0.0-10.0); %Lymphocytes 15.9 % (21.0-51.0); %Monocytes 10.3 % (0.0-10.0); %Neutrophils 71.3 % (42.0-75.0); Hemoglobin 10.2 g/dL (12.0-16.0); Mean Corpuscular Hemoglobin 33.2 pg (27.0-31.0); Mean Platelet Volume 6.8 fL (7.4-10.4); Platelet Count 217 thou/uL (130-400); RBC Distribution Width 13.7 % (11.5-14.5); Red Blood Cell (RBC) Count 3.08 mill/uL (4.20-5.40); White Blood Cell (WBC) Count 9.1 thou/uL (4.8-10.8)
[2022-08-26 05:29] LABS: Anion Gap 15 mmol/L (10-20); BUN (Urea Nitrogen) 37 mg/dL (9.8-20.1); Calc. Creatinine Clearance 22 mL/min (70-130); Calcium 8.8 mg/dL (7.8-10.44); Carbon Dioxide 27 mmol/L (23-31); Chloride 94 mmol/L (98-107); Estimated GFR 9; Glucose 137 mg/dL (80-115); Potassium 3.8 mmol/L (3.5-5.1); Sodium 132 mmol/L (136-145)
[2022-08-26] MEDS: Ipratropium Bromide 2.5 ml Neb NEB SCH ×2 (06:57→11:50)
[2022-08-26] MEDS: Ferrous Sulfate 325 MG TAB PO SCH (08:45)
[2022-08-26] MEDS: Insulin Glargine 30 UNITS/0.3 ML VIAL SC SCH (08:45)
[2022-08-26] MEDS: Carvedilol 3.125 MG TAB PO SCH (08:45)
[2022-08-26] MEDS: Aspirin 81 mg Enteric Coated Tablet PO SCH (08:45)
[2022-08-26] MEDS: busPIRone HCl 5 MG TAB PO SCH ×2 (08:45→14:36)
[2022-08-26] MEDS: Polyethylene Glycol 3350 17 GM Packet PO SCH (08:45)
[2022-08-26] MEDS: Heparin 1,000 UNITS/ML VIAL FS SCH (08:50)
[2022-08-26] MEDS: Senokot S 8.6-50 MG TAB PO SCH (08:50)
[2022-08-26] MEDS: Famotidine 20 MG TAB PO SCH (08:56)
[2022-08-26] MEDS ORDERED: Thiamine 100 MG TAB PO SCH (09:00)
[2022-08-26] MEDS: HumaLOG 300 UNITS/3 ML VIAL SC PRN (11:47)
[2022-08-27 10:55] VITALS: TEMP 98
[2022-08-27 12:18] VITALS: BP 120/67
== END 2022-08-26 15:27 | DRG 264 ==
LOC: ERS 14:52 → ERHOLD 17:13 → 2NO 22:54 → IMCU/EMU 08-23 18:34 → MSONC 08-26 00:02
PROVIDERS: ADMIT Internal Medicine; ATTEND Hospitalist
PROC: 06HM33Z Insertion of Infusion Device into Right Femoral Vein, Percutaneous Approach (ICD-10-PCS; principal; 2022-08-22)
PROC: 5A09357 Assistance with Respiratory Ventilation, Less than 24 Consecutive Hours, Continuous Positive Airway Pressure (ICD-10-PCS; 2022-08-22)
PROC: 5A1D70Z Performance of Urinary Filtration, Intermittent, Less than 6 Hours Per Day (ICD-10-PCS; 2022-08-22)
PROC: 031809D Bypass Left Brachial Artery to Upper Arm Vein with Autologous Venous Tissue, Open Approach (ICD-10-PCS; 2022-08-23)
DX: T82.868A Thrombosis due to vascular prosthetic devices, implants and grafts, initial encounter (principal); A41.9 Sepsis, unspecified organism; G93.41 Metabolic encephalopathy; J96.01 Acute respiratory failure with hypoxia; N18.6 End stage renal disease; J96.02 Acute respiratory failure with hypercapnia; I12.0 Hypertensive chronic kidney disease with stage 5 chronic kidney disease or end stage renal disease; Z68.41 Body mass index [BMI] 40.0-44.9, adult; G47.33 Obstructive sleep apnea (adult) (pediatric); E87.5 Hyperkalemia; E78.00 Pure hypercholesterolemia, unspecified; E11.22 Type 2 diabetes mellitus with diabetic chronic kidney disease; F32.A Depression, unspecified; F41.9 Anxiety disorder, unspecified; E66.01 Morbid (severe) obesity due to excess calories; I25.10 Atherosclerotic heart disease of native coronary artery without angina pectoris; S81.801A Unspecified open wound, right lower leg, initial encounter; D63.1 Anemia in chronic kidney disease; Z90.89 Acquired absence of other organs; Z79.82 Long term (current) use of aspirin; Z90.710 Acquired absence of both cervix and uterus; Z79.899 Other long term (current) drug therapy; Z98.890 Other specified postprocedural states; Z99.2 Dependence on renal dialysis; Z87.891 Personal history of nicotine dependence; Z95.5 Presence of coronary angioplasty implant and graft; Z79.4 Long term (current) use of insulin; Z95.1 Presence of aortocoronary bypass graft; Z91.15 Patient's noncompliance with renal dialysis; Z20.822 Contact with and (suspected) exposure to COVID-19
CPT/HCPCS: 36415; 36416; 36600; 36901; 70450; 71045; 80048; 80053; 80069; 82533; 82553; 82805; 83605; 83880; 84443; 84484; 85025; 85610; 85730; 86706; 87040; 87340; 90935; 93005; 94640; 94660; 94760; 96374; 96375; 97139; C1776; G0257; J0171; J0690; J1100; J1642; J1644; J1815; J2001; J2370; J2405; J2543; J2704; J2720; J3490; S0020; U0002

== ENCOUNTER 2023-06-06 10:45 | Inpatient (IN) | payer MEDICARE, MEDICAID ==
[2023-06-06 11:30] LABS: #Eosinphils 0.2 thou/uL (0.0-0.7); #Monocytes 0.6 thou/uL (0.11-0.59); #Neutrophils 5.6 thou/uL (1.40-6.50); %Basophils 0.5 % (0.0-1.0); %Eosinophils 2.5 % (0.0-10.0); %Lymphocytes 15.7 % (21.0-51.0); %Monocytes 7.7 % (0.0-10.0); %Neutrophils 73.3 % (42.0-75.0); Hematocrit 36.8 % (36.0-47.0); Hemoglobin 11.6 g/dL (12.0-16.0); Mean Corpuscular HGB CONC 31.5 g/dL (32.0-36.0); Mean Corpuscular Hemoglobin 31.2 pg (27.0-31.0); Mean Corpuscular Volume 98.9 fl (78.0-98.0); Mean Platelet Volume 9.4 fL (7.4-10.4); Platelet Count 167 10x3/uL (130-400); RBC Distribution Width 13.2 % (11.5-14.5); Red Blood Cell (RBC) Count 3.72 mill/uL (4.20-5.40); White Blood Cell (WBC) Count 7.6 10x3/uL (4.8-10.8)
[2023-06-06 11:55] LABS: ALT (SGPT) 10 U/L (8-55); AST (SGOT) 12 U/L (5-34); Albumin 3.8 g/dL (3.4-4.8); Alkaline Phosphatase 130 U/L (40-110); Anion Gap 17 mmol/L (10-20); BUN (Urea Nitrogen) 54 mg/dL (9.8-20.1); Bilirubin, Total 0.7 mg/dL (0.2-1.2); Calc. Creatinine Clearance 0 mL/min (70-130); Calcium 9.4 mg/dL (7.8-10.44); Carbon Dioxide 29 mmol/L (23-31); Chloride 99 mmol/L (98-107); Estimated GFR 7; Globulin 4.3 g/dL (2.4-3.5); Glucose 136 mg/dL (80-115); Lipase 95 U/L (8-78); Potassium 4.8 mmol/L (3.5-5.1); Protein, Total 8.1 g/dL (5.8-8.1); Sodium 140 mmol/L (136-145)
[2023-06-06 12:17] LABS: CKMB 1.5 ng/mL (0-6.6)
[2023-06-06] MEDS ORDERED: Nitroglycerin 2% Ointment 1 INCH/1 GM Packet ONE (12:41)
[2023-06-06] MEDS ORDERED: Morphine 4 MG/ML VIAL ONE (12:41)
[2023-06-06] MEDS ORDERED: Ondansetron PF 4 MG/2 ML Vial ONE (12:41)
[2023-06-06] MEDS ORDERED: Glucagon 1 MG/ML KIT IM PRN (13:30)
[2023-06-06] MEDS ORDERED: Dextrose 5% in Water 1,000 ML IV PRN (13:30)
[2023-06-06] MEDS ORDERED: Dextrose 50% Abboject 50 ML SYRINGE SLOW IVP PRN (13:30)
[2023-06-06 14:17] LABS: Magnesium 2.4 mg/dL (1.6-2.6)
[2023-06-06 14:35] LABS: Troponin I 0.035 ng/mL (< 0.028)
[2023-06-06 17:39] LABS: Troponin I 0.034 ng/mL (< 0.028)
[2023-06-06] MEDS: Nicotine 14 MG PATCH TD SCH (18:18)
[2023-06-06] MEDS: Nitroglycerin 0.4 MG TAB (25 Tab Bottle) SL PRN ×2 (18:28→19:16)
[2023-06-06] MEDS: Temazepam 15 MG CAP PO SCH (20:52)
[2023-06-06] MEDS: Methocarbamol 500 MG TAB PO SCH (20:52)
[2023-06-06] MEDS: busPIRone HCl 10 MG TAB PO SCH (20:52)
[2023-06-06] MEDS: Gabapentin 300 MG CAP PO SCH (20:52)
[2023-06-06] MEDS: HumaLOG 300 UNITS/3 ML VIAL SC PRN (21:39)
[2023-06-07 06:26] LABS: Cardiac Risk 4.1 (Less than 4.5)
[2023-06-07] MEDS: Gabapentin 300 MG CAP PO SCH ×2 (07:29→20:26)
[2023-06-07] MEDS: hydrOXYzine 25 MG TAB PO SCH (07:30)
[2023-06-07] MEDS: Aspirin Chewable 81 MG TAB PO SCH (07:30)
[2023-06-07] MEDS: Thiamine 100 MG TAB PO SCH (07:30)
[2023-06-07] MEDS: Methocarbamol 500 MG TAB PO SCH ×4 (07:30→20:26)
[2023-06-07] MEDS: busPIRone HCl 10 MG TAB PO SCH ×3 (07:30→20:26)
[2023-06-07] MEDS ORDERED: Midodrine HCl 5 MG TAB PO PRN ×2 (09:01→09:22)
[2023-06-07 09:20] VITALS: BMI 47.2
[2023-06-07] MEDS: HYDROcodone/Acetaminophen 10/325 mg Tablet PO PRN ×2 (11:19→20:30)
[2023-06-07] MEDS ORDERED: Regadenoson 0.4 MG/5 ML SYRINGE ONE (11:22)
[2023-06-07] MEDS ORDERED: SUCROFERRIC OXYHYDROXIDE 500 MG PO SCH (12:00)
[2023-06-07] MEDS ORDERED: Sucroferric Oxyhydroxide [Velphoro] 500 MG Tab.Chew PO SCH (12:00)
[2023-06-07 12:47] LABS: HBSAB Concentration Less than 8.00 mIU/mL; HBSAg Index 0.23 S/CO (0-0.99); Hep B Surf AB Non-Reactive (NonReactive); Hep B Surf Ag Non-Reactive S/CO (NonReactive)
[2023-06-07] MEDS: Nicotine 14 MG PATCH TD SCH (17:36)
[2023-06-07] MEDS: Atorvastatin Calcium 40 MG TAB PO SCH (20:26)
[2023-06-07] MEDS: Temazepam 15 MG CAP PO SCH (20:27)
[2023-06-07] MEDS ORDERED: Non-Formulary Item 1 EACH (Atorvastatin Calcium [Atorvastatin Calcium] 80 MG Tablet) PO SCH (21:00)
[2023-06-07] MEDS: HumaLOG 300 UNITS/3 ML VIAL SC PRN (21:38)
[2023-06-08 05:16] LABS: Anion Gap 17 mmol/L (10-20); BUN (Urea Nitrogen) 43 mg/dL (9.8-20.1); Calc. Creatinine Clearance 23 mL/min (70-130); Calcium 8.8 mg/dL (7.8-10.44); Carbon Dioxide 25 mmol/L (23-31); Chloride 99 mmol/L (98-107); Estimated GFR 8; Glucose 182 mg/dL (80-115); Potassium 4.5 mmol/L (3.5-5.1); Sodium 136 mmol/L (136-145)
[2023-06-08] MEDS ORDERED: Non-Formulary Item 1 EACH (Vortioxetine Hydrobromide [Trintellix] 20 MG Tablet) PO SCH (09:00)
[2023-06-08] MEDS ORDERED: Vortioxetine Hydrobromide [Trintellix] 20 MG Tablet PO SCH (09:00)
[2023-06-08] MEDS: Methocarbamol 500 MG TAB PO SCH ×4 (10:36→20:32)
[2023-06-08] MEDS: busPIRone HCl 10 MG TAB PO SCH ×3 (10:36→20:33)
[2023-06-08] MEDS ORDERED: Heparin 10,000 UNITS/ 10 ML VIAL ONE (11:18)
[2023-06-08] MEDS: Gabapentin 300 MG CAP PO SCH ×2 (16:00→20:33)
[2023-06-08] MEDS: HYDROcodone/Acetaminophen 10/325 mg Tablet PO PRN ×2 (16:00→22:24)
[2023-06-08] MEDS: Thiamine 100 MG TAB PO SCH (16:01)
[2023-06-08] MEDS: Calcium Acetate 667 MG CAP PO SCH (16:01)
[2023-06-08] MEDS: hydrOXYzine 25 MG TAB PO SCH (16:01)
[2023-06-08] MEDS: Aspirin Chewable 81 MG TAB PO SCH (16:01)
[2023-06-08] MEDS: Nicotine 14 MG PATCH TD SCH (17:49)
[2023-06-08] MEDS: Atorvastatin Calcium 40 MG TAB PO SCH (20:36)
[2023-06-08] MEDS: Temazepam 15 MG CAP PO SCH (22:24)
[2023-06-09 05:28] LABS: #Basophils 0.1 thou/uL (0.0-0.2); #Eosinphils 0.2 thou/uL (0.0-0.7); #Monocytes 0.7 thou/uL (0.11-0.59); #Neutrophils 4.1 thou/uL (1.40-6.50); %Basophils 0.8 % (0.0-1.0); %Eosinophils 3.5 % (0.0-10.0); %Lymphocytes 21.2 % (21.0-51.0); %Monocytes 11.3 % (0.0-10.0); %Neutrophils 62.9 % (42.0-75.0); Hematocrit 35.8 % (36.0-47.0); Mean Corpuscular HGB CONC 30.7 g/dL (32.0-36.0); Mean Corpuscular Hemoglobin 31.1 pg (27.0-31.0); Mean Corpuscular Volume 101.1 fl (78.0-98.0); Mean Platelet Volume 9.6 fL (7.4-10.4); Platelet Count 151 10x3/uL (130-400); RBC Distribution Width 13.2 % (11.5-14.5); Red Blood Cell (RBC) Count 3.54 mill/uL (4.20-5.40); White Blood Cell (WBC) Count 6.5 10x3/uL (4.8-10.8)
[2023-06-09 05:51] LABS: Anion Gap 14 mmol/L (10-20); BUN (Urea Nitrogen) 28 mg/dL (9.8-20.1); Calc. Creatinine Clearance 29 mL/min (70-130); Calcium 9.1 mg/dL (7.8-10.44); Carbon Dioxide 26 mmol/L (23-31); Chloride 98 mmol/L (98-107); Estimated GFR 11; Glucose 203 mg/dL (80-115); Potassium 4.3 mmol/L (3.5-5.1); Sodium 134 mmol/L (136-145)
[2023-06-09] MEDS: HumaLOG 300 UNITS/3 ML VIAL SC PRN ×3 (06:10→18:22)
[2023-06-09] MEDS: Gabapentin 300 MG CAP PO SCH ×2 (08:42→20:55)
[2023-06-09] MEDS: Calcium Acetate 667 MG CAP PO SCH ×3 (08:42→17:09)
[2023-06-09] MEDS: Methocarbamol 500 MG TAB PO SCH ×4 (08:42→20:54)
[2023-06-09] MEDS: busPIRone HCl 10 MG TAB PO SCH ×3 (08:42→20:55)
[2023-06-09] MEDS: Thiamine 100 MG TAB PO SCH (08:43)
[2023-06-09] MEDS: Aspirin Chewable 81 MG TAB PO SCH (08:43)
[2023-06-09] MEDS: hydrOXYzine 25 MG TAB PO SCH (08:43)
[2023-06-09] MEDS ORDERED: Communication Order-Pharmacy FS SCH (08:45)
[2023-06-09] MEDS: HYDROcodone/Acetaminophen 10/325 mg Tablet PO PRN ×3 (08:47→23:22)
[2023-06-09] MEDS: Nicotine 14 MG PATCH TD SCH (17:19)
[2023-06-09] MEDS: Atorvastatin Calcium 40 MG TAB PO SCH (20:54)
[2023-06-09] MEDS: Temazepam 15 MG CAP PO SCH (22:18)
[2023-06-10] MEDS: Gabapentin 300 MG CAP PO SCH ×2 (05:05→20:14)
[2023-06-10] MEDS: hydrOXYzine 25 MG TAB PO SCH (05:05)
[2023-06-10] MEDS: busPIRone HCl 10 MG TAB PO SCH ×3 (05:05→20:14)
[2023-06-10] MEDS: Aspirin Chewable 81 MG TAB PO SCH (05:05)
[2023-06-10] MEDS: Thiamine 100 MG TAB PO SCH (05:05)
[2023-06-10] MEDS: Methocarbamol 500 MG TAB PO SCH ×4 (05:05→20:14)
[2023-06-10] MEDS ORDERED: Heparin 10,000 UNITS/ 10 ML VIAL ONE ×2 (06:40→09:23)
[2023-06-10] MEDS ORDERED: Lidocaine 1% (PF) 30 ML VIAL ONE (06:41)
[2023-06-10] MEDS ORDERED: Nitroglycerin 50 MG/250 ML BOT 0 ML ONE (06:41)
[2023-06-10] MEDS ORDERED: Midazolam HCl 2 mg/2 ml Vial ONE (07:39)
[2023-06-10] MEDS ORDERED: fentaNYL 50 mcg/mL 1 mL Vial ONE ×4 (07:39→10:14)
[2023-06-10] MEDS ORDERED: Verapamil 5 MG/2 ML VIAL ONE (08:28)
[2023-06-10] MEDS ORDERED: Adenosine 6 MG/2 ML VIAL ONE (08:57)
[2023-06-10] MEDS ORDERED: Clopidogrel Bisulfate 300 MG TAB ONE (09:42)
[2023-06-10] MEDS ORDERED: Nitroglycerin 0.4 MG TAB (25 Tab Bottle) ONE (10:44)
[2023-06-10] MEDS ORDERED: Iopamidol 370 76% 100 ML VIAL ONE (10:54)
[2023-06-10] MEDS: Nitroglycerin 0.4 MG TAB (25 Tab Bottle) SL PRN (11:04)
[2023-06-10] MEDS ORDERED: hydrALAZINE 20 MG/ML VIAL ONE (11:36)
[2023-06-10] MEDS ORDERED: HYDROcodone/Acetaminophen 10/325 mg Tablet ONE (12:09)
[2023-06-10] MEDS: HYDROcodone/Acetaminophen 10/325 mg Tablet PO PRN ×2 (12:11→18:58)
[2023-06-10] MEDS: Calcium Acetate 667 MG CAP PO SCH ×2 (15:11→18:58)
[2023-06-10] MEDS ORDERED: Morphine 2 MG/ML VIAL SLOW IVP SCH (15:45)
[2023-06-10] MEDS: Nicotine 14 MG PATCH TD SCH (19:03)
[2023-06-10] MEDS: Atorvastatin Calcium 40 MG TAB PO SCH (20:14)
[2023-06-10] MEDS: Morphine 2 MG/ML VIAL SLOW IVP PRN (21:31)
[2023-06-10] MEDS: Temazepam 15 MG CAP PO SCH (21:31)
[2023-06-11 06:10] LABS: #Eosinphils 0.2 thou/uL (0.0-0.7); #Monocytes 0.6 thou/uL (0.11-0.59); #Neutrophils 4.7 thou/uL (1.40-6.50); %Basophils 0.6 % (0.0-1.0); %Eosinophils 3.5 % (0.0-10.0); %Lymphocytes 13.2 % (21.0-51.0); %Monocytes 9.4 % (0.0-10.0); %Neutrophils 72.8 % (42.0-75.0); Hematocrit 30.3 % (36.0-47.0); Hemoglobin 9.5 g/dL (12.0-16.0); Mean Corpuscular HGB CONC 31.4 g/dL (32.0-36.0); Mean Corpuscular Hemoglobin 31.9 pg (27.0-31.0); Mean Corpuscular Volume 101.7 fl (78.0-98.0); Mean Platelet Volume 9.8 fL (7.4-10.4); Platelet Count 181 10x3/uL (130-400); RBC Distribution Width 13.4 % (11.5-14.5); Red Blood Cell (RBC) Count 2.98 mill/uL (4.20-5.40); White Blood Cell (WBC) Count 6.5 10x3/uL (4.8-10.8)
[2023-06-11 06:34] LABS: ALT (SGPT) 10 U/L (8-55); AST (SGOT) 23 U/L (5-34); Albumin 3.3 g/dL (3.4-4.8); Alkaline Phosphatase 100 U/L (40-110); Anion Gap 16 mmol/L (10-20); BUN (Urea Nitrogen) 43 mg/dL (9.8-20.1); Bilirubin, Total 0.4 mg/dL (0.2-1.2); Calc. Creatinine Clearance 19 mL/min (70-130); Calcium 8.7 mg/dL (7.8-10.44); Carbon Dioxide 21 mmol/L (23-31); Chloride 96 mmol/L (98-107); Estimated GFR 7; Globulin 3.6 g/dL (2.4-3.5); Glucose 186 mg/dL (80-115); Potassium 5.1 mmol/L (3.5-5.1); Protein, Total 6.9 g/dL (5.8-8.1); Sodium 128 mmol/L (136-145)
[2023-06-11 08:08] VITALS: BP 150/67; TEMP 98.3
[2023-06-11] MEDS: Morphine 2 MG/ML VIAL SLOW IVP PRN (08:49)
[2023-06-11] MEDS ORDERED: Clopidogrel Bisulfate 75 MG TAB PO SCH (09:00)
[2023-06-11] MEDS ORDERED: Heparin 10,000 UNITS/ 10 ML VIAL ONE (09:11)
[2023-06-11] MEDS: Calcium Acetate 667 MG CAP PO SCH ×2 (12:52→12:54)
[2023-06-11] MEDS: Thiamine 100 MG TAB PO SCH (12:52)
[2023-06-11] MEDS: Aspirin Chewable 81 MG TAB PO SCH (12:53)
[2023-06-11] MEDS: Methocarbamol 500 MG TAB PO SCH (12:54)
[2023-06-11] MEDS: Gabapentin 300 MG CAP PO SCH (12:54)
[2023-06-11] MEDS: busPIRone HCl 10 MG TAB PO SCH (12:55)
[2023-06-11] MEDS: hydrOXYzine 25 MG TAB PO SCH (12:55)
[2023-06-11] MEDS: HYDROcodone/Acetaminophen 10/325 mg Tablet PO PRN (13:09)
[2023-06-14] MEDS ORDERED: Cholecalciferol 1,000 UNITS (25 MCG) TAB PO SCH (09:00)
== END 2023-06-11 14:15 | DRG 246 ==
LOC: ERS 10:45 → ERHOLD 13:23 → 2SW 16:40 → OBSVTOIN 06-07 11:05
PROVIDERS: ADMIT Family Medicine; ATTEND Family Medicine
PROC: 5A1D70Z Performance of Urinary Filtration, Intermittent, Less than 6 Hours Per Day (ICD-10-PCS; 2023-06-07)
PROC: 5A1D70Z Performance of Urinary Filtration, Intermittent, Less than 6 Hours Per Day (ICD-10-PCS; 2023-06-08)
PROC: 027034Z Dilation of Coronary Artery, One Artery with Drug-eluting Intraluminal Device, Percutaneous Approach (ICD-10-PCS; principal; 2023-06-10)
PROC: 4A023N7 Measurement of Cardiac Sampling and Pressure, Left Heart, Percutaneous Approach (ICD-10-PCS; 2023-06-10)
PROC: B2111ZZ Fluoroscopy of Multiple Coronary Arteries using Low Osmolar Contrast (ICD-10-PCS; 2023-06-10)
PROC: B2151ZZ Fluoroscopy of Left Heart using Low Osmolar Contrast (ICD-10-PCS; 2023-06-10)
PROC: B2181ZZ Fluoroscopy of Left Internal Mammary Bypass Graft using Low Osmolar Contrast (ICD-10-PCS; 2023-06-10)
PROC: B2131ZZ Fluoroscopy of Multiple Coronary Artery Bypass Grafts using Low Osmolar Contrast (ICD-10-PCS; 2023-06-10)
DX: I21.4 Non-ST elevation (NSTEMI) myocardial infarction (principal); N18.6 End stage renal disease; Z68.42 Body mass index [BMI] 45.0-49.9, adult; I12.0 Hypertensive chronic kidney disease with stage 5 chronic kidney disease or end stage renal disease; G47.33 Obstructive sleep apnea (adult) (pediatric); J44.9 Chronic obstructive pulmonary disease, unspecified; F17.210 Nicotine dependence, cigarettes, uncomplicated; E11.22 Type 2 diabetes mellitus with diabetic chronic kidney disease; I25.119 Atherosclerotic heart disease of native coronary artery with unspecified angina pectoris; E66.01 Morbid (severe) obesity due to excess calories; D63.1 Anemia in chronic kidney disease; F31.9 Bipolar disorder, unspecified; Z79.899 Other long term (current) drug therapy; Z99.2 Dependence on renal dialysis; Z98.890 Other specified postprocedural states; Z79.4 Long term (current) use of insulin; Z95.1 Presence of aortocoronary bypass graft; Z79.82 Long term (current) use of aspirin; Z79.51 Long term (current) use of inhaled steroids; Z90.710 Acquired absence of both cervix and uterus
CPT/HCPCS: 36415; 36416; 71045; 78452; 80048; 80053; 80061; 82553; 83690; 83735; 83880; 84443; 84484; 85025; 85347; 86706; 87340; 90935; 92928; 93005; 93010; 93017; 93306; 93459; 94660; 94760; 96374; 96375; 97139; 99152; 99153; C1769; C1874; C1887; C9600; G0257; G0378; J0153; J0360; J1644; J1815; J2001; J2250; J2270; J2272; J2405; J2785; J3010; Q9967

== ENCOUNTER 2023-06-13 20:05 | Inpatient (IN) | payer MEDICARE, MEDICAID ==
[2023-06-13 21:57] LABS: #Eosinphils 0.2 thou/uL (0.0-0.7); #Monocytes 0.7 thou/uL (0.11-0.59); #Neutrophils 5.3 thou/uL (1.40-6.50); %Basophils 0.5 % (0.0-1.0); %Lymphocytes 19.1 % (21.0-51.0); %Monocytes 8.6 % (0.0-10.0); %Neutrophils 67.8 % (42.0-75.0); Hematocrit 28.1 % (36.0-47.0); Hemoglobin 8.7 g/dL (12.0-16.0); Mean Corpuscular Hemoglobin 31.1 pg (27.0-31.0); Mean Corpuscular Volume 100.4 fl (78.0-98.0); Mean Platelet Volume 9.4 fL (7.4-10.4); Platelet Count 196 10x3/uL (130-400); RBC Distribution Width 13.8 % (11.5-14.5); White Blood Cell (WBC) Count 7.8 10x3/uL (4.8-10.8)
[2023-06-13 22:21] LABS: ALT (SGPT) 14 U/L (8-55); AST (SGOT) 21 U/L (5-34); Albumin 3.6 g/dL (3.4-4.8); Alkaline Phosphatase 132 U/L (40-110); Anion Gap 17 mmol/L (10-20); BUN (Urea Nitrogen) 40 mg/dL (9.8-20.1); Bilirubin, Total 0.4 mg/dL (0.2-1.2); Calc. Creatinine Clearance 0 mL/min (70-130); Calcium 9.1 mg/dL (7.8-10.44); Carbon Dioxide 24 mmol/L (23-31); Chloride 101 mmol/L (98-107); Estimated GFR 6; Glucose 96 mg/dL (80-115); Lipase 42 U/L (8-78); Magnesium 2.8 mg/dL (1.6-2.6); Protein, Total 7.6 g/dL (5.8-8.1); Sodium 137 mmol/L (136-145)
[2023-06-13 22:35] LABS: Troponin I 5.457 ng/mL (< 0.028)
[2023-06-13] MEDS ORDERED: fentaNYL 50 mcg/mL 1 mL Vial ONE (23:54)
[2023-06-14 01:02] LABS: Critical Call Chem Troponin I RESULT DECREASING; Troponin I 5.249 ng/mL (< 0.028)
[2023-06-14] MEDS ORDERED: fentaNYL 50 mcg/mL 1 mL Vial ONE ×2 (02:36→14:07)
[2023-06-14] MEDS ORDERED: Ondansetron PF 4 MG/2 ML Vial IVP PRN (02:45)
[2023-06-14] MEDS ORDERED: Ondansetron ODT 4 MG TAB SL PRN (02:45)
[2023-06-14] MEDS ORDERED: Acetaminophen 325 MG TAB PO PRN (02:45)
[2023-06-14] MEDS ORDERED: Acetaminophen 650 MG Suppository PR PRN (03:53)
[2023-06-14] MEDS ORDERED: Nitroglycerin 0.4 MG TAB (25 Tab Bottle) SL PRN (03:53)
[2023-06-14] MEDS ORDERED: Dextrose 5% in Water 1,000 ML IV PRN (04:03)
[2023-06-14] MEDS ORDERED: Glucagon 1 MG/ML KIT IM PRN (04:03)
[2023-06-14] MEDS ORDERED: Dextrose 50% Abboject 50 ML SYRINGE SLOW IVP PRN (04:03)
[2023-06-14] MEDS ORDERED: HumaLOG 300 UNITS/3 ML VIAL SC PRN (04:03)
[2023-06-14] MEDS ORDERED: Aspirin Chewable 81 MG TAB PO SCH (04:15)
[2023-06-14 05:06] LABS: Troponin I 5.788 ng/mL (< 0.028)
[2023-06-14 08:34] LABS: Critical Call Chem Troponin I @DECREASING TROP; Troponin I 5.568 ng/mL (< 0.028)
[2023-06-14] MEDS ORDERED: Iopamidol 370 76% 100 ML VIAL ONE (09:29)
[2023-06-14] MEDS: Heparin 5,000 UNITS/ML VIAL SC SCH ×2 (10:52→17:00)
[2023-06-14] MEDS: Aspirin Chewable 81 MG TAB PO SCH (10:52)
[2023-06-14] MEDS: Clopidogrel Bisulfate 75 MG TAB PO SCH (10:52)
[2023-06-14] MEDS: Morphine 2 MG/ML VIAL SLOW IVP PRN ×2 (10:56→17:01)
[2023-06-14 11:41] LABS: Critical Call Chem Troponin I DECREASE; Troponin I 4.811 ng/mL (< 0.028)
[2023-06-14] MEDS ORDERED: Lidocaine 1% (PF) 30 ML VIAL ONE (14:07)
[2023-06-14] MEDS ORDERED: Nitroglycerin 2% Ointment 1 INCH/1 GM Packet ONE (14:07)
[2023-06-14] MEDS ORDERED: Heparin 10,000 UNITS/ 10 ML VIAL ONE (14:07)
[2023-06-14] MEDS ORDERED: Verapamil 5 MG/2 ML VIAL ONE (14:07)
[2023-06-14] MEDS ORDERED: Midazolam HCl 2 mg/2 ml Vial ONE (14:08)
[2023-06-14] MEDS ORDERED: Sodium Chloride 0.9% 200 ML IV PRN (15:26)
[2023-06-14] MEDS ORDERED: Nitroglycerin 50 MG/250 ML BOT 0 ML ONE (15:31)
[2023-06-14 19:33] VITALS: BMI 47.7
[2023-06-14] MEDS: HYDROcodone/Acetaminophen 5/325 mg Tablet PO PRN (21:27)
[2023-06-14] MEDS: Atorvastatin Calcium 40 MG TAB PO SCH (21:29)
[2023-06-15] MEDS: Acetaminophen/Codeine 30-300mg Tablet PO PRN ×3 (01:35→23:53)
[2023-06-15] MEDS: HumaLOG 300 UNITS/3 ML VIAL SC PRN (06:38)
[2023-06-15] MEDS: Morphine 2 MG/ML VIAL SLOW IVP PRN ×4 (06:38→20:38)
[2023-06-15 08:18] LABS: #Basophils 0.1 thou/uL (0.0-0.2); #Eosinphils 0.4 thou/uL (0.0-0.7); #Monocytes 0.6 thou/uL (0.11-0.59); #Neutrophils 7.1 thou/uL (1.40-6.50); %Basophils 0.7 % (0.0-1.0); %Eosinophils 3.7 % (0.0-10.0); %Lymphocytes 15.9 % (21.0-51.0); %Monocytes 6.3 % (0.0-10.0); %Neutrophils 72.7 % (42.0-75.0); Hematocrit 27.4 % (36.0-47.0); Hemoglobin 8.2 g/dL (12.0-16.0); Mean Corpuscular HGB CONC 29.9 g/dL (32.0-36.0); Mean Corpuscular Hemoglobin 31.2 pg (27.0-31.0); Mean Corpuscular Volume 104.2 fl (78.0-98.0); Mean Platelet Volume 9.1 fL (7.4-10.4); Platelet Count 212 10x3/uL (130-400); RBC Distribution Width 14.2 % (11.5-14.5); Red Blood Cell (RBC) Count 2.63 mill/uL (4.20-5.40); White Blood Cell (WBC) Count 9.7 10x3/uL (4.8-10.8)
[2023-06-15 08:40] LABS: Anion Gap 19 mmol/L (10-20); BUN (Urea Nitrogen) 45 mg/dL (9.8-20.1); Calc. Creatinine Clearance 16 mL/min (70-130); Calcium 8.7 mg/dL (7.8-10.44); Carbon Dioxide 21 mmol/L (23-31); Cardiac Risk 3.3 (Less than 4.5); Chloride 99 mmol/L (98-107); Cholesterol 111 mg/dl (< 200 Desired); Estimated GFR 5; Glucose 158 mg/dL (80-115); HDL Cholesterol 34 mg/dL (>60 Neg Risk); LDL Cholesterol, Calculated 43 mg/dL; Potassium 5.5 mmol/L (3.5-5.1); Sodium 133 mmol/L (136-145); Triglycerides 172 mg/dL (Less than 150)
[2023-06-15] MEDS: Clopidogrel Bisulfate 75 MG TAB PO SCH (08:47)
[2023-06-15] MEDS: Aspirin Chewable 81 MG TAB PO SCH (08:47)
[2023-06-15] MEDS ORDERED: Heparin 10,000 UNITS/ 10 ML VIAL ONE (11:30)
[2023-06-15] MEDS: Heparin 5,000 UNITS/ML VIAL SC SCH ×3 (12:58→20:36)
[2023-06-15] MEDS ORDERED: Loratadine 10 MG TAB PO PRN (16:05)
[2023-06-15] MEDS ORDERED: Midodrine HCl 5 MG TAB PO PRN (16:05)
[2023-06-15] MEDS ORDERED: Electrolyte Replacement Protocol 1 EACH FS SCH (16:15)
[2023-06-15] MEDS: Insulin Glargine 30 UNITS/0.3 ML VIAL SC SCH (20:35)
[2023-06-15] MEDS: Atorvastatin Calcium 40 MG TAB PO SCH (20:37)
[2023-06-15] MEDS: Gabapentin 300 MG CAP PO SCH (20:37)
[2023-06-15] MEDS: Famotidine 20 MG TAB PO SCH (20:37)
[2023-06-15] MEDS: busPIRone HCl 5 MG TAB PO SCH (20:38)
[2023-06-15] MEDS: Calcium Acetate 667 MG CAP PO SCH (20:38)
[2023-06-15 21:49] LABS: SARS-CoV-2 NAA Rapid Test Not Detected (NotDetected)
[2023-06-15] MEDS: Melatonin 3 MG TAB PO SCH (22:59)
[2023-06-16] MEDS: HumaLOG 300 UNITS/3 ML VIAL SC PRN ×3 (06:38→18:08)
[2023-06-16 07:13] LABS: #Eosinphils 0.2 thou/uL (0.0-0.7); #Monocytes 0.7 thou/uL (0.11-0.59); #Neutrophils 4.7 thou/uL (1.40-6.50); %Basophils 0.6 % (0.0-1.0); %Eosinophils 3.3 % (0.0-10.0); %Monocytes 9.7 % (0.0-10.0); %Neutrophils 65.6 % (42.0-75.0); Hematocrit 25.6 % (36.0-47.0); Hemoglobin 7.9 g/dL (12.0-16.0); Mean Corpuscular HGB CONC 30.9 g/dL (32.0-36.0); Mean Platelet Volume 9.1 fL (7.4-10.4); Platelet Count 179 10x3/uL (130-400); RBC Distribution Width 15.4 % (11.5-14.5); Red Blood Cell (RBC) Count 2.55 mill/uL (4.20-5.40); White Blood Cell (WBC) Count 7.2 10x3/uL (4.8-10.8)
[2023-06-16 07:32] LABS: Mean Corpuscular Volume 100.4 fl (78.0-98.0)
[2023-06-16 07:33] LABS: Anion Gap 14 mmol/L (10-20); BUN (Urea Nitrogen) 20 mg/dL (9.8-20.1); Calc. Creatinine Clearance 29 mL/min (70-130); Calcium 8.4 mg/dL (7.8-10.44); Carbon Dioxide 27 mmol/L (23-31); Chloride 97 mmol/L (98-107); Estimated GFR 10; Glucose 228 mg/dL (80-115); Potassium 4.5 mmol/L (3.5-5.1); Sodium 133 mmol/L (136-145)
[2023-06-16] MEDS: HYDROcodone/Acetaminophen 5/325 mg Tablet PO PRN ×3 (08:42→23:19)
[2023-06-16] MEDS: Aspirin Chewable 81 MG TAB PO SCH (08:43)
[2023-06-16] MEDS: busPIRone HCl 5 MG TAB PO SCH ×3 (08:43→23:19)
[2023-06-16] MEDS: Famotidine 20 MG TAB PO SCH (08:43)
[2023-06-16] MEDS: Calcium Acetate 667 MG CAP PO SCH ×3 (08:44→18:20)
[2023-06-16] MEDS: Thiamine 100 MG TAB PO SCH (08:44)
[2023-06-16] MEDS: Heparin 5,000 UNITS/ML VIAL SC SCH ×3 (08:44→23:18)
[2023-06-16] MEDS: Clopidogrel Bisulfate 75 MG TAB PO SCH (08:44)
[2023-06-16] MEDS ORDERED: Vortioxetine Hydrobromide [Trintellix] 20 MG Tablet PO SCH (09:00)
[2023-06-16] MEDS: Acetaminophen/Codeine 30-300mg Tablet PO PRN (13:43)
[2023-06-16] MEDS ORDERED: Insulin Glargine 30 UNITS/0.3 ML VIAL SC SCH (14:30)
[2023-06-16] MEDS: Insulin Glargine 30 UNITS/0.3 ML VIAL SC SCH (22:26)
[2023-06-16] MEDS ORDERED: Polyethylene Glycol 3350 17 GM Packet PO PRN (23:06)
[2023-06-16] MEDS: Atorvastatin Calcium 40 MG TAB PO SCH (23:19)
[2023-06-16] MEDS: Gabapentin 300 MG CAP PO SCH (23:20)
[2023-06-16] MEDS: GUAIFENESIN SF SOLN 200 MG/10 ML UDCUP PO PRN (23:20)
[2023-06-16] MEDS: Melatonin 3 MG TAB PO SCH (23:32)
[2023-06-17] MEDS: Morphine 2 MG/ML VIAL SLOW IVP PRN (05:03)
[2023-06-17] MEDS: GUAIFENESIN SF SOLN 200 MG/10 ML UDCUP PO PRN (05:06)
[2023-06-17 06:53] LABS: #Basophils 0.1 thou/uL (0.0-0.2); #Eosinphils 0.2 thou/uL (0.0-0.7); #Monocytes 0.5 thou/uL (0.11-0.59); #Neutrophils 6.4 thou/uL (1.40-6.50); %Basophils 0.7 % (0.0-1.0); %Eosinophils 2.4 % (0.0-10.0); %Lymphocytes 6.7 % (21.0-51.0); %Monocytes 5.9 % (0.0-10.0); %Neutrophils 83.8 % (42.0-75.0); Hematocrit 30.1 % (36.0-47.0); Hemoglobin 9.8 g/dL (12.0-16.0); Mean Corpuscular HGB CONC 32.6 g/dL (32.0-36.0); Mean Corpuscular Hemoglobin 31.8 pg (27.0-31.0); Mean Corpuscular Volume 97.7 fl (78.0-98.0); Mean Platelet Volume 8.9 fL (7.4-10.4); Platelet Count 161 10x3/uL (130-400); RBC Distribution Width 15.7 % (11.5-14.5); Red Blood Cell (RBC) Count 3.08 mill/uL (4.20-5.40); White Blood Cell (WBC) Count 7.6 10x3/uL (4.8-10.8)
[2023-06-17 07:13] LABS: Anion Gap 17 mmol/L (10-20); BUN (Urea Nitrogen) 16 mg/dL (9.8-20.1); Calc. Creatinine Clearance 31 mL/min (70-130); Carbon Dioxide 25 mmol/L (23-31); Chloride 97 mmol/L (98-107); Estimated GFR 12; Glucose 226 mg/dL (80-115); Sodium 134 mmol/L (136-145)
[2023-06-17 08:56] LABS: Actual Bicarbonate (HCO3a) 28.3 mEq/L (22-28); CO2 Tension 41.8 mmHg (35.0-45.0); Calcium, Ionized (arterial) 1.09 mmol/L (1.12-1.30); Carboxyhemoglobin (COHb) 2.2 gm% (0.0-3.0); Hematocrit-ABG 33 % (36.0-47.0); Hemoglobin (Hb) 11.1 g/dL (12.0-16.0); Potassium - ABG Lab 4.68 mmol/L (3.70-5.30); pH, Arterial 7.449 (7.35-7.45)
[2023-06-17 08:58] LABS: O2 Tension (PaO2), arterial 48.8 mmHg (> 80.0); Puncture Site RRA
[2023-06-17] MEDS ORDERED: Insulin Glargine 30 UNITS/0.3 ML VIAL SC SCH (09:00)
[2023-06-17 09:05] LABS: #Basophils 0.1 thou/uL (0.0-0.2); #Eosinphils 0.2 thou/uL (0.0-0.7); #Monocytes 0.6 thou/uL (0.11-0.59); #Neutrophils 8.2 thou/uL (1.40-6.50); %Basophils 0.5 % (0.0-1.0); %Eosinophils 1.6 % (0.0-10.0); %Lymphocytes 4.7 % (21.0-51.0); %Monocytes 6.4 % (0.0-10.0); %Neutrophils 86.2 % (42.0-75.0); Hematocrit 32.7 % (36.0-47.0); Hemoglobin 10.7 g/dL (12.0-16.0); Mean Corpuscular HGB CONC 32.7 g/dL (32.0-36.0); Mean Corpuscular Hemoglobin 31.5 pg (27.0-31.0); Mean Corpuscular Volume 96.2 fl (78.0-98.0); Mean Platelet Volume 8.7 fL (7.4-10.4); Platelet Count 182 10x3/uL (130-400); RBC Distribution Width 15.7 % (11.5-14.5); White Blood Cell (WBC) Count 9.5 10x3/uL (4.8-10.8)
[2023-06-17] MEDS ORDERED: Heparin 10,000 UNITS/ 10 ML VIAL ONE (09:12)
[2023-06-17 09:26] LABS: PTT 36.7 sec (22.9-36.1); Prothrombin Time 13.4 sec (12.0-14.7)
[2023-06-17 09:29] LABS: ALT (SGPT) 11 U/L (8-55); AST (SGOT) 15 U/L (5-34); Albumin 3.8 g/dL (3.4-4.8); Alkaline Phosphatase 115 U/L (40-110); Anion Gap 19 mmol/L (10-20); BUN (Urea Nitrogen) 17 mg/dL (9.8-20.1); Bilirubin, Total 0.7 mg/dL (0.2-1.2); CK (CPK) 100 U/L (29-168); Calc. Creatinine Clearance 30 mL/min (70-130); Calcium 9.2 mg/dL (7.8-10.44); Carbon Dioxide 23 mmol/L (23-31); Chloride 97 mmol/L (98-107); Estimated GFR 11; Globulin 4.1 g/dL (2.4-3.5); Glucose 197 mg/dL (80-115); Potassium 4.8 mmol/L (3.5-5.1); Protein, Total 7.9 g/dL (5.8-8.1); Sodium 134 mmol/L (136-145)
[2023-06-17 09:51] LABS: Troponin I 2.218 ng/mL (< 0.028)
[2023-06-17] MEDS: Calcium Acetate 667 MG CAP PO SCH ×2 (12:46→15:42)
[2023-06-17] MEDS: Insulin Glargine 30 UNITS/0.3 ML VIAL SC SCH ×2 (12:47→20:45)
[2023-06-17] MEDS: Famotidine 20 MG TAB PO SCH (12:47)
[2023-06-17] MEDS: Clopidogrel Bisulfate 75 MG TAB PO SCH (12:47)
[2023-06-17] MEDS: Aspirin Chewable 81 MG TAB PO SCH (12:47)
[2023-06-17] MEDS: Heparin 5,000 UNITS/ML VIAL SC SCH ×3 (12:47→20:36)
[2023-06-17] MEDS: busPIRone HCl 5 MG TAB PO SCH (12:47)
[2023-06-17] MEDS: Thiamine 100 MG TAB PO SCH (12:48)
[2023-06-17] MEDS: HumaLOG 300 UNITS/3 ML VIAL SC PRN (18:07)
[2023-06-17] MEDS: Acetaminophen 325 MG TAB PO PRN (20:30)
[2023-06-17] MEDS: Atorvastatin Calcium 40 MG TAB PO SCH (20:31)
[2023-06-18] MEDS: Calcium Acetate 667 MG CAP PO SCH ×3 (09:39→15:59)
[2023-06-18] MEDS: Aspirin Chewable 81 MG TAB PO SCH (09:39)
[2023-06-18] MEDS: Heparin 5,000 UNITS/ML VIAL SC SCH ×3 (09:40→20:57)
[2023-06-18] MEDS: Thiamine 100 MG TAB PO SCH (09:40)
[2023-06-18] MEDS: Famotidine 20 MG TAB PO SCH (09:40)
[2023-06-18] MEDS: Insulin Glargine 30 UNITS/0.3 ML VIAL SC SCH ×2 (09:40→20:57)
[2023-06-18] MEDS: Clopidogrel Bisulfate 75 MG TAB PO SCH (09:40)
[2023-06-18 10:24] LABS: #Eosinphils 0.2 thou/uL (0.0-0.7); #Monocytes 0.5 thou/uL (0.11-0.59); #Neutrophils 3.8 thou/uL (1.40-6.50); %Basophils 0.8 % (0.0-1.0); %Eosinophils 2.9 % (0.0-10.0); %Lymphocytes 11.7 % (21.0-51.0); %Monocytes 9.5 % (0.0-10.0); %Neutrophils 74.3 % (42.0-75.0); Hematocrit 28.2 % (36.0-47.0); Hemoglobin 9.2 g/dL (12.0-16.0); Mean Corpuscular HGB CONC 32.6 g/dL (32.0-36.0); Mean Corpuscular Hemoglobin 31.9 pg (27.0-31.0); Mean Corpuscular Volume 97.9 fl (78.0-98.0); Mean Platelet Volume 9.1 fL (7.4-10.4); Platelet Count 160 10x3/uL (130-400); RBC Distribution Width 15.6 % (11.5-14.5); Red Blood Cell (RBC) Count 2.88 mill/uL (4.20-5.40); White Blood Cell (WBC) Count 5.2 10x3/uL (4.8-10.8)
[2023-06-18 12:05] LABS: ALT (SGPT) 10 U/L (8-55); AST (SGOT) 16 U/L (5-34); Albumin 3.2 g/dL (3.4-4.8); Alkaline Phosphatase 99 U/L (40-110); Anion Gap 13 mmol/L (10-20); BUN (Urea Nitrogen) 12 mg/dL (9.8-20.1); Bilirubin, Total 0.6 mg/dL (0.2-1.2); Calc. Creatinine Clearance 39 mL/min (70-130); Calcium 8.7 mg/dL (7.8-10.44); Carbon Dioxide 28 mmol/L (23-31); Chloride 99 mmol/L (98-107); Estimated GFR 16; Globulin 3.7 g/dL (2.4-3.5); Glucose 155 mg/dL (80-115); Potassium 3.5 mmol/L (3.5-5.1); Protein, Total 6.9 g/dL (5.8-8.1); Sodium 136 mmol/L (136-145)
[2023-06-18] MEDS: HumaLOG 300 UNITS/3 ML VIAL SC PRN (17:53)
[2023-06-18] MEDS: Atorvastatin Calcium 40 MG TAB PO SCH (20:57)
[2023-06-18] MEDS: busPIRone HCl 5 MG TAB PO SCH (20:57)
[2023-06-19 06:13] LABS: #Eosinphils 0.2 thou/uL (0.0-0.7); #Monocytes 0.8 thou/uL (0.11-0.59); #Neutrophils 3.8 thou/uL (1.40-6.50); %Basophils 0.7 % (0.0-1.0); %Eosinophils 2.9 % (0.0-10.0); %Neutrophils 64.9 % (42.0-75.0); Hematocrit 30.9 % (36.0-47.0); Hemoglobin 9.6 g/dL (12.0-16.0); Mean Corpuscular HGB CONC 31.1 g/dL (32.0-36.0); Mean Corpuscular Volume 99.7 fl (78.0-98.0); Mean Platelet Volume 9.4 fL (7.4-10.4); Platelet Count 184 10x3/uL (130-400); RBC Distribution Width 15.3 % (11.5-14.5); White Blood Cell (WBC) Count 5.9 10x3/uL (4.8-10.8)
[2023-06-19 07:03] LABS: Anion Gap 15 mmol/L (10-20); Calcium 8.9 mg/dL (7.8-10.44); Carbon Dioxide 26 mmol/L (23-31); Chloride 99 mmol/L (98-107); Glucose 138 mg/dL (80-115); Potassium 3.6 mmol/L (3.5-5.1); Sodium 136 mmol/L (136-145)
[2023-06-19 07:43] VITALS: TEMP 97.7
[2023-06-19 08:37] LABS: BUN (Urea Nitrogen) 14 mg/dL (9.8-20.1); Calc. Creatinine Clearance 34 mL/min (70-130); Estimated GFR 13
[2023-06-19] MEDS: Calcium Acetate 667 MG CAP PO SCH ×2 (08:38→13:30)
[2023-06-19] MEDS: Clopidogrel Bisulfate 75 MG TAB PO SCH (08:39)
[2023-06-19] MEDS: busPIRone HCl 5 MG TAB PO SCH ×2 (08:39→13:30)
[2023-06-19] MEDS: Thiamine 100 MG TAB PO SCH (08:39)
[2023-06-19] MEDS: Famotidine 20 MG TAB PO SCH (08:39)
[2023-06-19] MEDS: Heparin 5,000 UNITS/ML VIAL SC SCH (08:39)
[2023-06-19] MEDS: Aspirin Chewable 81 MG TAB PO SCH (08:39)
[2023-06-19] MEDS: Insulin Glargine 30 UNITS/0.3 ML VIAL SC SCH (08:40)
[2023-06-19 13:15] VITALS: BP 164/55
[2023-06-19] MEDS: HumaLOG 300 UNITS/3 ML VIAL SC PRN (13:31)
[2023-06-19] MEDS: Acetaminophen 325 MG TAB PO PRN (13:34)
== END 2023-06-19 15:34 | DRG 682 ==
LOC: ERS 20:05 → 2SW 06-14 02:32 → ERHOLD 06-14 02:36 → 2SW 06-14 08:10 → OBSVTOIN 06-14 09:16 → IMCU/EMU 06-17 09:37
PROVIDERS: ADMIT Student in an Organized Health Care Education/Training Program; ATTEND Internal Medicine
PROC: 4A023N7 Measurement of Cardiac Sampling and Pressure, Left Heart, Percutaneous Approach (ICD-10-PCS; principal; 2023-06-14)
PROC: B2131ZZ Fluoroscopy of Multiple Coronary Artery Bypass Grafts using Low Osmolar Contrast (ICD-10-PCS; 2023-06-14)
PROC: B2111ZZ Fluoroscopy of Multiple Coronary Arteries using Low Osmolar Contrast (ICD-10-PCS; 2023-06-14)
PROC: B2151ZZ Fluoroscopy of Left Heart using Low Osmolar Contrast (ICD-10-PCS; 2023-06-14)
PROC: B2181ZZ Fluoroscopy of Left Internal Mammary Bypass Graft using Low Osmolar Contrast (ICD-10-PCS; 2023-06-14)
PROC: 30233N1 Transfusion of Nonautologous Red Blood Cells into Peripheral Vein, Percutaneous Approach (ICD-10-PCS; 2023-06-15)
PROC: 5A09357 Assistance with Respiratory Ventilation, Less than 24 Consecutive Hours, Continuous Positive Airway Pressure (ICD-10-PCS; 2023-06-16)
PROC: 4A033R1 Measurement of Arterial Saturation, Peripheral, Percutaneous Approach (ICD-10-PCS; 2023-06-17)
DX: I12.0 Hypertensive chronic kidney disease with stage 5 chronic kidney disease or end stage renal disease (principal); G93.41 Metabolic encephalopathy; I21.A1 Myocardial infarction type 2; J96.01 Acute respiratory failure with hypoxia; N18.6 End stage renal disease; Z68.42 Body mass index [BMI] 45.0-49.9, adult; I97.610 Postprocedural hemorrhage of a circulatory system organ or structure following a cardiac catheterization; E87.1 Hypo-osmolality and hyponatremia; K21.9 Gastro-esophageal reflux disease without esophagitis; E11.22 Type 2 diabetes mellitus with diabetic chronic kidney disease; E78.5 Hyperlipidemia, unspecified; G47.33 Obstructive sleep apnea (adult) (pediatric); Z20.822 Contact with and (suspected) exposure to COVID-19; I25.10 Atherosclerotic heart disease of native coronary artery without angina pectoris; D63.1 Anemia in chronic kidney disease; E66.01 Morbid (severe) obesity due to excess calories; Z95.5 Presence of coronary angioplasty implant and graft; Z79.82 Long term (current) use of aspirin; Z79.4 Long term (current) use of insulin; Z79.899 Other long term (current) drug therapy; Z90.89 Acquired absence of other organs; Z99.2 Dependence on renal dialysis; Y83.8 Other surgical procedures as the cause of abnormal reaction of the patient, or of later complication, without mention of misadventure at the time of the procedure; Z79.02 Long term (current) use of antithrombotics/antiplatelets; Z87.891 Personal history of nicotine dependence; E87.5 Hyperkalemia; Z88.5 Allergy status to narcotic agent; I35.0 Nonrheumatic aortic (valve) stenosis
CPT/HCPCS: 36415; 36416; 36430; 36600; 70450; 71045; 76936; 80048; 80053; 80061; 82550; 82805; 83690; 83735; 83880; 84484; 85025; 85610; 85730; 86850; 86870; 86880; 86900; 86901; 86904; 86905; 86922; 90935; 93005; 93010; 93306; 93459; 94640; 94660; 94760; 96374; 96376; 99152; 99153; C1769; G0257; J1644; J1815; J2001; J2250; J2272; J3010; J7611; P9016; Q9967

== ENCOUNTER 2024-01-14 15:38 | Inpatient (IN) | payer MEDICARE, MEDICAID ==
[2024-01-14 17:19] LABS: #Eosinphils 0.1 thou/uL (0.0-0.7); #Monocytes 0.5 thou/uL (0.11-0.59); #Neutrophils 5.2 thou/uL (1.40-6.50); %Basophils 0.4 % (0.0-1.0); %Eosinophils 1.3 % (0.0-10.0); %Lymphocytes 16.9 % (21.0-51.0); %Monocytes 6.7 % (0.0-10.0); %Neutrophils 74.3 % (42.0-75.0); Hematocrit 39.7 % (36.0-47.0); Hemoglobin 12.5 g/dL (12.0-16.0); Mean Corpuscular HGB CONC 31.5 g/dL (32.0-36.0); Mean Corpuscular Volume 95.4 fl (78.0-98.0); Mean Platelet Volume 10.5 fL (7.4-10.4); Platelet Count 189 10x3/uL (130-400); RBC Distribution Width 16.1 % (11.5-14.5); Red Blood Cell (RBC) Count 4.16 mill/uL (4.20-5.40)
[2024-01-14 17:42] LABS: ALT (SGPT) 18 U/L (8-55); AST (SGOT) 12 U/L (5-34); Albumin 3.5 g/dL (3.4-4.8); Alkaline Phosphatase 117 U/L (40-110); Anion Gap 24 mmol/L (10-20); BUN (Urea Nitrogen) 76 mg/dL (9.8-20.1); Bilirubin, Total 0.7 mg/dL (0.2-1.2); Calc. Creatinine Clearance 0 mL/min (70-130); Calcium 8.8 mg/dL (7.8-10.44); Carbon Dioxide 21 mmol/L (23-31); Chloride 95 mmol/L (98-107); Estimated GFR 5; Globulin 3.2 g/dL (2.4-3.5); Glucose 368 mg/dL (80-115); Potassium 5.9 mmol/L (3.5-5.1); Protein, Total 6.7 g/dL (5.8-8.1); Sodium 134 mmol/L (136-145)
[2024-01-14 17:47] LABS: Troponin I 0.071 ng/mL (< 0.028)
[2024-01-14 20:15] LABS: Actual Bicarbonate (HCO3v) 19.1 mEq/L (22-28); Base Excess -4.2 mEq/L (-2.0 to +3.0); Calcium, Ionized (venous) 0.96 mmol/L (1.16-1.32); Chloride (VBG) 96 mmol/L (98-106); Hematocrit-VBG 36 % (36.0-47.0); Hemoglobin (Hb) 12.3 g/dL (11.7-16.0); Potassium (VBG) 5.37 mmol/L (3.70-5.30); Sodium 130 mmol/L (133-146); pH (venous) 7.425 (7.32-7.43)
[2024-01-14 22:16] LABS: Bilirubin Negative (Negative); Blood, Urine Moderate (Negative); Glucose, Urine (Dipstick) 100 mg/dL (Negative); Ketone, Urine Negative (Negative); Leukocyte Moderate (Negative); Nitrite Negative (Negative); Protein, Urine (Dipstick) 30 mg/dL (Neg-Trace); Urobilinogen 0.2 mg/dL (Less than 2); pH, Urine 5.5 (5.0-9.0)
[2024-01-14] MEDS ORDERED: Glucagon 1 MG/ML KIT IM PRN (22:18)
[2024-01-14] MEDS ORDERED: Dextrose 50% Abboject 50 ML SYRINGE SLOW IVP PRN (22:18)
[2024-01-14] MEDS ORDERED: Dextrose 5% in Water 1,000 ML IV PRN (22:18)
[2024-01-14 22:23] LABS: CAUTI Indications for Culture Dysuria,urgency,freq; Clarity Hazy (Clear); RBC/HPF 0-3 HPF (0-3)
[2024-01-14 22:24] LABS: Bacteria/HPF Rare-Few HPF (None Seen); Other Microscopic Description Less than 2 mL rec'd; Squamous Epithelial 0-3 HPF (0-3); Transitional Epithelial 0-3 HPF (None Seen); Yeast-Budding 1+ HPF (None Seen)
[2024-01-14 22:25] LABS: Urine Culture Reflex Yes Yes
[2024-01-15 01:07] LABS: HBSAg Index 0.26 S/CO (0-0.99); Hep B Core Total Ab Non-Reactive (NonReactive); Hep B Core Total Index 0.15 S/CO (0-0.79); Hep B Surf Ag Non-Reactive S/CO (NonReactive); Hep C IgG Ab Non-Reactive S/CO (NonReactive); Hep C Index 0.14 S/CO (0-0.79)
[2024-01-15 02:29] LABS: HBSAB Concentration 10.26 mIU/mL; Hep B Surf AB Indeterminate (NonReactive)
[2024-01-15] MEDS: HumaLOG 300 UNITS/3 ML VIAL SC PRN ×2 (06:12→22:31)
[2024-01-15 06:13] LABS: #Eosinphils 0.1 thou/uL (0.0-0.7); #Monocytes 0.7 thou/uL (0.11-0.59); #Neutrophils 5.8 thou/uL (1.40-6.50); %Basophils 0.5 % (0.0-1.0); %Eosinophils 1.5 % (0.0-10.0); %Lymphocytes 16.9 % (21.0-51.0); %Monocytes 8.3 % (0.0-10.0); %Neutrophils 72.6 % (42.0-75.0); Hematocrit 37.1 % (36.0-47.0); Hemoglobin 11.8 g/dL (12.0-16.0); Mean Corpuscular HGB CONC 31.8 g/dL (32.0-36.0); Mean Corpuscular Hemoglobin 30.3 pg (27.0-31.0); Mean Corpuscular Volume 95.1 fl (78.0-98.0); Mean Platelet Volume 11.3 fL (7.4-10.4); Platelet Count 155 10x3/uL (130-400); RBC Distribution Width 16.2 % (11.5-14.5)
[2024-01-15 06:27] LABS: Anion Gap 22 mmol/L (10-20); BUN (Urea Nitrogen) 74 mg/dL (9.8-20.1); Calc. Creatinine Clearance 15 mL/min (70-130); Carbon Dioxide 18 mmol/L (23-31); Chloride 98 mmol/L (98-107); Estimated GFR 5; Glucose 197 mg/dL (80-115); Potassium 5.4 mmol/L (3.5-5.1); Sodium 133 mmol/L (136-145)
[2024-01-15] MEDS: Polyethylene Glycol 3350 17 GM Packet PO SCH (14:32)
[2024-01-15] MEDS: Senokot S 8.6-50 MG TAB PO SCH (14:32)
[2024-01-15] MEDS: cefTRIAXone\\ROCEPHIN 1 GM in Sodium Chloride 0.9% 100 ML IVPB SCH (14:32)
[2024-01-15] MEDS ORDERED: Nitroglycerin 0.4 MG TAB (25 Tab Bottle) SL PRN (14:43)
[2024-01-15] MEDS ORDERED: SUCROFERRIC OXYHYDROXIDE 500 MG PO SCH (17:00)
[2024-01-15] MEDS ORDERED: Methocarbamol 500 MG TAB PO SCH ×2 (17:30→21:00)
[2024-01-15] MEDS: Calcium Acetate 667 MG CAP PO SCH (17:32)
[2024-01-15] MEDS: Ferrous Sulfate 325 MG TAB PO SCH (17:32)
[2024-01-15] MEDS: Methocarbamol 500 MG TAB PO SCH ×2 (17:33→22:21)
[2024-01-15] MEDS ORDERED: Ipratropium Bromide 2.5 ml Neb NEB SCH (19:00)
[2024-01-15] MEDS ORDERED: Famotidine 20 MG TAB PO SCH (21:00)
[2024-01-15] MEDS: Atorvastatin Calcium 40 MG TAB PO SCH (22:21)
[2024-01-15] MEDS: Gabapentin 300 MG CAP PO SCH (22:22)
[2024-01-15] MEDS: Insulin Glargine 30 UNITS/0.3 ML VIAL SC SCH (22:22)
[2024-01-15] MEDS: Ipratropium Bromide 2.5 ml Neb NEB SCH (23:08)
[2024-01-15] MEDS: Ipratropium Bromide 2.5 ml Neb ONE (23:09)
[2024-01-16 05:13] LABS: #Eosinphils 0.1 thou/uL (0.0-0.7); #Monocytes 0.5 thou/uL (0.11-0.59); #Neutrophils 4.5 thou/uL (1.40-6.50); %Basophils 0.7 % (0.0-1.0); %Lymphocytes 13.7 % (21.0-51.0); %Neutrophils 76.3 % (42.0-75.0); Hematocrit 40.7 % (36.0-47.0); Hemoglobin 12.7 g/dL (12.0-16.0); Mean Corpuscular HGB CONC 31.2 g/dL (32.0-36.0); Mean Corpuscular Volume 96.2 fl (78.0-98.0); Mean Platelet Volume 10.2 fL (7.4-10.4); Platelet Count 157 10x3/uL (130-400); Red Blood Cell (RBC) Count 4.23 mill/uL (4.20-5.40); White Blood Cell (WBC) Count 5.9 10x3/uL (4.8-10.8)
[2024-01-16] MEDS: Acetaminophen 325 MG TAB PO PRN (05:35)
[2024-01-16 05:43] LABS: Anion Gap 21 mmol/L (10-20); BUN (Urea Nitrogen) 39 mg/dL (9.8-20.1); Calc. Creatinine Clearance 22 mL/min (70-130); Calcium 9.3 mg/dL (7.8-10.44); Carbon Dioxide 23 mmol/L (23-31); Chloride 95 mmol/L (98-107); Estimated GFR 8; Glucose 169 mg/dL (80-115); Sodium 134 mmol/L (136-145)
[2024-01-16] MEDS: Isosorbide Mononitrate 30 MG ER.TAB PO SCH (08:55)
[2024-01-16] MEDS: Clopidogrel Bisulfate 75 MG TAB PO SCH (08:56)
[2024-01-16] MEDS: Thiamine 100 MG TAB PO SCH (08:56)
[2024-01-16] MEDS: Aspirin 81 mg Enteric Coated Tablet PO SCH (08:56)
[2024-01-16] MEDS: Insulin Glargine 30 UNITS/0.3 ML VIAL SC SCH (08:57)
[2024-01-16] MEDS ORDERED: Non-Formulary Item 1 EACH (Umeclidinium Bromide [Incruse Ellipta] 62.5 MCG Blst.W.Dev) IH SCH (09:00)
[2024-01-16] MEDS ORDERED: Vortioxetine Hydrobromide [Trintellix] 20 MG Tablet PO SCH (09:00)
[2024-01-16] MEDS: hydrOXYzine Pamoate 25 mg Capsule PO SCH (15:02)
[2024-01-16] MEDS ORDERED: Amiodarone 150 MG in Dextrose 5% in Water 100 ML IVPB SCH (16:30)
[2024-01-16] MEDS ORDERED: Amiodarone 450 MG in Dextrose 5% in Water 250 ML IVPB SCH (16:30)
[2024-01-16] MEDS: Amiodarone 150 MG, Admixture Fee 1 EACH in Dextrose 5% in Water 100 ML IVPB SCH (17:52)
[2024-01-16] MEDS: Acetaminophen/Codeine 30-300mg Tablet PO PRN (17:53)
[2024-01-16] MEDS: Amiodarone 450 MG, Admixture Fee 1 EACH in Dextrose 5% in Water 250 ML IVPB SCH (17:53)
[2024-01-16] MEDS ORDERED: Methocarbamol 500 MG TAB PO SCH (21:00)
[2024-01-16] MEDS: Digoxin 0.5 MG/2 ML AMP SLOW IVP SCH (21:26)
[2024-01-17 05:56] LABS: #Basophils 0.1 thou/uL (0.0-0.2); #Eosinphils 0.1 thou/uL (0.0-0.7); #Monocytes 0.5 thou/uL (0.11-0.59); #Neutrophils 3.3 thou/uL (1.40-6.50); %Eosinophils 2.3 % (0.0-10.0); %Lymphocytes 16.6 % (21.0-51.0); %Neutrophils 68.5 % (42.0-75.0); Hematocrit 38.6 % (36.0-47.0); Mean Corpuscular HGB CONC 31.1 g/dL (32.0-36.0); Mean Corpuscular Hemoglobin 30.1 pg (27.0-31.0); Mean Corpuscular Volume 96.7 fl (78.0-98.0); Mean Platelet Volume 10.7 fL (7.4-10.4); Platelet Count 152 10x3/uL (130-400); RBC Distribution Width 15.7 % (11.5-14.5); Red Blood Cell (RBC) Count 3.99 mill/uL (4.20-5.40); White Blood Cell (WBC) Count 4.8 10x3/uL (4.8-10.8)
[2024-01-17 06:20] LABS: Anion Gap 19 mmol/L (10-20); BUN (Urea Nitrogen) 55 mg/dL (9.8-20.1); Calc. Creatinine Clearance 19 mL/min (70-130); Calcium 9.3 mg/dL (7.8-10.44); Carbon Dioxide 25 mmol/L (23-31); Chloride 92 mmol/L (98-107); Estimated GFR 7; Glucose 234 mg/dL (80-115); Sodium 131 mmol/L (136-145)
[2024-01-17] MEDS: Cholecalciferol 1,000 UNITS (25 MCG) TAB PO SCH (15:20)
[2024-01-17] MEDS: Loratadine 10 MG TAB PO PRN (15:21)
[2024-01-17] MEDS: Heparin 5,000 UNITS/ML VIAL SC SCH ×2 (15:23→20:25)
[2024-01-17] MEDS: Amiodarone 200 MG TAB PO SCH (20:45)
[2024-01-17] MEDS: Rivaroxaban 10 MG TAB PO SCH (21:40)
[2024-01-18 05:48] LABS: ALT (SGPT) 16 U/L (8-55); AST (SGOT) 13 U/L (5-34); Albumin 3.2 g/dL (3.4-4.8); Alkaline Phosphatase 103 U/L (40-110); Anion Gap 18 mmol/L (10-20); BUN (Urea Nitrogen) 34 mg/dL (9.8-20.1); Bilirubin, Total 0.7 mg/dL (0.2-1.2); Calc. Creatinine Clearance 26 mL/min (70-130); Calcium 8.9 mg/dL (7.8-10.44); Carbon Dioxide 25 mmol/L (23-31); Chloride 97 mmol/L (98-107); Estimated GFR 10; Globulin 3.5 g/dL (2.4-3.5); Glucose 336 mg/dL (80-115); Potassium 4.6 mmol/L (3.5-5.1); Protein, Total 6.7 g/dL (5.8-8.1); Sodium 135 mmol/L (136-145)
[2024-01-18 06:31] LABS: #Eosinphils 0.1 thou/uL (0.0-0.7); #Monocytes 0.7 thou/uL (0.11-0.59); #Neutrophils 3.8 thou/uL (1.40-6.50); %Basophils 0.5 % (0.0-1.0); %Eosinophils 1.8 % (0.0-10.0); %Lymphocytes 16.1 % (21.0-51.0); %Monocytes 12.7 % (0.0-10.0); %Neutrophils 68.5 % (42.0-75.0); Hematocrit 37.2 % (36.0-47.0); Hemoglobin 11.4 g/dL (12.0-16.0); Mean Corpuscular HGB CONC 30.6 g/dL (32.0-36.0); Mean Corpuscular Hemoglobin 29.8 pg (27.0-31.0); Mean Corpuscular Volume 97.1 fl (78.0-98.0); Mean Platelet Volume 10.9 fL (7.4-10.4); Platelet Count 138 10x3/uL (130-400); RBC Distribution Width 15.8 % (11.5-14.5); Red Blood Cell (RBC) Count 3.83 mill/uL (4.20-5.40); White Blood Cell (WBC) Count 5.6 10x3/uL (4.8-10.8)
[2024-01-18] MEDS: Guaifenesin DM 100-10/5 ML UDCUP PO PRN (12:56)
[2024-01-18] MEDS: Rivaroxaban 10 MG TAB PO SCH (14:17)
[2024-01-18] MEDS: Apixaban 2.5 MG TAB PO SCH ×2 (15:12→21:08)
[2024-01-18] MEDS ORDERED: Rivaroxaban 10 MG TAB PO SCH (17:00)
[2024-01-18] MEDS: Ondansetron PF 4 MG/2 ML Vial IVP PRN (17:50)
[2024-01-19 05:58] LABS: #Eosinphils 0.1 thou/uL (0.0-0.7); #Monocytes 0.6 thou/uL (0.11-0.59); #Neutrophils 3.2 thou/uL (1.40-6.50); %Basophils 0.8 % (0.0-1.0); %Eosinophils 2.1 % (0.0-10.0); %Lymphocytes 24.1 % (21.0-51.0); %Monocytes 11.9 % (0.0-10.0); %Neutrophils 60.5 % (42.0-75.0); Hematocrit 38.7 % (36.0-47.0); Hemoglobin 11.8 g/dL (12.0-16.0); Mean Corpuscular HGB CONC 30.5 g/dL (32.0-36.0); Mean Corpuscular Hemoglobin 29.6 pg (27.0-31.0); Mean Platelet Volume 10.4 fL (7.4-10.4); Platelet Count 133 10x3/uL (130-400); RBC Distribution Width 15.7 % (11.5-14.5); Red Blood Cell (RBC) Count 3.99 mill/uL (4.20-5.40); White Blood Cell (WBC) Count 5.3 10x3/uL (4.8-10.8)
[2024-01-19 06:04] LABS: ALT (SGPT) 12 U/L (8-55); AST (SGOT) 13 U/L (5-34); Albumin 3.1 g/dL (3.4-4.8); Alkaline Phosphatase 89 U/L (40-110); Anion Gap 17 mmol/L (10-20); BUN (Urea Nitrogen) 37 mg/dL (9.8-20.1); Bilirubin, Total 0.7 mg/dL (0.2-1.2); Calc. Creatinine Clearance 22 mL/min (70-130); Calcium 9.1 mg/dL (7.8-10.44); Carbon Dioxide 23 mmol/L (23-31); Chloride 98 mmol/L (98-107); Estimated GFR 8; Globulin 3.6 g/dL (2.4-3.5); Glucose 80 mg/dL (80-115); Protein, Total 6.7 g/dL (5.8-8.1); Sodium 133 mmol/L (136-145)
[2024-01-19] MEDS ORDERED: Rivaroxaban 15 MG TAB PO SCH (09:00)
[2024-01-20 10:18] LABS: #Basophils 0.1 thou/uL (0.0-0.2); #Eosinphils 0.1 thou/uL (0.0-0.7); #Monocytes 0.5 thou/uL (0.11-0.59); #Neutrophils 5.1 thou/uL (1.40-6.50); %Basophils 0.7 % (0.0-1.0); %Eosinophils 1.6 % (0.0-10.0); %Lymphocytes 13.5 % (21.0-51.0); %Monocytes 7.8 % (0.0-10.0); %Neutrophils 76.1 % (42.0-75.0); Hematocrit 37.8 % (36.0-47.0); Hemoglobin 11.7 g/dL (12.0-16.0); Mean Corpuscular Hemoglobin 29.6 pg (27.0-31.0); Mean Corpuscular Volume 95.7 fl (78.0-98.0); Mean Platelet Volume 9.6 fL (7.4-10.4); Platelet Count 140 10x3/uL (130-400); RBC Distribution Width 15.2 % (11.5-14.5); Red Blood Cell (RBC) Count 3.95 mill/uL (4.20-5.40); White Blood Cell (WBC) Count 6.7 10x3/uL (4.8-10.8)
[2024-01-20 10:51] LABS: ALT (SGPT) 13 U/L (8-55); AST (SGOT) 12 U/L (5-34); Albumin 3.3 g/dL (3.4-4.8); Alkaline Phosphatase 81 U/L (40-110); Anion Gap 16 mmol/L (10-20); BUN (Urea Nitrogen) 25 mg/dL (9.8-20.1); Bilirubin, Total 0.7 mg/dL (0.2-1.2); Calc. Creatinine Clearance 30 mL/min (70-130); Calcium 8.8 mg/dL (7.8-10.44); Carbon Dioxide 25 mmol/L (23-31); Chloride 98 mmol/L (98-107); Estimated GFR 11; Globulin 3.5 g/dL (2.4-3.5); Glucose 89 mg/dL (80-115); Potassium 3.9 mmol/L (3.5-5.1); Protein, Total 6.8 g/dL (5.8-8.1); Sodium 135 mmol/L (136-145)
[2024-01-20] MEDS: Melatonin 3 MG TAB PO PRN (22:06)
[2024-01-21 04:26] LABS: #Eosinphils 0.1 thou/uL (0.0-0.7); #Monocytes 0.4 thou/uL (0.11-0.59); #Neutrophils 3.5 thou/uL (1.40-6.50); %Basophils 0.8 % (0.0-1.0); %Eosinophils 1.9 % (0.0-10.0); %Lymphocytes 16.7 % (21.0-51.0); %Monocytes 8.7 % (0.0-10.0); %Neutrophils 71.5 % (42.0-75.0); Hematocrit 39.2 % (36.0-47.0); Hemoglobin 11.7 g/dL (12.0-16.0); Mean Corpuscular HGB CONC 29.8 g/dL (32.0-36.0); Mean Corpuscular Hemoglobin 30.2 pg (27.0-31.0); Mean Platelet Volume 9.9 fL (7.4-10.4); Platelet Count 130 10x3/uL (130-400); RBC Distribution Width 15.6 % (11.5-14.5); Red Blood Cell (RBC) Count 3.87 mill/uL (4.20-5.40); White Blood Cell (WBC) Count 4.8 10x3/uL (4.8-10.8)
[2024-01-21 04:34] LABS: Mean Corpuscular Volume 101.3 fl (78.0-98.0)
[2024-01-21 04:59] LABS: Phosphorus 3.8 mg/dL (2.3-4.7)
[2024-01-21 05:04] LABS: ALT (SGPT) 11 U/L (8-55); AST (SGOT) 14 U/L (5-34); Albumin 3.3 g/dL (3.4-4.8); Alkaline Phosphatase 84 U/L (40-110); Anion Gap 16 mmol/L (10-20); BUN (Urea Nitrogen) 24 mg/dL (9.8-20.1); Bilirubin, Total 0.8 mg/dL (0.2-1.2); Calc. Creatinine Clearance 28 mL/min (70-130); Carbon Dioxide 25 mmol/L (23-31); Chloride 96 mmol/L (98-107); Estimated GFR 10; Globulin 3.6 g/dL (2.4-3.5); Glucose 61 mg/dL (80-115); Potassium 4.2 mmol/L (3.5-5.1); Protein, Total 6.9 g/dL (5.8-8.1); Sodium 133 mmol/L (136-145)
[2024-01-22 05:48] LABS: #Eosinphils 0.1 thou/uL (0.0-0.7); #Monocytes 0.5 thou/uL (0.11-0.59); #Neutrophils 3.9 thou/uL (1.40-6.50); %Basophils 0.6 % (0.0-1.0); %Eosinophils 2.3 % (0.0-10.0); %Lymphocytes 14.7 % (21.0-51.0); %Monocytes 9.1 % (0.0-10.0); %Neutrophils 72.9 % (42.0-75.0); Hematocrit 40.3 % (36.0-47.0); Hemoglobin 11.7 g/dL (12.0-16.0); Mean Corpuscular Volume 99.8 fl (78.0-98.0); Mean Platelet Volume 10.3 fL (7.4-10.4); Platelet Count 132 10x3/uL (130-400); RBC Distribution Width 15.3 % (11.5-14.5); Red Blood Cell (RBC) Count 4.04 mill/uL (4.20-5.40); White Blood Cell (WBC) Count 5.3 10x3/uL (4.8-10.8)
[2024-01-22 06:10] LABS: ALT (SGPT) 12 U/L (8-55); AST (SGOT) 14 U/L (5-34); Albumin 3.2 g/dL (3.4-4.8); Alkaline Phosphatase 102 U/L (40-110); Anion Gap 16 mmol/L (10-20); BUN (Urea Nitrogen) 31 mg/dL (9.8-20.1); Bilirubin, Total 0.7 mg/dL (0.2-1.2); Calc. Creatinine Clearance 22 mL/min (70-130); Carbon Dioxide 24 mmol/L (23-31); Chloride 97 mmol/L (98-107); Estimated GFR 8; Globulin 3.6 g/dL (2.4-3.5); Glucose 216 mg/dL (80-115); Potassium 5.5 mmol/L (3.5-5.1); Protein, Total 6.8 g/dL (5.8-8.1); Sodium 131 mmol/L (136-145)
[2024-01-22] MEDS ORDERED: PROPOFOL 200 MG/20 ML VIAL ONE (12:17)
[2024-01-22] MEDS: Midodrine HCl 5 MG TAB PO PRN (14:30)
[2024-01-23 08:27] LABS: #Eosinphils 0.1 thou/uL (0.0-0.7); #Monocytes 0.4 thou/uL (0.11-0.59); #Neutrophils 3.4 thou/uL (1.40-6.50); %Basophils 0.6 % (0.0-1.0); %Eosinophils 2.4 % (0.0-10.0); %Lymphocytes 20.6 % (21.0-51.0); %Monocytes 8.8 % (0.0-10.0); %Neutrophils 67.4 % (42.0-75.0); Hematocrit 41.3 % (36.0-47.0); Hemoglobin 12.3 g/dL (12.0-16.0); Mean Corpuscular HGB CONC 29.8 g/dL (32.0-36.0); Mean Corpuscular Hemoglobin 29.9 pg (27.0-31.0); Mean Corpuscular Volume 100.2 fl (78.0-98.0); Mean Platelet Volume 9.8 fL (7.4-10.4); Platelet Count 149 10x3/uL (130-400); RBC Distribution Width 15.2 % (11.5-14.5); Red Blood Cell (RBC) Count 4.12 mill/uL (4.20-5.40)
[2024-01-23 09:02] LABS: ALT (SGPT) 13 U/L (8-55); AST (SGOT) 18 U/L (5-34); Albumin 3.6 g/dL (3.4-4.8); Alkaline Phosphatase 96 U/L (40-110); Anion Gap 16 mmol/L (10-20); BUN (Urea Nitrogen) 18 mg/dL (9.8-20.1); Bilirubin, Total 0.8 mg/dL (0.2-1.2); Calc. Creatinine Clearance 30 mL/min (70-130); Calcium 9.1 mg/dL (7.8-10.44); Carbon Dioxide 24 mmol/L (23-31); Chloride 98 mmol/L (98-107); Estimated GFR 12; Glucose 125 mg/dL (80-115); Potassium 4.5 mmol/L (3.5-5.1); Protein, Total 7.6 g/dL (5.8-8.1); Sodium 133 mmol/L (136-145)
[2024-01-23 10:08] VITALS: BMI 46.6
[2024-01-23] MEDS ORDERED: Ipratropium Bromide 2.5 ml Neb NEB PRN (15:10)
[2024-01-24 05:23] LABS: #Eosinphils 0.1 thou/uL (0.0-0.7); #Monocytes 0.4 thou/uL (0.11-0.59); #Neutrophils 3.1 thou/uL (1.40-6.50); %Basophils 0.8 % (0.0-1.0); %Eosinophils 2.7 % (0.0-10.0); %Lymphocytes 23.2 % (21.0-51.0); %Neutrophils 63.9 % (42.0-75.0); Hemoglobin 11.7 g/dL (12.0-16.0); Mean Corpuscular Hemoglobin 29.7 pg (27.0-31.0); Mean Platelet Volume 10.3 fL (7.4-10.4); Platelet Count 147 10x3/uL (130-400); RBC Distribution Width 15.4 % (11.5-14.5); Red Blood Cell (RBC) Count 3.94 mill/uL (4.20-5.40); White Blood Cell (WBC) Count 4.8 10x3/uL (4.8-10.8)
[2024-01-24 05:28] LABS: Anion Gap 17 mmol/L (10-20); BUN (Urea Nitrogen) 25 mg/dL (9.8-20.1); Calc. Creatinine Clearance 24 mL/min (70-130); Calcium 9.1 mg/dL (7.8-10.44); Carbon Dioxide 24 mmol/L (23-31); Chloride 99 mmol/L (98-107); Estimated GFR 9; Glucose 148 mg/dL (80-115); Potassium 4.6 mmol/L (3.5-5.1); Sodium 135 mmol/L (136-145)
[2024-01-24] MEDS ORDERED: Heparin 10,000 UNITS/ 10 ML VIAL ONE (11:07)
[2024-01-25 08:06] VITALS: BP 131/61; TEMP 97.9
== END 2024-01-25 10:00 | disposition home or self-care (01) | DRG 640 ==
LOC: ERS 15:38 → INTOOBSV 01-15 00:12 → 2NO 01-15 00:12 → OBSVTOIN 01-16 15:58
PROVIDERS: ADMIT Internal Medicine; ATTEND Internal Medicine
PROC: 5A1D80Z Performance of Urinary Filtration, Prolonged Intermittent, 6-18 hours Per Day (ICD-10-PCS; principal; 2024-01-14)
DX: E87.5 Hyperkalemia (principal); N18.6 End stage renal disease; I48.19 Other persistent atrial fibrillation; I12.0 Hypertensive chronic kidney disease with stage 5 chronic kidney disease or end stage renal disease; N39.0 Urinary tract infection, site not specified; E78.5 Hyperlipidemia, unspecified; I25.10 Atherosclerotic heart disease of native coronary artery without angina pectoris; E11.22 Type 2 diabetes mellitus with diabetic chronic kidney disease; G47.33 Obstructive sleep apnea (adult) (pediatric); F17.210 Nicotine dependence, cigarettes, uncomplicated; K59.00 Constipation, unspecified; E66.01 Morbid (severe) obesity due to excess calories; Z99.2 Dependence on renal dialysis; Z79.4 Long term (current) use of insulin; Z79.02 Long term (current) use of antithrombotics/antiplatelets; Z79.899 Other long term (current) drug therapy; Z95.1 Presence of aortocoronary bypass graft; Z95.9 Presence of cardiac and vascular implant and graft, unspecified; Z90.710 Acquired absence of both cervix and uterus
CPT/HCPCS: 0439T; 36415; 36416; 36569; 51701; 70450; 80048; 80053; 81001; 82805; 83605; 83970; 84100; 84484; 85025; 86704; 87040; 87086; 90935; 92960; 93005; 93010; 93306; 93312; 93923; 94640; 96365; 96367; 96375; 96376; C1751; G0257; G0378; J0282; J0692; J0696; J1160; J1644; J1815; J2250; J2405; J2704; J3490; J7050; J7070; Q0177

== ENCOUNTER 2024-09-14 14:17 | Observation (INO) | payer OTHER, MEDICAID ==
[2024-09-14 16:10] LABS: #Basophils 0.05 10x3/uL (0.0-0.2); %Basophils 0.9 % (0.0-1.0); %Eosinophils 1.4 % (0.0-10.0); %Lymphocytes 14.6 % (21.0-51.0); %Monocytes 7.6 % (0.0-10.0); Hematocrit 41.1 % (36.0-47.0); Hemoglobin 13.9 g/dL (12.0-16.0); Mean Corpuscular HGB CONC 33.8 g/dL (32.0-36.0); Mean Corpuscular Hemoglobin 31.2 pg (27.0-31.0); Mean Corpuscular Volume 92.2 fL (78.0-98.0); Mean Platelet Volume 11.2 fL (7.4-10.4); Platelet Count 133 10x3/uL (130-400); RBC Distribution Width 15.6 % (11.5-14.5); Red Blood Cell (RBC) Count 4.46 mill/uL (4.20-5.40)
[2024-09-14 16:17] LABS: ALT (SGPT) 15 U/L (8-55); AST (SGOT) 13 U/L (5-34); Albumin 2.8 g/dL (3.4-4.8); Alkaline Phosphatase 103 U/L (40-110); Anion Gap 19 mmol/L (10-20); BUN (Urea Nitrogen) 53 mg/dL (9.8-20.1); Bilirubin, Total 1.3 mg/dL (0.2-1.2); Calc. Creatinine Clearance 0 mL/min (70-130); Calcium 8.6 mg/dL (7.8-10.44); Carbon Dioxide 22 mmol/L (23-31); Chloride 95 mmol/L (98-107); Estimated GFR 5; Globulin 4.1 g/dL (2.4-3.5); Glucose 251 mg/dL (80-115); Potassium 4.6 mmol/L (3.5-5.1); Protein, Total 6.9 g/dL (5.8-8.1); Sodium 131 mmol/L (136-145)
[2024-09-14 16:34] LABS: Troponin I 0.031 ng/mL (< 0.028)
[2024-09-14] MEDS ORDERED: Melatonin 3 MG TAB PO PRN (19:54)
[2024-09-14] MEDS ORDERED: Acetaminophen 325 MG TAB PO PRN (19:54)
[2024-09-14] MEDS ORDERED: Methocarbamol 500 MG TAB PO PRN (19:54)
[2024-09-14] MEDS ORDERED: Loratadine 10 MG TAB PO PRN (19:54)
[2024-09-14] MEDS ORDERED: Ipratropium Bromide 2.5 ml Neb NEB PRN (19:54)
[2024-09-14] MEDS ORDERED: Midodrine HCl 5 MG TAB PO PRN (19:54)
[2024-09-14 20:00] LABS: Troponin I 0.029 ng/mL (< 0.028)
[2024-09-14 22:23] LABS: HBSAB Concentration Less than 8.00 mIU/mL; HBsAg Index 0.34 S/CO (0-0.99); Hep B Core Total Ab NONREACTIVE (NonReactive); Hep B Core Total Index 0.14 S/CO (0-0.79); Hep B Surf AB NONREACTIVE (NonReactive); Hep B Surf Ag NONREACTIVE S/CO (NonReactive); Hep C IgG Ab NONREACTIVE S/CO (NonReactive); Hep C Index 0.12 S/CO (0-0.79)
[2024-09-15] MEDS ORDERED: HYDROcodone/Acetaminophen 5/325 mg Tablet ONE ×2 (01:01→11:12)
[2024-09-15] MEDS ORDERED: Gabapentin 300 MG CAP ONE ×2 (01:02→10:10)
[2024-09-15] MEDS ORDERED: Apixaban 5 MG TAB ONE ×2 (01:02→10:10)
[2024-09-15] MEDS ORDERED: Atorvastatin Calcium 40 MG TAB ONE (01:02)
[2024-09-15] MEDS ORDERED: hydrOXYzine Pamoate 25 mg Capsule ONE ×2 (01:03→10:09)
[2024-09-15] MEDS: Atorvastatin Calcium 40 MG TAB PO SCH (01:08)
[2024-09-15] MEDS: Apixaban 2.5 MG TAB PO SCH (01:08)
[2024-09-15] MEDS ORDERED: Insulin Lispro 100 UNIT/ML 10 ML VIAL SC PRN (01:08)
[2024-09-15] MEDS: Gabapentin 300 MG CAP PO SCH (01:09)
[2024-09-15] MEDS: HYDROcodone/Acetaminophen 5/325 mg Tablet PO SCH (01:09)
[2024-09-15] MEDS: hydrOXYzine Pamoate 25 mg Capsule PO SCH (01:10)
[2024-09-15 01:27] LABS: Troponin I 0.036 ng/mL (< 0.028)
[2024-09-15] MEDS: Insulin Glargine 30 UNITS/0.3 ML VIAL SC SCH ×2 (01:30→12:51)
[2024-09-15 05:14] VITALS: BMI 49.8
[2024-09-15 07:21] LABS: Anion Gap 16 mmol/L (10-20); BUN (Urea Nitrogen) 31 mg/dL (9.8-20.1); Calc. Creatinine Clearance 20 mL/min (70-130); Carbon Dioxide 23 mmol/L (23-31); Chloride 99 mmol/L (98-107); Estimated GFR 7; Glucose 223 mg/dL (80-115); Potassium 4.4 mmol/L (3.5-5.1); Sodium 134 mmol/L (136-145)
[2024-09-15 08:05] VITALS: TEMP 97.5
[2024-09-15] MEDS ORDERED: Aspirin 81 mg Enteric Coated Tablet ONE (10:09)
[2024-09-15] MEDS ORDERED: Clopidogrel Bisulfate 75 MG TAB ONE (10:09)
[2024-09-15] MEDS ORDERED: Thiamine 100 MG TAB ONE (10:10)
[2024-09-15] MEDS ORDERED: Pantoprazole DR 40 MG TAB ONE (10:10)
[2024-09-15] MEDS: HYDROcodone/Acetaminophen 5/325 mg Tablet PO PRN (11:14)
[2024-09-15] MEDS: Aspirin 81 mg Enteric Coated Tablet PO SCH (11:15)
[2024-09-15] MEDS: Isosorbide Mononitrate 30 MG ER.TAB PO SCH (11:15)
[2024-09-15] MEDS: Thiamine 100 MG TAB PO SCH (11:16)
[2024-09-15] MEDS: Clopidogrel Bisulfate 75 MG TAB PO SCH (11:16)
[2024-09-15] MEDS: Pantoprazole DR 40 MG TAB PO SCH (11:16)
[2024-09-15] MEDS: Senokot S 8.6-50 MG TAB PO SCH (11:17)
[2024-09-15] MEDS ORDERED: Insulin Lispro 100 UNIT/ML 10 ML VIAL ONE (13:52)
[2024-09-15] MEDS ORDERED: FLU (Fluad Triv) TS24-25 (65UP)/MF59C/PF 45 MCG/0.5 ML Syringe IM ONE (14:00)
[2024-09-15] MEDS: Insulin Lispro 100 UNIT/ML 10 ML VIAL SC PRN (14:01)
[2024-09-15 14:47] VITALS: BP 94/66
[2024-09-15] MEDS: Vortioxetine Hydrobromide [Trintellix] 20 MG Tablet PO SCH (15:33)
[2024-09-15] MEDS: Sucroferric Oxyhydroxide [Velphoro] 500 MG Tab.Chew PO SCH (15:33)
[2024-09-18] MEDS ORDERED: Cholecalciferol 1,000 UNITS (25 MCG) TAB PO SCH (09:00)
== END 2024-09-15 14:45 | disposition home or self-care (01) ==
LOC: ERS 14:17 → ERHOLD 18:38
PROVIDERS: ADMIT Hospitalist; ATTEND Hospitalist
DX: I13.2 Hypertensive heart and chronic kidney disease with heart failure and with stage 5 chronic kidney disease, or end stage renal disease (principal); I50.30 Unspecified diastolic (congestive) heart failure; N18.6 End stage renal disease; E11.22 Type 2 diabetes mellitus with diabetic chronic kidney disease; D63.1 Anemia in chronic kidney disease; I25.10 Atherosclerotic heart disease of native coronary artery without angina pectoris; F12.90 Cannabis use, unspecified, uncomplicated; E83.59 Other disorders of calcium metabolism; I48.91 Unspecified atrial fibrillation; E66.9 Obesity, unspecified; Z90.710 Acquired absence of both cervix and uterus; Z98.890 Other specified postprocedural states; R79.89 Other specified abnormal findings of blood chemistry
CPT/HCPCS: 80048; 80053; 82962 ×2; 83036; 83605; 83880; 84484 ×3; 85025; 86704; 86706; 86803; 87040; 87340; 93005; G0378 ×2; J1815; 36415; 36416; 99285; Q0177

== ENCOUNTER 2024-10-10 13:05 | Emergency (ER) | payer OTHER ==
[2024-10-10] MEDS ORDERED: HYDROcodone/Acetaminophen 5/325 mg Tablet ONE (14:40)
== END 2024-10-10 15:25 | disposition home or self-care (01) ==
LOC: ERS 13:05
DX: T21.22XA Burn of second degree of abdominal wall, initial encounter (principal); T21.31XA Burn of third degree of chest wall, initial encounter; T31.0 Burns involving less than 10% of body surface; F17.210 Nicotine dependence, cigarettes, uncomplicated; I25.10 Atherosclerotic heart disease of native coronary artery without angina pectoris; I13.0 Hypertensive heart and chronic kidney disease with heart failure and stage 1 through stage 4 chronic kidney disease, or unspecified chronic kidney disease; E11.22 Type 2 diabetes mellitus with diabetic chronic kidney disease; N18.4 Chronic kidney disease, stage 4 (severe); I50.9 Heart failure, unspecified; Z79.4 Long term (current) use of insulin; Z79.899 Other long term (current) drug therapy; X10.2XXA Contact with fats and cooking oils, initial encounter
CPT/HCPCS: 16020

== ENCOUNTER 2024-10-11 00:18 | Inpatient (IN) | payer OTHER, MEDICAID ==
[2024-10-11] MEDS ORDERED: dilTIAZem 125 MG/25 ML SDV ONE (00:36)
[2024-10-11 00:45] LABS: #Basophils 0.06 10x3/uL (0.0-0.2); #Eosinophils Less than 0.03 10x3/uL (0.0-0.7); %Basophils 0.5 % (0.0-1.0); %Eosinophils 0.1 % (0.0-10.0); %Lymphocytes 3.4 % (21.0-51.0); %Monocytes 7.7 % (0.0-10.0); %Neutrophils 87.9 % (42.0-75.0); Hematocrit 45.6 % (36.0-47.0); Hemoglobin 14.5 g/dL (12.0-16.0); Mean Corpuscular HGB CONC 31.8 g/dL (32.0-36.0); Mean Corpuscular Hemoglobin 31.3 pg (27.0-31.0); Mean Corpuscular Volume 98.5 fL (78.0-98.0); Mean Platelet Volume 9.8 fL (7.4-10.4); Platelet Count 136 10x3/uL (130-400); RBC Distribution Width 16.8 % (11.5-14.5); Red Blood Cell (RBC) Count 4.63 mill/uL (4.20-5.40)
[2024-10-11 01:07] LABS: ALT (SGPT) 13 U/L (8-55); AST (SGOT) 17 U/L (5-34); Albumin 3.1 g/dL (3.4-4.8); Alkaline Phosphatase 120 U/L (40-110); Anion Gap 23 mmol/L (10-20); BUN (Urea Nitrogen) 20 mg/dL (9.8-20.1); Bilirubin, Total 2.4 mg/dL (0.2-1.2); Calc. Creatinine Clearance 0 mL/min (70-130); Calcium 8.9 mg/dL (7.8-10.44); Carbon Dioxide 22 mmol/L (23-31); Chloride 94 mmol/L (98-107); Estimated GFR 9; Globulin 4.8 g/dL (2.4-3.5); Glucose 179 mg/dL (80-115); Potassium 4.3 mmol/L (3.5-5.1); Protein, Total 7.9 g/dL (5.8-8.1); Sodium 135 mmol/L (136-145)
[2024-10-11] MEDS ORDERED: Cefepime 2 GM VIAL ONE (01:12)
[2024-10-11] MEDS ORDERED: Sodium Chloride 0.9% 100 ML ONE (01:13)
[2024-10-11] MEDS ORDERED: Vancomycin 1 GM/200 ML (FROZEN) BAG ONE (02:15)
[2024-10-11] MEDS ORDERED: Acetaminophen 325 MG TAB PO PRN (02:17)
[2024-10-11] MEDS ORDERED: Senokot S 8.6-50 MG TAB PO PRN (02:17)
[2024-10-11] MEDS ORDERED: Ondansetron PF 4 MG/2 ML Vial IVP PRN (02:17)
[2024-10-11] MEDS ORDERED: Calcium Carbonate 500 MG ChewTAB PO PRN (02:17)
[2024-10-11] MEDS ORDERED: dilTIAZem 125 MG, Admixture Fee 1 EACH in Sodium Chloride 0.9% 100 ML IVPB SCH (02:30)
[2024-10-11] MEDS ORDERED: fentaNYL 50 mcg/mL 1 mL Vial ONE (02:34)
[2024-10-11] MEDS ORDERED: Albuterol 2.5 MG (3 mL) NEB NEB PRN (03:11)
[2024-10-11 04:22] VITALS: BMI 43.7
[2024-10-11] MEDS ORDERED: Vancomycin Dialysis Sliding Scale (Wt > 99) FS SCH (04:30)
[2024-10-11] MEDS ORDERED: Dextrose 50% Abboject 50 ML SYRINGE SLOW IVP PRN (04:40)
[2024-10-11] MEDS ORDERED: Dextrose 5% in Water 1,000 ML IV PRN (04:40)
[2024-10-11] MEDS ORDERED: Glucagon 1 MG/ML KIT IM PRN (04:40)
[2024-10-11 05:08] LABS: Magnesium 2.1 mg/dL (1.6-2.6)
[2024-10-11 05:24] LABS: Lactic Acid 2.06 mmol/L (0.5-2.2)
[2024-10-11] MEDS: Digoxin 0.5 MG/2 ML AMP SLOW IVP SCH (05:24)
[2024-10-11] MEDS: Vancomycin 1 GM in Premix 1 BAG IVPB SCH (05:26)
[2024-10-11 05:28] LABS: Digoxin Less than 0.19 ng/mL (0.8-2.0)
[2024-10-11 05:51] LABS: Troponin I 0.802 ng/mL (< 0.028)
[2024-10-11] MEDS: Insulin Lispro 100 UNIT/ML 10 ML VIAL SC PRN (07:26)
[2024-10-11 08:08] LABS: Hematocrit 40.6 % (36.0-47.0); Hemoglobin 13.4 g/dL (12.0-16.0); Mean Corpuscular Hemoglobin 31.5 pg (27.0-31.0); Mean Corpuscular Volume 95.3 fL (78.0-98.0); RBC Distribution Width 16.7 % (11.5-14.5); Red Blood Cell (RBC) Count 4.26 mill/uL (4.20-5.40)
[2024-10-11 08:14] LABS: #Basophils 0.03 10x3/uL (0.0-0.2); #Eosinophils Less than 0.03 10x3/uL (0.0-0.7); %Basophils 0.3 % (0.0-1.0); %Lymphocytes 5.1 % (21.0-51.0); %Monocytes 8.2 % (0.0-10.0); %Neutrophils 85.7 % (42.0-75.0)
[2024-10-11] MEDS ORDERED: Albumin 25% 25 GM (100 mL) BOT IVPB SCH (08:45)
[2024-10-11] MEDS: Methocarbamol 500 MG TAB PO PRN (08:52)
[2024-10-11] MEDS: Apixaban 2.5 MG TAB PO SCH (08:53)
[2024-10-11] MEDS: Gabapentin 300 MG CAP PO SCH (08:53)
[2024-10-11] MEDS: Clopidogrel Bisulfate 75 MG TAB PO SCH (08:53)
[2024-10-11] MEDS: Nicotine 14 MG PATCH TD SCH (08:54)
[2024-10-11 09:04] LABS: Chloride 95 mmol/L (98-107); Potassium 4.3 mmol/L (3.5-5.1); Sodium 132 mmol/L (136-145)
[2024-10-11 09:05] LABS: Albumin 2.8 g/dL (3.4-4.8); Calcium 8.6 mg/dL (7.8-10.44); Glucose 149 mg/dL (80-115)
[2024-10-11 09:06] LABS: Globulin 4.6 g/dL (2.4-3.5); Protein, Total 7.4 g/dL (5.8-8.1)
[2024-10-11 09:07] LABS: Anion Gap 17 mmol/L (10-20); Carbon Dioxide 24 mmol/L (23-31)
[2024-10-11 09:08] LABS: Alkaline Phosphatase 98 U/L (40-110); Bilirubin, Total 2.2 mg/dL (0.2-1.2)
[2024-10-11 09:09] LABS: Calc. Creatinine Clearance 22 mL/min (70-130); Estimated GFR 9
[2024-10-11 09:10] LABS: BUN (Urea Nitrogen) 22 mg/dL (9.8-20.1)
[2024-10-11 09:11] LABS: ALT (SGPT) 14 U/L (8-55); AST (SGOT) 23 U/L (5-34)
[2024-10-11 09:28] LABS: Anisocytosis SLIGHT = 6-15 cells HPF (0-5); Burr Cells SLIGHT = 2-5 cells HPF (0-1); Macrocytosis MODERATE=16-30 cells HPF (0-5); Platelet Adequacy Comment Platelets Decreased; Poikilocytosis SLIGHT = 6-15 cells HPF (0-5); Polychromasia SLIGHT = 2-3 cells HPF (0-2)
[2024-10-11 09:30] LABS: Mean Platelet Volume 10.9 fL (7.4-10.4); Platelet Count 105 10x3/uL (130-400)
[2024-10-11] MEDS: HYDROcodone/Acetaminophen 7.5/325 mg Tablet PO PRN (11:33)
[2024-10-11] MEDS: Midodrine HCl 5 MG TAB PO PRN (14:13)
[2024-10-11] MEDS: Amoxicillin/Potassium Clav 500 MG TAB PO SCH (18:35)
[2024-10-11] MEDS: Atorvastatin Calcium 40 MG TAB PO SCH (21:24)
[2024-10-11] MEDS: Insulin Glargine 30 UNITS/0.3 ML VIAL SC SCH (21:26)
[2024-10-12 04:47] LABS: #Basophils 0.04 10x3/uL (0.0-0.2); %Basophils 0.6 % (0.0-1.0); %Eosinophils 1.2 % (0.0-10.0); %Lymphocytes 6.9 % (21.0-51.0); %Monocytes 7.2 % (0.0-10.0); %Neutrophils 83.8 % (42.0-75.0); Hematocrit 38.9 % (36.0-47.0); Hemoglobin 12.5 g/dL (12.0-16.0); Mean Corpuscular HGB CONC 32.1 g/dL (32.0-36.0); Mean Corpuscular Hemoglobin 31.4 pg (27.0-31.0); Mean Corpuscular Volume 97.7 fL (78.0-98.0); Mean Platelet Volume 10.6 fL (7.4-10.4); Platelet Count 123 10x3/uL (130-400); RBC Distribution Width 16.7 % (11.5-14.5); Red Blood Cell (RBC) Count 3.98 mill/uL (4.20-5.40)
[2024-10-12 05:01] LABS: Anion Gap 16 mmol/L (10-20); BUN (Urea Nitrogen) 21 mg/dL (9.8-20.1); Calc. Creatinine Clearance 24 mL/min (70-130); Calcium 8.3 mg/dL (7.8-10.44); Carbon Dioxide 25 mmol/L (23-31); Chloride 96 mmol/L (98-107); Estimated GFR 10; Glucose 167 mg/dL (80-115); Potassium 3.7 mmol/L (3.5-5.1); Sodium 133 mmol/L (136-145)
[2024-10-12] MEDS ORDERED: UNASYN IVPB PRN (12:06)
[2024-10-12] MEDS ORDERED: Ampicillin/Sulbactam 3 GM in Sodium Chloride 0.9% 100 ML IVPB SCH (14:00)
[2024-10-12] MEDS: Dronedarone HCl 400 MG TAB PO SCH (16:57)
[2024-10-12] MEDS: Ampicillin/Sulbactam 3 GM in Sodium Chloride 0.9% 100 ML IVPB SCH (17:09)
[2024-10-12] MEDS: hydrOXYzine 25 MG TAB PO PRN (20:52)
[2024-10-13 04:17] LABS: #Basophils 0.05 10x3/uL (0.0-0.2); %Basophils 0.9 % (0.0-1.0); %Eosinophils 1.2 % (0.0-10.0); %Lymphocytes 11.5 % (21.0-51.0); %Monocytes 11.7 % (0.0-10.0); %Neutrophils 74.3 % (42.0-75.0); Hematocrit 41.7 % (36.0-47.0); Hemoglobin 13.3 g/dL (12.0-16.0); Mean Corpuscular HGB CONC 31.9 g/dL (32.0-36.0); Mean Corpuscular Hemoglobin 31.4 pg (27.0-31.0); Mean Corpuscular Volume 98.3 fL (78.0-98.0); Mean Platelet Volume 10.8 fL (7.4-10.4); Platelet Count 125 10x3/uL (130-400); RBC Distribution Width 16.9 % (11.5-14.5); Red Blood Cell (RBC) Count 4.24 mill/uL (4.20-5.40)
[2024-10-13 04:22] LABS: Anion Gap 14 mmol/L (10-20); BUN (Urea Nitrogen) 14 mg/dL (9.8-20.1); Calc. Creatinine Clearance 34 mL/min (70-130); Calcium 8.8 mg/dL (7.8-10.44); Carbon Dioxide 25 mmol/L (23-31); Chloride 99 mmol/L (98-107); Estimated GFR 15; Glucose 144 mg/dL (80-115); Potassium 3.9 mmol/L (3.5-5.1); Sodium 134 mmol/L (136-145)
[2024-10-13 08:54] LABS: HBsAg Index 0.32 S/CO (0-0.99); Hep B Core Total Ab NONREACTIVE (NonReactive); Hep B Core Total Index 0.14 S/CO (0-0.79); Hep B Surf Ag NONREACTIVE S/CO (NonReactive)
[2024-10-13 08:55] LABS: HBSAB Concentration Less than 8.00 mIU/mL; Hep B Surf AB NONREACTIVE (NonReactive); Hep C IgG Ab NONREACTIVE S/CO (NonReactive); Hep C Index 0.14 S/CO (0-0.79)
[2024-10-13] MEDS: diphenhydrAMINE 50 MG/ML VIAL IVP SCH (15:05)
[2024-10-15 04:51] LABS: Anion Gap 16 mmol/L (10-20); BUN (Urea Nitrogen) 16 mg/dL (9.8-20.1); Calc. Creatinine Clearance 34 mL/min (70-130); Calcium 8.9 mg/dL (7.8-10.44); Carbon Dioxide 25 mmol/L (23-31); Chloride 96 mmol/L (98-107); Estimated GFR 15; Glucose 185 mg/dL (80-115); Potassium 4.2 mmol/L (3.5-5.1); Sodium 133 mmol/L (136-145)
[2024-10-15] MEDS ORDERED: PROPOFOL 40 ML ONE (08:48)
[2024-10-15] MEDS ORDERED: Midazolam HCl 2 mg/2 ml Vial ONE (09:03)
[2024-10-15] MEDS ORDERED: Ketamine In 0.9 % NaCl 50 MG/5 ML SYRINGE ONE (09:03)
[2024-10-16 04:30] LABS: Magnesium 2.3 mg/dL (1.6-2.6)
[2024-10-16] MEDS: Gabapentin 100 MG CAP PO SCH (15:15)
[2024-10-16 15:19] VITALS: BMI 44.0
[2024-10-17] MEDS: diphenhydrAMINE 50 MG/ML VIAL IVP SCH (10:25)
[2024-10-17] MEDS: Doxycycline 100 MG CAP PO SCH (10:25)
[2024-10-17] MEDS: diphenhydrAMINE 50 MG/ML VIAL IVP PRN (10:26)
[2024-10-17] MEDS: Temazepam 15 MG CAP PO SCH (21:04)
[2024-10-17] MEDS: Insulin Lispro 100 UNIT/ML 10 ML VIAL SC PRN (21:04)
[2024-10-18 04:23] LABS: #Basophils 0.04 10x3/uL (0.0-0.2); %Basophils 0.8 % (0.0-1.0); %Eosinophils 2.5 % (0.0-10.0); %Lymphocytes 17.4 % (21.0-51.0); %Monocytes 10.4 % (0.0-10.0); %Neutrophils 68.1 % (42.0-75.0); Hematocrit 41.1 % (36.0-47.0); Hemoglobin 13.5 g/dL (12.0-16.0); Mean Corpuscular HGB CONC 32.8 g/dL (32.0-36.0); Mean Corpuscular Hemoglobin 31.8 pg (27.0-31.0); Mean Corpuscular Volume 96.7 fL (78.0-98.0); Mean Platelet Volume 10.5 fL (7.4-10.4); Platelet Count 166 10x3/uL (130-400); RBC Distribution Width 16.5 % (11.5-14.5); Red Blood Cell (RBC) Count 4.25 mill/uL (4.20-5.40)
[2024-10-18 04:51] LABS: Anion Gap 16 mmol/L (10-20); BUN (Urea Nitrogen) 18 mg/dL (9.8-20.1); Calc. Creatinine Clearance 31 mL/min (70-130); Carbon Dioxide 22 mmol/L (23-31); Chloride 94 mmol/L (98-107); Estimated GFR 13; Glucose 186 mg/dL (80-115); Sodium 127 mmol/L (136-145)
[2024-10-18] MEDS: diphenhydrAMINE 50 MG/ML VIAL IVP PRN (23:10)
[2024-10-19 04:38] LABS: #Basophils 0.05 10x3/uL (0.0-0.2); %Basophils 1.1 % (0.0-1.0); %Eosinophils 2.3 % (0.0-10.0); %Monocytes 10.8 % (0.0-10.0); %Neutrophils 66.3 % (42.0-75.0); Hematocrit 42.3 % (36.0-47.0); Hemoglobin 13.9 g/dL (12.0-16.0); Mean Corpuscular HGB CONC 32.9 g/dL (32.0-36.0); Mean Corpuscular Volume 94.4 fL (78.0-98.0); Mean Platelet Volume 10.3 fL (7.4-10.4); Platelet Count 188 10x3/uL (130-400); RBC Distribution Width 16.1 % (11.5-14.5); Red Blood Cell (RBC) Count 4.48 mill/uL (4.20-5.40)
[2024-10-19 05:04] LABS: Anion Gap 18 mmol/L (10-20); BUN (Urea Nitrogen) 26 mg/dL (9.8-20.1); Calc. Creatinine Clearance 24 mL/min (70-130); Calcium 8.8 mg/dL (7.8-10.44); Carbon Dioxide 21 mmol/L (23-31); Chloride 92 mmol/L (98-107); Estimated GFR 10; Glucose 190 mg/dL (80-115); Potassium 4.8 mmol/L (3.5-5.1); Sodium 126 mmol/L (136-145)
[2024-10-19] MEDS ORDERED: Albumin 25% 25 GM (100 mL) BOT IVPB PRN (08:44)
[2024-10-19] MEDS ORDERED: Heparin 10,000 UNITS/ 10 ML VIAL ONE (14:32)
[2024-10-20] MEDS ORDERED: Hydrocortisone 1% Cream 30 GM TUBE TOP PRN (09:25)
[2024-10-21 08:42] LABS: #Basophils 0.06 10x3/uL (0.0-0.2); %Basophils 1.2 % (0.0-1.0); %Eosinophils 2.5 % (0.0-10.0); %Lymphocytes 19.3 % (21.0-51.0); %Monocytes 10.5 % (0.0-10.0); %Neutrophils 65.7 % (42.0-75.0); Hematocrit 42.7 % (36.0-47.0); Mean Corpuscular HGB CONC 32.8 g/dL (32.0-36.0); Mean Corpuscular Hemoglobin 31.4 pg (27.0-31.0); Mean Corpuscular Volume 95.7 fL (78.0-98.0); Mean Platelet Volume 9.8 fL (7.4-10.4); Platelet Count 182 10x3/uL (130-400); RBC Distribution Width 15.9 % (11.5-14.5); Red Blood Cell (RBC) Count 4.46 mill/uL (4.20-5.40)
[2024-10-21 08:54] LABS: Anion Gap 16 mmol/L (10-20); BUN (Urea Nitrogen) 29 mg/dL (9.8-20.1); Calc. Creatinine Clearance 26 mL/min (70-130); Calcium 8.7 mg/dL (7.8-10.44); Carbon Dioxide 20 mmol/L (23-31); Chloride 95 mmol/L (98-107); Estimated GFR 11; Glucose 146 mg/dL (80-115); Potassium 4.7 mmol/L (3.5-5.1); Sodium 126 mmol/L (136-145)
[2024-10-21] MEDS ORDERED: Heparin 10,000 UNITS/ 10 ML VIAL ONE (14:39)
[2024-10-21] MEDS: HYDROcodone/Acetaminophen 7.5/325 mg Tablet PO PRN (15:09)
[2024-10-21 16:15] VITALS: BP 147/75; TEMP 97.8
== END 2024-10-21 16:56 | DRG 308 ==
LOC: SUATTDRO 00:18 → ERS 00:18 → PCU 03:10
PROVIDERS: ADMIT Internal Medicine; ATTEND Family Medicine
PROC: 5A1D70Z Performance of Urinary Filtration, Intermittent, Less than 6 Hours Per Day (ICD-10-PCS; principal; 2024-10-11)
PROC: B24BZZ4 Ultrasonography of Heart with Aorta, Transesophageal (ICD-10-PCS; 2024-10-15)
PROC: 5A2204Z Restoration of Cardiac Rhythm, Single (ICD-10-PCS; 2024-10-15)
PROC: 30233J1 Transfusion of Nonautologous Serum Albumin into Peripheral Vein, Percutaneous Approach (ICD-10-PCS; 2024-10-19)
DX: I48.91 Unspecified atrial fibrillation (principal); N18.6 End stage renal disease; I12.0 Hypertensive chronic kidney disease with stage 5 chronic kidney disease or end stage renal disease; Z68.41 Body mass index [BMI] 40.0-44.9, adult; E87.1 Hypo-osmolality and hyponatremia; I13.2 Hypertensive heart and chronic kidney disease with heart failure and with stage 5 chronic kidney disease, or end stage renal disease; E87.20 Acidosis, unspecified; L03.311 Cellulitis of abdominal wall; E66.01 Morbid (severe) obesity due to excess calories; G47.33 Obstructive sleep apnea (adult) (pediatric); J44.9 Chronic obstructive pulmonary disease, unspecified; E78.5 Hyperlipidemia, unspecified; E11.22 Type 2 diabetes mellitus with diabetic chronic kidney disease; I25.10 Atherosclerotic heart disease of native coronary artery without angina pectoris; I50.9 Heart failure, unspecified; D63.1 Anemia in chronic kidney disease; F31.9 Bipolar disorder, unspecified; F17.210 Nicotine dependence, cigarettes, uncomplicated; I25.5 Ischemic cardiomyopathy; T21.02XA Burn of unspecified degree of abdominal wall, initial encounter; T21.01XA Burn of unspecified degree of chest wall, initial encounter; X98.2XXA Assault by hot fluids, initial encounter; Z95.1 Presence of aortocoronary bypass graft; Z88.5 Allergy status to narcotic agent; Z79.01 Long term (current) use of anticoagulants; Z79.02 Long term (current) use of antithrombotics/antiplatelets; Z79.4 Long term (current) use of insulin; Z79.899 Other long term (current) drug therapy
CPT/HCPCS: 16020; 36415; 36416; 71045; 80048; 80053; 80162; 83605; 83735; 83880; 84484; 85025; 86704; 86706; 86803; 87040; 87149; 87340; 90935; 92960; 93005; 93010; 93312; 96374; 96375; 97139; G0257; J0295; J0692; J1160; J1200; J1644; J1815; J2250; J2704; J3010; J3370; J3490; P9047

== ENCOUNTER 2025-06-26 20:51 | Inpatient (IN) | payer OTHER, MEDICAID ==
[2025-06-26] MEDS ORDERED: Famotidine/PF 20 mg/2ml Vial ONE (21:29)
[2025-06-26] MEDS ORDERED: Lidocaine Viscous Sol 2% 15 ml UD Cup ONE (21:30)
[2025-06-26] MEDS ORDERED: Mag-Al 1200 mg/1200 mg/30 ML UDCUP ONE (21:30)
[2025-06-26 21:38] LABS: #Basophils 0.08 10x3/uL (0.0-0.2); #Eosinophils 0.16 10x3/uL (0.0-0.7); #Monocytes 0.59 10x3/uL (0.11-0.59); #Neutrophils 6.29 10x3/uL (1.40-6.50); %Basophils 1.0 % (0.0-1.0); %Eosinophils 2.0 % (0.0-10.0); %Lymphocytes 10.3 % (21.0-51.0); %Monocytes 7.4 % (0.0-10.0); %Neutrophils 78.9 % (42.0-75.0); Hematocrit 33.0 % (36.0-47.0); Hemoglobin 10.5 g/dL (12.0-16.0); Mean Corpuscular Hemoglobin 31.4 pg (27.0-31.0); Mean Corpuscular Volume 98.8 fL (78.0-98.0); Platelet Count 259 10x3/uL (130-400); Red Blood Cell (RBC) Count 3.34 mill/uL (4.20-5.40); White Blood Cell (WBC) Count 7.97 10x3/uL (4.8-10.8)
[2025-06-26 22:11] LABS: ALT (SGPT) 15 U/L (Less than 34); AST (SGOT) 29 U/L (11-34); Albumin 3.4 g/dL (3.1-4.5); Alkaline Phosphatase 154 U/L (40-110); Anion Gap 18 mmol/L (10-20); BUN (Urea Nitrogen) 21 mg/dL (9.8-20.1); Bilirubin, Total 1.3 mg/dL (0.3-1.2); Calc. Creatinine Clearance 0 mL/min (70-130); Calcium 8.9 mg/dL (7.8-10.44); Carbon Dioxide 29 mmol/L (23-31); Chloride 93 mmol/L (98-107); Globulin 4.3 g/dL (2.4-3.5); Glucose 104 mg/dL (80-115); Potassium 3.8 mmol/L (3.5-5.1); Sodium 136 mmol/L (136-145)
[2025-06-26] MEDS ORDERED: Aspirin Chewable 81 MG TAB ONE (23:18)
[2025-06-26] MEDS ORDERED: Ondansetron PF 4 MG/2 ML Vial IVP PRN (23:41)
[2025-06-27 00:45] VITALS: BMI 39.2
[2025-06-27] MEDS ORDERED: Glucagon 1 MG/ML KIT IM PRN (01:38)
[2025-06-27] MEDS ORDERED: Dextrose 50% Abboject 50 ML SYRINGE SLOW IVP PRN (01:38)
[2025-06-27] MEDS: Acetaminophen/Codeine 30-300mg Tablet PO SCH (01:48)
[2025-06-27] MEDS: Mirtazapine 15 MG TAB PO SCH ×2 (02:12→20:59)
[2025-06-27] MEDS: Apixaban 5 MG TAB PO SCH (09:29)
[2025-06-27] MEDS: Gabapentin 300 MG CAP PO SCH (09:30)
[2025-06-27] MEDS: Insulin Glargine 30 UNITS/0.3 ML VIAL SC SCH (09:31)
[2025-06-27] MEDS: Famotidine 20 MG TAB PO SCH (09:31)
[2025-06-27] MEDS: Magnesium Oxide 400 MG TAB PO SCH (09:31)
[2025-06-27] MEDS: Cyanocobalamin (Vitamin B-12) 1,000 MCG TAB PO SCH (09:31)
[2025-06-27] MEDS: Isosorbide Mononitrate 30 MG ER.TAB.S PO SCH (09:31)
[2025-06-27 10:44] LABS: Hematocrit 29.1 % (36.0-47.0); Hemoglobin 9.2 g/dL (12.0-16.0); Mean Corpuscular Hemoglobin 31.8 pg (27.0-31.0); Mean Corpuscular Volume 100.7 fL (78.0-98.0); Platelet Count 211 10x3/uL (130-400); Red Blood Cell (RBC) Count 2.89 mill/uL (4.20-5.40); White Blood Cell (WBC) Count 5.83 10x3/uL (4.8-10.8)
[2025-06-27 11:19] LABS: Anion Gap 14 mmol/L (10-20); BUN (Urea Nitrogen) 33 mg/dL (9.8-20.1); Calc. Creatinine Clearance 29 mL/min (70-130); Calcium 8.8 mg/dL (7.8-10.44); Carbon Dioxide 29 mmol/L (23-31); Chloride 95 mmol/L (98-107); Glucose 145 mg/dL (80-115); Potassium 3.9 mmol/L (3.5-5.1); Sodium 134 mmol/L (136-145)
[2025-06-27] MEDS ORDERED: hydrALAZINE 20 MG/ML VIAL SLOW IVP PRN (12:00)
[2025-06-27] MEDS ORDERED: Albuterol 2.5 MG (3 mL) NEB NEB PRN (13:00)
[2025-06-27] MEDS ORDERED: VELPHORO DT SCH (17:00)
[2025-06-27] MEDS: HYDROcodone/Acetaminophen 5/325 mg Tablet PO PRN (17:28)
[2025-06-28] MEDS: Acetaminophen 325 MG TAB PO PRN (02:46)
[2025-06-28] MEDS: Diclofenac 1% 50 GM TOPICAL GEL TP PRN (02:47)
[2025-06-28 05:56] LABS: Anion Gap 19 mmol/L (10-20); BUN (Urea Nitrogen) 44 mg/dL (9.8-20.1); Calc. Creatinine Clearance 25 mL/min (70-130); Calcium 8.8 mg/dL (7.8-10.44); Carbon Dioxide 24 mmol/L (23-31); Chloride 95 mmol/L (98-107); Glucose 155 mg/dL (80-115); Potassium 5.2 mmol/L (3.5-5.1); Sodium 133 mmol/L (136-145)
[2025-06-28] MEDS: Ipratropium Bromide 2.5 ml Neb NEB SCH (06:31)
[2025-06-28] MEDS ORDERED: Vortioxetine Hydrobromide [Trintellix] 20 MG Tablet PO SCH (09:00)
[2025-06-28] MEDS: Folic Acid/Vit B Comp W-C PO SCH (09:44)
[2025-06-28 09:58] LABS: #Basophils 0.08 10x3/uL (0.0-0.2); #Eosinophils 0.14 10x3/uL (0.0-0.7); #Monocytes 0.44 10x3/uL (0.11-0.59); #Neutrophils 4.09 10x3/uL (1.40-6.50); %Basophils 1.4 % (0.0-1.0); %Eosinophils 2.4 % (0.0-10.0); %Lymphocytes 17.8 % (21.0-51.0); %Monocytes 7.5 % (0.0-10.0); %Neutrophils 69.9 % (42.0-75.0); Hematocrit 31.1 % (36.0-47.0); Hemoglobin 10.3 g/dL (12.0-16.0); Mean Corpuscular Hemoglobin 32.1 pg (27.0-31.0); Mean Corpuscular Volume 96.9 fL (78.0-98.0); Platelet Count 212 10x3/uL (130-400); Red Blood Cell (RBC) Count 3.21 mill/uL (4.20-5.40); White Blood Cell (WBC) Count 5.85 10x3/uL (4.8-10.8)
[2025-06-28 12:01] LABS: Polychromasia SLIGHT = 2-3 cells (100X) (0-2/hpf)
[2025-06-28 12:03] LABS: Anisocytosis SLIGHT = 6-15 cells (100X) (0-5/hpf)
[2025-06-28 12:04] LABS: Burr Cells MODERATE= 6-15 cells (100X) (0-1/hpf); Ovalocytes SLIGHT = 2-5 cells (100X) (0-1/hpf)
[2025-06-28] MEDS: LOKELMA 10 GM PACKET PO SCH (12:06)
[2025-06-28 13:18] VITALS: BMI 39.2
[2025-06-29 04:39] LABS: #Basophils 0.07 10x3/uL (0.0-0.2); #Eosinophils 0.12 10x3/uL (0.0-0.7); #Monocytes 0.54 10x3/uL (0.11-0.59); #Neutrophils 5.98 10x3/uL (1.40-6.50); %Basophils 0.9 % (0.0-1.0); %Eosinophils 1.6 % (0.0-10.0); %Lymphocytes 11.5 % (21.0-51.0); %Monocytes 7.1 % (0.0-10.0); %Neutrophils 78.5 % (42.0-75.0); Hematocrit 27.6 % (36.0-47.0); Hemoglobin 8.5 g/dL (12.0-16.0); Mean Corpuscular Hemoglobin 31.7 pg (27.0-31.0); Mean Corpuscular Volume 103.0 fL (78.0-98.0); Platelet Count 230 10x3/uL (130-400); Red Blood Cell (RBC) Count 2.68 mill/uL (4.20-5.40); White Blood Cell (WBC) Count 7.62 10x3/uL (4.8-10.8)
[2025-06-29 04:55] LABS: Anion Gap 15 mmol/L (10-20); BUN (Urea Nitrogen) 58 mg/dL (9.8-20.1); Calc. Creatinine Clearance 21 mL/min (70-130); Calcium 9.4 mg/dL (7.8-10.44); Carbon Dioxide 27 mmol/L (23-31); Chloride 93 mmol/L (98-107); Glucose 163 mg/dL (80-115); Potassium 5.3 mmol/L (3.5-5.1); Sodium 130 mmol/L (136-145)
[2025-06-29] MEDS ORDERED: Albumin 25% 25 GM (100 mL) BOT IVPB SCH (11:30)
[2025-06-29] MEDS: Calcium Carbonate 500 MG ChewTAB PO PRN (21:34)
[2025-06-30 06:08] LABS: Anion Gap 17 mmol/L (10-20); BUN (Urea Nitrogen) 50 mg/dL (9.8-20.1); Calc. Creatinine Clearance 23 mL/min (70-130); Calcium 9.6 mg/dL (7.8-10.44); Carbon Dioxide 26 mmol/L (23-31); Chloride 92 mmol/L (98-107); Glucose 115 mg/dL (80-115); Potassium 5.3 mmol/L (3.5-5.1); Sodium 130 mmol/L (136-145)
[2025-06-30 13:39] VITALS: TEMP 97.6
[2025-06-30 20:11] VITALS: BP 131/62
[2025-07-01] MEDS ORDERED: EPOETIN ALFA-EPBX (ESRD) 10,000 UNITS/ML VIAL IVP SCH (09:00)
[2025-07-02] MEDS ORDERED: Cholecalciferol 1,000 UNITS (25 MCG) TAB PO SCH (09:00)
== END 2025-06-30 21:41 | DRG 313 ==
LOC: ERS 20:51 → 2NO 23:42 → OBSVTOIN 06-28 16:21
PROVIDERS: ADMIT Student in an Organized Health Care Education/Training Program; ATTEND Internal Medicine
PROC: 30233J1 Transfusion of Nonautologous Serum Albumin into Peripheral Vein, Percutaneous Approach (ICD-10-PCS; 2025-06-29)
PROC: 5A1D70Z Performance of Urinary Filtration, Intermittent, Less than 6 Hours Per Day (ICD-10-PCS; principal; 2025-06-30)
DX: R07.89 Other chest pain (principal); N18.6 End stage renal disease; I48.91 Unspecified atrial fibrillation; Z88.5 Allergy status to narcotic agent; Z98.890 Other specified postprocedural states; I12.9 Hypertensive chronic kidney disease with stage 1 through stage 4 chronic kidney disease, or unspecified chronic kidney disease; E03.9 Hypothyroidism, unspecified; Z95.1 Presence of aortocoronary bypass graft; E66.01 Morbid (severe) obesity due to excess calories; E11.9 Type 2 diabetes mellitus without complications; I25.10 Atherosclerotic heart disease of native coronary artery without angina pectoris; E78.5 Hyperlipidemia, unspecified; G47.00 Insomnia, unspecified; Z68.39 Body mass index [BMI] 39.0-39.9, adult; D64.9 Anemia, unspecified; E87.5 Hyperkalemia; Z72.0 Tobacco use; G47.33 Obstructive sleep apnea (adult) (pediatric); Z79.899 Other long term (current) drug therapy; Z79.890 Hormone replacement therapy
CPT/HCPCS: 36415; 36416; 71045; 80048; 80053; 83880; 84484; 85025; 85027; 93005; 93970; 94640; 96374; G0378; J1308; J1815; J7644; Q0177